=== PATIENT | male | born 1955 | race Caucasian/White ===

== ENCOUNTER 2016-11-25 15:44 | Inpatient (IN) | payer OTHER ==
[~2016-11-25] VITALS: Ht 170.2 cm; Wt 92.5 kg
[2016-11-25] VITALS (7 sets, daily range): BP systolic 138–184; BP diastolic 66–90; PULSE 68–78; RESP 16–19; TEMP 97.8–98.2; O2SAT 97–99
[~2016-11-25 15:44] MED LIST: ASCOPOW5 PO; BUSP10TA PO; FURO40TA PO; GABA100C4 PO; LANTUS2P SQ; NOVOLOGMXP SQ; SPIR100T PO; TAMS0.4C4 PO; VITAMIN B PO; ZOFR4TAB3 SL; [UNRECOGNIZED DRUG - CODE] PO
[2016-11-25] MEDS ORDERED: SODIUM CHLORIDE 0.9% FLUSH 10 ML FLUSH IV FLUSH PRN (17:30)
--- NOTE | 2016-11-25 17:37 | PD ---
HPI Chief Complaint: Psychiatric Symptoms Time Seen by Provider: 17:28 Travel History International Travel<30 days: No Contact w/Intl Traveler<30days: No Traveled to known affect area: No History of Present Illness HPI 61-year-old male presents to the emergency department sent by the [place] for evaluation of worsening abdominal pain. Patient was seen here last night for an "not feeling well, nausea". Patient states that he went to the [place] today and drained 2 L of fluid off of his abdomen while there. He states that they referred him to the emergency department for culture of the peritoneal fluid. He denies any fevers or chills. No chest pain or shortness of breath. He states that he is having worsening pain over the right upper quadrant where his catheter is. On exam, the patient is erythema to the abdomen. He states he cannot see it and did not know it was there. Patient reports history of anemia , denies any sources of bleeding at this time. Patient's history of liver cirrhosis due to alcoholism. He states he has not held any alcohol since March 20. Patient had paracentesis catheter placed at [facility]. PFS Past Medical History Anemia: Yes Anxiety: No Depression: Yes Cancer: No Cardiovascular Problems: Yes Cirrhosis: Yes Cerebrovascular Accident: No Diabetes: Yes Diminished Hearing: No Endocrine: Yes Gastrointestinal Disorders: Yes (GI BLEED) GERD: Yes Genitourinary: No Hepatitis: Yes (HEP C ) Hypertension: Yes Immune Disorder: No Musculoskeletal: No Neurologic: No Psychiatric: Yes Reproductive: No Respiratory: No Pancreatitis: Yes Thyroid Disease: No ?: Not Past Surgical History Abdominal Surgery: Yes (cholecystectomy) Cardiac Surgery: No Cholecystectomy: Yes (2004) Ear Surgery: No Endocrine Surgery: No Eye Surgery: No Genitourinary Surgery: No Gynecologic Surgery: No Oral Surgery: No Pacemaker: No Thoracic Surgery: No Other Surgery: Yes (BANDING FOR GI BLEED IN JAN 2013, BANDING IN FEB 2013, BANDING IN MAY 2012,) Social History Alcohol Use: Yes (03/20/16 LAST DRINK) Tobacco Use: No Substance Use: No Allergies-Medications (Allergen,Severity, Reaction): Coded Allergies: *MDRO Multi-Drug Resistant Organism (Verified Adverse Reaction, Unknown, ) MRSA PCR screen POSITIVE - 12/23/15 Reported Meds & Prescriptions Reported Meds & Active Scripts Active Reported Vitamin B-1 (Thiamine HCl) 100 Mg Tab 100 Mg PO DAILY Propranolol (Propranolol HCl) 20 Mg Tab 20 Mg PO DAILY Lactulose Liq (Lactulose) 10 Gm/15 Ml Soln 30 Ml PO BID PRN Pantoprazole (Pantoprazole Sodium) 40 Mg Tab 40 Mg PO DAILY Ferrous Gluconate 325 Mg Tab 324 Mg PO DAILY Escitalopram (Escitalopram Oxalate) 20 Mg Tab 20 Mg PO DAILY D3 (Cholecalciferol) 1,000 Unit Tab PO DAILY Doxepin (Doxepin HCl) 50 Mg Cap 50 Mg PO HS Lantus Inj (Insulin Glargine) 100 Unit/Ml Inj 40 Unit SQ HS Novolog Mix 70-30 Inj (Insulin Aspart Prota 70%/Aspart 30%) 1,000 Unit/10 Ml Vial 30 Unit SQ BID Ascorbic Acid (Ascorbic Acid (Bulk)) 1 Pow Pow 500 Mg PO DAILY Gabapentin 100 Mg Cap 300 Mg PO TID Furosemide 40 Mg Tab 40 Mg PO DAILY Tamsulosin (Tamsulosin HCl) 0.4 Mg Cap 0.4 Mg PO DAILY Buspirone (Buspirone HCl) 10 Mg Tab 10 Mg PO BID Spironolactone 100 Mg Tab 100 Mg PO BID Review of Systems Except as stated in HPI: all other systems reviewed are Neg Physical Exam Narrative GENERAL: Well-nourished, well-developed male patient, afebrile. SKIN: Focused skin assessment warm/dry. Patient has mild erythema to the right/ lower abdomen. He has more significant erythema around the catheter site. HEAD: Normocephalic. Atraumatic. EYES: No scleral icterus. No injection or drainage. NECK: Supple, trachea midline. No JVD or lymphadenopathy. CARDIOVASCULAR: Regular rate and rhythm without murmurs, gallops, or rubs. RESPIRATORY: Breath sounds equal bilaterally. No accessory muscle use. GASTROINTESTINAL: Abdomen distended, diffuse tenderness to palpation. MUSCULOSKELETAL: No cyanosis, or edema. BACK: Nontender without obvious deformity. No CVA tenderness. Data Data Last Documented VS Vital Signs Date Time Temp Pulse Resp B/P Pulse Ox O2 Delivery O2 Flow Rate FiO2 11/25/16 19:23 75 16 149/72 99 Room Air 11/25/16 17:15 97.8 Orders Complete Blood Count With Diff (11/25/16 17:22) Comprehensive Metabolic Panel (11/25/16 17:22) Lipase (11/25/16 17:22) Prothrombin Time / Inr (Pt) (11/25/16 17:22) Act Partial Throm Time (Ptt) (11/25/16 17:22) Urinalysis - C+S If Indicated (11/25/16 17:22) Iv Access Insert/Monitor (11/25/16 17:22) Ecg Monitoring (11/25/16 17:22) Oximetry (11/25/16 17:22) Sodium Chloride 0.9% Flush (Ns Flush) (11/25/16 17:30) Electrocardiogram (11/25/16 17:22) Peritoneal Cell Count + Diff (11/25/16 17:37) Total Protein Peritoneal Fluid (11/25/16 17:37) Albumin, Peritoneal Fluid (11/25/16 17:37) Glucose, Peritoneal Fluid (11/25/16 17:37) Ldh, Peritoneal Fluid (11/25/16 17:37) Amylase, Peritoneal Fluid (11/25/16 17:37) Fluid Culture And Gram Stain (11/25/16 17:37) Ldh Serum (11/25/16 17:37) Ceftriaxone Inj (Rocephin Inj) (11/25/16 18:15) Morphine Inj (Morphine Inj) (11/25/16 19:30) Labs Laboratory Tests Test 11/25/16 11/25/16 11/25/16 11/25/16 12:35 15:50 17:35 17:50 White Blood Count 3.3 TH/MM3 Red Blood Count 2.82 MIL/MM3 Hemoglobin 7.9 GM/DL Hematocrit 23.8 % Mean Corpuscular Volume 84.7 FL Mean Corpuscular Hemoglobin 28.1 PG Mean Corpuscular Hemoglobin 33.1 % Concent Red Cell Distribution Width 19.4 % Platelet Count 68 TH/MM3 Mean Platelet Volume 7.5 FL Neutrophils (%) (Auto) 62.6 % Lymphocytes (%) (Auto) 17.3 % Monocytes (%) (Auto) 15.3 % Eosinophils (%) (Auto) 4.0 % Basophils (%) (Auto) 0.8 % Neutrophils # (Auto) 2.1 TH/MM3 Lymphocytes # (Auto) 0.6 TH/MM3 Monocytes # (Auto) 0.5 TH/MM3 Eosinophils # (Auto) 0.1 TH/MM3 Basophils # (Auto) 0.0 TH/MM3 CBC Comment AUTO DIFF Differential Comment AUTO DIFF CONFIRMED Platelet Estimate LOW Platelet Morphology Comment NORMAL Peritoneal Fluid WBC 77 /MM3 Peritoneal Fluid RBC 990 /MM3 Peritoneal Fluid Neutrophils 3 % Peritoneal Fluid Lymphocytes 36 % Peritoneal Fluid Monocytes 9 % Peritoneal Fluid Mesothelial 7 % Cells Peritoneal Fluid Histiocytes 45 % Peritoneal Fluid Total Protein 0.9 GM/DL Peritoneal Fluid Albumin 0.3 G/DL Peritoneal Fluid LDH 61 U/L Peritoneal Fluid Glucose 246 MG/DL Prothrombin Time 15.0 SEC Prothromb Time International 1.3 RATIO Ratio Activated Partial 31.7 SEC Thromboplast Time Sodium Level 135 MEQ/L Potassium Level 4.2 MEQ/L Chloride Level 103 MEQ/L Carbon Dioxide Level 28.3 MEQ/L Anion Gap 4 MEQ/L Blood Urea Nitrogen 19 MG/DL Creatinine 0.85 MG/DL Estimat Glomerular Filtration 92 ML/MIN Rate Random Glucose 199 MG/DL Calcium Level 7.5 MG/DL Total Bilirubin 1.3 MG/DL Aspartate Amino Transf 144 U/L (AST/SGOT) Alanine Aminotransferase 75 U/L (ALT/SGPT) Alkaline Phosphatase 98 U/L Total Protein 6.0 GM/DL Albumin 2.3 GM/DL Lipase 122 U/L Test 11/25/16 18:00 Urine Color YELLOW Urine Turbidity CLEAR Urine pH 5.5 Urine Specific Paul 1.026 Urine Protein NEG mg/dL Urine Glucose (UA) 70 mg/dL Urine Ketones NEG mg/dL Urine Occult Blood NEG Urine Nitrite NEG Urine Bilirubin NEG Urine Urobilinogen 2.0 MG/DL Urine Leukocyte Esterase NEG Urine RBC 1 /hpf Urine WBC 1 /hpf Urine Squamous Epithelial <1 /hpf Cells Urine Hyaline Casts 2 /lpf Microscopic Urinalysis Comment CULT NOT INDICATED MDM Medical Decision Making Medical Screen Exam Complete: Yes Emergency Medical Condition: Yes Medical Record Reviewed: Yes Differential Diagnosis Bacterial peritonitis versus cirrhosis vs. ascites Narrative Course 61-year-old male presents to the emergency department sent by the [place] for peritoneal culture. Exam is concerning for possible bacterial peritonitis. CBC , CMP, lipase, PTT, PTT/INR, UA, peritoneal fluid examination and culture. During triage, apparently the patient also wanted to be seen for suicidal ideation according to the triage note. However, the patient denies this to me. He reports history of suicide attempts and ideation. However, he denies any thoughts of hurting himself or anybody else at this time. CBC shows leukopenia 3.3, hemoglobin 7.9, hematocrit 23.8. CMP shows glucose 199, bilirubin 1.3, AST 144. Lipase is 122. PT is 15.0, INR 1.3, PTT 31.7. UA is negative for infection. Peritoneal fluid shows to be BC 77, RBC 990. Patient is started on Rocephin [address] Horne accepted admission. Diagnosis Primary Impression: Bacterial peritonitis Additional Impressions: Cirrhosis of liver Qualified Code: K70.31 - Alcoholic cirrhosis of liver with ascites Ascites Qualified Code: K70.31 - Ascites due to alcoholic cirrhosis Anemia Qualified Code: D64.9 - Anemia, unspecified type Admitting Information Admitting Physician Requests: Admit Suellen Witt Nov 25, 2016 17:37
[2016-11-25] MEDS ORDERED: LACT10SO PO (17:47)
[2016-11-25] MEDS ORDERED: PANT40TA3 PO (17:47)
[2016-11-25] MEDS ORDERED: VITA100T54 PO (17:47)
[2016-11-25] MEDS ORDERED: ESCI20TA PO (17:47)
[2016-11-25] MEDS ORDERED: LACT10SO5 (17:47)
[2016-11-25] MEDS ORDERED: FERR325T72 PO (17:47)
[2016-11-25] MEDS ORDERED: D31000TA PO (17:47)
[2016-11-25] MEDS ORDERED: DOXE50CA3 PO (17:47)
[2016-11-25] MEDS ORDERED: PROP20TA3 PO (17:47)
--- NOTE | 2016-11-25 18:14 | PD ---
Data Data Last Documented VS Vital Signs Date Time Temp Pulse Resp B/P Pulse Ox O2 Delivery O2 Flow Rate FiO2 11/25/16 18:00 17 97 Room Air 11/25/16 17:15 86 11/25/16:15 97.8 146/67 Orders Complete Blood Count With Diff (11/25/16:22) Comprehensive Metabolic Panel (11/25/16:22) Lipase (11/25/16:22) Prothrombin Time / Inr (Pt) (11/25/16:) Act Partial Throm Time (Ptt) (11/25/16:22) Urinalysis - C+S If Indicated (11/25/16:22) Iv Access Insert/Monitor (11/25/16:22) Ecg Monitoring (11/25/16:) Oximetry (11/25/16:22) Sodium Chloride 0.9% Flush (Ns Flush) (11/25/16 17:30) Electrocardiogram (11/25/16:22) Peritoneal Cell Count + Diff (11/25/16 17:37) Total Protein Peritoneal Fluid (11/25/16 17:37) Albumin, Peritoneal Fluid (11/25/16 17:37) Glucose, Peritoneal Fluid (11/25/16 17:37) Ldh, Peritoneal Fluid (11/25/16 17:37) Amylase, Peritoneal Fluid (11/25/16 17:37) Fluid Culture And Gram Stain (11/25/16 17:37) Ldh Serum (11/25/16 17:37) Ceftriaxone Inj (Rocephin Inj) (11/25/16 18:15) MDM Supervised Visit with CORTES: Yes Narrative Course The history, exam, and medical decision-making in the associated mid-level provider note were completed with my assistance. I reviewed and agree with the findings presented. I attest that I had a [id number] encounter with the patient on the same day, and personally performed and documented my assessment and findings in the medical record. *My assessment and Findings: 61-year-old man with liver disease cirrhosis and recurrent ascites treated with a paracentesis catheter placed and likely known, PA. Here with not feeling well belly pain. He was seen here and had labs yesterday with essentially unremarkable as [facility] that he had labs done on his peritoneal fluid. He drains 2 L every 3 days. He doesn't some erythema on his belly. Some diffuse abdominal tenderness. There is some erythema around the catheter site as well. We are able to prep the catheter and drain fluid off. This will be sent to the lab for analysis. We'll place on antibiotics. We'll have IR evaluate the site, will likely need to be replaced. Kwadwo Amezquita MD Nov 25, 2016 18:14
[2016-11-25] MEDS ORDERED: cefTRIAXone INJ 2,000 MG in SODIUM CHLORIDE 0.9% INJ 100 ML IV ONE (18:15)
[2016-11-25 18:22] LABS: AUTOMATED NEUTROPHIL # 2.1 TH/MM3 (1.8-7.7); BASOPHIL % 0.8 % (0.0-2.0); EOSINOPHIL # 0.1 TH/MM3 (0-0.4); HEMATOCRIT 23.8 % (39.0-51.0); LYMPH % 17.3 % (9.0-44.0); LYMPHOCYTE # 0.6 TH/MM3 (1.0-4.8); MEAN CELL VOLUME 84.7 FL (80.0-100.0); MEAN CORPUSCULAR HEMOGLOBIN 28.1 PG (27.0-34.0); MEAN CORPUSCULAR HGB CONC 33.1 % (32.0-36.0); MONO % 15.3 % (0.0-8.0); NEUT % 62.6 % (16.0-70.0); PLATELET COUNT 68 TH/MM3 (150-450); RED BLOOD COUNT 2.82 MIL/MM3 (4.50-5.90); RED CELL DISTRIBUTION WIDTH 19.4 % (11.6-17.2); WHITE BLOOD COUNT 3.3 TH/MM3 (4.0-11.0)
[2016-11-25 18:24] LABS: BLOOD, URINE NEG (NEG); COMMENT (UR) CULT NOT INDICATED; CULTURE IF INDICATED CULT NOT INDICATED; GLUCOSE,URINE 70 mg/dL (NEG); HYALINE CAST, URINE 2 /lpf (RARE); KETONE, URINE NEG (NEG); NITRITE,URINE NEG (NEG); PH, URINE 5.5 (5.0-8.5); SQUAMOUS EPITHELIAL CELL URINE <1 /hpf (0-5); URINE COLOR YELLOW (YELLW/STRAW)
[2016-11-25 18:27] LABS: HEMO FLAGS AUTO DIFF
[2016-11-25 18:38] LABS: ANION GAP 4 MEQ/L (5-15); AST (GOT) 144 U/L (15-37); BICARBONATE 28.3 MEQ/L (21.0-32.0); BLOOD UREA NITROGEN 19 MG/DL (7-18); CHLORIDE 103 MEQ/L (98-107); GLOMERULAR FILTRATION RATE 92 ML/MIN (>89); POTASSIUM 4.2 MEQ/L (3.5-5.1); SODIUM (NA) 135 MEQ/L (136-145)
[2016-11-25 18:41] LABS: ALKALINE PHOSPHATASE 98 U/L (45-117); ALT (GPT) 75 U/L (12-78); TOTAL BILIRUBIN ADULT 1.3 MG/DL (0.2-1.0)
[2016-11-25 18:41] LABS: APTT (PATIENT) 31.7 SEC (24.3-30.1); INTERNATIONAL NORMALIZED RATIO 1.3 RATIO
[2016-11-25 19:06] LABS: PLATELET ESTIMATE SMEAR LOW (NORMAL); PLATELET MORPHOLOGY NORMAL (NORMAL); SCAN/DIFF AUTO DIFF CONFIRMED
[2016-11-25 19:16] LABS: PERITONEAL HISTIOCYTES 45 %; PERITONEAL LYMPHS 36 %; PERITONEAL MESOTHELIAL 7 %; PERITONEAL MONOS 9 %; PERITONEAL POLYS(SEGS) 3 %; PERITONEAL WBC 77 /MM3 (0-10)
[2016-11-25] MEDS ORDERED: MORPHINE SULFATE 4 MG/ML INJ IV PUSH ONE (19:30)
[2016-11-25] MEDS ORDERED: NALOXONE HCL 0.4 MG/ML AMP IV PRN (20:30)
[2016-11-25] MEDS: SODIUM CHLORIDE 0.9% FLUSH 10 ML FLUSH IV FLUSH SCH (21:01)
[2016-11-25] MEDS: LEVOFLOXACIN 750 MG PREMIX INJ 150 ML IV SCH (21:01)
[2016-11-25 23:25] LABS: LDH SERUM 314 U/L (87-241)
[2016-11-26] VITALS (9 sets, daily range): BP systolic 107–165; BP diastolic 64–73; PULSE 54–82; RESP 16–19; TEMP 97.6–98; O2SAT 95–98
[2016-11-26] MEDS ORDERED: MORPHINE SULFATE 4 MG/ML INJ IV PUSH ONE (01:00)
--- NOTE | 2016-11-26 03:25 | HHI.HP ---
HPI Service [facility] Phys[facility] Admission Diagnosis possible bacterial peritonitis Diagnoses: Chief Complaint: pain, redness and drainage around peritoneal drain site Travel History International Travel<30 Days: No Contact w/Intl Traveler <30 Da: No Traveled to Known Affected Are: No History of Present Illness Written by LIVIER Recinos acting as scribe for [Ozzie] on 11/26/16 at 03: 11. 61 y/o male with a history of cirrhosis, Hep C, DM, HTN and anemia was [facility] for evaluation of peritoneal fluid. Patient has a peritoneal catheter in place and he states it has been red with purulent drainage around the site, with associated nausea. He also complains of pain around the site, worse with movement and improves with medication. He denies any vomiting, chest pain, fever or chills. He does get sob when the fluid accumulates, but he is not currently sob. Review of Systems Except as stated in HPI: all other systems reviewed are Neg Past Family Social History Past Medical History Cirrhosis Hep C DM HTN Anemia Esophageal varices Past Surgical History Cholecystectomy 2005 Esophageal banding Reported Medications Reported Meds & Active Scripts Active Reported Vitamin B-1 (Thiamine HCl) 100 Mg Tab 100 Mg PO DAILY Propranolol (Propranolol HCl) 20 Mg Tab 20 Mg PO DAILY Lactulose Liq (Lactulose) 10 Gm/15 Ml Soln 30 Ml PO BID PRN Pantoprazole (Pantoprazole Sodium) 40 Mg Tab 40 Mg PO DAILY Ferrous Gluconate 325 Mg Tab 324 Mg PO DAILY Escitalopram (Escitalopram Oxalate) 20 Mg Tab 20 Mg PO DAILY D3 (Cholecalciferol) 1,000 Unit Tab PO DAILY Doxepin (Doxepin HCl) 50 Mg Cap 50 Mg PO HS Lantus Inj (Insulin Glargine) 100 Unit/Ml Inj 40 Unit SQ HS Novolog Mix 70-30 Inj (Insulin Aspart Prota 70%/Aspart 30%) 1,000 Unit/10 Ml Vial 30 Unit SQ BID Ascorbic Acid (Ascorbic Acid (Bulk)) 1 Pow Pow 500 Mg PO DAILY Gabapentin 100 Mg Cap 300 Mg PO TID Furosemide 40 Mg Tab 40 Mg PO DAILY Tamsulosin (Tamsulosin HCl) 0.4 Mg Cap 0.4 Mg PO DAILY Buspirone (Buspirone HCl) 10 Mg Tab 10 Mg PO BID Spironolactone 100 Mg Tab 100 Mg PO BID Allergies: Coded Allergies: *MDRO Multi-Drug Resistant Organism (Verified Adverse Reaction, Unknown, ) MRSA PCR screen POSITIVE - 12/23/15 Active Ordered Medications Current Medications Medications (Trade) Dose Ordered Sig/Fortino Route Start Time Stop Time Status Last Admin (NS Flush) 2 ml UNSCH PRN IV FLUSH 11/25/16 20:30 (NS Flush) 2 ml BID IV FLUSH 11/25/16 21:00 11/25/16 21:01 Naloxone HCl 0.4 mg 0.4 mg UNSCH PRN IV 11/25/16 20:30 (Levaquin 750 Mg Premix Inj) 150 ml @ 100 mls/hr Q24H IV 11/25/16 21:00 11/25/16 21:01 Family History Mom: Depression Brother: Cancer Social History Tobacco use: Denies Alcohol use: Quit 03/2016, prior was a heavy drinker Patient is currently homeless Physical Exam Vital Signs Vital Signs Date Time Temp Pulse Resp B/P Pulse Ox O2 Delivery O2 Flow Rate FiO2 11/26/16 00:59 98.0 68 18 165/70 98 11/25/16 21:40 98.2 78 18 184/80 97 11/25/16 21:15 75 16 138/90 93 11/25/16 19:23 75 16 149/72 99 Room Air 11/25/16 18:00 17 97 Room Air 11/25/16 17:15 86 16 11/25/16 17:15 97.8 78 17 146/67 97 Room Air 11/25/16 15:58 98.0 68 19 138/66 97 Room Air Physical Exam GENERAL: This is a well-nourished, well-developed patient, in no apparent distress. SKIN: No rashes, ecchymoses or lesions. Cool and dry. HEAD: Atraumatic. Normocephalic EYES: Pupils equal round and reactive. Extraocular motions intact. ENT: Nose without bleeding, purulent drainage or septal hematoma. NECK: Trachea midline. No JVD or lymphadenopathy. Supple, nontender, no meningeal signs. CARDIOVASCULAR: Regular rate and rhythm without murmurs, gallops, or rubs. RESPIRATORY: Clear to auscultation. Breath sounds equal bilaterally. No wheezes , rales, or rhonchi. GASTROINTESTINAL: Abdomen soft, tender and distended. No hepato-splenomegaly, or palpable masses. No guarding. Right peritoneal drain in place with purulent drainage around site. MUSCULOSKELETAL: Extremities without clubbing, cyanosis, or edema. No joint tenderness, effusion, or edema noted. No calf tenderness. NEUROLOGICAL: Awake and alert. Motor and sensory grossly within normal limits. Normal speech. Laboratory Laboratory Tests Test 11/25/16 11/25/16 11/25/16 11/25/16 12:35 15:50 17:35 17:50 White Blood Count 3.3 Red Blood Count 2.82 Hemoglobin 7.9 Hematocrit 23.8 Mean Corpuscular Volume 84.7 Mean Corpuscular Hemoglobin 28.1 Mean Corpuscular Hemoglobin 33.1 Concent Red Cell Distribution Width 19.4 Platelet Count 68 Mean Platelet Volume 7.5 Neutrophils (%) (Auto) 62.6 Lymphocytes (%) (Auto) 17.3 Monocytes (%) (Auto) 15.3 Eosinophils (%) (Auto) 4.0 Basophils (%) (Auto) 0.8 Neutrophils # (Auto) 2.1 Lymphocytes # (Auto) 0.6 Monocytes # (Auto) 0.5 Eosinophils # (Auto) 0.1 Basophils # (Auto) 0.0 CBC Comment AUTO DIFF Differential Comment AUTO DIFF CONFIRMED Platelet Estimate LOW Platelet Morphology Comment NORMAL Peritoneal Fluid WBC 77 Peritoneal Fluid RBC 990 Peritoneal Fluid Neutrophils 3 Peritoneal Fluid Lymphocytes 36 Peritoneal Fluid Monocytes 9 Peritoneal Fluid Mesothelial 7 Cells Peritoneal Fluid Histiocytes 45 Peritoneal Fluid Total Protein 0.9 Peritoneal Fluid Albumin 0.3 Peritoneal Fluid LDH 61 Peritoneal Fluid Glucose 246 Prothrombin Time 15.0 Prothromb Time International 1.3 Ratio Activated Partial 31.7 Thromboplast Time Sodium Level 135 Potassium Level 4.2 Chloride Level 103 Carbon Dioxide Level 28.3 Anion Gap 4 Blood Urea Nitrogen 19 Creatinine 0.85 Estimat Glomerular Filtration 92 Rate Random Glucose 199 Calcium Level 7.5 Total Bilirubin 1.3 Aspartate Amino Transf 144 (AST/SGOT) Alanine Aminotransferase 75 (ALT/SGPT) Alkaline Phosphatase 98 Lactate Dehydrogenase 314 Total Protein 6.0 Albumin 2.3 Lipase 122 Test 11/25/16 18:00 Urine Color YELLOW Urine Turbidity CLEAR Urine pH 5.5 Urine Specific Warren 1.026 Urine Protein NEG Urine Glucose (UA) 70 Urine Ketones NEG Urine Occult Blood NEG Urine Nitrite NEG Urine Bilirubin NEG Urine Urobilinogen 2.0 Urine Leukocyte Esterase NEG Urine RBC 1 Urine WBC 1 Urine Squamous Epithelial <1 Cells Urine Hyaline Casts 2 Microscopic Urinalysis Comment CULT NOT INDICATED Date/Time Procedure Status Source Growth 11/25/16 15:50 Gram Stain Received Fluid Peritoneal Fluid Pending 11/25/16 15:50 Body Fluid Culture Received Fluid Peritoneal Fluid Pending Result Diagram: 11/25/16 1235 11/25/16 1750 Assessment and Plan Problem List: (1) Bacterial peritonitis ICD Code: K65.9 Status: Acute (2) DM (diabetes mellitus) ICD Code: E11.9 Status: Chronic (3) HTN (hypertension) ICD Code: I10 Status: Chronic Assessment and Plan 61 y/o male with a history of cirrhosis, Hep C, DM, HTN and anemia [facility]. Patient has a peritoneal catheter in place and he states it has been red with purulent drainage around the site, with associated nausea. Bacterial peritonitis, patient with peritoneal catheter in place, peritoneal wbc 77 -Consult IR for replacement of catheter -Antibiotics: Levaquin IV -Pain management with IV morphine Anemia, chronic, hgb 7.9 -Cont home ferrous sulfate -Trend CBC, will transfuse if hgb drops below 7 DM, chronic -Accu checks -Will restart home insulin post IR procedure HTN, chronic - Resume home medications propranolol DVT prophylaxis: SCDs This note was transcribed by anne [Edith Stallings]. I, Dr. Yajaira Horne personally performed the history, physical exam, and medical decision making; and confirmed the accuracy of the information in the transcribed note. Authenticated by Dr. Yajaira Horne on 11/26/16 at 03:11. Discussed Condition With Patient and RN Physician Certification 2 Midnight Certification Type: Admission for Inpatient Services Order for Inpatient Services The services are ordered in accordance with Medicare regulations or non- Medicare payer requirements, as applicable. In the case of services not specified as inpatient-only, they are appropriately provided as inpatient services in accordance with the 2-midnight benchmark. Estimated LOS (days): 2 days is the estimated time the patient will need to remain in the hospital, assuming treatment plan goals are met and no additional complications. Post-Hospital Plan: Home Edith Stallings Nov 26, 2016 03:25 Yajaira Horne MD Nov 26, 2016 07:28
[2016-11-26] MEDS ORDERED: LACTULOSE SYRUP 20 GM/30 ML CUP PO PRN (04:30)
[2016-11-26 08:10] LABS: AUTOMATED NEUTROPHIL # 2.3 TH/MM3 (1.8-7.7); BASOPHIL % 0.7 % (0.0-2.0); EOSINOPHIL # 0.2 TH/MM3 (0-0.4); EOSINOPHIL % 5.1 % (0.0-4.0); HEMATOCRIT 24.7 % (39.0-51.0); LYMPH % 16.5 % (9.0-44.0); LYMPHOCYTE # 0.6 TH/MM3 (1.0-4.8); MEAN CORPUSCULAR HEMOGLOBIN 27.5 PG (27.0-34.0); MEAN CORPUSCULAR HGB CONC 32.7 % (32.0-36.0); NEUT % 66.7 % (16.0-70.0); PLATELET COUNT 65 TH/MM3 (150-450); RED BLOOD COUNT 2.94 MIL/MM3 (4.50-5.90); RED CELL DISTRIBUTION WIDTH 19.7 % (11.6-17.2); WHITE BLOOD COUNT 3.5 TH/MM3 (4.0-11.0)
[2016-11-26 08:19] LABS: HEMO FLAGS AUTO DIFF
[2016-11-26 08:21] LABS: BICARBONATE 25.8 MEQ/L (21.0-32.0); POTASSIUM 3.6 MEQ/L (3.5-5.1)
[2016-11-26] MEDS: busPIRone HCL 10 MG TAB PO SCH ×2 (09:06→21:35)
[2016-11-26] MEDS: PANTOPRAZOLE SOD 40 MG DELAYED RELEASE TAB PO SCH (09:06)
[2016-11-26] MEDS: ESCITALOPRAM OXALATE 20 MG TAB PO SCH (09:06)
[2016-11-26] MEDS: FERROUS SULFATE 325 MG (65 MG ELEMENTAL IRON) TAB PO SCH (09:07)
[2016-11-26] MEDS: ASCORBIC ACID 500 MG TAB PO SCH (09:07)
[2016-11-26] MEDS: SODIUM CHLORIDE 0.9% FLUSH 10 ML FLUSH IV FLUSH SCH ×2 (09:07→21:36)
[2016-11-26] MEDS: THIAMINE HCL 100 MG TAB PO SCH (09:07)
[2016-11-26] MEDS: TAMSULOSIN HCL 0.4 MG CAP PO SCH (09:07)
[2016-11-26] MEDS: SPIRONOLACTONE 100 MG TAB PO SCH ×2 (09:08→21:35)
[2016-11-26] MEDS: GABAPENTIN 100 MG CAP PO SCH ×3 (09:08→16:41)
[2016-11-26] MEDS: MORPHINE SULFATE 4 MG/ML INJ IV PUSH PRN ×3 (09:15→21:54)
[2016-11-26 09:18] LABS: OVALOCYTES 1+ (NORMAL); PLATELET ESTIMATE SMEAR LOW (NORMAL); PLATELET MORPHOLOGY NORMAL (NORMAL)
[2016-11-26 09:19] LABS: SCAN/DIFF AUTO DIFF CONFIRMED
--- NOTE | 2016-11-26 10:19 | HHI.PR ---
Subjective Remarks Follow up peritoneal catheter infection. Patient reporting pain in abdomen around the catheter site. Denies chest pain, dyspnea, nausea, vomiting. Objective Vitals Vital Signs Date Time Temp Pulse Resp B/P Pulse Ox O2 Delivery O2 Flow Rate FiO2 11/26/16 06:58 67 11/26/16 06:56 71 11/26/16 04:04 71 11/26/16 00:59 98.0 68 18 165/70 98 11/26/16 00:46 68 11/25/16 21:45 71 11/25/16 21:40 98.2 78 18 184/80 97 11/25/16 21:15 75 16 138/90 93 11/25/16 19:23 75 16 149/72 99 Room Air 11/25/16 18:00 17 97 Room Air 11/25/16 17:15 86 16 11/25/16 17:15 97.8 78 17 146/67 97 Room Air 11/25/16 15:58 98.0 68 19 138/66 97 Room Air Result Diagram: 11/26/16 0728 11/26/16727 Objective Remarks General: No acute distress. Heart: Regular rate and rhythm. No murmur. Lungs: Clear to auscultation bilaterally. No wheezes, rales, or rhonchi. Breathing is nonlabored. Abdomen: Soft, distended. Tenderness and erythema around catheter. There is also some pustular drainage around the catheter site. No tenderness over the rest of the abdomen. Extremities: 1+ bilateral lower extremity edema. Psych: Alert and oriented. Procedures None Urinary Catheter: No Vascular Central Line Catheter: No A/P Problem List: (1) DM (diabetes mellitus) ICD Code: E11.9 Status: Chronic (2) HTN (hypertension) ICD Code: I10 Status: Chronic (3) Anemia ICD Code: D64.9 Status: Chronic (4) Ascites ICD Code: R18.8 Status: Chronic (5) Cirrhosis of liver ICD Code: K74.60 Status: Chronic Assessment and Plan 1. Cellulitis at peritoneal catheter site: Continue IV antibiotics. Discussed with interventional radiology. They plan to remove the catheter today and give the patient a catheter holiday for a few days before replacing it. Gastroenterology consulted. 2. Cirrhosis of the liver with chronic ascites: Patient has indwelling peritoneal catheter for drainage of ascites. Consult GI. 3. Chronic anemia: Likely secondary to chronic disease. Continue iron sulfate. Transfuse if necessary. 4. Diabetes mellitus: Monitor Accu-Cheks and cover with sliding scale insulin. Basal insulin on hold as patient is nothing by mouth. 5. Hypertension: Continue propranolol. 6. DVT prophylaxis: SCDs. Problem Qualifiers (1) Anemia: Qualified Code: D64.9 - Anemia, unspecified type (2) Ascites: Qualified Code: K70.31 - Ascites due to alcoholic cirrhosis (3) Cirrhosis of liver: Qualified Code: K70.31 - Alcoholic cirrhosis of liver with ascites Alan Bains MD Nov 26, 2016 10:19
--- NOTE | 2016-11-26 11:45 | PD.CONS ---
HPI History of Present Illness This is a 61 year old male patient with a known hx of liver cirrhosis, esophageal varices, ascites, hepatitis C, GAVE, and GI bleeding. He was sent from the [place] for evaluation of redness and purulent drainage around a peritoneal drain and increased nausea. He was admitted for bacterial peritonitis and anemia. Peritoneal fluid from his peritoneal catheter was sent to lab and his cultures are pending. He was started on Levaquin and IR has been consulted for infection at the peritoneal drain site. He reports that he has recurrent ascites. Initially, he could go several months without needing a repeat paracentesis, but he reports that over the past month, he has been requiring more frequent paracentesis, usually about every 4-5 days. He is on Spironolactone 100mg po BID and Lasix 40mg po daily. He had a peritoneal drain placed 13 days ago. Since he has had the drain placed, he will open and drain the fluid about every 3 days. He came to the ER on Thursday afternoon complaining of abdominal pain. He reports that he was given a shot for nausea and sent on his way. He then followed up at the [place] yesterday and he complained of the pain and they sent him to the ER via ambulance for further evaluation. This is an intermittent RUQ pain without radiation that is sharp and related to movement. He did have some nausea on Thursday morning, but not since then. He denies any vomiting, fever, chills, melena, or hematochezia. The patient reports he was diagnosed with cirrhosis and hepatitis C about 7 years ago. He was told that his cirrhosis was related to ETOH abuse. He had a EGD (06/29/13)-- ---> GAVE's disease, esophageal varices- grade 2, no stigmata of bleeding. It was recommended that he have a repeat EGD in 3-4 months for further treatment of GAVE's disease and possible esophageal banding. He reports that he has not had a repeat EGD since that time. He has not had treatment for his hepatitis C. He has not had alcohol since 03/20/16. He was told that he would need to be with no ETOH x 1 year and to lose weight before they would consider him for HCV treatment. He was seen by IR and his catheter was removed earlier today by IR. There is an open area from the site and this is draining a moderate to large amount of ascitic fluid. (Angle Zee) PFSH Past Medical History Cirrhosis Hepatitis C Alcohol abuse Diabetes Hypertension Seizures disorder GAVE Esophageal Varices GI bleeding Recurrent ascites Past Surgical History EGD with banding, APC Cholecystectomy (2004) Hx of what sounds like a bile leak after cholecystectomy requiring an ERCP with stent placement and subsequent removal Colonoscopy in 2008 in [place], noted hemorrhoids per the pt (Angle Zee) Coded Allergies: *MDRO Multi-Drug Resistant Organism (Verified Adverse Reaction, Unknown, ) MRSA PCR screen POSITIVE - 12/23/15 Medications Allergies Coded Allergies Type Severity Reaction Last Updated Verified *MDRO Multi-Drug Resistant Organism Adverse Reaction Unknown 11/25/16 Yes Active Scripts Medications Dose Route/Sig Days Date Category Vitamin B-1 (Thiamine HCl) 100 Mg Tab 100 Mg PO DAILY 11/25/16 Reported Propranolol (Propranolol HCl) 20 Mg Tab 20 Mg PO DAILY 11/25/16 Reported Lactulose Liq (Lactulose) 10 Gm/15 Ml Soln 30 Ml PO BID PRN 11/25/16 Reported Pantoprazole (Pantoprazole Sodium) 40 Mg Tab 40 Mg PO DAILY 11/25/16 Reported Ferrous Gluconate 325 Mg Tab 324 Mg PO DAILY 11/25/16 Reported Escitalopram (Escitalopram Oxalate) 20 Mg Tab 20 Mg PO DAILY 11/25/16 Reported D3 (Cholecalciferol) 1,000 Unit Tab PO DAILY 11/25/16 Reported Doxepin (Doxepin HCl) 50 Mg Cap 50 Mg PO HS 11/25/16 Reported Lantus Inj (Insulin Glargine) 100 Unit/Ml Inj 40 Unit SQ HS 11/24/16 Reported Novolog Mix 70-30 Inj (Insulin Aspart Prota 70%/Aspart 30%) 1,000 Unit/10 Ml Vial 30 Unit SQ BID 11/24/16 Reported Ascorbic Acid (Ascorbic Acid (Bulk)) 1 Pow Pow 500 Mg PO DAILY 11/24/16 Reported Gabapentin 100 Mg Cap 300 Mg PO TID 11/24/16 Reported Furosemide 40 Mg Tab 40 Mg PO DAILY 11/24/16 Reported Tamsulosin (Tamsulosin HCl) 0.4 Mg Cap 0.4 Mg PO DAILY 11/24/16 Reported Buspirone (Buspirone HCl) 10 Mg Tab 10 Mg PO BID 8/14/17 Reported Spironolactone 100 Mg Tab 100 Mg PO BID 11/24/16 Reported Family History Mom: Depression Brother: Cancer Social History Tobacco use: Denies Alcohol use: Quit drinking March of 2016. (Angle Zee) Review of Systems Constitutional: COMPLAINS OF: Weight loss (planned), DENIES: Fatigue, Fever, Chills Respiratory: DENIES: Cough Cardiovascular: DENIES: Chest pain Gastrointestinal: COMPLAINS OF: Abdominal pain, Nausea, Swelling of Abdomen, DENIES: Black stools, Bloody stools, Constipation, Diarrhea, Vomiting, Heartburn , Hematemesis Genitourinary: DENIES: Urinary frequency (strong smelling urine) Musculoskeletal: DENIES: Back pain Hematologic/lymphatic: DENIES: Bruising Neurologic: DENIES: Headache Psychiatric: DENIES: Confusion (Angle Zee) GI Exam Vitals I&O Vital Signs Date Time Temp Pulse Resp B/P Pulse Ox O2 Delivery O2 Flow Rate FiO2 11/26/16 10:31 97.9 82 19 142/65 96 11/26/16 06:58 67 11/26/16 06:56 71 11/26/16 04:04 71 11/26/16 00:59 98.0 68 18 165/70 98 11/26/16 00:46 68 11/25/16 21:45 71 11/25/16 21:40 98.2 78 18 184/80 97 11/25/16 21:15 75 16 138/90 93 11/25/16 19:23 75 16 149/72 99 Room Air 11/25/16 18:00 17 97 Room Air 11/25/16 17:15 86 16 11/25/16 17:15 97.8 78 17 146/67 97 Room Air 11/25/16 15:58 98.0 68 19 138/66 97 Room Air I/O 11/25/16 11/25/16 11/25/16 11/26/16 11/26/16 11/26/16 06:59 14:59 22:59 06:59 14:59 22:59 Output Total 425 ml Balance -425 ml Output Urine Total 425 ml Laboratory Test 11/25/16 11/25/16 11/25/16 11/25/16 12:35 15:50 17:35 17:50 White Blood Count 3.3 TH/MM3 Red Blood Count 2.82 MIL/MM3 Hemoglobin 7.9 GM/DL Hematocrit 23.8 % Mean Corpuscular Volume 84.7 FL Mean Corpuscular Hemoglobin 28.1 PG Mean Corpuscular Hemoglobin 33.1 % Concent Red Cell Distribution Width 19.4 % Platelet Count 68 TH/MM3 Mean Platelet Volume 7.5 FL Neutrophils (%) (Auto) 62.6 % Lymphocytes (%) (Auto) 17.3 % Monocytes (%) (Auto) 15.3 % Eosinophils (%) (Auto) 4.0 % Basophils (%) (Auto) 0.8 % Neutrophils # (Auto) 2.1 TH/MM3 Lymphocytes # (Auto) 0.6 TH/MM3 Monocytes # (Auto) 0.5 TH/MM3 Eosinophils # (Auto) 0.1 TH/MM3 Basophils # (Auto) 0.0 TH/MM3 CBC Comment AUTO DIFF Differential Comment AUTO DIFF CONFIRMED Platelet Estimate LOW Platelet Morphology Comment NORMAL Peritoneal Fluid WBC 77 /MM3 Peritoneal Fluid RBC 990 /MM3 Peritoneal Fluid Neutrophils 3 % Peritoneal Fluid Lymphocytes 36 % Peritoneal Fluid Monocytes 9 % Peritoneal Fluid Mesothelial 7 % Cells Peritoneal Fluid Histiocytes 45 % Peritoneal Fluid Total Protein 0.9 GM/DL Peritoneal Fluid Albumin 0.3 G/DL Peritoneal Fluid LDH 61 U/L Peritoneal Fluid Glucose 246 MG/DL Prothrombin Time 15.0 SEC Prothromb Time International 1.3 RATIO Ratio Activated Partial 31.7 SEC Thromboplast Time Sodium Level 135 MEQ/L Potassium Level 4.2 MEQ/L Chloride Level 103 MEQ/L Carbon Dioxide Level 28.3 MEQ/L Anion Gap 4 MEQ/L Blood Urea Nitrogen 19 MG/DL Creatinine 0.85 MG/DL Estimat Glomerular Filtration 92 ML/MIN Rate Random Glucose 199 MG/DL Calcium Level 7.5 MG/DL Total Bilirubin 1.3 MG/DL Aspartate Amino Transf 144 U/L (AST/SGOT) Alanine Aminotransferase 75 U/L (ALT/SGPT) Alkaline Phosphatase 98 U/L Lactate Dehydrogenase 314 U/L Total Protein 6.0 GM/DL Albumin 2.3 GM/DL Lipase 122 U/L Test 11/25/16 11/26/16 18:00 07:28 Urine Color YELLOW Urine Turbidity CLEAR Urine pH 5.5 Urine Specific [place] 1.026 Urine Protein NEG mg/dL Urine Glucose (UA) 70 mg/dL Urine Ketones NEG mg/dL Urine Occult Blood NEG Urine Nitrite NEG Urine Bilirubin NEG Urine Urobilinogen 2.0 MG/DL Urine Leukocyte Esterase NEG Urine RBC 1 /hpf Urine WBC 1 /hpf Urine Squamous Epithelial <1 /hpf Cells Urine Hyaline Casts 2 /lpf Microscopic Urinalysis Comment CULT NOT INDICATED White Blood Count 3.5 TH/MM3 Red Blood Count 2.94 MIL/MM3 Hemoglobin 8.1 GM/DL Hematocrit 24.7 % Mean Corpuscular Volume 84.0 FL Mean Corpuscular Hemoglobin 27.5 PG Mean Corpuscular Hemoglobin 32.7 % Concent Red Cell Distribution Width 19.7 % Platelet Count 65 TH/MM3 Mean Platelet Volume 7.6 FL Neutrophils (%) (Auto) 66.7 % Lymphocytes (%) (Auto) 16.5 % Monocytes (%) (Auto) 11.0 % Eosinophils (%) (Auto) 5.1 % Basophils (%) (Auto) 0.7 % Neutrophils # (Auto) 2.3 TH/MM3 Lymphocytes # (Auto) 0.6 TH/MM3 Monocytes # (Auto) 0.4 TH/MM3 Eosinophils # (Auto) 0.2 TH/MM3 Basophils # (Auto) 0.0 TH/MM3 CBC Comment AUTO DIFF Differential Comment AUTO DIFF CONFIRMED Platelet Estimate LOW Platelet Morphology Comment NORMAL Ovalocytes 1+ Sodium Level 133 MEQ/L Potassium Level 3.6 MEQ/L Chloride Level 102 MEQ/L Carbon Dioxide Level 25.8 MEQ/L Anion Gap 5 MEQ/L Blood Urea Nitrogen 14 MG/DL Creatinine 0.69 MG/DL Estimat Glomerular Filtration 117 ML/MIN Rate Random Glucose 132 MG/DL Calcium Level 7.5 MG/DL Date/Time Procedure Status Source Growth 11/25/16 15:50 Gram Stain - Final Resulted Fluid Peritoneal Fluid 11/25/16 15:50 Body Fluid Culture Resulted Fluid Peritoneal Fluid Pending Physical Examination HEENT: Normocephalic; atraumatic; no jaundice. CHEST: CTA CARDIAC: RRR ABDOMEN: Soft, distended ascites,RUQ tenderness; no hepatosplenomegaly; bowel sounds are present in all four quadrants. Old drain site left abdomen draining mod-large amount of ascitic fluid EXTREMITIES: Mild ble edema. SKIN: Normal; no rash; no jaundice. CHASSIS ENGINEER: No focal deficits; alert and oriented times three. (Angle Zee) Assessment and Plan Plan ASSESSMENT: - Recurrent ascites. Pt has been on Spironolactone 100mg po BID and Lasix 40mg po daily at home. He reports that he has had worsening ascites over the past month, requiring frequent paracentesis every 4-5 days. He had a peritoneal drain placed 13 days ago and states that he has been draining his ascitic fluid every 3 days. There was some concern for infection and he was evaluated by IR and this was removed earlier today---> infection of peritoneal drainage catheter. 1.3L of clear, straw-colored ascites removed before drain was removed. Tip of drain sent for culture. He is draining a moderate to large amount from the old site. There is slight redness at the site itself, no edema. He denies fevers/chills. WBC unremarkable. He is hoping to have a new tube placed once this heals. Cx pending. Levaquin. - RUQ pain. Sharp intermittent pain RUQ without radiation, seems to be related to movement more than food. - Anemia. Denies any obvious blood loss. HH 8.1/24.7. Has a hx of GAVE, Varices, GIB. Last EGD (06/29/13)-----> GAVE's disease, esophageal varices- grade 2, no stigmata of bleeding. It was recommended that he have a repeat EGD in 3-4 months for further treatment of GAVE's disease and possible esophageal banding. He reports that he has not had a repeat EGD since that time. - Liver cirrhosis secondary to HCV and ETOH. Last ETOH was 03/20/16. T. Bili 1.3 , AST 144, ALT 75, Alk Phosph 98. - Hepatic encephalopathy. Lactulose. He is oriented. - GAVE's disease. Last EGD as above. PPI - HCV, Tx naive. [facility] x 1 year. Last drank 03/20/16. - DM, HTN, per attending. PLAN: - Plan for egd with possible APC/Band ligation in am - Obtain consents - NPO after MN - Heart healthy low sodium diet until MN - Await cultures - Cont. Abx - Cont. Lasix, Spironolactone - Cont. Lactulose - Cont. Propranolol - Add PPI - Monitor labs - Transfuse as necessary - Supportive care - Further recommendations to follow based on results of above - Pt seen and examined by Dr. Fortune and myself and this note is written on his behalf (Angle Zee) Physician Comments Patient seen and examined Agree with above Continue with current supportive care Monitor labs Add Lasix 40 mg daily and a strict low-salt diet Recommend EGD in a.m. Doubt the need for another drain catheter for the peritoneal fluid (Demarco Fortune MD) Angle Zee Nov 26, 2016 11:45 Demarco Fortune MD Nov 26, 2016 17:50
--- NOTE | 2016-11-26 12:30 | PD.RAD ---
Post Procedure Progress Note Pre Procedure Diagnosis: (1) Encounter for drainage of infection Post Procedure Diagnosis: (1) Encounter for drainage of infection Procedure Date: Nov 26, 2016 Supervising Radiologist: Joselito Cantu JR Proceduralist/Assist: Blanca Webster, RT(R)(CV), Bala Baez, RT(R) Anesthesia: Local Plan of Activity Patient to Unit: Nursing Unit Patient Condition: Good Additional Comments: Infection of peritoneal drainage catheter. 1.3L of clear, straw-colored ascites removed before drain was removed. Tip of drain sent for culture. See PACS Report for procedural detail/treatment Jr. Pepe,Joselito Jones MD Nov 26, 2016 12:30
[2016-11-26] MEDS: PROPRANOLOL HCL 20 MG TAB PO SCH (13:05)
--- NOTE | 2016-11-26 14:20 | RADRPT ---
EXAM DATE/TIME: 11/26/2016 00:00 [facility] COMPARISON: No previous studies available for comparison. INDICATIONS : Patient with ascities .Pluerix cath infected. Need to remove cath. Paracentesis prior to catheter re moval. MEDICAL HISTORY : 1. Cirrhosis 2. Hep C 3. DM 4. HTN 5. Anemia 6. Esophageal varices SURGICAL HISTORY : 1. Cholecystectomy 2. Esophageal banding 3. Pluerix cath ENCOUNTER: Initial ACUITY: 1 year PAIN SCORE: 2/10 LOCATION: abd at cath site. DEVICE(S): 1.) plureix cath FLUID: Total volume [id number] cc of clear, yellow fluid was removed. PROCEDURE : 1. paracentesis through an existing catheter The risks, benefits and alternatives to the procedure were explained and verbal and written consent w as obtained. The site was prepped in sterile fashion. Full sterile technique was used, including ca p, mask, sterile gloves and gown and a large sterile sheet. Hand hygiene and 2% chlorhexidine prep w as utilized per protocol for cutaneous antisepsis with appropriate dry time for site. The catheter is not a style catheter we stock. We have no adapter that will fit this type of catheter. The catheter was ligated and 11 [place] dilator positioned within the catheter lumen. [facility]. CONCLUSION: Paracentesis through the existing peritoneal drain. 2 L removed without residual fluid. Joselito Cantu Jr., MD on November 26, 2016 at 14:16 Board Certified Radiologist. This report was verified electronically.
[2016-11-26] MEDS ORDERED: PANTOPRAZOLE SODIUM 40 MG VIAL IV PUSH SCH (14:30)
[2016-11-26] MEDS: DOXEPIN HCL 50 MG CAP PO SCH (21:35)
[2016-11-26] MEDS: LEVOFLOXACIN 750 MG PREMIX INJ 150 ML IV SCH (21:36)
[2016-11-27 03:33] VITALS: BP 98/68; PULSE 68; RESP 19; TEMP 96; O2SAT 98
[2016-11-27] MEDS ORDERED: LACTATED RINGER'S 1000 ML IV PRN (05:30)
[2016-11-27] MEDS ORDERED: POVIDONE IODINE 5% (ANTISEPSIS KIT) 4 APPLICATIONS EACH NARE PRN (05:30)
[2016-11-27] MEDS ORDERED: CHLORHEXIDINE GLUCONATE 2 % 1 PACK (2 CLOTHS) TOPICAL PRN (05:30)
[2016-11-27] MEDS ORDERED: SODIUM CHLORID 0.9% 500 ML IV PRN (05:30)
[2016-11-27] MEDS ORDERED: INSULIN HUMAN REGULAR 1,000 UNITS/10 ML VIAL SQ PRN (05:30)
[2016-11-27 06:32] LABS: AUTOMATED NEUTROPHIL # 1.7 TH/MM3 (1.8-7.7); BASOPHIL % 0.8 % (0.0-2.0); EOSINOPHIL # 0.2 TH/MM3 (0-0.4); EOSINOPHIL % 7.6 % (0.0-4.0); HEMATOCRIT 25.6 % (39.0-51.0); LYMPH % 16.8 % (9.0-44.0); LYMPHOCYTE # 0.5 TH/MM3 (1.0-4.8); MEAN CELL VOLUME 85.1 FL (80.0-100.0); MEAN CORPUSCULAR HEMOGLOBIN 27.6 PG (27.0-34.0); MEAN CORPUSCULAR HGB CONC 32.5 % (32.0-36.0); MONO % 12.7 % (0.0-8.0); NEUT % 62.1 % (16.0-70.0); PLATELET COUNT 63 TH/MM3 (150-450); RED BLOOD COUNT 3.01 MIL/MM3 (4.50-5.90); RED CELL DISTRIBUTION WIDTH 18.9 % (11.6-17.2); WHITE BLOOD COUNT 2.8 TH/MM3 (4.0-11.0)
[2016-11-27 06:33] LABS: INTERNATIONAL NORMALIZED RATIO 1.4 RATIO; PROTHROMBIN TIME - PATIENT 15.5 SEC (9.8-11.6)
[2016-11-27 06:38] LABS: HEMO FLAGS AUTO DIFF
[2016-11-27 06:56] LABS: BICARBONATE 25.1 MEQ/L (21.0-32.0); POTASSIUM 3.8 MEQ/L (3.5-5.1); TOTAL BILIRUBIN ADULT 1.3 MG/DL (0.2-1.0)
[2016-11-27 07:46] LABS: PLATELET ESTIMATE SMEAR LOW (NORMAL); PLATELET MORPHOLOGY NORMAL (NORMAL); ROULEAUX PRESENT (NORMAL); SCAN/DIFF AUTO DIFF CONFIRMED
[2016-11-27 08:00] VITALS: BP 111/64; PULSE 62; PULSE 88; RESP 17; TEMP 95.8; O2SAT 94
[2016-11-27] MEDS: busPIRone HCL 10 MG TAB PO SCH ×2 (08:02→20:53)
[2016-11-27] MEDS: ESCITALOPRAM OXALATE 20 MG TAB PO SCH ×2 (08:02→13:48)
[2016-11-27] MEDS: PANTOPRAZOLE SOD 40 MG DELAYED RELEASE TAB PO SCH ×2 (08:02→13:49)
[2016-11-27] MEDS: TAMSULOSIN HCL 0.4 MG CAP PO SCH ×2 (08:02→13:48)
[2016-11-27] MEDS: GABAPENTIN 100 MG CAP PO SCH ×3 (08:02→18:09)
[2016-11-27] MEDS: MORPHINE SULFATE 4 MG/ML INJ IV PUSH PRN ×4 (08:02→22:15)
[2016-11-27] MEDS: THIAMINE HCL 100 MG TAB PO SCH ×2 (08:02→13:48)
[2016-11-27] MEDS: ASCORBIC ACID 500 MG TAB PO SCH ×2 (08:02→13:48)
[2016-11-27] MEDS: SODIUM CHLORIDE 0.9% FLUSH 10 ML FLUSH IV FLUSH SCH ×2 (08:03→20:53)
[2016-11-27] MEDS: FERROUS SULFATE 325 MG (65 MG ELEMENTAL IRON) TAB PO SCH ×2 (08:03→13:49)
[2016-11-27] MEDS: SPIRONOLACTONE 100 MG TAB PO SCH ×2 (09:00→21:19)
[2016-11-27] MEDS: PROPRANOLOL HCL 20 MG TAB PO SCH ×2 (09:00→13:49)
[2016-11-27] MEDS ORDERED: PNEUMOCOCCAL POLYVALENT INJ 25 MCG/0.5 ML SYR IM ONE (10:00)
[2016-11-27] MEDS ORDERED: PROPOFOL 200 MG/20 ML AMP IV PUSH ONE (12:27)
--- NOTE | 2016-11-27 12:38 | PD.PROCEDR ---
GI Procedure REFERRING PHYSICIAN Yifan PROCEDURE PERFORMED EGD with cautery INDICATION FOR PROCEDURE Cirrhosis, anemia, history of gave PROCEDURE: The procedure, risks and benefits were discussed with Mr. Allison and informed consent was obtained. Anesthesia sedated him with Diprivan. He was placed in the left lateral decubitus position. EGD: The Pentax videoscope was introduced through the oropharynx and advanced to the second portion of the duodenum under direct visualization. Retroflexion was performed in the stomach. FINDINGS: The esophagus there was one column of grade 2 esophageal varices but no stigmata The stomach there was diffuse mild portal hypertensive gastropathy with antral gave this was cauterized using the ball-tip there were no gastric varices The duodenum this was normal ESTIMATED BLOOD LOSS: None SPECIMENS REMOVED: None COMPLICATIONS: None IMPRESSION: Esophageal varices no stigmata Mild portal gastropathy Antral gave PLAN: Supportive care Large volume paracentesis as the patient continues to leak from his paracentesis site from yesterday EGD in 3 months Monitor labs Demarco Fortune MD Nov 27, 2016 12:38
[2016-11-27] MEDS: FUROSEMIDE 40 MG TAB PO SCH (13:48)
--- NOTE | 2016-11-27 14:10 | RADRPT ---
EXAM DATE/TIME: 11/26/2016 12:09 [facility] COMPARISON: No previous studies available for comparison. INDICATIONS : Patient with PluerX cath that is infected. MEDICAL HISTORY : 1.Hep C 2. liver cirrhosis 3. DM 4. HTN 5. Anemia 6. Esophageal varices 7. GI bleed SURGICAL HISTORY : 1. Cholecystectomy 2. esophageal banding 3. Pluerix cath ENCOUNTER: Initial ACUITY: > 1 year PAIN SCORE: 3/10 LOCATION: abdomen cath site PROCEDURE : 1. tunneled peritoneal catheter removal The risks, benefits and alternatives to the procedure were explained and verbal and written consent w as obtained. The site was prepped in sterile fashion. Full sterile technique was used, including ca p, mask, sterile gloves and gown and a large sterile sheet. Hand hygiene and 2% chlorhexidine and/or betadine/alcohol prep was utilized per protocol for cutaneous antisepsis. The skin and subcutaneous tissues were infiltrated with local anesthetic solution. <There is erythema and purulent drainage involving the dermatotomy for the peritoneal catheter. Blunt dissection was utilized to free the catheter from the surrounding soft tissues. Gentle retraction re moved the catheter in its entirety. The tip was sent for culture.>> CONCLUSION: 1. Tunneled peritoneal drain removal as detailed above. The tip was sent for culture. Joselito Cantu Jr., MD on November 27, 2016 at 14:05 Board Certified Radiologist. This report was verified electronically.
[2016-11-27] MEDS ORDERED: ALBUMIN HUMAN 25% 25 GM/100 ML BAGP IV ONE (16:00)
--- NOTE | 2016-11-27 16:47 | HHI.PR ---
Subjective Remarks Follow-up abdominal catheter infection. Patient continues to have drainage from the catheter site. He is having some abdominal discomfort, a little better than yesterday. Had EGD today with cauterization. Objective Vitals Vital Signs Date Time Temp Pulse Resp B/P Pulse Ox O2 Delivery O2 Flow Rate FiO2 11/27/16 12:35 97.0 60 20 114/65 99 11/27/16 08:00 88 11/27/16 08:00 95.8 62 17 111/64 94 11/27/16 03:33 96.0 68 19 98/68 98 11/26/16 22:04 97.8 58 18 107/64 97 11/26/16 21:59 16 11/26/16 17:37 97.7 54 16 127/72 96 I/O 11/26/16 11/26/16 11/26/16 11/27/16 11/27/16 11/27/16 07:00 15:00 23:00 07:00 15:00 23:00 Intake Total 0 ml 0 ml Output Total 550 ml 400 ml 400 ml Balance -550 ml -400 ml -400 ml Intake Oral 0 ml 0 ml Output Urine Total 550 ml 400 ml 400 ml # Voids 1 # Bowel Movements 0 0 Result Diagram: 11/27/16 0533 11/27/16 0533 Imaging Last Impressions Tunnelled Catheter Removal 11/26/16 1209 Signed Impressions: Service Date/Time: Saturday, November 26, 2016 12:09 - CONCLUSION: 1. Tunneled peritoneal drain removal as detailed above. The tip was sent for culture. Joselito Cantu Jr., MD Paracentesis 11/26/16 0000 Signed Impressions: Service Date/Time: Saturday, November 26, 2016 00:00 - CONCLUSION: Paracentesis through the existing peritoneal drain. 2 L removed without residual fluid. Joselito Cantu Jr., MD Objective Remarks General: No acute distress. Heart: Regular rate and rhythm. No murmur. Lungs: Clear to auscultation bilaterally. No wheezes, rales, or rhonchi. Breathing is nonlabored. Abdomen: Soft, distended. Site of previous catheter continues to have serous drainage. Extremities: 1+ bilateral lower extremity edema. Psych: Alert and oriented. Procedures None Urinary Catheter: No Vascular Central Line Catheter: No A/P Problem List: (1) DM (diabetes mellitus) ICD Code: E11.9 Status: Chronic (2) HTN (hypertension) ICD Code: I10 Status: Chronic (3) Anemia ICD Code: D64.9 Status: Chronic (4) Ascites ICD Code: R18.8 Status: Chronic (5) Cirrhosis of liver ICD Code: K74.60 Status: Chronic Assessment and Plan 1. Cellulitis at peritoneal catheter site: Continue IV antibiotics. Catheter removed. Site continues to drain. Appreciate GI recommendations. Culture growing group D enterococcus. Sensitivities pending. Consult infectious disease. 2. Cirrhosis of the liver with chronic ascites: Patient has indwelling peritoneal catheter for drainage of ascites. Consult GI. 3. Chronic anemia: Likely secondary to chronic disease. Continue iron sulfate. Transfuse if necessary. 4. Diabetes mellitus: Monitor Accu-Cheks and cover with sliding scale insulin. 5. Hypertension: Continue propranolol. 6. DVT prophylaxis: SCDs. Problem Qualifiers (1) Anemia: Qualified Code: D64.9 - Anemia, unspecified type (2) Ascites: Qualified Code: K70.31 - Ascites due to alcoholic cirrhosis (3) Cirrhosis of liver: Qualified Code: K70.31 - Alcoholic cirrhosis of liver with ascites Alan Bains MD Nov 27, 2016 16:47
[2016-11-27 20:00] VITALS: BP 123/61; PULSE 66; RESP 20; TEMP 96.7; O2SAT 95
[2016-11-27 20:45] VITALS: PULSE 61
[2016-11-27] MEDS: LEVOFLOXACIN 750 MG PREMIX INJ 150 ML IV SCH (20:53)
[2016-11-27] MEDS: DOXEPIN HCL 50 MG CAP PO SCH (21:19)
[2016-11-28] VITALS (7 sets, daily range): BP systolic 91–120; BP diastolic 55–64; PULSE 64–74; RESP 12–20; TEMP 96.5–98.2; O2SAT 95–97
[2016-11-28] MEDS: MORPHINE SULFATE 4 MG/ML INJ IV PUSH PRN ×6 (02:24→20:36)
[2016-11-28 07:28] LABS: BICARBONATE 25.7 MEQ/L (21.0-32.0); CALCIUM-PROTEIN CORRECTED 8.1 MG/DL (8.5-10.1); MAGNESIUM 1.6 MG/DL (1.5-2.5); POTASSIUM 4.2 MEQ/L (3.5-5.1); TOTAL BILIRUBIN ADULT 0.9 MG/DL (0.2-1.0)
[2016-11-28 07:30] LABS: AUTOMATED NEUTROPHIL # 1.9 TH/MM3 (1.8-7.7); EOSINOPHIL # 0.2 TH/MM3 (0-0.4); EOSINOPHIL % 5.1 % (0.0-4.0); HEMATOCRIT 23.4 % (39.0-51.0); HEMO FLAGS AUTO DIFF; LYMPH % 14.8 % (9.0-44.0); LYMPHOCYTE # 0.4 TH/MM3 (1.0-4.8); MEAN CELL VOLUME 83.7 FL (80.0-100.0); MEAN CORPUSCULAR HEMOGLOBIN 27.5 PG (27.0-34.0); MEAN CORPUSCULAR HGB CONC 32.9 % (32.0-36.0); NEUT % 64.1 % (16.0-70.0); PLATELET COUNT 60 TH/MM3 (150-450); RED CELL DISTRIBUTION WIDTH 19.1 % (11.6-17.2)
--- NOTE | 2016-11-28 08:25 | RADRPT ---
EXAM DATE/TIME: 11/27/2016 13:17 [facility] COMPARISON: US GUIDED ABD PARACENTESIS, March 12, 2012, 11:52. INDICATIONS : Ascites. MEDICAL HISTORY : Pancreatitis. Hepatitis C. Cirrhosis. Head trauma. HTN. Scrotal hernia. GERD. Diabetes. Anemia. PTSD. Anxiety. Substance use. Cdiff. MRSA. SURGICAL HISTORY : Cholecystectomy Blood transfusions. ENCOUNTER: Initial ACUITY: 1 day PAIN SCORE: 7/10 LOCATION: Right lower quadrant FLUID: Total volume of 2,200 cc of clear, yellow fluid was removed. Fluid was discarded. Paracentesis was therapeutic only. Post procedure scanning reveals no hematoma or other complication. TECHNIQUE: 1. Ultrasound guidance for abdominal paracentesis. 2. Paracentesis. The risks, benefits, and alternatives to ultrasound guided paracentesis were explained to the patient in detail including the risk of bleeding and infection. Written and verbal informed consent was obt ained. With the patient on the ultrasound table, ultrasound imaging was used to select the most appropriate approach for paracentesis. Overlying skin was prepped and draped in the usual sterile fashion and wi th a local anesthetic, a dermatotomy was made with an 11 blade scalpel. A 6 [place] [id number] ca theter was introduced into the peritoneal cavity and fluid was collected. The patient tolerated the procedure well and left the ultrasound suite in stable condition. CONCLUSION: Uncomplicated ultrasound guided paracentesis. Brandon Perez MD on November 28, 2016 at 8:23 Board Certified Radiologist. This report was verified electronically.
[2016-11-28] MEDS: SODIUM CHLORIDE 0.9% FLUSH 10 ML FLUSH IV FLUSH SCH ×2 (08:58→20:24)
[2016-11-28] MEDS: TAMSULOSIN HCL 0.4 MG CAP PO SCH (08:59)
[2016-11-28] MEDS: SPIRONOLACTONE 100 MG TAB PO SCH ×2 (08:59→20:23)
[2016-11-28] MEDS: GABAPENTIN 100 MG CAP PO SCH ×3 (08:59→17:36)
[2016-11-28] MEDS: FUROSEMIDE 40 MG TAB PO SCH (09:00)
[2016-11-28] MEDS: busPIRone HCL 10 MG TAB PO SCH ×2 (09:00→20:23)
[2016-11-28] MEDS: ESCITALOPRAM OXALATE 20 MG TAB PO SCH (09:00)
[2016-11-28] MEDS: PANTOPRAZOLE SOD 40 MG DELAYED RELEASE TAB PO SCH (09:00)
[2016-11-28] MEDS: ASCORBIC ACID 500 MG TAB PO SCH (09:00)
[2016-11-28] MEDS: PROPRANOLOL HCL 20 MG TAB PO SCH (09:00)
[2016-11-28] MEDS: THIAMINE HCL 100 MG TAB PO SCH (09:00)
[2016-11-28] MEDS: FERROUS SULFATE 325 MG (65 MG ELEMENTAL IRON) TAB PO SCH (09:01)
[2016-11-28 09:18] LABS: SCAN/DIFF AUTO DIFF CONFIRMED
--- NOTE | 2016-11-28 10:45 | HHI.GIFU ---
Subjective Remarks Resting in bed. No n/v. No active bleeding. Continues to have small amount of drainage from old drain site to collection bag- improved after yesterday's paracentesis. (Angle Zee) Objective Vitals I&O Vital Signs Date Time Temp Pulse Resp B/P Pulse Ox O2 Delivery O2 Flow Rate FiO2 11/28/16 08:00 96.5 70 16 91/55 96 11/28/16 04:00 97.2 74 20 120/62 96 11/28/16 00:00 96.7 68 20 105/55 95 11/27/16 22:22 21 11/27/16 20:45 61 11/27/16 20:00 96.7 66 20 123/61 95 11/27/16 12:35 97.0 60 20 114/65 99 I/O 11/27/16 11/27/16 11/27/16 11/28/16 11/28/16 11/28/16 07:00 15:00 23:00 07:00 15:00 23:00 Intake Total 0 ml 0 ml 290 ml 120 ml Output Total 400 ml 400 ml 10 ml 540 ml Balance -400 ml -400 ml 280 ml -420 ml Intake Oral 0 ml 0 ml 240 ml 120 ml IV Total 50 ml Output Urine Total 400 ml 400 ml 500 ml Drainage Total 10 ml 40 ml # Voids 1 # Bowel Movements 0 0 0 0 Laboratory Laboratory Tests Test 11/28/16 06:08 White Blood Count 3.0 Red Blood Count 2.80 Hemoglobin 7.7 Hematocrit 23.4 Mean Corpuscular Volume 83.7 Mean Corpuscular Hemoglobin 27.5 Mean Corpuscular Hemoglobin 32.9 Concent Red Cell Distribution Width 19.1 Platelet Count 60 Mean Platelet Volume 8.5 Neutrophils (%) (Auto) 64.1 Lymphocytes (%) (Auto) 14.8 Monocytes (%) (Auto) 15.0 Eosinophils (%) (Auto) 5.1 Basophils (%) (Auto) 1.0 Neutrophils # (Auto) 1.9 Lymphocytes # (Auto) 0.4 Monocytes # (Auto) 0.4 Eosinophils # (Auto) 0.2 Basophils # (Auto) 0.0 CBC Comment AUTO DIFF Differential Comment AUTO DIFF CONFIRMED Sodium Level 129 Potassium Level 4.2 Chloride Level 98 Carbon Dioxide Level 25.7 Anion Gap 5 Blood Urea Nitrogen 17 Creatinine 0.82 Estimat Glomerular Filtration 96 Rate Random Glucose 187 Calcium Level 7.0 Protein Corrected Calcium 8.1 Magnesium Level 1.6 Total Bilirubin 0.9 Aspartate Amino Transf 208 (AST/SGOT) Alanine Aminotransferase 86 (ALT/SGPT) Alkaline Phosphatase 86 Total Protein 5.0 Albumin 1.9 Date/Time Procedure Status Source Growth 11/26/16 11:40 Wound Culture - Preliminary Resulted Catheter Tip Other NO GROWTH IN 24 HOURS. 11/25/16 15:50 Gram Stain - Final Resulted Fluid Peritoneal Fluid 11/25/16 15:50 Body Fluid Culture - Preliminary Resulted Group D Enterococcus Imaging Last Impressions Cyst Biopsy Asp-Paracentesis US 11/27/16 0000 Signed Impressions: Service Date/Time: November 13:17 - CONCLUSION: Uncomplicated ultrasound guided paracentesis. Brandon Perez MD Tunnelled Catheter Removal 11/26/16 1209 Signed Impressions: Service Date/Time: Saturday, November 26, 2016 12:09 - CONCLUSION: 1. Tunneled peritoneal drain removal as detailed above. The tip was sent for culture. Joselito Cantu Jr., MD Paracentesis 11/26/16 0000 Signed Impressions: Service Date/Time: Saturday, November 26, 2016 00:00 - CONCLUSION: Paracentesis through the existing peritoneal drain. 2 L removed without residual fluid. Joselito Cantu Jr., MD Physical Exam HEENT: Normocephalic; atraumatic; no jaundice. CHEST: CTA CARDIAC: RRR ABDOMEN: Soft, distended with ascites, nontender; hepatosplenomegaly; bowel sounds are present in all four quadrants. Collection bag to right with small amount of ascitic fluidf. EXTREMITIES: No clubbing, cyanosis, or edema. SKIN: Normal; no rash; no jaundice. METHODS TIME ANALYST: No focal deficits; alert and oriented times three. (Angle Zee [facility]) Assessment and Plan Plan ASSESSMENT: - Recurrent ascites. Pt has been on Spironolactone 100mg po BID and Lasix 40mg po daily at home. He reports that he has had worsening ascites over the past month, requiring frequent paracentesis every 4-5 days. He had a peritoneal drain placed 13 days ago and states that he has been draining his ascitic fluid every 3 days. There was some concern for infection and he was evaluated by IR and this was removed earlier today---> infection of peritoneal drainage catheter. 1.3L of clear, straw-colored ascites removed before drain was removed. Tip of drain sent for culture. He is draining a moderate to large amount from the old site. There is slight redness at the site itself, no edema. He denies fevers/chills. WBC unremarkable. He is hoping to have a new tube placed once this heals. Cx Group D Enterococcus. Catheter tip with no growth in 24 hours. He was having a large amount of ascitic fluid drainage from old insertion site and therefore went for repeat US guided paracentesis (11/27/16)--> 2,200cc removed. Levaquin. Lasix. Spironolactone. - RUQ pain. Sharp intermittent pain RUQ without radiation, seems to be related to movement more than food. IMPROVED. - Anemia. S/P EGD with cautery (11/27/16)-----> Esophageal varices no stigmata, Mild portal gastropathy, Antral gave. Denies any obvious blood loss. HH 7.7/ 23.4. - Liver cirrhosis secondary to HCV and ETOH. Last ETOH was 03/20/16. T. Bili 0.9 , AST 208, ALT 86, Alk Phosph 86. - Hepatic encephalopathy. Lactulose. He is oriented. - GAVE's disease. Last EGD as above. PPI - HCV, Tx naive. [facility] 1 year. Last drank 03/20/16. - DM, HTN, per attending. PLAN: - Heart healthy low sodium diet - Await final culture from catheter tip - Cont. Abx - Cont. Lasix, Spironolactone - Cont. Lactulose - Cont. Propranolol - Add PPI - Monitor labs - Transfuse as necessary - Supportive care - Further recommendations to follow based on results of above - Pt seen and examined by Dr. Fortune and myself and this note is written on his behalf (Angle Zee) Physician Comments Patient seen and examined agree with above Continue with current supportive care Monitor labs Continue with antibiotics Not much to add from a GI perspective with patient's renal function stable on current doses of diuretics and negative fluid balance I doubt that he will need any catheters to drain the ascites but only time will tell Once patient is done with his antibiotics or may be taken be switched to oral he may be discharged from a GI standpoint [facility] We will sign off (Demarco Fortune MD) Angle Zee Nov 28, 2016 10:45 Demarco Fortune MD Nov 28, 2016 22:29
--- NOTE | 2016-11-28 14:21 | HHI.PR ---
Subjective Remarks Follow-up abdominal catheter infection. Patient states that his pain is getting better, but still has pain at the site of the catheter. There is still redness surrounding the wound. Still with some drainage as well. Denies chest pain, dyspnea, nausea, vomiting. Objective Vitals Vital Signs Date Time Temp Pulse Resp B/P Pulse Ox O2 Delivery O2 Flow Rate FiO2 11/28/16 12:00 98.2 64 12 113/60 95 11/28/16 11:36 97 11/28/16 08:00 96.5 70 16 91/55 96 11/28/16 04:00 97.2 74 20 120/62 96 11/28/16 00:00 96.7 68 20 105/55 95 11/27/16 22:22 21 11/27/16 20:45 61 11/27/16 20:00 96.7 66 20 123/61 95 I/O 11/27/16 11/27/16 11/27/16 11/28/16 11/28/16 11/28/16 06:59 14:59 22:59 06:59 14:59 22:59 Intake Total 0 ml 0 ml 290 ml 120 ml Output Total 400 ml 400 ml 10 ml 540 ml 340 ml Balance -400 ml -400 ml 280 ml -420 ml -340 ml Intake Oral 0 ml 0 ml 240 ml 120 ml IV Total 50 ml Output Urine Total 400 ml 400 ml 500 ml 300 ml Drainage Total 10 ml 40 ml 40 ml # Voids 1 # Bowel Movements 0 0 0 0 Result Diagram: 11/28/16 0608 11/28/16 0608 Imaging Last Impressions Cyst Biopsy Asp-Paracentesis US 11/27/16 0000 Signed Impressions: Service Date/Time: November 13:17 - CONCLUSION: Uncomplicated ultrasound guided paracentesis. Brandon Perez MD Tunnelled Catheter Removal 11/26/16 1209 Signed Impressions: Service Date/Time: Saturday, November 26, 2016 12:09 - CONCLUSION: 1. Tunneled peritoneal drain removal as detailed above. The tip was sent for culture. Joselito Cantu Jr., MD Paracentesis 11/26/16 0000 Signed Impressions: Service Date/Time: Saturday, November 26, 2016 00:00 - CONCLUSION: Paracentesis through the existing peritoneal drain. 2 L removed without residual fluid. Joselito Cantu Jr., MD Objective Remarks General: No acute distress. Heart: Regular rate and rhythm. No murmur. Lungs: Clear to auscultation bilaterally. No wheezes, rales, or rhonchi. Breathing is nonlabored. Abdomen: Soft, distended. Site of previous catheter continues to have serous drainage. Extremities: 1+ bilateral lower extremity edema. Psych: Alert and oriented. Procedures 11/26/16 peritoneal drainage catheter removed, drainage of 1.3 L ascitic fluid prior to removal Urinary Catheter: No Vascular Central Line Catheter: No A/P Problem List: (1) DM (diabetes mellitus) ICD Code: E11.9 Status: Chronic (2) HTN (hypertension) ICD Code: I10 Status: Chronic (3) Anemia ICD Code: D64.9 Status: Chronic (4) Ascites ICD Code: R18.8 Status: Chronic (5) Cirrhosis of liver ICD Code: K74.60 Status: Chronic Assessment and Plan 1. Cellulitis at peritoneal catheter site: Continue IV antibiotics. Catheter removed. Site continues to drain. Appreciate GI recommendations. Culture growing group D enterococcus. Stop Levaquin, start vancomycin. Infectious disease consult is pending. 2. Cirrhosis of the liver with chronic ascites: Patient has indwelling peritoneal catheter for drainage of ascites. Consult GI. 3. Chronic anemia: Likely secondary to chronic disease. Continue iron sulfate. Hemoglobin trending down. Recheck H&H this afternoon. Transfuse if necessary. 4. Diabetes mellitus: Monitor Accu-Cheks and cover with sliding scale insulin. 5. Hypertension: Continue propranolol. 6. DVT prophylaxis: SCDs. Discharge Planning When cleared by GI, infectious disease. Patient may need new catheter placed prior to discharge. Problem Qualifiers (1) Anemia: Qualified Code: D64.9 - Anemia, unspecified type (2) Ascites: Qualified Code: K70.31 - Ascites due to alcoholic cirrhosis (3) Cirrhosis of liver: Qualified Code: K70.31 - Alcoholic cirrhosis of liver with ascites Alan Bains MD Nov 28, 2016 14:21
[2016-11-28] MEDS ORDERED: Vancomycin Consult Pharmacy 1 EA OTHER SCH (14:30)
--- NOTE | 2016-11-28 15:24 | PD.ID.CON ---
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 fecalis panS Review of Systems Except as stated in HPI: all other systems reviewed are Neg Past Family Social History Allergies: Coded Allergies: *MDRO Multi-Drug Resistant Organism (Verified Adverse Reaction, Unknown, ) MRSA PCR screen POSITIVE - 12/23/15 Past Medical History Cirrhosis Hep C DM HTN Anemia Esophageal varices Past Surgical History Cholecystectomy 2005 Esophageal banding Active Ordered Medications Medications where reviewed in EMR Antibiotics Include: levaquie - stopped vanco Family History reviewed non contriobutory Social History life tiome non smoker No ETOHmsince mar 2016 No Illicit Drugs. Physical Exam Vital Signs Vital Signs Date Time Temp Pulse Resp B/P Pulse Ox O2 Delivery O2 Flow Rate FiO2 11/28/16 12:00 98.2 64 12 113/60 95 11/28/16 11:36 97 11/28/16 08:00 96.5 70 16 91/55 96 11/28/16 04:00 97.2 74 20 120/62 96 11/28/16 00:00 96.7 68 20 105/55 95 11/27/16 22:22 21 11/27/16 20:45 61 11/27/16 20:00 96.7 66 20 123/61 95 Physical Exam CONSTITUTIONAL/GENERAL: This is an adequately nourished patient, in no apparent distress. TUBES/LINES/DRAINS: SKIN: No jaundice, rashes, or lesions. Skin temperature appropriate. Not diaphoretic. HEAD: Atraumatic. Normocephalic. EYES: Pupils equal and round and reactive. Extraocular motions intact. No scleral icterus. No injection or drainage. Fundi not examined. ENT: Hearing grossly normal. Nose without bleeding or purulent drainage. Throat without visible erythema, exudates, masses, or lesions. NECK: Trachea midline. Supple, nontender. CARDIOVASCULAR: Regular rate and rhythm without murmurs, gallops, or rubs. No JVD. Peripheral pulses symmetric. RESPIRATORY/CHEST: Symmetric, unlabored respirations. Clear to auscultation. Breath sounds equal bilaterally. No wheezes, rales, or rhonchi. GASTROINTESTINAL: Abdomen tight , quite tender RUQ/ RLQ, markedly distended. No hepato-splenomegaly, or palpable masses. No guarding. Bowel sounds present. A tiny pucnture wound in RLQ draning small amount of clear serous fluid GENITOURINARY: Without palpable bladder distension. Lee catheter in place. MUSCULOSKELETAL: Extremities without clubbing, cyanosis, + trace edema. No joint tenderness or effusion noted. No calf tenderness. No mottling or clubbing. LYMPHATICS: No palpable cervical or supraclavicular adenopathy. NEUROLOGICAL: Awake and alert. Motor and sensory grossly within normal limits. Follows commands. Clear speech. Moves all extremities. PSYCHIATRIC: No obvious anxiety/depression. no apparent hallucinations or other psychotic thought process. Laboratory Laboratory Tests Test 11/28/16 06:08 White Blood Count 3.0 Red Blood Count 2.80 Hemoglobin 7.7 Hematocrit 23.4 Mean Corpuscular Volume 83.7 Mean Corpuscular Hemoglobin 27.5 Mean Corpuscular Hemoglobin 32.9 Concent Red Cell Distribution Width 19.1 Platelet Count 60 Mean Platelet Volume 8.5 Neutrophils (%) (Auto) 64.1 Lymphocytes (%) (Auto) 14.8 Monocytes (%) (Auto) 15.0 Eosinophils (%) (Auto) 5.1 Basophils (%) (Auto) 1.0 Neutrophils # (Auto) 1.9 Lymphocytes # (Auto) 0.4 Monocytes # (Auto) 0.4 Eosinophils # (Auto) 0.2 Basophils # (Auto) 0.0 CBC Comment AUTO DIFF Differential Comment AUTO DIFF CONFIRMED Sodium Level 129 Potassium Level 4.2 Chloride Level 98 Carbon Dioxide Level 25.7 Anion Gap 5 Blood Urea Nitrogen 17 Creatinine 0.82 Estimat Glomerular Filtration 96 Rate Random Glucose 187 Calcium Level 7.0 Protein Corrected Calcium 8.1 Magnesium Level 1.6 Total Bilirubin 0.9 Aspartate Amino Transf 208 (AST/SGOT) Alanine Aminotransferase 86 (ALT/SGPT) Alkaline Phosphatase 86 Total Protein 5.0 Albumin 1.9 Date/Time Procedure Status Source Growth 11/26/16 11:40 Wound Culture - Final Complete Catheter Tip Other 11/25/16 15:50 Gram Stain - Final Complete Fluid Peritoneal Fluid 11/25/16 15:50 Body Fluid Culture - Final Complete Enterococcus Faecalis Result Diagram: 11/28/16 0608 11/28/16 0608 Imaging Last Impressions Cyst Biopsy Asp-Paracentesis US 11/27/16 0000 Signed Impressions: Service Date/Time: November 13:17 - CONCLUSION: Uncomplicated ultrasound guided paracentesis. Brandon Perez MD Tunnelled Catheter Removal 11/26/16 1209 Signed Impressions: Service Date/Time: Saturday, November 26, 2016 12:09 - CONCLUSION: 1. Tunneled peritoneal drain removal as detailed above. The tip was sent for culture. Joselito Cantu Jr., MD Paracentesis 11/26/16 0000 Signed Impressions: Service Date/Time: Saturday, November 26, 2016 00:00 - CONCLUSION: Paracentesis through the existing peritoneal drain. 2 L removed without residual fluid. Joselito Cantu Jr., MD Assessment and Plan Assessment and Plan ESLD Ascited SBP (spontaneous bacterial peritonint0 - 2/2 Enterococcus Former ETOH abuse HCV dc vancomycin start Unasyn anticipate d/c on po abx (augmentin ) to complet 14 days fu clinically Sobia Smith MD Nov 28, 2016 15:24
[2016-11-28] MEDS ORDERED: VANCOMYCIN INJ 1,250 MG in SODIUM CHLOR 0.9% 250 ML INJ 250 ML IV SCH (17:00)
[2016-11-28] MEDS: AMPICILLIN-SULBACTAM INJ 3 GM in SODIUM CHLORIDE 0.9% INJ 100 ML IV SCH (18:40)
[2016-11-28] MEDS: DOXEPIN HCL 50 MG CAP PO SCH (20:23)
[2016-11-28 20:41] LABS: HEMATOCRIT 24.6 % (39.0-51.0)
[2016-11-29] VITALS (9 sets, daily range): BP systolic 94–127; BP diastolic 50–73; PULSE 60–69; RESP 14–20; TEMP 97–97.9; O2SAT 94–99
[2016-11-29] MEDS: MORPHINE SULFATE 4 MG/ML INJ IV PUSH PRN ×7 (00:14→23:53)
[2016-11-29] MEDS: AMPICILLIN-SULBACTAM INJ 3 GM in SODIUM CHLORIDE 0.9% INJ 100 ML IV SCH ×5 (00:14→23:53)
[2016-11-29 07:45] LABS: INTERNATIONAL NORMALIZED RATIO 1.4 RATIO; PROTHROMBIN TIME - PATIENT 15.2 SEC (9.8-11.6)
[2016-11-29 07:47] LABS: AUTOMATED NEUTROPHIL # 2.3 TH/MM3 (1.8-7.7); BASOPHIL % 0.8 % (0.0-2.0); EOSINOPHIL # 0.2 TH/MM3 (0-0.4); EOSINOPHIL % 4.6 % (0.0-4.0); HEMATOCRIT 25.5 % (39.0-51.0); LYMPH % 17.4 % (9.0-44.0); LYMPHOCYTE # 0.7 TH/MM3 (1.0-4.8); MEAN CELL VOLUME 85.1 FL (80.0-100.0); MEAN CORPUSCULAR HEMOGLOBIN 27.6 PG (27.0-34.0); MEAN CORPUSCULAR HGB CONC 32.5 % (32.0-36.0); MONO % 15.7 % (0.0-8.0); NEUT % 61.5 % (16.0-70.0); PLATELET COUNT 74 TH/MM3 (150-450); RED CELL DISTRIBUTION WIDTH 19.2 % (11.6-17.2); WHITE BLOOD COUNT 3.8 TH/MM3 (4.0-11.0)
[2016-11-29 07:49] LABS: HEMO FLAGS AUTO DIFF
[2016-11-29 08:05] LABS: BICARBONATE 23.3 MEQ/L (21.0-32.0); CALCIUM-PROTEIN CORRECTED 8.1 MG/DL (8.5-10.1); MAGNESIUM 1.6 MG/DL (1.5-2.5); POTASSIUM 4.3 MEQ/L (3.5-5.1); TOTAL BILIRUBIN ADULT 0.9 MG/DL (0.2-1.0)
[2016-11-29 08:30] LABS: OVALOCYTES 1+ (NORMAL); PLATELET ESTIMATE SMEAR LOW (NORMAL); PLATELET MORPHOLOGY NORMAL (NORMAL); SCAN/DIFF AUTO DIFF CONFIRMED
[2016-11-29] MEDS: busPIRone HCL 10 MG TAB PO SCH ×2 (09:00→20:10)
[2016-11-29] MEDS: ASCORBIC ACID 500 MG TAB PO SCH (09:56)
[2016-11-29] MEDS: TAMSULOSIN HCL 0.4 MG CAP PO SCH (09:56)
[2016-11-29] MEDS: PANTOPRAZOLE SOD 40 MG DELAYED RELEASE TAB PO SCH (09:56)
[2016-11-29] MEDS: ESCITALOPRAM OXALATE 20 MG TAB PO SCH (09:56)
[2016-11-29] MEDS: SODIUM CHLORIDE 0.9% FLUSH 10 ML FLUSH IV FLUSH SCH ×2 (09:57→20:10)
[2016-11-29] MEDS: PROPRANOLOL HCL 20 MG TAB PO SCH (09:57)
[2016-11-29] MEDS: FUROSEMIDE 40 MG TAB PO SCH (09:57)
[2016-11-29] MEDS: GABAPENTIN 100 MG CAP PO SCH ×3 (09:57→18:22)
[2016-11-29] MEDS: SPIRONOLACTONE 100 MG TAB PO SCH ×2 (09:57→20:09)
[2016-11-29] MEDS: THIAMINE HCL 100 MG TAB PO SCH (09:57)
[2016-11-29] MEDS: FERROUS SULFATE 325 MG (65 MG ELEMENTAL IRON) TAB PO SCH (09:57)
--- NOTE | 2016-11-29 10:58 | HHI.PR ---
Subjective Remarks No acute events overnight. Afebrile, vital signs stable. Patient expresses concern that he [facility] not [facility] on a when necessary basis if new catheter is not placed. He has no other complaints at this time. Denies fever/chills. Denies chest pain/shortness of breath. Objective Vitals Vital Signs Date Time Temp Pulse Resp B/P Pulse Ox O2 Delivery O2 Flow Rate FiO2 11/29/16 10:00 18 11/29/16 08:00 97.3 66 16 127/73 98 11/29/16 04:35 97.0 65 20 115/58 96 11/29/16 01:11 60 11/29/16 00:00 97.2 67 19 117/66 94 11/28/16 20:00 96.8 70 19 120/64 97 11/28/16 16:00 97.1 64 18 115/60 95 11/28/16 12:00 98.2 64 12 113/60 95 11/28/16 11:36 97 I/O 11/28/16 11/28/16 11/28/16 11/29/16 11/29/16 11/29/16 07:00 15:00 23:00 07:00 15:00 23:00 Intake Total 120 ml 800 ml 460 ml 680 ml Output Total 540 ml 740 ml 40 ml 600 ml Balance -420 ml 60 ml 420 ml 80 ml Intake Oral 120 ml 800 ml 360 ml 480 ml IV Total 100 ml 200 ml Output Urine Total 500 ml 700 ml 600 ml Drainage Total 40 ml 40 ml 40 ml # Voids 1 # Bowel Movements 0 0 1 1 Result Diagram: 11/29/16 0700 11/29/16 0700 Objective Remarks General: No acute distress. Heart: Regular rate and rhythm. No murmur. Lungs: Clear to auscultation bilaterally. No wheezes, rales, or rhonchi. Breathing is nonlabored. Abdomen: Soft, distended. Site of previous catheter continues to have very small amount of serous drainage. No notable surrounding erythema. Extremities: 1+ bilateral lower extremity edema. Psych: Alert and oriented. Procedures 11/26/16 peritoneal drainage catheter removed, drainage of 1.3 L ascitic fluid prior to removal A/P Problem List: (1) DM (diabetes mellitus) ICD Code: E11.9 Status: Chronic (2) HTN (hypertension) ICD Code: I10 Status: Chronic (3) Anemia ICD Code: D64.9 Status: Chronic (4) Ascites ICD Code: R18.8 Status: Chronic (5) Cirrhosis of liver ICD Code: K74.60 Status: Chronic Assessment and Plan 1. Cellulitis at peritoneal catheter site: Continue IV antibiotics per infectious disease. Catheter removed, per GI recommendations patient may not need new catheter placed prior to discharge. Culture growing group D enterococcus. 2. 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 Plan as above. 3. Chronic anemia: Likely secondary to chronic disease. Continue iron sulfate. Hemoglobin stable at this time. Continue to follow. Transfuse when necessary. 4. Diabetes mellitus: Monitor Accu-Cheks and cover with sliding scale insulin. 5. Hypertension: Continue propranolol. 6. DVT prophylaxis: SCDs. Discharge Planning Pending clearance by infectious disease. Per gastroenterology, patient will likely not need new catheter placed prior to discharge. Case management consulted to assist with setting the patient up for outpatient follow-up at the [facility] as he does not currently have housing or transportation. Problem Qualifiers (1) Anemia: Qualified Code: D64.9 - Anemia, unspecified type (2) Ascites: Qualified Code: K70.31 - Ascites due to alcoholic cirrhosis (3) Cirrhosis of liver: Qualified Code: K70.31 - Alcoholic cirrhosis of liver with ascites Heena Valente MD R3 Nov 29, 2016 10:58
[2016-11-29] MEDS: DOXEPIN HCL 50 MG CAP PO SCH (20:10)
[2016-11-29] MEDS: RESP: ALBUTEROL 2.5 MG/IPRATROPIUM 0.5 MG NEB (SCH) NEB (21:28)
[2016-11-29] MEDS: SODIUM CHLORIDE 0.9% FLUSH 10 ML FLUSH IV FLUSH PRN (23:53)
[2016-11-30] VITALS (9 sets, daily range): BP systolic 107–158; BP diastolic 60–73; PULSE 60–70; RESP 16–21; TEMP 95.6–97.3; O2SAT 96–99
[2016-11-30] MEDS: AMPICILLIN-SULBACTAM INJ 3 GM in SODIUM CHLORIDE 0.9% INJ 100 ML IV SCH ×4 (04:10→23:23)
[2016-11-30] MEDS: MORPHINE SULFATE 4 MG/ML INJ IV PUSH PRN ×3 (04:11→12:10)
[2016-11-30] MEDS: SODIUM CHLORIDE 0.9% FLUSH 10 ML FLUSH IV FLUSH PRN (04:12)
[2016-11-30 04:24] LABS: AUTOMATED NEUTROPHIL # 2.6 TH/MM3 (1.8-7.7); BASOPHIL % 0.5 % (0.0-2.0); EOSINOPHIL # 0.2 TH/MM3 (0-0.4); EOSINOPHIL % 4.6 % (0.0-4.0); HEMATOCRIT 23.7 % (39.0-51.0); LYMPH % 14.8 % (9.0-44.0); LYMPHOCYTE # 0.6 TH/MM3 (1.0-4.8); MEAN CELL VOLUME 84.3 FL (80.0-100.0); MEAN CORPUSCULAR HEMOGLOBIN 27.9 PG (27.0-34.0); MEAN CORPUSCULAR HGB CONC 33.1 % (32.0-36.0); MONO % 16.5 % (0.0-8.0); NEUT % 63.6 % (16.0-70.0); PLATELET COUNT 59 TH/MM3 (150-450); RED BLOOD COUNT 2.81 MIL/MM3 (4.50-5.90); RED CELL DISTRIBUTION WIDTH 18.8 % (11.6-17.2)
[2016-11-30 04:39] LABS: HEMO FLAGS DIFF FINAL
[2016-11-30] MEDS ORDERED: PHARMACY ORDERED LAB ONE (04:45)
[2016-11-30 05:00] LABS: BICARBONATE 22.6 MEQ/L (21.0-32.0); POTASSIUM 4.4 MEQ/L (3.5-5.1)
[2016-11-30 05:22] LABS: CALCIUM-PROTEIN CORRECTED 8.1 MG/DL (8.5-10.1)
[2016-11-30] MEDS: THIAMINE HCL 100 MG TAB PO SCH (08:30)
[2016-11-30] MEDS: SPIRONOLACTONE 100 MG TAB PO SCH ×2 (08:30→21:50)
[2016-11-30] MEDS: PROPRANOLOL HCL 20 MG TAB PO SCH (08:30)
[2016-11-30] MEDS: FUROSEMIDE 40 MG TAB PO SCH (08:30)
[2016-11-30] MEDS: ESCITALOPRAM OXALATE 20 MG TAB PO SCH (08:30)
[2016-11-30] MEDS: FERROUS SULFATE 325 MG (65 MG ELEMENTAL IRON) TAB PO SCH (08:30)
[2016-11-30] MEDS: TAMSULOSIN HCL 0.4 MG CAP PO SCH (08:30)
[2016-11-30] MEDS: SODIUM CHLORIDE 0.9% FLUSH 10 ML FLUSH IV FLUSH SCH ×2 (08:30→21:00)
[2016-11-30] MEDS: PANTOPRAZOLE SOD 40 MG DELAYED RELEASE TAB PO SCH (08:30)
[2016-11-30] MEDS: busPIRone HCL 10 MG TAB PO SCH ×2 (08:30→21:50)
[2016-11-30] MEDS: ASCORBIC ACID 500 MG TAB PO SCH (08:30)
[2016-11-30] MEDS: GABAPENTIN 100 MG CAP PO SCH ×3 (08:30→17:49)
[2016-11-30] MEDS: RESP: ALBUTEROL 2.5 MG/IPRATROPIUM 0.5 MG NEB (SCH) NEB ×4 (08:50→21:20)
--- NOTE | 2016-11-30 13:49 | HHI.PR ---
Subjective Remarks No acute events overnight. Afebrile, vital signs stable. Patient complains of nonproductive cough that started yesterday. Denies wheezing or shortness of breath. Patient is concerned about the possibility of being discharged without a peritoneal drainage catheter as he is concerned that he will have fluid buildup with no way to drain it. He has no other complaints at this time. Objective Vitals Vital Signs Date Time Temp Pulse Resp B/P (MAP) Pulse Ox O2 Delivery O2 Flow Rate FiO2 11/30/16 04:00 96.9 66 20 116/70 (85) 96 11/30/16 00:00 97.3 68 20 112/63 (79) 98 11/29/16 21:33 98 11/29/16 20:05 69 11/29/16 20:00 97.5 68 20 108/63 (78) 99 11/29/16 16:24 18 11/29/16 16:00 97.9 66 20 94/50 (65) 99 I/O 11/29/16 11/29/16 11/29/16 11/30/16 11/30/16 11/30/16 07:00 15:00 23:00 07:00 15:00 23:00 Intake Total 680 ml 1200 ml 1080 ml 680 ml Output Total 600 ml 1025 ml 850 ml 750 ml Balance 80 ml 175 ml 230 ml -70 ml Intake Oral 480 ml 1200 ml 1080 ml 480 ml IV Total 200 ml 200 ml Output Urine Total 600 ml 1025 ml 850 ml 750 ml Drainage Total 0 ml 0 ml # Voids 1 # Bowel Movements 1 0 1 Result Diagram: 11/30/16 0350 11/30/16 0350 Objective Remarks General: No acute distress. Heart: Regular rate and rhythm. No murmur. Lungs: Clear to auscultation bilaterally. No wheezes, rales, or rhonchi. Breathing is nonlabored. Abdomen: Soft, distended. Site of previous catheter continues to have very small amount of serous drainage. No notable surrounding erythema. Extremities: 1+ bilateral lower extremity edema. Psych: Alert and oriented. Procedures 11/26/16 peritoneal drainage catheter removed, drainage of 1.3 L ascitic fluid prior to removal A/P Problem List: (1) DM (diabetes mellitus) ICD Code: E11.9 - Type 2 diabetes mellitus without complications Status: Chronic (2) HTN (hypertension) ICD Code: I10 - Essential (primary) hypertension Status: Chronic (3) Anemia ICD Code: D64.9 - Anemia, unspecified Status: Chronic (4) Ascites ICD Code: R18.8 - Other ascites Status: Chronic (5) Cirrhosis of liver ICD Code: K74.60 - Unspecified cirrhosis of liver Status: Chronic Assessment and Plan 1. Cellulitis at peritoneal catheter site: Continue IV antibiotics per infectious disease. Catheter removed, per GI recommendations patient may not need new catheter placed prior to discharge. Culture growing group D enterococcus. 2. 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 Plan as above. 3. Chronic anemia: Likely secondary to chronic disease. Continue iron sulfate. Hemoglobin stable at this time. Continue to follow. Transfuse when necessary. 4. Diabetes mellitus: Monitor Accu-Cheks and cover with sliding scale insulin. 5. Hypertension: Continue propranolol. 6. DVT prophylaxis: SCDs. Discharge Planning Pending clearance by infectious disease. Per gastroenterology, patient will likely not need new catheter placed prior to discharge. Case management consulted to assist with setting the patient up for outpatient follow-up at the [facility] as he does not currently have housing or transportation. Problem Qualifiers (1) Anemia: (2) Ascites: (3) Cirrhosis of liver: Heena Valente MD R3 Nov 30, 2016 13:49
[2016-11-30] MEDS: oxyCODONE/ACETAMINOPHEN 5 MG/325 MG TAB PO PRN ×3 (15:32→23:23)
[2016-11-30] MEDS: DOXEPIN HCL 50 MG CAP PO SCH (21:50)
[2016-12-01] VITALS (7 sets, daily range): BP systolic 111–122; BP diastolic 59–80; PULSE 59–68; RESP 14–18; TEMP 95.9–97.3; O2SAT 96–99
[2016-12-01] MEDS: oxyCODONE/ACETAMINOPHEN 5 MG/325 MG TAB PO PRN ×5 (04:18→21:50)
[2016-12-01] MEDS: AMPICILLIN-SULBACTAM INJ 3 GM in SODIUM CHLORIDE 0.9% INJ 100 ML IV SCH ×4 (05:33→23:53)
[2016-12-01 08:15] LABS: AUTOMATED NEUTROPHIL # 2.2 TH/MM3 (1.8-7.7); BASOPHIL % 0.7 % (0.0-2.0); EOSINOPHIL # 0.2 TH/MM3 (0-0.4); EOSINOPHIL % 6.1 % (0.0-4.0); HEMATOCRIT 23.5 % (39.0-51.0); LYMPH % 16.9 % (9.0-44.0); LYMPHOCYTE # 0.6 TH/MM3 (1.0-4.8); MEAN CELL VOLUME 82.8 FL (80.0-100.0); MEAN CORPUSCULAR HEMOGLOBIN 27.7 PG (27.0-34.0); MEAN CORPUSCULAR HGB CONC 33.5 % (32.0-36.0); MONO % 14.3 % (0.0-8.0); PLATELET COUNT 53 TH/MM3 (150-450); RED BLOOD COUNT 2.84 MIL/MM3 (4.50-5.90); RED CELL DISTRIBUTION WIDTH 19.5 % (11.6-17.2); WHITE BLOOD COUNT 3.6 TH/MM3 (4.0-11.0)
[2016-12-01] MEDS: SPIRONOLACTONE 100 MG TAB PO SCH ×2 (08:27→21:49)
[2016-12-01] MEDS: PANTOPRAZOLE SOD 40 MG DELAYED RELEASE TAB PO SCH (08:27)
[2016-12-01] MEDS: FERROUS SULFATE 325 MG (65 MG ELEMENTAL IRON) TAB PO SCH (08:27)
[2016-12-01] MEDS: ASCORBIC ACID 500 MG TAB PO SCH (08:27)
[2016-12-01] MEDS: TAMSULOSIN HCL 0.4 MG CAP PO SCH (08:27)
[2016-12-01] MEDS: THIAMINE HCL 100 MG TAB PO SCH (08:27)
[2016-12-01] MEDS: ESCITALOPRAM OXALATE 20 MG TAB PO SCH (08:27)
[2016-12-01] MEDS: busPIRone HCL 10 MG TAB PO SCH ×2 (08:27→21:50)
[2016-12-01] MEDS: PROPRANOLOL HCL 20 MG TAB PO SCH (08:28)
[2016-12-01] MEDS: FUROSEMIDE 40 MG TAB PO SCH (08:28)
[2016-12-01] MEDS: GABAPENTIN 100 MG CAP PO SCH ×3 (08:28→17:15)
[2016-12-01] MEDS: SODIUM CHLORIDE 0.9% FLUSH 10 ML FLUSH IV FLUSH SCH ×2 (08:32→21:00)
[2016-12-01 08:40] LABS: BICARBONATE 24.4 MEQ/L (21.0-32.0); POTASSIUM 4.4 MEQ/L (3.5-5.1)
[2016-12-01 08:43] LABS: HEMO FLAGS AUTO DIFF
[2016-12-01 08:59] LABS: CALCIUM-PROTEIN CORRECTED 7.8 MG/DL (8.5-10.1)
[2016-12-01] MEDS: RESP: ALBUTEROL 2.5 MG/IPRATROPIUM 0.5 MG NEB (SCH) NEB ×4 (09:06→20:00)
[2016-12-01 09:30] LABS: OVALOCYTES 1+ (NORMAL)
[2016-12-01 09:31] LABS: PLATELET ESTIMATE SMEAR LOW (NORMAL); PLATELET MORPHOLOGY NORMAL (NORMAL); SCAN/DIFF AUTO DIFF CONFIRMED
--- NOTE | 2016-12-01 11:47 | HHI.PR ---
Subjective Remarks feels abdominal fullness and distention + flatus mild nausea, no vomiting Objective Vitals Vital Signs Date Time Temp Pulse Resp B/P (MAP) Pulse Ox O2 Delivery O2 Flow Rate FiO2 12/01/16 09:07 98 12/01/16 08:00 97.3 59 18 122/68 (86) 96 12/01/16 04:00 95.9 68 18 119/74 (89) 97 12/01/16 00:00 96.5 59 18 119/80 (93) 99 11/30/16 21:22 99 11/30/16 20:00 96.3 62 18 131/60 (83) 98 11/30/16 16:00 95.6 66 18 158/73 (101) 98 11/30/16 12:00 96.9 70 21 121/62 (81) 96 I/O 11/30/16 11/30/16 11/30/16 12/01/16 12/01/16 12/01/16 07:00 15:00 23:00 07:00 15:00 23:00 Intake Total 680 ml 100 ml 2020 ml 520 ml Output Total 750 ml 300 ml 1500 ml 125 ml Balance -70 ml -200 ml 520 ml 395 ml Intake Oral 480 ml 1920 ml 320 ml IV Total 200 ml 100 ml 100 ml 200 ml Output Urine Total 750 ml 300 ml 1500 ml 125 ml Drainage Total 0 ml Bladder Scan Volume Amount 140 ml # Voids 1 1 # Bowel Movements 1 2 0 Result Diagram: 12/01/16 0735 12/01/16 0735 Imaging Last Impressions Cyst Biopsy Asp-Paracentesis US 11/27/16 0000 Signed Impressions: Service Date/Time: November 13:17 - CONCLUSION: Uncomplicated ultrasound guided paracentesis. Brandon Perez MD Tunnelled Catheter Removal 11/26/16 1209 Signed Impressions: Service Date/Time: Saturday, November 26, 2016 12:09 - CONCLUSION: 1. Tunneled peritoneal drain removal as detailed above. The tip was sent for culture. Joselito Cantu Jr., MD Paracentesis 11/26/16 0000 Signed Impressions: Service Date/Time: Saturday, November 26, 2016 00:00 - CONCLUSION: Paracentesis through the existing peritoneal drain. 2 L removed without residual fluid. Joselito Cantu Jr., MD Objective Remarks awake and alert no encephalopathy mild ictersia decrease breath sounds, no rales regular rhythm abdomen- distended, firm, superficial wounds.abdomen, mild erythema mild penile edema + edema Procedures 11/26/16 peritoneal drainage catheter removed, drainage of 1.3 L ascitic fluid prior to removal A/P Problem List: (1) DM (diabetes mellitus) ICD Code: E11.9 - Type 2 diabetes mellitus without complications Status: Chronic (2) HTN (hypertension) ICD Code: I10 - Essential (primary) hypertension Status: Chronic (3) Anemia ICD Code: D64.9 - Anemia, unspecified Status: Chronic (4) Ascites ICD Code: R18.8 - Other ascites Status: Chronic (5) Cirrhosis of liver ICD Code: K74.60 - Unspecified cirrhosis of liver Status: Chronic Assessment and Plan 61 years old male 1. Cellulitis at peritoneal catheter site: Continue IV antibiotics per infectious disease. Catheter removed, per GI recommendations patient may not need new catheter placed prior to discharge. Culture growing group D enterococcus. 2. 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 Plan as above. Recurrent ascites- abdomen-distended and firm again IR consult for paracentesis continue on diuretics will d/w GI- regarding indwelling catheter- per pt he had one before. not a good candidate- homeless 3. Chronic anemia: Likely secondary to chronic disease. Continue iron sulfate. Hemoglobin stable at this time. Continue to follow. Transfuse when necessary. 4. Diabetes mellitus: Monitor Accu-Cheks and cover with sliding scale insulin. 5. Hypertension: Continue propranolol. 6. DVT prophylaxis: SCDs. Discharge Planning Pending clearance by infectious disease. Per gastroenterology, patient will likely not need new catheter placed prior to discharge. Case management consulted to assist with setting the patient up for outpatient follow-up at the [facility] as he does not currently have housing or transportation. Problem Qualifiers Problem Qualifiers (1) Anemia: (2) Ascites: (3) Cirrhosis of liver: Bravo Flores MD Dec 01, 2016 11:46
[2016-12-01] MEDS: ONDANSETRON HCL 4 MG/2 ML VIAL IV PUSH PRN ×2 (13:01→23:53)
--- NOTE | 2016-12-01 16:01 | RADRPT ---
EXAM DATE/TIME: 12/01/2016 14:35 [facility] COMPARISON: US ABDOMEN - LOWER LIMITED, March 11, 2012, 21:30. INDICATIONS : Ascites. MEDICAL HISTORY : Hypertension. Pancreatitis. Gastroesophageal reflux disease. Seizures. Hepatitis C. Cirrhosis. Anemia . C-diff. MRSA. SURGICAL HISTORY : Cholecystectomy. ENCOUNTER: Subsequent ACUITY: 3 days PAIN SCORE: 4/10 LOCATION: Abdomen. AREA EVALUATED: Abdomen. FINDINGS: Limited sonographic images of the abdomen in 4 quadrants reveal a moderate amount of ascites predomin antly on the right side. Cirrhotic liver is seen. Visceral evaluation was not performed at this time. CONCLUSION: Moderate amount of ascites. Cirrhotic liver. Joselito Cantu Jr., MD on December 01, 2016 at 15:58 Board Certified Radiologist. This report was verified electronically.
--- NOTE | 2016-12-01 19:16 | HHI.PR ---
Addendum to Inpatient Note Additional Information Pt seen around 1800 today Full note to follow Sobia Smith MD Dec 01, 2016 19:16
[2016-12-01] MEDS: DOXEPIN HCL 50 MG CAP PO SCH (21:49)
--- NOTE | 2016-12-01 22:24 | HHI.IDPN ---
Subjective Subjective Remarks Delayed entry Pt seen around 1800 today co R side abd pain no fever Antibiotics Unasyn Allergies: Coded Allergies: *MDRO Multi-Drug Resistant Organism (Verified Adverse Reaction, Unknown, ) MRSA PCR screen POSITIVE - 12/23/15 Objective . Vital Signs Date Time Temp Pulse Resp B/P (MAP) Pulse Ox O2 Delivery O2 Flow Rate FiO2 12/01/16 16:00 96.0 64 14 117/59 (78) 97 12/01/16 12:00 97.1 63 16 116/63 (80) 96 12/01/16 09:07 98 12/01/16 08:00 97.3 59 18 122/68 (86) 96 12/01/16 04:00 95.9 68 18 119/74 (89) 97 12/01/16 00:00 96.5 59 18 119/80 (93) 99 12/01/16 12/01/16 12/02/16 15:00 23:00 07:00 Intake Total 1200 ml Output Total 1450 ml Balance -250 ml Intake Oral 1200 ml Output Urine Total 1450 ml # Bowel Movements 1 . Laboratory Tests Test 11/30/16 03:50 12/01/16 07:35 White Blood Count 4.0 TH/MM3 3.6 TH/MM3 Red Blood Count 2.81 MIL/MM3 2.84 MIL/MM3 Hemoglobin 7.8 GM/DL 7.9 GM/DL Hematocrit 23.7 % 23.5 % Mean Corpuscular Volume 84.3 FL 82.8 FL Mean Corpuscular Hemoglobin 27.9 PG 27.7 PG Mean Corpuscular Hemoglobin Concent 33.1 % 33.5 % Red Cell Distribution Width 18.8 % 19.5 % Platelet Count 59 TH/MM3 53 TH/MM3 Mean Platelet Volume 7.7 FL 7.9 FL Neutrophils (%) (Auto) 63.6 % 62.0 % Lymphocytes (%) (Auto) 14.8 % 16.9 % Monocytes (%) (Auto) 16.5 % 14.3 % Eosinophils (%) (Auto) 4.6 % 6.1 % Basophils (%) (Auto) 0.5 % 0.7 % Neutrophils # (Auto) 2.6 TH/MM3 2.2 TH/MM3 Lymphocytes # (Auto) 0.6 TH/MM3 0.6 TH/MM3 Monocytes # (Auto) 0.7 TH/MM3 0.5 TH/MM3 Eosinophils # (Auto) 0.2 TH/MM3 0.2 TH/MM3 Basophils # (Auto) 0.0 TH/MM3 0.0 TH/MM3 CBC Comment DIFF FINAL AUTO DIFF Differential Comment AUTO DIFF CONFIRMED Platelet Estimate LOW Platelet Morphology Comment NORMAL Ovalocytes 1+ Laboratory Tests Test 11/30/16 03:50 12/01/16 07:35 Blood Urea Nitrogen 20 MG/DL 20 MG/DL Creatinine 0.77 MG/DL 0.72 MG/DL Random Glucose 209 MG/DL 178 MG/DL Total Protein 5.2 GM/DL 5.2 GM/DL Calcium Level 7.1 MG/DL 6.8 MG/DL Sodium Level 128 MEQ/L 125 MEQ/L Potassium Level 4.4 MEQ/L 4.4 MEQ/L Chloride Level 98 MEQ/L 95 MEQ/L Carbon Dioxide Level 22.6 MEQ/L 24.4 MEQ/L Anion Gap 7 MEQ/L 6 MEQ/L Estimat Glomerular Filtration Rate 103 ML/MIN 111 ML/MIN Protein Corrected Calcium 8.1 MG/DL 7.8 MG/DL Imaging Last Impressions Cyst Biopsy Asp-Paracentesis US 11/27/16 0000 Signed Impressions: Service Date/Time: November 13:17 - CONCLUSION: Uncomplicated ultrasound guided paracentesis. Brandon Perez MD Tunnelled Catheter Removal 11/26/16 1209 Signed Impressions: Service Date/Time: Saturday, November 26, 2016 12:09 - CONCLUSION: 1. Tunneled peritoneal drain removal as detailed above. The tip was sent for culture. Joselito Cantu Jr., MD Paracentesis 11/26/16 0000 Signed Impressions: Service Date/Time: Saturday, November 26, 2016 00:00 - CONCLUSION: Paracentesis through the existing peritoneal drain. 2 L removed without residual fluid. Joselito Cantu Jr., MD Physical Exam CONSTITUTIONAL/GENERAL: This is an adequately nourished patient, in no apparent distress. TUBES/LINES/DRAINS: SKIN: No jaundice, rashes, or lesions. Skin temperature appropriate. Not diaphoretic. CARDIOVASCULAR: Regular rate and rhythm without murmurs, gallops, or rubs. No JVD. Peripheral pulses symmetric. RESPIRATORY/CHEST: Symmetric, unlabored respirations. Clear to auscultation. Breath sounds equal bilaterally. No wheezes, rales, or rhonchi. GASTROINTESTINAL: Abdomen tight , quite tender RUQ/ RLQ, markedly distended. MUSCULOSKELETAL: Extremities without clubbing, cyanosis, + 2+ pitting edema. No joint tenderness or effusion noted. No calf tenderness. No mottling or clubbing. NEUROLOGICAL: Awake and alert. Motor and sensory grossly within normal limits. Follows commands. Clear speech. Moves all extremities. PSYCHIATRIC: calma nd cooperative Assessment & Plan Remarks ESLD Ascites SBP (spontaneous bacterial peritonint0 - 2/2 Enterococcus Former ETOH abuse HCV change Unasyn to po augmentin to complete 14 days fu clinically Ok to dc home from [place] Sobia Moreno MD Dec 01, 2016 22:24
[2016-12-02] VITALS (8 sets, daily range): BP systolic 111–133; BP diastolic 69–72; PULSE 57–71; RESP 17–20; TEMP 96.2–97.9; O2SAT 93–98
[2016-12-02] MEDS: AMPICILLIN-SULBACTAM INJ 3 GM in SODIUM CHLORIDE 0.9% INJ 100 ML IV SCH (05:22)
[2016-12-02] MEDS: AMOXICILLIN/CLAVULANATE K 500 MG TAB PO SCH ×3 (05:22→21:18)
[2016-12-02] MEDS: RESP: ALBUTEROL 2.5 MG/IPRATROPIUM 0.5 MG NEB (SCH) NEB ×4 (08:23→20:06)
[2016-12-02] MEDS: SPIRONOLACTONE 100 MG TAB PO SCH ×2 (08:55→21:18)
[2016-12-02] MEDS: busPIRone HCL 10 MG TAB PO SCH ×2 (08:56→21:18)
[2016-12-02] MEDS: TAMSULOSIN HCL 0.4 MG CAP PO SCH (08:56)
[2016-12-02] MEDS: THIAMINE HCL 100 MG TAB PO SCH (08:56)
[2016-12-02] MEDS: FERROUS SULFATE 325 MG (65 MG ELEMENTAL IRON) TAB PO SCH (08:56)
[2016-12-02] MEDS: ESCITALOPRAM OXALATE 20 MG TAB PO SCH (08:56)
[2016-12-02] MEDS: PROPRANOLOL HCL 20 MG TAB PO SCH (08:56)
[2016-12-02] MEDS: FUROSEMIDE 40 MG TAB PO SCH (08:56)
[2016-12-02] MEDS: GABAPENTIN 100 MG CAP PO SCH ×3 (08:56→18:06)
[2016-12-02] MEDS: ASCORBIC ACID 500 MG TAB PO SCH (08:57)
[2016-12-02] MEDS: PANTOPRAZOLE SOD 40 MG DELAYED RELEASE TAB PO SCH (08:57)
[2016-12-02] MEDS: oxyCODONE/ACETAMINOPHEN 5 MG/325 MG TAB PO PRN ×3 (09:03→18:10)
[2016-12-02] MEDS: SODIUM CHLORIDE 0.9% FLUSH 10 ML FLUSH IV FLUSH SCH ×2 (09:04→21:18)
--- NOTE | 2016-12-02 14:26 | HHI.PR ---
Subjective Remarks feels distended and bloated no nausea or vomiting Objective Vitals Vital Signs Date Time Temp Pulse Resp B/P (MAP) Pulse Ox O2 Delivery O2 Flow Rate FiO2 12/02/16 12:00 96.8 68 17 123/70 (87) 97 12/02/16 08:23 95 21 12/02/16 08:00 97.7 66 18 119/71 (87) 95 12/02/16 04:00 97.7 64 18 124/69 (87) 93 12/02/16 00:00 97.7 71 18 126/72 (90) 96 12/01/16 20:10 21 12/01/16 20:00 96.7 66 18 111/75 (87) 97 12/01/16 20:00 62 12/01/16 16:00 96.0 64 14 117/59 (78) 97 I/O 12/01/16 12/01/16 12/01/16 12/02/16 12/02/16 12/02/16 06:59 14:59 22:59 06:59 14:59 22:59 Intake Total 520 ml 1200 ml 200 ml Output Total 125 ml 1450 ml 1350 ml Balance 395 ml -250 ml -1150 ml Intake Oral 320 ml 1200 ml IV Total 200 ml 200 ml Output Urine Total 125 ml 1450 ml 1350 ml Bladder Scan Volume Amount 140 ml # Voids 1 # Bowel Movements 0 1 Result Diagram: 12/01/16 0735 12/01/16 0735 Imaging Last Impressions Cyst Biopsy Asp-Paracentesis US 11/27/16 0000 Signed Impressions: Service Date/Time: November 13:17 - CONCLUSION: Uncomplicated ultrasound guided paracentesis. Brandon Perez MD Tunnelled Catheter Removal 11/26/16 1209 Signed Impressions: Service Date/Time: Saturday, November 26, 2016 12:09 - CONCLUSION: 1. Tunneled peritoneal drain removal as detailed above. The tip was sent for culture. Joselito Cantu Jr., MD Paracentesis 11/26/16 0000 Signed Impressions: Service Date/Time: Saturday, November 26, 2016 00:00 - CONCLUSION: Paracentesis through the existing peritoneal drain. 2 L removed without residual fluid. Joselito Cantu Jr., MD Objective Remarks awake and alert no encephalopathy mild ictersia decrease breath sounds, no rales regular rhythm abdomen- distended,, superficial wounds.abdomen mild penile edema + edema Procedures 11/26/16 peritoneal drainage catheter removed, drainage of 1.3 L ascitic fluid prior to removal A/P Problem List: (1) DM (diabetes mellitus) ICD Code: E11.9 - Type 2 diabetes mellitus without complications Status: Chronic (2) HTN (hypertension) ICD Code: I10 - Essential (primary) hypertension Status: Chronic (3) Anemia ICD Code: D64.9 - Anemia, unspecified Status: Chronic (4) Ascites ICD Code: R18.8 - Other ascites Status: Chronic (5) Cirrhosis of liver ICD Code: K74.60 - Unspecified cirrhosis of liver Status: Chronic Assessment and Plan 61 years old male 1. Cellulitis at peritoneal catheter site: Continue IV antibiotics per infectious disease. Catheter removed, per GI recommendations patient may not need new catheter placed prior to discharge. Culture growing group D enterococcus. 2. 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 Plan as above. Recurrent ascites- abdomen-distended and firm again recheck US for any increase accumulation of ascites continue on diuretics will d/w GI- regarding indwelling catheter- per pt he had one before. not a good candidate- homeless 3. Chronic anemia: Likely secondary to chronic disease. Continue iron sulfate. Hemoglobin stable at this time. Continue to follow. Transfuse when necessary. 4. Diabetes mellitus: Monitor Accu-Cheks and cover with sliding scale insulin. 5. Hypertension: Continue propranolol. 6. DVT prophylaxis: SCDs. 7. Hyponatremia- Na trending down with diuretics. fluid restriction. dilutional component with ascites Discharge Planning Pending clearance by infectious disease. Per gastroenterology, patient will likely not need new catheter placed prior to discharge. Case management consulted to assist with setting the patient up for outpatient follow-up at the [facility] as he does not currently have housing or transportation. Problem Qualifiers Problem Qualifiers (1) Anemia: (2) Ascites: (3) Cirrhosis of liver: Bravo Flores MD Dec 02, 2016 14:25
--- NOTE | 2016-12-02 16:11 | RADRPT ---
EXAM DATE/TIME: 11/30/2016 10:08 [facility] COMPARISON: CHEST SINGLE AP, November 24, 2016, 22:40. INDICATIONS : Shortness of breath and cough. MEDICAL HISTORY : Pancreatitis. Hepatitis C. Cirrhosis. Head trauma. HTN. Scrotal hernia. GERD.Diabetes. Anemia. PTSD. Anxiety. Substance use. Cdiff. MRSA. SURGICAL HISTORY : Cholecystectomy Blood transfusions. ENCOUNTER: Initial ACUITY: 2 days PAIN SCORE: 0/10 LOCATION: Bilateral chest FINDINGS: A single view of the chest demonstrates the lungs to be symmetrically aerated without evidence of mas s, infiltrate or effusion. The cardiomediastinal contours are unremarkable. Osseous structures are intact. CONCLUSION: No acute disease. Jovany Hoff MD on November 30, 2016 at 10:34 Board Certified Radiologist. This report was verified electronically.
--- NOTE | 2016-12-02 17:12 | RADRPT ---
EXAM DATE/TIME: 12/02/2016 14:41 [facility] COMPARISON: US ABDOMEN - LOWER LIMITED, December 01, 2016, 14:35. INDICATIONS : Ascites. MEDICAL HISTORY : Gastroesophageal reflux disease. Seizures. Hypertension. Hernia, scrotal. Pancreatitis. Diabe almas. Hepatitis C. Cirrhosis. Anxiety. Depression. Violent behavior. SURGICAL HISTORY : Cholecystectomy. ENCOUNTER: Subsequent ACUITY: 1 day PAIN SCORE: 0/10 LOCATION: Abdomen. AREA EVALUATED: Abdomen. FINDINGS: Imaging of the abdomen and pelvis was performed to evaluate for ascites for possible paracentesis. T here is a small amount of ascites. This is likely insufficient volume for therapeutic paracentesis. CONCLUSION: 1. Small amount of ascites with insufficient volume for therapeutic paracentesis. Brooks Bobby MD on December 02, 2016 at 17:10 Board Certified Radiologist. This report was verified electronically.
[2016-12-02] MEDS: DOXEPIN HCL 50 MG CAP PO SCH (21:18)
[2016-12-03] VITALS: BP 119/74; PULSE 65; RESP 20; TEMP 96.7; O2SAT 97
[2016-12-03 04:00] VITALS: BP 125/72; PULSE 68; RESP 20; TEMP 96.2; O2SAT 94
[2016-12-03 05:47] LABS: INTERNATIONAL NORMALIZED RATIO 1.4 RATIO; PROTHROMBIN TIME - PATIENT 15.2 SEC (9.8-11.6)
[2016-12-03] MEDS: AMOXICILLIN/CLAVULANATE K 500 MG TAB PO SCH ×3 (05:52→20:27)
[2016-12-03] MEDS: oxyCODONE/ACETAMINOPHEN 5 MG/325 MG TAB PO PRN ×5 (05:52→22:14)
[2016-12-03 06:00] LABS: BICARBONATE 26.1 MEQ/L (21.0-32.0); POTASSIUM 4.4 MEQ/L (3.5-5.1)
[2016-12-03 06:12] LABS: CALCIUM-PROTEIN CORRECTED 8.4 MG/DL (8.5-10.1)
[2016-12-03 08:00] VITALS: BP 109/73; PULSE 61; RESP 18; TEMP 97.2; O2SAT 96
[2016-12-03] MEDS: FUROSEMIDE 40 MG TAB PO SCH (08:34)
[2016-12-03] MEDS: PROPRANOLOL HCL 20 MG TAB PO SCH (08:34)
[2016-12-03] MEDS: FERROUS SULFATE 325 MG (65 MG ELEMENTAL IRON) TAB PO SCH (08:34)
[2016-12-03] MEDS: PANTOPRAZOLE SOD 40 MG DELAYED RELEASE TAB PO SCH (08:34)
[2016-12-03] MEDS: ASCORBIC ACID 500 MG TAB PO SCH (08:34)
[2016-12-03] MEDS: GABAPENTIN 100 MG CAP PO SCH ×3 (08:34→17:45)
[2016-12-03] MEDS: TAMSULOSIN HCL 0.4 MG CAP PO SCH (08:34)
[2016-12-03] MEDS: busPIRone HCL 10 MG TAB PO SCH ×2 (08:35→20:27)
[2016-12-03] MEDS: ESCITALOPRAM OXALATE 20 MG TAB PO SCH (08:35)
[2016-12-03] MEDS: THIAMINE HCL 100 MG TAB PO SCH (08:35)
[2016-12-03] MEDS: SODIUM CHLORIDE 0.9% FLUSH 10 ML FLUSH IV FLUSH SCH ×2 (08:36→20:31)
[2016-12-03] MEDS: SPIRONOLACTONE 100 MG TAB PO SCH ×2 (08:39→20:28)
[2016-12-03] MEDS: RESP: ALBUTEROL 2.5 MG/IPRATROPIUM 0.5 MG NEB (SCH) NEB ×2 (08:42→11:10)
[2016-12-03 12:00] VITALS: BP 142/74; PULSE 61; RESP 16; TEMP 97; O2SAT 98
--- NOTE | 2016-12-03 13:53 | HHI.PR ---
Subjective Remarks patient doing great, up and ambulating denies any nausea or vomiting or abdominal pail.fullness good BM voiding well Objective Vitals Vital Signs Date Time Temp Pulse Resp B/P (MAP) Pulse Ox O2 Delivery O2 Flow Rate FiO2 12/03/16 12:00 97.0 61 16 142/74 (96) 98 12/03/16 08:00 97.2 61 18 109/73 (85) 96 12/03/16 04:00 96.2 68 20 125/72 (89) 94 12/03/16 00:00 96.7 65 20 119/74 (89) 97 12/02/16 20:07 98 21 12/02/16 20:00 97.9 60 20 133/70 (91) 97 12/02/16 20:00 57 12/02/16 16:00 96.2 63 17 111/71 (84) 95 I/O 12/02/16 12/02/16 12/02/16 12/03/16 12/03/16 12/03/16 07:00 15:00 23:00 07:00 15:00 23:00 Intake Total 200 ml 500 ml 600 ml Output Total 1350 ml 1400 ml 900 ml Balance -1150 ml -900 ml -300 ml Intake Oral 500 ml 600 ml IV Total 200 ml Output Urine Total 1350 ml 1400 ml 900 ml # Bowel Movements 0 Result Diagram: 12/01/16 0735 12/03/16 0449 Imaging Last Impressions Abdomen Ultrasound 12/02/16 0000 Signed Impressions: Service Date/Time: Friday, December 02, 2016 14:41 - CONCLUSION: 1. Small amount of ascites with insufficient volume for therapeutic paracentesis. Brooks Bobby MD Chest X-Ray 11/30/16 0920 Signed Impressions: Service Date/Time: Wednesday, November 30, 2016 10:08 - CONCLUSION: No acute disease. Jovany Hoff MD Cyst Biopsy Asp-Paracentesis US 11/27/16 0000 Signed Impressions: Service Date/Time: November 13:17 - CONCLUSION: Uncomplicated ultrasound guided paracentesis. Brandon Perez MD Tunnelled Catheter Removal 11/26/16 1209 Signed Impressions: Service Date/Time: Saturday, November 26, 2016 12:09 - CONCLUSION: 1. Tunneled peritoneal drain removal as detailed above. The tip was sent for culture. Joselito Cantu Jr., MD Paracentesis 11/26/16 0000 Signed Impressions: Service Date/Time: Saturday, November 26, 2016 00:00 - CONCLUSION: Paracentesis through the existing peritoneal drain. 2 L removed without residual fluid. Joselito Cantu Jr., MD Objective Remarks awake and alert, oriented x 3 mild ictersia decrease breath sounds, no rales, no wheezes regular rhythm abdomen- soft, + bowel sounds, no erythema, superficial wounds- dry trace pretibial edema. mild penile swelling Procedures 11/26/16 peritoneal drainage catheter removed, drainage of 1.3 L ascitic fluid prior to removal A/P Problem List: (1) DM (diabetes mellitus) ICD Code: E11.9 - Type 2 diabetes mellitus without complications Status: Chronic (2) HTN (hypertension) ICD Code: I10 - Essential (primary) hypertension Status: Chronic (3) Anemia ICD Code: D64.9 - Anemia, unspecified Status: Chronic (4) Ascites ICD Code: R18.8 - Other ascites Status: Chronic (5) Cirrhosis of liver ICD Code: K74.60 - Unspecified cirrhosis of liver Status: Chronic Assessment and Plan 61 years old male 1. Cellulitis at peritoneal catheter site: Augmentin x 13 days more 2. 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 Plan as above. Recurrent ascites- abdomen-distended and firm again continue diuretics. may need periodic paracentesis- can be done as OP last US 12/02- very minimal fluid continue on diuretics will d/w GI- regarding indwelling catheter- per pt he had one before. not a good candidate- homeless 3. Chronic anemia: Likely secondary to chronic disease. Continue iron sulfate. Hemoglobin stable at this time. Continue to follow. Transfuse when necessary. 4. Diabetes mellitus: check FS bid- Start on 70/30 back at 5 unis sq bid 5. Hypertension: Continue propranolol. 6. DVT prophylaxis: SCDs. 7. Hyponatremia- stable fluid restriction. dilutional component with ascites Discharge Planning Pending clearance by infectious disease. Per gastroenterology, patient will likely not need new catheter placed prior to discharge. Case management consulted to assist with setting the patient up for outpatient follow-up at the [facility] as he does not currently have housing or transportation. DC to an [facility] if arranged Problem Qualifiers (1) Anemia: (2) Ascites: (3) Cirrhosis of liver: Bravo Flores MD Dec 03, 2016 13:53
[2016-12-03] MEDS ORDERED: AUGM500T7 PO (14:09)
[2016-12-03] MEDS ORDERED: NOVO7030P2 SQ (14:11)
--- NOTE | 2016-12-03 14:20 | HHI.DS ---
Discharge Summary Admission Date Nov 25, 2016 at 19:29 Discharge Date: Dec 03, 2016 Admitting Diagnosis possible bacterial peritonitis (1) Bacterial peritonitis ICD Code: K65.9 - Peritonitis, unspecified Diagnosis: Principal Status: Acute (2) Ascites ICD Code: R18.8 - Other ascites Diagnosis: Principal Status: Chronic (3) DM (diabetes mellitus) ICD Code: E11.9 - Type 2 diabetes mellitus without complications Diagnosis: Secondary Status: Chronic (4) HTN (hypertension) ICD Code: I10 - Essential (primary) hypertension Diagnosis: Secondary Status: Chronic (5) Anemia ICD Code: D64.9 - Anemia, unspecified Diagnosis: Secondary Status: Chronic (6) Cirrhosis of liver ICD Code: K74.60 - Unspecified cirrhosis of liver Diagnosis: Secondary Status: Chronic Procedures 11/26/16 peritoneal drainage catheter removed, drainage of 1.3 L ascitic fluid prior to removal Brief History - From Admission Written by LIVIER Recinos acting as scribe for [Ozzie] on 11/26/16 at 03: 11. 61 y/o male with a history of cirrhosis, Hep C, DM, HTN and anemia [facility]. Patient has a peritoneal catheter in place and he states it has been red with purulent drainage around the site, with associated nausea. He also complains of pain around the site, worse with movement and improves with medication. He denies any vomiting, chest pain, fever or chills. He does get sob when the fluid accumulates, but he is not currently sob. CBC/BMP: 12/01/16 0735 12/03/16 0449 Significant Findings Laboratory Tests Test 12/01/16 07:35 12/03/16 04:49 White Blood Count 3.6 TH/MM3 (4.0-11.0) Red Blood Count 2.84 MIL/MM3 (4.50-5.90) Hemoglobin 7.9 GM/DL (13.0-17.0) Hematocrit 23.5 % (39.0-51.0) Red Cell Distribution Width 19.5 % (11.6-17.2) Platelet Count 53 TH/MM3 (150-450) Monocytes (%) (Auto) 14.3 % (0.0-8.0) Eosinophils (%) (Auto) 6.1 % (0.0-4.0) Lymphocytes # (Auto) 0.6 TH/MM3 (1.0-4.8) Platelet Estimate LOW (NORMAL) Ovalocytes 1+ (NORMAL) Blood Urea Nitrogen 20 MG/DL (7-18) Random Glucose 178 MG/DL (74-106) 226 MG/DL (74-106) Total Protein 5.2 GM/DL (6.4-8.2) 5.3 GM/DL (6.4-8.2) Calcium Level 6.8 MG/DL (8.5-10.1) 7.4 MG/DL (8.5-10.1) Sodium Level 125 MEQ/L (136-145) 129 MEQ/L (136-145) Chloride Level 95 MEQ/L (98-107) 96 MEQ/L (98-107) Protein Corrected Calcium 7.8 MG/DL (8.5-10.1) 8.4 MG/DL (8.5-10.1) Prothrombin Time 15.2 SEC (9.8-11.6) Imaging Last Impressions Abdomen Ultrasound 12/02/16 0000 Signed Impressions: Service Date/Time: Friday, December 02, 2016 14:41 - CONCLUSION: 1. Small amount of ascites with insufficient volume for therapeutic paracentesis. Brokos Bobby MD Chest X-Ray 11/30/16 0920 Signed Impressions: Service Date/Time: Wednesday, November 30, 2016 10:08 - CONCLUSION: No acute disease. Jovany Hoff MD Cyst Biopsy Asp-Paracentesis US 11/27/16 0000 Signed Impressions: Service Date/Time: November 13:17 - CONCLUSION: Uncomplicated ultrasound guided paracentesis. Brandon Perez MD Tunnelled Catheter Removal 11/26/16 1209 Signed Impressions: Service Date/Time: Saturday, November 26, 2016 12:09 - CONCLUSION: 1. Tunneled peritoneal drain removal as detailed above. The tip was sent for culture. Joselito Cantu Jr., MD Paracentesis 11/26/16 0000 Signed Impressions: Service Date/Time: Saturday, November 26, 2016 00:00 - CONCLUSION: Paracentesis through the existing peritoneal drain. 2 L removed without residual fluid. Joselito Cantu Jr., MD PE at Discharge awake and alert, oriented x 3 mild ictersia decrease breath sounds, no rales, no wheezes regular rhythm abdomen- distended but soft, + bowel sounds, no erythema, trace pretibial edema. mild penile swelling Pt update on day of discharge awake and alert, no acute distress no abdominal pain Hospital Course 61 years old male 1. Cellulitis at peritoneal catheter site: Augmentin x 13 days more 2. 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 Plan as above. Recurrent ascites- abdomen-distended and firm again continue diuretics. may need periodic paracentesis- can be done as OP last US 12/02- very minimal fluid continue on diuretics will d/w GI- regarding indwelling catheter- per pt he had one before. not a good candidate- homeless 3. Chronic anemia: Likely secondary to chronic disease. Continue iron sulfate. Hemoglobin stable at this time. Continue to follow. Transfuse when necessary. 4. Diabetes mellitus: check FS bid- Start on 70/30 back at 5 unis sq bid 5. Hypertension: Continue propranolol. 6. DVT prophylaxis: SCDs. 7. Hyponatremia- stable fluid restriction. dilutional component with ascites DC today - Pt Condition on Discharge: Stable Discharge Disposition: ACLF/ANA Discharge Time: <= 30 minutes Discharge Instructions DIET: Follow Instructions for: Heart Healthy Diet, Diabetic Diet Speech Therapy-Diet Recommends: Regular Additional Diet Instructions: fluid restriction 1 L/day heart healthy ADA diet Activities you can perform: Weight Bearing as [place] Follow up Referrals: Gastroenterology - 2 Weeks with Demarco Fortune MD PCP [facility] New Orders: COMP MET PROF (CMP) - 1 Week New Medications: Insulin Human Isophane-Regular 70-30 Inj (Novolin 70-30 Inj) 1,000 Unit/10 Ml Vial 5 UNITS SQ BID for Blood Sugar Management for 30 Days, ML 0 Refills Amoxicillin-Clavulanate (Augmentin) 500-125 mg Tab 500 MG PO Q8HR for cellul for 12 Days, #42 TAB 0 Refills NS Continued Medications: Ascorbic Acid (Bulk) (Ascorbic Acid) 1 Pow Pow 500 MG PO DAILY Buspirone (Buspirone) 10 Mg Tab 10 MG PO BID for Anxiety, TAB 0 Refills Cholecalciferol (D3) 1,000 Unit Tab PO DAILY Doxepin (Doxepin) 50 Mg Cap 50 MG PO HS, #30 CAP 0 Refills Escitalopram (Escitalopram) 20 Mg Tab 20 MG PO DAILY, #30 TAB 0 Refills Ferrous Gluconate (Ferrous Gluconate) 325 Mg Tab 324 MG PO DAILY for Nutritional Supplement, #30 TAB 0 Refills Furosemide (Furosemide) 40 Mg Tab 40 MG PO DAILY, #30 TAB 0 Refills Gabapentin (Gabapentin) 100 Mg Cap 300 MG PO TID, #60 CAP 0 Refills Lactulose Liq (Lactulose Liq) 10 Gm/15 Ml Soln 30 ML PO BID PRN for CONSTIPATION, #90 ML 0 Refills Pantoprazole (Pantoprazole) 40 Mg Tab 40 MG PO DAILY for Reflux, #30 TAB 0 Refills Propranolol (Propranolol) 20 Mg Tab 20 MG PO DAILY, #60 TAB 0 Refills Spironolactone (Spironolactone) 100 Mg Tab 100 MG PO BID, #60 TAB 0 Refills Tamsulosin (Tamsulosin) 0.4 Mg Cap 0.4 MG PO DAILY for Manage Prostate Problems, #30 CAP 0 Refills Thiamine (Vitamin B-1) 100 Mg Tab 100 MG PO DAILY for Nutritional Supplement, TAB 0 Refills Discontinued Medications: Insulin Aspart Protam-Asp 70-30 Inj (Novolog Mix 70-30 Inj) 1,000 Unit/10 Ml Vial 30 UNIT SQ BID for Blood Sugar Management, #10 ML 0 Refills Insulin Glargine Inj (Lantus Inj) 100 Unit/Ml Inj 40 UNIT SQ HS Bravo Flores MD Dec 03, 2016 14:20
[2016-12-03 15:48] VITALS: BP 116/68; PULSE 60; RESP 18; TEMP 97.3; O2SAT 98
[2016-12-03] MEDS: INSULIN HUMAN NPH/R 70/30 1,000 UNITS/10 ML VIAL SQ SCH (17:56)
[2016-12-03 20:00] VITALS: BP 126/71; PULSE 64; RESP 20; TEMP 96.8; O2SAT 97
[2016-12-03] MEDS: DOXEPIN HCL 50 MG CAP PO SCH (20:28)
[2016-12-04] VITALS: BP 105/54; PULSE 63; RESP 20; TEMP 97.1; O2SAT 96
[2016-12-04] MEDS: oxyCODONE/ACETAMINOPHEN 5 MG/325 MG TAB PO PRN ×3 (02:25→11:04)
[2016-12-04 04:00] VITALS: BP 116/70; PULSE 63; RESP 20; TEMP 97.3; O2SAT 95
[2016-12-04] MEDS: AMOXICILLIN/CLAVULANATE K 500 MG TAB PO SCH (06:27)
[2016-12-04 08:00] VITALS: BP 123/72; PULSE 60; RESP 10; TEMP 96.6; O2SAT 96
[2016-12-04] MEDS: ASCORBIC ACID 500 MG TAB PO SCH (11:02)
[2016-12-04] MEDS: TAMSULOSIN HCL 0.4 MG CAP PO SCH (11:02)
[2016-12-04] MEDS: PROPRANOLOL HCL 20 MG TAB PO SCH (11:03)
[2016-12-04] MEDS: ESCITALOPRAM OXALATE 20 MG TAB PO SCH (11:03)
[2016-12-04] MEDS: PANTOPRAZOLE SOD 40 MG DELAYED RELEASE TAB PO SCH (11:03)
[2016-12-04] MEDS: busPIRone HCL 10 MG TAB PO SCH (11:03)
[2016-12-04] MEDS: GABAPENTIN 100 MG CAP PO SCH (11:04)
[2016-12-04] MEDS: SPIRONOLACTONE 100 MG TAB PO SCH (11:04)
[2016-12-04] MEDS: FERROUS SULFATE 325 MG (65 MG ELEMENTAL IRON) TAB PO SCH (11:04)
[2016-12-04] MEDS: THIAMINE HCL 100 MG TAB PO SCH (11:05)
[2016-12-04] MEDS: FUROSEMIDE 40 MG TAB PO SCH (11:05)
[2016-12-04] MEDS: INSULIN HUMAN NPH/R 70/30 1,000 UNITS/10 ML VIAL SQ SCH (11:07)
--- NOTE | 2016-12-04 11:07 | HHI.PR ---
Subjective Remarks no complains ready to go d/w CM- arrange for ride Objective Vitals Vital Signs Date Time Temp Pulse Resp B/P (MAP) Pulse Ox O2 Delivery O2 Flow Rate FiO2 12/04/16 08:00 96.6 60 10 123/72 (89) 96 12/04/16 04:00 97.3 63 20 116/70 (85) 95 12/04/16 00:00 97.1 63 20 105/54 (71) 96 12/03/16 20:00 96.8 64 20 126/71 (89) 97 12/03/16 15:48 97.3 60 18 116/68 (84) 98 12/03/16 12:00 97.0 61 16 142/74 (96) 98 I/O 12/03/16 12/03/16 12/03/16 12/04/16 12/04/16 12/04/16 06:59 14:59 22:59 06:59 14:59 22:59 Intake Total 600 ml 236 ml 240 ml Output Total 900 ml 450 ml Balance -300 ml 236 ml -210 ml Intake Oral 600 ml 236 ml 240 ml Output Urine Total 900 ml 450 ml # Bowel Movements 0 Result Diagram: 12/01/16 0735 12/03/16 0449 Imaging Last Impressions Abdomen Ultrasound 12/02/16 0000 Signed Impressions: Service Date/Time: Friday, December 02, 2016 14:41 - CONCLUSION: 1. Small amount of ascites with insufficient volume for therapeutic paracentesis. Brooks Bobby MD Chest X-Ray 11/30/16 0920 Signed Impressions: Service Date/Time: Wednesday, November 30, 2016 10:08 - CONCLUSION: No acute disease. Jovany Hoff MD Cyst Biopsy Asp-Paracentesis US 11/27/16 0000 Signed Impressions: Service Date/Time: November 13:17 - CONCLUSION: Uncomplicated ultrasound guided paracentesis. Brandon Perez MD Tunnelled Catheter Removal 11/26/16 1209 Signed Impressions: Service Date/Time: Saturday, November 26, 2016 12:09 - CONCLUSION: 1. Tunneled peritoneal drain removal as detailed above. The tip was sent for culture. Joselito Cantu Jr., MD Paracentesis 11/26/16 0000 Signed Impressions: Service Date/Time: Saturday, November 26, 2016 00:00 - CONCLUSION: Paracentesis through the existing peritoneal drain. 2 L removed without residual fluid. Joselito Cantu Jr., MD Objective Remarks awake and alert, oriented x 3 mild ictersia decrease breath sounds, no rales, no wheezes regular rhythm abdomen- distended but soft, + bowel sounds, no erythema, no edema, mild penile edema- improved Procedures 11/26/16 peritoneal drainage catheter removed, drainage of 1.3 L ascitic fluid prior to removal A/P Problem List: (1) Bacterial peritonitis ICD Code: K65.9 - Peritonitis, unspecified Status: Acute (2) Ascites ICD Code: R18.8 - Other ascites Status: Chronic (3) DM (diabetes mellitus) ICD Code: E11.9 - Type 2 diabetes mellitus without complications Status: Chronic (4) HTN (hypertension) ICD Code: I10 - Essential (primary) hypertension Status: Chronic (5) Anemia ICD Code: D64.9 - Anemia, unspecified Status: Chronic (6) Cirrhosis of liver ICD Code: K74.60 - Unspecified cirrhosis of liver Status: Chronic Assessment and Plan 61 years old male 1. Cellulitis at peritoneal catheter site: Augmentin x 13 days more 2. 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 Plan as above. Recurrent ascites- abdomen-distended and firm again continue diuretics. may need periodic paracentesis- can be done as OP last US 12/02- very minimal fluid continue on diuretics will d/w GI- regarding indwelling catheter- per pt he had one before. not a good candidate- homeless 3. Chronic anemia: Likely secondary to chronic disease. Continue iron sulfate. Hemoglobin stable at this time. Continue to follow. Transfuse when necessary. 4. Diabetes mellitus: check FS bid- Start on 70/30 back at 5 unis sq bid 5. Hypertension: Continue propranolol. 6. DVT prophylaxis: SCDs. 7. Hyponatremia- stable fluid restriction. dilutional component with ascites Discharge Planning DC today- CM assisting Problem Qualifiers (1) Ascites: (2) Anemia: (3) Cirrhosis of liver: Bravo Flores MD Dec 04, 2016 11:07
[2016-12-04] MEDS: SODIUM CHLORIDE 0.9% FLUSH 10 ML FLUSH IV FLUSH SCH (11:08)
== END 2016-12-04 11:34 | DRG 372 ==
LOC: NEPC 15:44 → NEDA 19:29 → NEPFCDU 21:24 → N07B 11-27 02:20
PROVIDERS: ADMIT Internal Medicine; ATTEND Internal Medicine
PROC: 0W9G3ZZ Drainage of Peritoneal Cavity, Percutaneous Approach (ICD-10-PCS; 2016-11-26)
PROC: 0WPGX0Z Removal of Drainage Device from Peritoneal Cavity, External Approach (ICD-10-PCS; 2016-11-26)
PROC: 0W3P8ZZ Control Bleeding in Gastrointestinal Tract, Via Natural or Artificial Opening Endoscopic (ICD-10-PCS; 2016-11-27)
PROC: 0W9G3ZZ Drainage of Peritoneal Cavity, Percutaneous Approach (ICD-10-PCS; principal; 2016-11-28)
DX: K65.2 Spontaneous bacterial peritonitis (principal); K76.6 Portal hypertension; I85.10 Secondary esophageal varices without bleeding; E87.1 Hypo-osmolality and hyponatremia; R45.851 Suicidal ideations; L03.311 Cellulitis of abdominal wall; K31.819 Angiodysplasia of stomach and duodenum without bleeding; T81.4XXA Infection following a procedure, initial encounter; K70.31 Alcoholic cirrhosis of liver with ascites; I10 Essential (primary) hypertension; E11.9 Type 2 diabetes mellitus without complications; B95.2 Enterococcus as the cause of diseases classified elsewhere; F10.21 Alcohol dependence, in remission; K74.69 Other cirrhosis of liver; B18.2 Chronic viral hepatitis C; K31.89 Other diseases of stomach and duodenum; D63.8 Anemia in other chronic diseases classified elsewhere; Z79.4 Long term (current) use of insulin; Z59.0 Homelessness
CPT/HCPCS: 49082; 49083; 49422; 71010; 76705; 80048; 80053; 81001; 82042; 82150; 82945; 82948; 83615; 83690; 83735; 84155; 84157; 85014; 85018; 85025; 85610; 85730; 87070; 87071; 87077; 87186; 87205; 89051; 94640; 96365; C1729; J0295; J0696; J1815; J1956; J2270; J2405

== ENCOUNTER 2016-12-30 16:11 | Inpatient (IN) | payer MEDICARE, OTHER ==
[~2016-12-30] VITALS: Ht 165.1 cm; Wt 85.3 kg
[~2016-12-30 16:11] MED LIST changes: +AUGM500T7 PO; +D31000TA PO; +DOXE50CA3 PO; +ESCI20TA PO; +FERR325T72 PO; +LACT10SO PO; -LANTUS2P SQ; +NOVO7030P2 SQ; -NOVOLOGMXP SQ; +PANT40TA3 PO; +PROP20TA3 PO; +VITA100T54 PO; -VITAMIN B PO; -ZOFR4TAB3 SL; -[UNRECOGNIZED DRUG - CODE] PO
--- NOTE | 2016-12-30 16:24 | PD ---
HPI Chief Complaint: GI Complaint Time Seen by Provider: 16:23 Travel History International Travel<30 days: No Contact w/Intl Traveler<30days: No Traveled to known affect area: No History of Present Illness HPI 61 YO M with PMH of DM, HTN, cirrhosis with implanted Pleurx catheters, right inguinal hernia presents to the ED for evaluation of 2 day history of abdominal pain radiating to the right groin. He endorses accompanying palpitations and shortness of breath. He denies cough. Patient denies fever, chills, nausea, vomiting. He endorses decreased appetite. Last bowel movement this morning, states it was very pale. Patient states that he is currently homeless, was able to drain 2 L from his Pleurx catheter overnight. [facility] GI Dr[facility] Fortune. [facility] Past Medical History Anemia: Yes Anxiety: Yes Depression: Yes Cancer: No Cardiovascular Problems: Yes Cirrhosis: Yes Cerebrovascular Accident: No Diabetes: Yes Diminished Hearing: No Endocrine: Yes Gastrointestinal Disorders: Yes (Hepatitis C) GERD: Yes Genitourinary: No Hepatitis: Yes (HEP C ) Hypertension: Yes Immune Disorder: No Musculoskeletal: No Neurologic: No Psychiatric: Yes Reproductive: No Respiratory: No Pancreatitis: Yes Thyroid Disease: No Past Surgical History Abdominal Surgery: Yes (cholecystectomy) Cardiac Surgery: No Cholecystectomy: Yes (2004) Ear Surgery: No Endocrine Surgery: No Eye Surgery: No Genitourinary Surgery: No Gynecologic Surgery: No Oral Surgery: No Pacemaker: No Thoracic Surgery: No Other Surgery: Yes (BANDING FOR GI BLEED IN JAN 2013, BANDING IN FEB 2013, BANDING IN MAY 2012,) Social History Alcohol Use: Yes (03/20/16 LAST DRINK) Tobacco Use: No Allergies-Medications (Allergen,Severity, Reaction): Coded Allergies: *MDRO Multi-Drug Resistant Organism (Verified Adverse Reaction, Unknown, ) MRSA PCR screen POSITIVE - 12/23/15 Reported Meds & Prescriptions Reported Meds & Active Scripts Active Novolin 70-30 Inj (Insulin Human Isoph/Insulin Regular) 1,000 Unit/10 Ml Vial 5 Units SQ BID 30 Days Reported C 500 (Ascorbic Acid) 500 Mg Tab 500 Mg PO DAILY Gabapentin 300 Mg Cap 300 Mg PO TID Vitamin B-1 (Thiamine HCl) 100 Mg Tab 100 Mg PO DAILY Propranolol (Propranolol HCl) 20 Mg Tab 20 Mg PO DAILY Lactulose Liq (Lactulose) 10 Gm/15 Ml Soln 30 Ml PO BID PRN Pantoprazole (Pantoprazole Sodium) 40 Mg Tab 40 Mg PO DAILY Ferrous Gluconate 325 Mg Tab 325 Mg PO DAILY Escitalopram (Escitalopram Oxalate) 20 Mg Tab 20 Mg PO DAILY D3 (Cholecalciferol) 1,000 Unit Tab 1,000 Units PO DAILY Doxepin (Doxepin HCl) 50 Mg Cap 50 Mg PO HS Furosemide 40 Mg Tab 40 Mg PO DAILY Tamsulosin (Tamsulosin HCl) 0.4 Mg Cap 0.4 Mg PO DAILY Buspirone (Buspirone HCl) 10 Mg Tab 10 Mg PO BID Spironolactone 100 Mg Tab 100 Mg PO BID Review of Systems Except as stated in HPI: all other systems reviewed are Neg Physical Exam Narrative GENERAL: Well-nourished, well-developed white male in no acute distress.. SKIN: Focused skin assessment warm/dry. HEAD: Normocephalic. EYES: No scleral icterus. No injection or drainage. NECK: Supple, trachea midline. No JVD or lymphadenopathy. CARDIOVASCULAR: Regular rate and rhythm without murmurs, gallops, or rubs. RESPIRATORY: Breath sounds equal bilaterally. No accessory muscle use. GASTROINTESTINAL: Abdomen distended, firm, diffusely tender. Positive fluid wave. Pleurx catheter in the right lower quadrant. Large right inguinal hernia easily reducible. GENITOURINARY: Circumcised. Testes descended bilaterally without evidence of rotation. No lesions or erythema. No urethral discharge. MUSCULOSKELETAL: No cyanosis, or edema. BACK: Nontender without obvious deformity. No CVA tenderness. Data Data Last Documented VS Vital Signs Date Time Temp Pulse Resp B/P (MAP) Pulse Ox O2 Delivery O2 Flow Rate FiO2 12/30/16 17:00 97 Room Air 12/30/16 17:00 12/30/16 16:28 82 16 Orders Orders Electrocardiogram (12/30/16 16:40) Complete Blood Count With Diff (12/30/16 16:40) Comprehensive Metabolic Panel (12/30/16 16:40) Prothrombin Time / Inr (Pt) (12/30/16 16:40) Act Partial Throm Time (Ptt) (12/30/16 16:40) Lactic Acid Sepsis Protocol (12/30/16 16:40) Magnesium (Mg) (12/30/16 16:40) Ckmb (Isoenzyme) Profile (12/30/16 16:40) Troponin I (12/30/16 16:40) Urinalysis - C+S If Indicated (12/30/16 16:40) Blood Culture (12/30/16 16:40) Chest, Single Ap (12/30/16 16:40) Ecg Monitoring (12/30/16 16:40) Iv Access Insert/Monitor (12/30/16 16:40) Oximetry (12/30/16 16:40) Oxygen Administration (12/30/16 16:40) Hydromorphone Pf Inj (Dilaudid Pf Inj) (12/30/16 16:45) Ed Poc Ultrasound (12/30/16 16:40) Glucose, Peritoneal Fluid (12/30/16 16:47) Peritoneal Cell Count + Diff (12/30/16 16:47) Fluid Culture And Gram Stain (12/30/16 16:47) Piperacil-Tazo 4.5 Gm Premix (Zosyn 4.5 (12/30/16 17:00) Ice/Cold Pack (12/30/16 16:50) Vascular Access Team Consult/P PRN (12/30/16 17:17) Vascular Poc Ultrasound (12/30/16 ) CKMB (12/30/16 17:50) CKMB% (12/30/16 17:50) Admit Order (Ed Use Only) (12/30/16 19:38) Labs Laboratory Tests Test 12/30/16 17:50 White Blood Count 7.6 TH/MM3 Red Blood Count 3.50 MIL/MM3 Hemoglobin 9.9 GM/DL Hematocrit 30.1 % Mean Corpuscular Volume 86.1 FL Mean Corpuscular Hemoglobin 28.2 PG Mean Corpuscular Hemoglobin Concent 32.8 % Red Cell Distribution Width 18.7 % Platelet Count 97 TH/MM3 Mean Platelet Volume 7.5 FL Neutrophils (%) (Auto) 76.3 % Lymphocytes (%) (Auto) 8.4 % Monocytes (%) (Auto) 12.8 % Eosinophils (%) (Auto) 2.2 % Basophils (%) (Auto) 0.3 % Neutrophils # (Auto) 5.8 TH/MM3 Lymphocytes # (Auto) 0.6 TH/MM3 Monocytes # (Auto) 1.0 TH/MM3 Eosinophils # (Auto) 0.2 TH/MM3 Basophils # (Auto) 0.0 TH/MM3 CBC Comment AUTO DIFF Prothrombin Time 15.3 SEC Prothromb Time International Ratio 1.4 RATIO Activated Partial Thromboplast Time 29.4 SEC Blood Urea Nitrogen 18 MG/DL Creatinine 0.89 MG/DL Random Glucose 180 MG/DL Total Protein 7.0 GM/DL Albumin 2.4 GM/DL Calcium Level 7.6 MG/DL Magnesium Level 1.8 MG/DL Alkaline Phosphatase 79 U/L Aspartate Amino Transf (AST/SGOT) 143 U/L Alanine Aminotransferase (ALT/SGPT) 77 U/L Total Bilirubin 3.1 MG/DL Sodium Level 129 MEQ/L Potassium Level 4.0 MEQ/L Chloride Level 96 MEQ/L Carbon Dioxide Level 26.2 MEQ/L Anion Gap 7 MEQ/L Estimat Glomerular Filtration Rate 87 ML/MIN Lactic Acid Level 2.4 mmol/L Total Creatine Kinase 201 U/L Creatine Kinase MB 5.7 NG/ML Troponin I LESS THAN 0.02 NG/ML MDM Medical Decision Making Medical Screen Exam Complete: Yes Emergency Medical Condition: Yes Differential Diagnosis Incarcerated hernia versus spontaneous bacterial peritonitis versus liver failure versus metabolic derangement versus other Narrative Course 61 YO M with PMH of DM, HTN, cirrhosis with implanted Pleurx catheter, right inguinal hernia presents to the ED for evaluation of 2 day history of abdominal pain radiating to the right groin. He endorses accompanying palpitations and shortness of breath. He denies cough, fever, chills, nausea, vomiting. Patient states that he is currently homeless, was able to drain 2 L from his Pleurx catheter overnight. Patient is afebrile on presentation. He has a large , distended, diffusely tender belly with positive fluid wave. There is a Pleurx catheter in the right lower quadrant. He has a large right inguinal hernia, easily reducible. Patient was a difficult IV access and the vas access team was consulted. CBC: WBC 7.6, neutrophil predominant. Hemoglobin 9.9. Platelets 97. Coags: INR 1.4. CMP: Sodium 129, chloride 96, calcium 7.6, bilirubin 3.1. Lactic acid 2.4. Pleural fluid studies are pending at this time. Patient has multiple metabolic derangements and we'll admit to the medicine service. The patient is agreeable to this plan. I spoke with , resident, who agrees to accept the patient under Dr. West. Please see medicine notes for disposition. Veronica Selby Dec 30, 2016 16:24
[2016-12-30 16:28] VITALS: BP 145/76; PULSE 82; RESP 16; O2SAT 98
[2016-12-30] MEDS ORDERED: HYDROmorphone HCL PF 1 MG/ML VIAL IV ONE (16:45)
[2016-12-30 17:00] VITALS: O2SAT 97
[2016-12-30] MEDS ORDERED: PIPERACIL-TAZO 4.5 GM PREMIX 100 ML IV ONE (17:00)
--- NOTE | 2016-12-30 17:17 | RADRPT ---
EXAM DATE/TIME: 12/30/2016 16:55 [facility] COMPARISON: No previous studies available for comparison. INDICATIONS : Weakness. MEDICAL HISTORY : Gastroesophageal reflux disease. Seizures. Hypertension. Hernia, scrotal. Pancreatitis. Diabetes. Hep atitis C. Cirrhosis. SURGICAL HISTORY : Cholecystectomy. ENCOUNTER: Subsequent ACUITY: 1 day PAIN SCORE: 0/10 LOCATION: Bilateral chest FINDINGS: A single view of the chest demonstrates minimal basilar atelectasis. No dense consolidation or effusi on. No pneumothorax. Heart size within normal limits. Tortuous aorta. CONCLUSION: 1. Minimal basilar atelectasis. No effusion. No pneumothorax. Féilx Vail MD on December 30, 2016 at 17:14 Board Certified Radiologist. This report was verified electronically.
[2016-12-30] MEDS ORDERED: GABA300C5 PO (17:51)
[2016-12-30] MEDS ORDERED: C 50TAB PO (17:51)
[2016-12-30 18:35] LABS: AUTOMATED NEUTROPHIL # 5.8 TH/MM3 (1.8-7.7); BASOPHIL % 0.3 % (0.0-2.0); EOSINOPHIL # 0.2 TH/MM3 (0-0.4); EOSINOPHIL % 2.2 % (0.0-4.0); HEMATOCRIT 30.1 % (39.0-51.0); LYMPH % 8.4 % (9.0-44.0); LYMPHOCYTE # 0.6 TH/MM3 (1.0-4.8); MEAN CELL VOLUME 86.1 FL (80.0-100.0); MEAN CORPUSCULAR HEMOGLOBIN 28.2 PG (27.0-34.0); MEAN CORPUSCULAR HGB CONC 32.8 % (32.0-36.0); MONO % 12.8 % (0.0-8.0); NEUT % 76.3 % (16.0-70.0); PLATELET COUNT 97 TH/MM3 (150-450); RED CELL DISTRIBUTION WIDTH 18.7 % (11.6-17.2); WHITE BLOOD COUNT 7.6 TH/MM3 (4.0-11.0)
[2016-12-30 18:43] LABS: HEMO FLAGS AUTO DIFF
[2016-12-30 18:49] LABS: APTT (PATIENT) 29.4 SEC (24.3-30.1); INTERNATIONAL NORMALIZED RATIO 1.4 RATIO; PROTHROMBIN TIME - PATIENT 15.3 SEC (9.8-11.6)
[2016-12-30 18:55] LABS: ALT (GPT) 77 U/L (12-78); ANION GAP 7 MEQ/L (5-15); AST (GOT) 143 U/L (15-37); BICARBONATE 26.2 MEQ/L (21.0-32.0); BLOOD UREA NITROGEN 18 MG/DL (7-18); CHLORIDE 96 MEQ/L (98-107); GLOMERULAR FILTRATION RATE 87 ML/MIN (>89); MAGNESIUM 1.8 MG/DL (1.5-2.5); SODIUM (NA) 129 MEQ/L (136-145)
[2016-12-30 19:00] LABS: ALKALINE PHOSPHATASE 79 U/L (45-117); CREATINE KINASE 201 U/L (39-308); TOTAL BILIRUBIN ADULT 3.1 MG/DL (0.2-1.0)
[2016-12-30 19:12] LABS: CKMB 5.7 NG/ML (0.5-3.6)
[2016-12-30 19:30] VITALS: BP 140/72; PULSE 80; RESP 18; TEMP 98.5; O2SAT 98
[2016-12-30 19:51] LABS: PLATELET ESTIMATE SMEAR LOW (NORMAL); SCAN/DIFF AUTO DIFF CONFIRMED
--- NOTE | 2016-12-30 20:09 | HHI.HP ---
[facility] Service Family Medicine Primary Care Physician [facility] Admission Diagnosis lactic acidosis, hypocalcemia, hyperbilirubinemia,r/o SBP Diagnoses: International Travel<30 Days: No Contact w/Intl Traveler<30days: No Known Affected Area: No History of Present Illness Mr. Allison is a 61 yo M with PMH of cirrhosis, alcoholism, substance abuse, Hep C , T2DM, HTN who presents to [place] ED with symptoms of weakness, lightheadedness, confusion, pain associated with R inguinal hernia, and pain associated with his peritoneal catheter. Patient elaborated on the respective onsets of multiple complaints: Patient reports that his abdominal pain associated with his hernia has been painful for the past year, but has been hurting more recently. Patient states that he has had generalized abdominal pain for the past couple months. Patient reports increased pain around his peritoneal catheter site for the past couple days. Patient states that although his pain has contributed to his current condition, he predominately sought admission for weakness. Patient reportedly has been tired for days; he attributes this to exertion and not eating. Patient last saw [facility] ER physician last with reported similar symptoms of generally not "feeling well". Patient had abdominal US performed and had therapeutic paracentesis in which a couple liters were drained causing some symptom improvement. Over the weekend, patient began to feel exhausted while trying to take care of his granddaughter and grandson. Patient sought evaluation /therapeutic paracentesis at [facility] yesterday but did not receive this. When not receiving paracenteses at the [facility], patient given instructions to perform paracenteses at home; patient was most recently given instructions to tap 1 liter of peritoneal fluid daily. Patient last had paracentesis Thursday in which 2 units were drained. Patient states that symptoms improved somewhat but that this did not improve symptoms completely. Patient also reports constant dry mouth and dry eyes. Patient states that he has history of DM; patient states that he has in general not been taking medications as prescribed. Patient also states he has not been taking his home Spironolactone. Patient reports increased anxiety recently and that he smoked crack last . Patient does not report chest pain or SOB. Patient reports having a BM this morning which was small, solid, and aiken in color. Patient reports strong smelling urine; no dysuria. Patient states he has been taking Augmentin for a cut in his mouth. Review of Systems Constitutional: DENIES: Fever, Chills Eyes: DENIES: Eye pain, Vision loss Ears, nose, mouth, throat: COMPLAINS OF: Oral lesions, DENIES: Hearing loss Respiratory: DENIES: Cough, Shortness of breath Cardiovascular: DENIES: Chest pain, Syncope Gastrointestinal: COMPLAINS OF: Abdominal pain, DENIES: Diarrhea Genitourinary: DENIES: Urinary frequency, Urgency Musculoskeletal: DENIES: Joint pain, Muscle aches Integumentary: DENIES: Pruritus, Rash Neurologic: DENIES: Abnormal gait, Headache Psychiatric: COMPLAINS OF: Anxiety, Depression Past Family Social History Past Medical History Per patient/EMR depression/anxiety, on Escitalopram mouth lesion, on Augmentin Cirrhosis Alcoholism -History of withdrawal Substance abuse HTN T2DM -Patient reports associated retinopathy and neuropathy Upper GI bleed -pt reports ulcer -Varices? Past Surgical History cholecystectomy- 2004 pleural catheter placement recently Per EMR Banding for GI bleed in 2012 Reported Medications Reported Meds & Active Scripts Active Novolin 70-30 Inj (Insulin Human Isoph/Insulin Regular) 1,000 Unit/10 Ml Vial 5 Units SQ BID 30 Days Reported C 500 (Ascorbic Acid) 500 Mg Tab 500 Mg PO DAILY Gabapentin 300 Mg Cap 300 Mg PO TID Vitamin B-1 (Thiamine HCl) 100 Mg Tab 100 Mg PO DAILY Propranolol (Propranolol HCl) 20 Mg Tab 20 Mg PO DAILY Lactulose Liq (Lactulose) 10 Gm/15 Ml Soln 30 Ml PO BID PRN Pantoprazole (Pantoprazole Sodium) 40 Mg Tab 40 Mg PO DAILY Ferrous Gluconate 325 Mg Tab 325 Mg PO DAILY Escitalopram (Escitalopram Oxalate) 20 Mg Tab 20 Mg PO DAILY D3 (Cholecalciferol) 1,000 Unit Tab 1,000 Units PO DAILY Doxepin (Doxepin HCl) 50 Mg Cap 50 Mg PO HS Furosemide 40 Mg Tab 40 Mg PO DAILY Tamsulosin (Tamsulosin HCl) 0.4 Mg Cap 0.4 Mg PO DAILY Buspirone (Buspirone HCl) 10 Mg Tab 10 Mg PO BID Spironolactone 100 Mg Tab 100 Mg PO BID Allergies: Coded Allergies: *MDRO Multi-Drug Resistant Organism (Verified Adverse Reaction, Unknown, ) MRSA PCR screen POSITIVE - 12/23/15 Family History Not elaborated upon Social History Patient reports prior alcoholism with w/drawal; no recent intake Recent crack cocaine last week Homeless; currently living with friend ; waiting for [facility] housing, sees [facility] physician Physical Exam Vital Signs Vital Signs Date Time Temp Pulse Resp B/P (MAP) Pulse Ox O2 Delivery O2 Flow Rate FiO2 12/30/16 17:00 97 Room Air 12/30/16 17:00 97 12/30/16 16:28 82 16 145/76 (99) 98 Room Air Physical Exam GENERAL: This is a well-nourished, well-developed patient, in no apparent distress. SKIN: No rashes, ecchymoses or lesions. Cool and dry. HEAD: Atraumatic. Normocephalic. No temporal or scalp tenderness. EYES: Pupils equal round and reactive. Extraocular motions intact. No scleral icterus. No injection or drainage. ENT: Nose without bleeding, purulent drainage or septal hematoma. Throat without erythema, tonsillar hypertrophy or exudate. Uvula midline. Airway patent. NECK: Trachea midline. No JVD or lymphadenopathy. Supple, nontender, no meningeal signs. CARDIOVASCULAR: Regular rate and rhythm without murmurs, gallops, or rubs. RESPIRATORY: Clear to auscultation. Breath sounds equal bilaterally. No wheezes , rales, or rhonchi. GASTROINTESTINAL: Abdomen soft, non-tender, nondistended. No hepato-splenomegaly , or palpable masses. No guarding. MUSCULOSKELETAL: Extremities without clubbing, cyanosis, or edema. No joint tenderness, effusion, or edema noted. No calf tenderness. Negative Homans sign bilaterally. NEUROLOGICAL: Awake and alert. Cranial nerves II through XII intact. Motor and sensory grossly within normal limits. Five out of 5 muscle strength in all muscle groups. Normal speech. Laboratory Laboratory Tests Test 12/30/16 17:50 White Blood Count 7.6 Red Blood Count 3.50 Hemoglobin 9.9 Hematocrit 30.1 Mean Corpuscular Volume 86.1 Mean Corpuscular Hemoglobin 28.2 Mean Corpuscular Hemoglobin Concent 32.8 Red Cell Distribution Width 18.7 Platelet Count 97 Mean Platelet Volume 7.5 Neutrophils (%) (Auto) 76.3 Lymphocytes (%) (Auto) 8.4 Monocytes (%) (Auto) 12.8 Eosinophils (%) (Auto) 2.2 Basophils (%) (Auto) 0.3 Neutrophils # (Auto) 5.8 Lymphocytes # (Auto) 0.6 Monocytes # (Auto) 1.0 Eosinophils # (Auto) 0.2 Basophils # (Auto) 0.0 CBC Comment AUTO DIFF Prothrombin Time 15.3 Prothromb Time International Ratio 1.4 Activated Partial Thromboplast Time 29.4 Blood Urea Nitrogen 18 Creatinine 0.89 Random Glucose 180 Total Protein 7.0 Albumin 2.4 Calcium Level 7.6 Magnesium Level 1.8 Alkaline Phosphatase 79 Aspartate Amino Transf (AST/SGOT) 143 Alanine Aminotransferase (ALT/SGPT) 77 Total Bilirubin 3.1 Sodium Level 129 Potassium Level 4.0 Chloride Level 96 Carbon Dioxide Level 26.2 Anion Gap 7 Estimat Glomerular Filtration Rate 87 Lactic Acid Level 2.4 Total Creatine Kinase 201 Creatine Kinase MB 5.7 Troponin I LESS THAN 0.02 Date/Time Source Procedure Growth Status 12/30/16 17:50 Blood Peripheral Aerobic Blood Culture Pending Received 12/30/16 17:50 Blood Peripheral Anaerobic Blood Culture Pending Received Result Diagram: 12/30/16 1750 12/30/16 1750 Imaging Last Impressions Chest X-Ray 12/30/16 1640 Signed Impressions: Service Date/Time: Friday, December 30, 2016 16:55 - CONCLUSION: 1. Minimal basilar atelectasis. No effusion. No pneumothorax. Félix Vail MD Abdomen/Pelvis CT 12/30/16 0000 Signed Impressions: Service Date/Time: Friday, December 30, 2016 22:56 - CONCLUSION: 1. Circumferential wall thickening involving the cecum with mild inflammatory change suggesting acute colitis. Fall studies to document complete resolution are suggested to exclude a mass. 2. Cirrhosis with splenomegaly and moderate volume ascites. 3. Right inguinal hernia containing ascitic fluid. 4. Large calcified atherosclerotic plaque involving the abdominal aorta at the origin of the celiac. I suspect there is stenosis of the celiac origin. CTA would be needed to further evaluate this. The SILVANA and SMA are patent and therefore the presumed celiac stenosis is likely clinically insignificant. 5. Cardiomegaly. Joselito Cantu Jr., MD Caprini VTE Risk Assessment Caprini VTE Risk Assessment: Mod/High Risk (score >= 2) VTE Pharm Contraindication: Coagulopathy,INR elevated Caprini Risk Assessment Model Point Value = 1 Point Value = 2 Point Value = 3 Point Value = 5 Age 41-60 Minor surgery BMI > 25 kg/m2 Swollen legs Varicose veins or History of unexplained or recurrent spontaneous Oral contraceptives or hormone replacement Sepsis (< 1 month) Serious lung disease, including pneumonia (< 1 month) Abnormal pulmonary function Acute myocardial infarction Congestive heart failure (< 1 month) History of inflammatory bowel disease Medical patient at bed rest Age 61-74 Arthroscopic surgery Major open surgery (> 45 min) Laparoscopic surgery (> 45 min) Malignancy Confined to bed (> 72 hours) Immobilizing plaster cast Central venous access Age >= 75 History of VTE Family history of VTE Factor V Leiden Prothrombin [id number] Lupus anticoagulant Anticardiolipin antibodies Elevated serum homocysteine Heparin-induced thrombocytopenia Other congenital or acquired thrombophilia Stroke (< 1 month) Elective arthroplasty Hip, pelvis, or leg fracture Acute spinal cord injury (< 1 month) Prophylaxis Regimen Total Risk Factor Score Risk Level Prophylaxis Regimen 0-1 Low Early ambulation 2 Moderate Order ONE of the following: *Sequential Compression Device (SCD) *Heparin 5000 units SQ BID 3-4 Higher Order ONE of the following medications: *Heparin 5000 units SQ TID *Enoxaparin/Lovenox 40 mg SQ daily (WT < 150 kg, CrCl > 30 mL/min) *Enoxaparin/Lovenox 30 mg SQ daily (WT < 150 kg, CrCl > 10-29 mL/min) *Enoxaparin/Lovenox 30 mg SQ BID (WT < 150 kg, CrCl > 30 mL/min) AND/OR *Sequential Compression Device (SCD) 5 or more Highest Order ONE of the following medications: *Heparin 5000 units SQ TID (Preferred with Epidurals) *Enoxaparin/Lovenox 40 mg SQ daily (WT < 150 kg, CrCl > 30 mL/min) *Enoxaparin/Lovenox 30 mg SQ daily (WT < 150 kg, CrCl > 10-29 mL/min) *Enoxaparin/Lovenox 30 mg SQ BID (WT < 150 kg, CrCl > 30 mL/min) AND *Sequential Compression Device (SCD) Assessment and Plan Assessment and Plan Mr. Allison is a 61 yo M with: Code Status Full code Problem List: (1) Ascites ICD Codes: R18.8 - Other ascites Status: Chronic Plan: Impression: Chronic ascites secondary to cirrhosis. Reported recent pain at peritoneal catheter insertion site (placed 11/2016) and patient relief with drainage of ascites. Subsequent concern for peritoneal catheter infection at last admission; patient placed on Levaquin. Per GI documentation 11/2016- doubtful that patient will need catheters to drain ascites due to normal renal function -Will check peritoneal fluid for suggested signs of infection -Peritoneal culture, gram stain, albumin, protein, LDH -Will order therapeutic paracentesis -Will empirically treat with Zosyn started in ED (Cefotaxime unavailable) for possible SBP coverage -Will check CT Abdomen/Pelvis to further evaluate as in association with nonspecific pain (2) Cirrhosis ICD Codes: K74.60 - Unspecified cirrhosis of liver Status: Chronic Plan: Impression: Chronic cirrhosis reportedly secondary to alcoholism. Patient also with history of Hepatitis C Patient last seen by GI 11/2016; EGD with cautery performed->varices with no stigmata, mild portal gastropathy, antral gave. Patient treated with chronic Spironolactone, Lasix, Propranolol, Lactulose, PPI MELD of 21 on admission -Low sodium diet -Continue home Propranolol -Continue home Lasix -Continue home Spironolactone -Continue home Lactulose (3) Mood disorder ICD Codes: F39 - Unspecified mood [affective] disorder Status: Acute Plan: Impression: Patient reports history of anxiety, depression -Continue home escitalopram (4) DM (diabetes mellitus) ICD Codes: E11.9 - Type 2 diabetes mellitus without complications Status: Chronic Plan: Impression: Reportedly on home Novolin 7 U BID; patient suggests noncompliance. Reported retinopathy and neuropathy -Will check bedside glucose and place on low dose sliding scale (5) HTN (hypertension) ICD Codes: I10 - Essential (primary) hypertension Status: Chronic Plan: Impression: Patient reports history of hypertension; he has been normotensive during hospitalization -Continue to monitor BP -Continue diuresis (6) Cocaine abuse ICD Codes: F14.10 - Cocaine abuse, uncomplicated Status: Chronic Plan: Impression: Patient reports recently smoking crack cocaine last week -Will check UDS -Will monitor for potential complications (7) DVT PPX Plan: -Bilateral SCD's -Will defer anticoagulation at this time since mild thrombocytopenia and INR 1.4 ; patient capable of ambulation -Will promote walkign with PT consultation (8) Fluids, Electrolytes, and Nutrition Plan: Fluids: will withhold at this time Electrolytes: Monitor and replete as needed Nutrition: Diabetic diet; sodium restriction Physician Certification 2 Midnight Certification Type: Admission for Inpatient Services (3) Order for Inpatient Services The services are ordered in accordance with Medicare regulations or non- Medicare payer requirements, as applicable. In the case of services not specified as inpatient-only, they are appropriately provided as inpatient services in accordance with the 2-midnight benchmark. Estimated LOS (days): 3 days is the estimated time the patient will need to remain in the hospital, assuming treatment plan goals are met and no additional complications. Post-Hospital Plan: Home Maxwell Flynn MD, R3 Dec 30, 2016 20:09
[2016-12-30 20:18] LABS: LACTIC ACID GHOST NOT REPORTABLE
[2016-12-30 20:27] LABS: KETONE, URINE NEG (NEG); NITRITE,URINE NEG (NEG)
[2016-12-30] MEDS ORDERED: NALOXONE HCL 0.4 MG/ML AMP IV PUSH PRN (20:30)
[2016-12-30] MEDS ORDERED: BISACODYL 10 MG SUPP RECTAL PRN (20:30)
[2016-12-30] MEDS ORDERED: MAGNESIUM HYDROXIDE SUSP 30 ML CUP PO PRN (20:30)
[2016-12-30] MEDS ORDERED: SENNOSIDES 8.6 MG TAB PO PRN (20:30)
[2016-12-30] MEDS ORDERED: ACETAMINOPHEN 325 MG TAB PO PRN (20:30)
[2016-12-30] MEDS ORDERED: LACTULOSE SYRUP 20 GM/30 ML CUP PO PRN ×2 (20:30→21:00)
[2016-12-30] MEDS ORDERED: DIATRIZOATE MEGLUM/DIATRIZOATE SOD 9 ML CUP PO ONE (20:45)
[2016-12-30] MEDS: INSULIN ASPART SUPPLEMENTAL SCALE SQ SCH (21:00)
[2016-12-30] MEDS ORDERED: DEXTROSE 50% IN WATER 50 ML VIAL(D50) IV PUSH PRN (21:00)
[2016-12-30] MEDS ORDERED: GLUCAGON 1 MG/ML VIAL OTHER PRN (21:00)
[2016-12-30] MEDS ORDERED: DIATRIZOATE MEGLUM/DIATRIZOATE SOD 9 ML CUP ONE (21:17)
[2016-12-30] MEDS: SODIUM CHLORIDE 0.9% FLUSH 10 ML FLUSH IV FLUSH SCH (21:31)
[2016-12-30 21:39] LABS: HYALINE CAST, URINE 6 /lpf (RARE)
[2016-12-30 22:09] LABS: URINE COLOR DARK-YELLOW (YELLW/STRAW)
[2016-12-30 22:10] LABS: PH, URINE 5.5 (5.0-8.5)
[2016-12-30 22:11] LABS: GLUCOSE,URINE NEG (NEG)
[2016-12-30 22:12] LABS: BLOOD, URINE NEG (NEG)
[2016-12-30 22:16] LABS: COMMENT (UR) CATH-CULT NOT IND; CULTURE IF INDICATED CATH CULTURE NOT IND
[2016-12-30] MEDS: busPIRone HCL 10 MG TAB PO SCH (22:21)
[2016-12-30] MEDS: SPIRONOLACTONE 100 MG TAB PO SCH (22:21)
[2016-12-30] MEDS: DOXEPIN HCL 50 MG CAP PO SCH (22:22)
[2016-12-30] MEDS: DOCUSATE SODIUM 50 MG/SENNA 8.6 MG TAB PO SCH (22:22)
[2016-12-30 22:24] VITALS: BP 138/79; PULSE 78; RESP 16; O2SAT 98
[2016-12-30 22:39] LABS: PERITONEAL HISTIOCYTES 2 %; PERITONEAL LYMPHS 23 %; PERITONEAL MONOS 9 %; PERITONEAL POLYS(SEGS) 56 %; PERITONEAL WBC 3273 /MM3 (0-10)
[2016-12-30 22:40] LABS: PERITONEAL MESOTHELIAL 5 %
[2016-12-30] MEDS ORDERED: IOHEXOL 350 MG/ML 10 ML VIAL (for RAD DIAG) IVCONTRAST ONE (23:03)
--- NOTE | 2016-12-30 23:19 | RADRPT ---
EXAM DATE/TIME: 12/30/2016 22:56 [facility] COMPARISON: CT ABDOMEN & PELVIS W CONTRAST, December 25, 2015, 18:54. INDICATIONS : Abdominal pain and distention. IV CONTRAST: 96 cc Omnipaque 350 (iohexol) IV ORAL CONTRAST: No oral contrast ingested. RADIATION DOSE: 13.74 CTDIvol (mGy) MEDICAL HISTORY : Hypertension. Pancreatitis. Diabetes mellitus type 2.Cirrhosis, GERD, Hypertension SURGICAL HISTORY : Cholecystectomy. ENCOUNTER: Initial ACUITY: 1 day PAIN SCALE: 6/10 LOCATION: abdomen TECHNIQUE: Volumetric scanning of the abdomen and pelvis was performed. Using automated exposure control and ad justment of the mA and/or kV according to patient size, radiation dose was kept as low as reasonably achievable to obtain optimal diagnostic quality images. DICOM format image data is available electro nically for review and comparison. FINDINGS: LOWER LUNGS: Mild cardiomegaly. Lung bases are clear. LIVER: The liver is small and lobulated in contour. No discrete mass or ductal dilatation. Portal vein is pa tent. There is a recannulated periumbilical vein. Gallbladder is surgically absent. SPLEEN: Splenomegaly. Measures 15.7 cm. No lesion. Splenic vein is patent. PANCREAS: Within normal limits. KIDNEYS: Normal in size and shape. There is no mass, stone or hydronephrosis. ADRENAL GLANDS: Linear scarring is seen involving the retroperitoneum surrounding the left adrenal gland. This is a l sewetie-term stable. The adrenal glands are otherwise unremarkable. VASCULAR: Scattered calcified atherosclerotic plaque throughout the aorta and its major branches. There is a la rge calcified plaque at the origin of the celiac artery. No aneurysmal change. BOWEL/MESENTERY: There is circumferential wall thickening involving the cecum. Mild stranding in the adjacent fat. No dilated loops of bowel. A moderate amount of ascites. No free air. There is a peritoneal drain in leandro ce with the tip in the left lateral abdomen. ABDOMINAL WALL: Within normal limits. RETROPERITONEUM: There is no lymphadenopathy. BLADDER: No wall thickening or mass. REPRODUCTIVE: Within normal limits. INGUINAL: There is no lymphadenopathy. Ascitic fluid is seen tracking down the anal canal and into the right sc rotum. MUSCULOSKELETAL: Within normal limits for patient age. CONCLUSION: 1. Circumferential wall thickening involving the cecum with mild inflammatory change suggesting acute colitis. Fall studies to document complete resolution are suggested to exclude a mass. 2. Cirrhosis with splenomegaly and moderate volume ascites. 3. Right inguinal hernia containing ascitic fluid. 4. Large calcified atherosclerotic plaque involving the abdominal aorta at the origin of the celiac. I suspect there is stenosis of the celiac origin. CTA would be needed to further evaluate this. The I MA and SMA are patent and therefore the presumed celiac stenosis is likely clinically insignificant. 5. Cardiomegaly. Joselito Cantu Jr., MD on December 30, 2016 at 23:12 Board Certified Radiologist. This report was verified electronically.
[2016-12-30] MEDS: PIPERACIL-TAZO 3.375 GM PREMIX 50 ML IV SCH (23:46)
[2016-12-31] VITALS (8 sets, daily range): BP systolic 103–138; BP diastolic 59–87; PULSE 62–88; RESP 16–18; TEMP 96.2–98.3; O2SAT 93–98
[2016-12-31] MEDS ORDERED: HYPROMELLOSE 0.3 % OPTH GEL 10 GM (0.34 FL OZ) TUBE EACH EYE PRN (03:00)
[2016-12-31] MEDS ORDERED: HYDROmorphone HCL PF 1 MG/ML VIAL IV PUSH ONE (03:30)
[2016-12-31] MEDS: MORPHINE SULFATE 4 MG/ML INJ IV PUSH PRN ×4 (05:50→21:33)
[2016-12-31] MEDS: PIPERACIL-TAZO 3.375 GM PREMIX 50 ML IV SCH ×3 (05:50→17:33)
[2016-12-31 07:39] LABS: ALKALINE PHOSPHATASE 71 U/L (45-117); ALT (GPT) 62 U/L (12-78); ANION GAP 8 MEQ/L (5-15); AST (GOT) 109 U/L (15-37); BICARBONATE 23.3 MEQ/L (21.0-32.0); BLOOD UREA NITROGEN 20 MG/DL (7-18); CHLORIDE 95 MEQ/L (98-107); GLOMERULAR FILTRATION RATE 93 ML/MIN (>89); POTASSIUM 3.7 MEQ/L (3.5-5.1); SODIUM (NA) 126 MEQ/L (136-145); TOTAL BILIRUBIN ADULT 3.1 MG/DL (0.2-1.0)
[2016-12-31] MEDS: GABAPENTIN 300 MG CAP PO SCH ×3 (08:32→17:33)
[2016-12-31] MEDS: ESCITALOPRAM OXALATE 20 MG TAB PO SCH (08:32)
[2016-12-31] MEDS: INSULIN ASPART SUPPLEMENTAL SCALE SQ SCH ×4 (08:32→21:00)
[2016-12-31] MEDS: PANTOPRAZOLE SOD 40 MG DELAYED RELEASE TAB PO SCH (08:32)
[2016-12-31] MEDS: THIAMINE HCL 100 MG TAB PO SCH (08:33)
[2016-12-31] MEDS: PROPRANOLOL HCL 20 MG TAB PO SCH (08:33)
[2016-12-31] MEDS: DOCUSATE SODIUM 50 MG/SENNA 8.6 MG TAB PO SCH ×2 (08:33→21:00)
[2016-12-31] MEDS: ASCORBIC ACID 500 MG TAB PO SCH (08:33)
[2016-12-31] MEDS: CHOLECALCIFEROL (VIT D3) 1000 UNIT TAB PO SCH (08:33)
[2016-12-31] MEDS: FUROSEMIDE 40 MG TAB PO SCH (08:33)
[2016-12-31] MEDS: busPIRone HCL 10 MG TAB PO SCH ×2 (08:33→21:32)
[2016-12-31] MEDS: SODIUM CHLORIDE 0.9% FLUSH 10 ML FLUSH IV FLUSH SCH ×2 (08:40→21:00)
[2016-12-31] MEDS ORDERED: LORazepam 2 MG TAB PO PRN (09:15)
[2016-12-31] MEDS ORDERED: FLUMAZENIL 0.5 MG/5 ML VIAL IV PUSH PRN (09:15)
[2016-12-31] MEDS ORDERED: LORazepam 1 MG TAB PO PRN (09:15)
[2016-12-31] MEDS ORDERED: LORazepam 2 MG/ML VIAL IV PUSH PRN ×4 (09:15)
--- NOTE | 2016-12-31 09:25 | HHI.FPPN ---
Subjective Remarks Joselito Allison is a 61yo gentleman with h/o cirrhosis with recurrent ascites and indwelling peritoneal catheter, h/o peritonitis, hepatitis C, and substance abuse admitted for suspected recurrence of peritonitis with symptoms of weakness , lightheadedness, and abdominal pain. Abd pain is described as generalized and has been present for a couple of months and also present around peritoneal catheter site x few days. Of note, he had a peritoneal catheter removed 11/2016 for peritonitis but had another placed at [place] roughly 2 weeks ago due to transportation difficulty for regular paracenteses. For further details, please see resident H&P. This morning, he reports that he is willing to have peritoneal catheter removed only if he can have his regular paracentesis locally due to his transportation issues. He has some abdominal pain. No nausea. He has tolerated breakfast. ROS: + abd pain. No nausea, no vomiting. + generalized itching. No fevers, no chills. No SOB. All other systems reviewed are negative. PMH/PSxH/SocHx/FamHx: Cirrhosis, class C, complicated by esophageal varices, ascites, and hepatic encephalopathy. Hepatitis C, type 2 DM, HTN. Cholecystectomy, Pleural catheter placement. Prior alcohol abuse; last reported drink 03/2016. + substance abuse, with cocaine (UDS positive for amphetamines). Fam hx: Mother with depression Objective Vitals Vital Signs Date Time Temp Pulse Resp B/P (MAP) Pulse Ox O2 Delivery O2 Flow Rate FiO2 12/31/16 08:00 96.4 82 18 138/77 (97) 95 12/31/16 00:00 96.2 74 18 134/66 (88) 94 12/30/16 23:20 12/30/16 22:24 78 16 138/79 (98) 98 Room Air 12/30/16 19:30 98.5 80 18 140/72 (94) 98 Room Air 12/30/16 17:00 97 Room Air 12/30/16 17:00 97 12/30/16 16:28 82 16 145/76 (99) 98 Room Air I/O 12/30/16 12/30/16 12/30/16 12/31/16 12/31/16 12/31/16 07:00 15:00 23:00 07:00 15:00 23:00 Intake Total 100 ml 100 ml Balance 100 ml 100 ml Intake IV Total 100 ml 100 ml # Voids 2 Result Diagram: 12/30/16 1750 12/31/16 0513 Objective Remarks GENERAL: in NAD, no resp distress, nontoxic. Ambulating around room. HEENT: NCAT, EOMI, no scleral icterus, no conjunctival injection. MMM. Poor dentition. NECK: Supple, no meningeal signs. No JVD CV: RRR, S1 S2. CHEST/PULM: CTAB, no crackles, no wheezes ABD/GI: +BS, + marked ascites, with fluid wave and shifting dullness. There is a pleural catheter in place. + tender to palpation at epigastrium and around catheter site. EXT: trace pitting edema to knee. No calf tenderness. NEURO: Awake, alert. normal muscle tone. No asterixis. SKIN: No rashes. Some excoriations noted on lower extremities. PSYCH: Mood and affect are appropriate. Does not appear to respond to internal stimuli. : No CVAT A/P Assessment and Plan Mr. Allison is a 61 yo M admitted with peritonitis secondary to indwelling catheter Attending Attestation Patient seen, examined, and discussed with resident team. The patient has been seen and examined. The chart and all resident notes have been reviewed. I agree that inpatient care is appropriate and that a two midnight stay is expected for the reasons documented in the resident history and physical. I have discussed this with the resident and certify the resident s order for inpatient admission. Problem List: (1) Peritonitis ICD Codes: K65.9 - Peritonitis, unspecified Status: Acute Plan: Patient with chronic ascites from cirrhosis and has indwelling peritoneal catheter. He was admitted 11/2016 for peritonitis, and catheter was removed. Subsequently, he had one replaced in [place] due to transportation issues (inability to get to regular paracentesis appts). Unfortunately, his peritonitis has recurred. It has been discussed with patient that his indwelling catheter needs to be removed and is not a good idea to have replaced due to high risk of reinfection. He is willing to have this removed only if he is able to have local paracentesis (rather than drive weekly to [place]). Appreciate Case management in arranging this. Appreciate GI. Antibiotics have been initiated. Brandon 12/30/2016 --> Await peritoneal culture. Await blood culture. (2) Ascites ICD Codes: R18.8 - Other ascites Status: Chronic Plan: Expressed to patient that he should not have indwelling peritoneal catheter. Appreciate GI, who will help to adjust medications/diuretics to help control ascites. (3) Cirrhosis ICD Codes: K74.60 - Unspecified cirrhosis of liver Status: Chronic Plan: Likely secondary to alcohol abuse and Hepatitis C Patient last seen by GI 11/2016; EGD with cautery performed->varices with no stigmata, mild portal gastropathy, antral gave. Patient treated with chronic Spironolactone, Lasix, Propranolol, Lactulose, PPI MELD of 21 on admission -Low sodium diet -Continue home Propranolol -Continue home Lasix -Continue home Spironolactone -Continue home Lactulose (4) Mood disorder ICD Codes: F39 - Unspecified mood [affective] disorder Status: Chronic Plan: -Continue home escitalopram (5) Hyponatremia ICD Codes: E87.1 - Hypo-osmolality and hyponatremia Status: Chronic Plan: Acute on chronic. Patient with chronic hyponatremia secondary to liver disease Asymptomatic. Will fluid restrict and monitor Is/Os. Recheck BMP in AM. (6) Hepatic encephalopathy ICD Codes: K72.90 - Hepatic failure, unspecified without coma Status: Chronic Plan: Continue home lactulose. (7) DM (diabetes mellitus) ICD Codes: E11.9 - Type 2 diabetes mellitus without complications Status: Chronic Plan: Reportedly on home Novolin 7 U BID; patient suggests nonadherence. 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 -Will check bedside glucose and place on low dose sliding scale (8) HTN (hypertension) ICD Codes: I10 - Essential (primary) hypertension Status: Chronic Plan: Patient has been normotensive during hospitalization -Continue to monitor BP -Continue diuresis (9) Cocaine abuse ICD Codes: F14.10 - Cocaine abuse, uncomplicated Status: Chronic Plan: Impression: Patient reports recently smoking crack cocaine last week UDS positive for amphetamines Initiate CIWA protocol, although patient reports alcohol cessation since March 2016. Counselled to avoid illegal substances. (10) DVT PPX Status: Chronic Plan: -Bilateral SCD's -Will defer anticoagulation at this time since mild thrombocytopenia and INR 1.4 -Will promote walking with PT consultation Problem Qualifiers (1) Ascites: Qualified Codes: K70.31 - Alcoholic cirrhosis of liver with ascites (2) Cirrhosis: Qualified Codes: K70.31 - Alcoholic cirrhosis of liver with ascites (3) DM (diabetes mellitus): (4) HTN (hypertension): Qualified Codes: I10 - Essential (primary) hypertension Latricia West MD Dec 31, 2016 09:25
--- NOTE | 2016-12-31 09:50 | PD.CONS ---
HPI History of Present Illness This is a 61 year old male patient with liver cirrhosis, esophageal varices, recurrent ascites, hepatic encephalopathy, hepatitis C, GAVE, who presented to the emergency room for evaluation of weakness, lightheadedness, and right inguinal pain. He denies any nausea, vomiting, fever, chills, confusion, diarrhea, constipation, melena, or hematochezia. He has mild tenderness in RLQ where the peritoneal catheter is and a dull ache in his right inguinal area. There are no aggravating or alleviating factors. [facility] is followed [facility] and has been having an issue with recurrent ascites. We saw him back in November after he had a peritoneal drain placed by IR. Peritoneal fluid cultures at that time revealed enterococcus faecalis. He was evaluated by IR on 11/26/16 and they removed the tunneled peritoneal drain. The final culture from the peritoneal catheter tip was < 15 CFU gram positive cocci. During that hospitalization, he required repeat paracentesis (11/27/16)---> 2,200cc of clear yellow fluid. He was treated with Levaquin, Lasix, and spironolactone. He is followed by the [facility] as outpatient. He reports that he watches his salt intake and limits his fluid intake. He reports that he was recently seen at the [facility] in [place] and had a peritoneal drain placed about 14 days ago. He states that he was told to drain 1L per day. D/W patient concern for ongoing peritonitis related to the peritoneal catheter. Patient states that he just wants to treat the infection and leave the catheter in place, as he requires paracentesis on a weekly basis without it and has a hard time arranging transportation. During his last hospitalization he was evaluated with EGD (11/27/16)---> Esophageal varices no stigmata, Mild portal gastropathy, Antral gave. It was recommended that he have a repeat EGD in 3 months. He has not had treatment for his hepatitis C. He has not had alcohol since 03/20/16, however, he was positive for amphetamines during this hospitalizations and cocaine in December of 2015. He was told that he would need to be with no ETOH x 1 year and to lose weight before they would consider him for HCV treatment. He also reports that he was told that he would not be a candidate for liver transplant secondary to his history of depression and suicide attempts. (Angle Zee) PFSH Past Medical History Recurrent ascites SBP Liver Cirrhosis Hepatitis C, Tx naive Hx Alcohol abuse PSA Diabetes Hypertension Seizures disorder GAVE Esophageal Varices GI bleeding Hepatic encephalopathy Past Surgical History EGD with banding, APC Cholecystectomy (2004) Hx of what sounds like a bile leak after cholecystectomy requiring an ERCP with stent placement and subsequent removal Colonoscopy in 2008 in [place], noted hemorrhoids per the pt (Angle Zee) Coded Allergies: *MDRO Multi-Drug Resistant Organism (Verified Adverse Reaction, Unknown, ) MRSA PCR screen POSITIVE - 12/23/15 Medications Allergies Coded Allergies Type Severity Reaction Last Updated Verified *MDRO Multi-Drug Resistant Organism Adverse Reaction Unknown 11/25/16 Yes Active Scripts Medications Dose Route/Sig Max Daily Dose Days Date Category C 500 (Ascorbic Acid) 500 Mg Tab 500 Mg PO DAILY 12/30/16 Reported Gabapentin 300 Mg Cap 300 Mg PO TID 12/30/16 Reported Novolin 70-30 Inj (Insulin Human Isoph/Insulin Regular) 1,000 Unit/10 Ml Vial 5 Units SQ BID 30 12/03/16 Rx Vitamin B-1 (Thiamine HCl) 100 Mg Tab 100 Mg PO DAILY 11/25/16 Reported Propranolol (Propranolol HCl) 20 Mg Tab 20 Mg PO DAILY 11/25/16 Reported Lactulose Liq (Lactulose) 10 Gm/15 Ml Soln 30 Ml PO BID PRN 11/25/16 Reported Pantoprazole (Pantoprazole Sodium) 40 Mg Tab 40 Mg PO DAILY 11/25/16 Reported Ferrous Gluconate 325 Mg Tab 325 Mg PO DAILY 11/25/16 Reported Escitalopram (Escitalopram Oxalate) 20 Mg Tab 20 Mg PO DAILY 11/25/16 Reported D3 (Cholecalciferol) 1,000 Unit Tab 1,000 Units PO DAILY 11/25/16 Reported Doxepin (Doxepin HCl) 50 Mg Cap 50 Mg PO HS 11/25/16 Reported Furosemide 40 Mg Tab 40 Mg PO DAILY 11/24/16 Reported Tamsulosin (Tamsulosin HCl) 0.4 Mg Cap 0.4 Mg PO DAILY 11/24/16 Reported Buspirone (Buspirone HCl) 10 Mg Tab 10 Mg PO BID 11/24/16 Reported Spironolactone 100 Mg Tab 100 Mg PO BID 11/24/16 Reported Family History Mom: Depression Brother: Cancer Social History No tobacco use. Quit drinking ETOH in March of 2016. Positive for amphetamines (Angle Zee LIVIER) Review of Systems Constitutional: COMPLAINS OF: Fatigue, Dizziness, DENIES: Fever, Weight loss, Chills, Change in appetite Respiratory: DENIES: Cough Cardiovascular: DENIES: Chest pain Gastrointestinal: COMPLAINS OF: Abdominal pain, Swelling of Abdomen, DENIES: Black stools, Bloody stools, Constipation, Diarrhea, Nausea, Vomiting, Hematemesis Integumentary: DENIES: Abnormal pigmentation Hematologic/lymphatic: DENIES: Bruising Neurologic: DENIES: Headache Psychiatric: DENIES: Confusion (Angle Zeedina MAIER) GI Exam Vitals I&O Vital Signs Date Time Temp Pulse Resp B/P (MAP) Pulse Ox O2 Delivery O2 Flow Rate FiO2 12/31/16 08:00 96.4 82 18 138/77 (97) 95 12/31/16 00:00 96.2 74 18 134/66 (88) 94 12/30/16 23:20 12/30/16 22:24 78 16 138/79 (98) 98 Room Air 12/30/16 19:30 98.5 80 18 140/72 (94) 98 Room Air 12/30/16 17:00 97 Room Air 12/30/16 17:00 97 12/30/16 16:28 82 16 145/76 (99) 98 Room Air I/O 12/30/16 12/30/16 12/30/16 12/31/16 12/31/16 12/31/16 07:00 15:00 23:00 07:00 15:00 23:00 Intake Total 100 ml 100 ml Balance 100 ml 100 ml Intake IV Total 100 ml 100 ml # Voids 2 Imaging Last Impressions Chest X-Ray 12/30/16 1640 Signed Impressions: Service Date/Time: Friday, December 30, 2016 16:55 - CONCLUSION: 1. Minimal basilar atelectasis. No effusion. No pneumothorax. Félix Vail MD Abdomen/Pelvis CT 12/30/16 0000 Signed Impressions: Service Date/Time: Friday, December 30, 2016 22:56 - CONCLUSION: 1. Circumferential wall thickening involving the cecum with mild inflammatory change suggesting acute colitis. Fall studies to document complete resolution are suggested to exclude a mass. 2. Cirrhosis with splenomegaly and moderate volume ascites. 3. Right inguinal hernia containing ascitic fluid. 4. Large calcified atherosclerotic plaque involving the abdominal aorta at the origin of the celiac. I suspect there is stenosis of the celiac origin. CTA would be needed to further evaluate this. The SILVANA and SMA are patent and therefore the presumed celiac stenosis is likely clinically insignificant. 5. Cardiomegaly. Joselito Cantu Jr., MD Laboratory Test 12/30/16 17:50 12/30/16 19:50 12/30/16 21:30 12/31/16 05:13 White Blood Count 7.6 TH/MM3 Red Blood Count 3.50 MIL/MM3 Hemoglobin 9.9 GM/DL Hematocrit 30.1 % Mean Corpuscular Volume 86.1 FL Mean Corpuscular Hemoglobin 28.2 PG Mean Corpuscular Hemoglobin Concent 32.8 % Red Cell Distribution Width 18.7 % Platelet Count 97 TH/MM3 Mean Platelet Volume 7.5 FL Neutrophils (%) (Auto) 76.3 % Lymphocytes (%) (Auto) 8.4 % Monocytes (%) (Auto) 12.8 % Eosinophils (%) (Auto) 2.2 % Basophils (%) (Auto) 0.3 % Neutrophils # (Auto) 5.8 TH/MM3 Lymphocytes # (Auto) 0.6 TH/MM3 Monocytes # (Auto) 1.0 TH/MM3 Eosinophils # (Auto) 0.2 TH/MM3 Basophils # (Auto) 0.0 TH/MM3 CBC Comment AUTO DIFF Differential Comment AUTO DIFF CONFIRMED Platelet Estimate LOW Prothrombin Time 15.3 SEC Prothromb Time International Ratio 1.4 RATIO Activated Partial Thromboplast Time 29.4 SEC Blood Urea Nitrogen 18 MG/DL 20 MG/DL Creatinine 0.89 MG/DL 0.84 MG/DL Random Glucose 180 MG/DL 244 MG/DL Total Protein 7.0 GM/DL 5.6 GM/DL Albumin 2.4 GM/DL 1.9 GM/DL Calcium Level 7.6 MG/DL 7.5 MG/DL Magnesium Level 1.8 MG/DL Alkaline Phosphatase 79 U/L 71 U/L Aspartate Amino Transf (AST/SGOT) 143 U/L 109 U/L Alanine Aminotransferase (ALT/SGPT) 77 U/L 62 U/L Total Bilirubin 3.1 MG/DL 3.1 MG/DL Sodium Level 129 MEQ/L 126 MEQ/L Potassium Level 4.0 MEQ/L 3.7 MEQ/L Chloride Level 96 MEQ/L 95 MEQ/L Carbon Dioxide Level 26.2 MEQ/L 23.3 MEQ/L Anion Gap 7 MEQ/L 8 MEQ/L Estimat Glomerular Filtration Rate 87 ML/MIN 93 ML/MIN Lactic Acid Level 2.4 mmol/L 1.7 mmol/L Lactate Dehydrogenase 569 U/L Total Creatine Kinase 201 U/L Creatine Kinase MB 5.7 NG/ML Troponin I LESS THAN 0.02 NG/ML Urine Color DARK-YELLOW Urine Turbidity HAZY Urine pH 5.5 Urine Specific [place] 1.025 Urine Protein TRACE mg/dL Urine Glucose (UA) NEG mg/dL Urine Ketones NEG mg/dL Urine Occult Blood NEG Urine Nitrite NEG Urine Bilirubin NEG Urine Urobilinogen 2.0 MG/DL Urine Leukocyte Esterase NEGATIVE Urine RBC 1 /hpf Urine WBC 1 /hpf Urine Amorphous Sediment Urine Hyaline Casts 6 /lpf Microscopic Urinalysis Comment CATH-CULT NOT IND Peritoneal Fluid WBC 3273 /MM3 Peritoneal Fluid RBC 446 /MM3 Peritoneal Fluid Neutrophils 56 % Peritoneal Fluid Lymphocytes 23 % Peritoneal Fluid Monocytes 9 % Peritoneal Fluid Histiocytes 2 % Peritoneal Fluid Mesothelial Cells 5 % Peritoneal Fluid Other Cells 5 % Peritoneal Fluid Comment Peritoneal Fluid Total Protein 0.7 GM/DL Peritoneal Fluid Albumin 0.3 G/DL Peritoneal Fluid LDH 90 U/L Peritoneal Fluid Glucose 201 MG/DL Urine Opiates Screen NEG Urine Barbiturates Screen NEG Urine Amphetamines Screen POS Urine Benzodiazepines Screen NEG Urine Cocaine Screen NEG Urine Cannabinoids Screen NEG Date/Time Source Procedure Growth Status 12/30/16 17:50 Blood Peripheral Aerobic Blood Culture Pending Received 12/30/16 17:50 Blood Peripheral Anaerobic Blood Culture Pending Received 12/30/16 19:50 Fluid Peritoneal Fluid Gram Stain Pending Received 12/30/16 19:50 Fluid Peritoneal Fluid Body Fluid Culture Pending Received Physical Examination HEENT: Normocephalic; atraumatic; no jaundice CHEST: CTA CARDIAC: RRR ABDOMEN: Distended with large amount of ascites, mild tenderness, rlq peritoneal catheter capped; no hepatosplenomegaly; bowel sounds are present in all four quadrants. EXTREMITIES: Trace edema. SKIN: Normal; no rash; no jaundice. MAINTENANCE MECHANIC ELEVATORS: No focal deficits; alert and oriented times three. (Angle Zee) Assessment and Plan Plan ASSESSMENT: - Recurrent Ascites. Pt on Lasix, Spironolactone at home. States watching his Salt and fluid intake. We saw him in November when he was hospitalized about 2 weeks after a drain was placed for his ascites and he was found to have SBP. Peritoneal fluid cultures at that time revealed enterococcus faecalis. He was evaluated by IR on 11/26/16 and they removed the tunneled peritoneal drain. The final culture from the peritoneal catheter tip was < 15 CFU gram positive cocci. He reports that he had another peritoneal drain placed by the [facility] about 2 weeks ago. Peritoneal fluid WBC 3273, RBC 446, Neutrophils 56. Cx pending. Zosyn. - SBP. Zosyn until sensitivities back. - Abnormal imaging with circumferential wall thickening involving the cecum. CT Scan abdomen and pelvis (12/30/16)---> Circumferential wall thickening involving the cecum with mild inflammatory change suggesting acute colitis. FU studies to document complete resolution are suggested to exclude a mass. Cirrhosis with splenomegaly and moderate volume ascites, right inguinal hernia containing ascitic fluid, large calcified atherosclerotic plaque involving the abdominal aorta at the origin of the celiac. I suspect there is stenosis of the celiac origin. CTA would be needed to further evaluate this. The SILVANA and SMA are patent and therefore the presumed celiac stenosis is likely clinically insignificant. Cardiomegaly. Denies diarrhea. Today's CBC pending. Last colonoscopy was 2010 at the [facility]. Based on symptoms, unlikely colitis, but his last colonoscopy was 2010 and therefore we will schedule repeat to evaluate for any signs of colitis. - Liver cirrhosis with elevated LFTs. T. Bili 3.1, AST 109, ALT 62, Alk Phosph 71. CT as above. Quit drinking in March 2016. (+) Amphetamines on toxicology screen. MELD 13. - Esophageal varices. EGD (11/27/16)---> Esophageal varices no stigmata, Mild portal gastropathy, Antral gave. It was recommended that he have a repeat EGD in 3 months. No active bleeding. Inderal. - GAVE. Last EGD as above. Will schedule EGD at time of colonoscopy - Anemia. .1. - Coagulopathy/Thrombocytopenia. Plt 97,000. - Hepatic encephalopathy. Add Lactulose. - Hepatitis C, Tx naive. PLAN: - Plan for egd/colonoscopy - Obtain consents - Clear liquids - NPO after MN - Golytely prep - Cont. Lasix, Spironolactone - Cont. Zosyn for now - Add Protonix - Add Lactulose - Cont. Propranolol - Monitor labs - Await final c/s from peritoneal fluid - Recommend removal of peritoneal catheter without replacing, as this is likely the cause of his peritonitis. Will defer to attending - Further recommendations to follow based on results of above - Pt seen and examined by Dr. Fortnue and myself and this note is written on his behalf (Angle Zee) Physician Comments Patient seen and examined Agree with above Continue with current supportive care Monitor labs Continue antibiotics We will pursue an EGD and colonoscopy tomorrow (Demarco Fortune MD) Angle Zee Dec 31, 2016 09:50 Demarco Fortune MD Dec 31, 2016 20:23
[2016-12-31] MEDS: SODIUM CHLORIDE 0.9% FLUSH 10 ML FLUSH IV FLUSH PRN ×2 (10:21→16:34)
[2016-12-31] MEDS: SPIRONOLACTONE 100 MG TAB PO SCH ×2 (10:26→21:31)
[2016-12-31] MEDS: LACTULOSE SYRUP 20 GM/30 ML CUP PO SCH (10:26)
[2016-12-31 12:32] LABS: BASOPHIL % 0.4 % (0.0-2.0); EOSINOPHIL # 0.4 TH/MM3 (0-0.4); EOSINOPHIL % 6.2 % (0.0-4.0); HEMATOCRIT 24.8 % (39.0-51.0); LYMPH % 9.7 % (9.0-44.0); LYMPHOCYTE # 0.6 TH/MM3 (1.0-4.8); MEAN CELL VOLUME 85.7 FL (80.0-100.0); MEAN CORPUSCULAR HEMOGLOBIN 28.1 PG (27.0-34.0); MEAN CORPUSCULAR HGB CONC 32.8 % (32.0-36.0); NEUT % 69.7 % (16.0-70.0); PLATELET COUNT 76 TH/MM3 (150-450); RED BLOOD COUNT 2.89 MIL/MM3 (4.50-5.90); RED CELL DISTRIBUTION WIDTH 18.3 % (11.6-17.2); WHITE BLOOD COUNT 5.7 TH/MM3 (4.0-11.0)
[2016-12-31 12:35] LABS: HEMO FLAGS AUTO DIFF
[2016-12-31 13:38] LABS: SCAN/DIFF AUTO DIFF CONFIRMED
[2016-12-31] MEDS: AQUAPHOR OINT 50 APPLIC/50 GM TUBE TOPICAL SCH ×2 (13:45→21:00)
--- NOTE | 2016-12-31 13:46 | HHI.PR ---
Addendum to Inpatient Note Addendum Reason: Additional Documentation Additional Information S: Resident team paged for patient falling at 1300. Patient states he was standing bedside and suddenly felt his legs "become weak." As he started to fall he caught himself on the bedside sliding table with his hands and fell to his knees as the table rolled away from him. Denied head trauma, LOC, dizziness. States his R knee hurts a little but is not excruciating. O: Vitals: HR 69, RR 18, BP 115/59, O2 95% Gen: patient laying in bed with head of bed slightly elevated. In NAD Skin: Thorough skin exam does not show any new bruises, lesions. No bruising noted over R knee. Head: No lesions appreciated, scalp is not TTP Neuro: awake, alert, oriented. Moves extremities with no obvious defects. Not TTP over spine Ext: R knee is not swollen compared to L knee, no ecchymoses or bruising appreciated. Mildly TTP over medial aspect of proximal patella. AP: Patient had fall with no LOC or head trauma. Hit R knee on the floor but otherwise complains of no trauma. Neurologically intact. Orthostatic BP's ordered Activity OOB with assistance R knee XR ordered. Cesario Chawla MD R1 Dec 31, 2016 13:46
--- NOTE | 2016-12-31 14:49 | RADRPT ---
EXAM DATE/TIME: 12/31/2016 14:13 [facility] COMPARISON: No previous studies available for comparison. INDICATIONS : Fall this afternoon. MEDICAL HISTORY : Hypertension. Pancreatitis. Diabetes mellitus type 2.Cirrhosis, GERD, Hypertension SURGICAL HISTORY : Cholecystectomy. ENCOUNTER: Subsequent ACUITY: 1 day PAIN SCORE: 7/10 LOCATION: Right Knee FINDINGS: There is loss of articular cartilage in the medial compartment. Alignment is otherwise anatomic. Fr acture is not appreciated. Moderate vascular calcifications are noted. CONCLUSION: Degenerative changes, negative for fracture. German Worrell MD FACR on December 31, 2016 at 14:47 Board Certified Radiologist. This report was verified electronically.
[2016-12-31] MEDS ORDERED: PEG (High)/E-LYTE SOLN 4000 ML BTL PO ONE (16:00)
--- NOTE | 2016-12-31 20:55 | EKG ---
Date Performed: 12/30/2016 Time Performed: 18:08:39 PTAGE: 61 years EKG: Sinus rhythm WITH OCCASIONAL SUPRAVENTRICULAR PREMATURE COMPLEXES LOW QRS VOLTAGE IN PRECORDIAL LEADS BORDERLINE ECG PREVIOUS TRACING : 12/18/2015 08.06 Compared to prior tracing no significant change DOCTOR: Cipriano Woody Interpretating Date/Time 12/31/2016 20:48:53
[2016-12-31] MEDS: DOXEPIN HCL 50 MG CAP PO SCH (21:32)
[2017-01-01 00:42] VITALS: BP 139/65; PULSE 70; RESP 18; TEMP 96.1; O2SAT 97
[2017-01-01] MEDS: PIPERACIL-TAZO 3.375 GM PREMIX 50 ML IV SCH ×2 (01:13→06:28)
[2017-01-01 04:52] LABS: AUTOMATED NEUTROPHIL # 2.9 TH/MM3 (1.8-7.7); BASOPHIL % 0.9 % (0.0-2.0); EOSINOPHIL # 0.4 TH/MM3 (0-0.4); EOSINOPHIL % 7.3 % (0.0-4.0); HEMATOCRIT 23.2 % (39.0-51.0); LYMPH % 17.5 % (9.0-44.0); LYMPHOCYTE # 0.8 TH/MM3 (1.0-4.8); MEAN CORPUSCULAR HEMOGLOBIN 28.5 PG (27.0-34.0); MEAN CORPUSCULAR HGB CONC 33.5 % (32.0-36.0); MONO % 14.1 % (0.0-8.0); NEUT % 60.2 % (16.0-70.0); PLATELET COUNT 71 TH/MM3 (150-450); RED BLOOD COUNT 2.73 MIL/MM3 (4.50-5.90); RED CELL DISTRIBUTION WIDTH 18.6 % (11.6-17.2); WHITE BLOOD COUNT 4.9 TH/MM3 (4.0-11.0)
[2017-01-01 04:57] LABS: HEMO FLAGS AUTO DIFF; INTERNATIONAL NORMALIZED RATIO 1.4 RATIO; PROTHROMBIN TIME - PATIENT 16.1 SEC (9.8-11.6)
[2017-01-01 05:30] LABS: BICARBONATE 26.3 MEQ/L (21.0-32.0); CALCIUM-PROTEIN CORRECTED 8.2 MG/DL (8.5-10.1); POTASSIUM 3.6 MEQ/L (3.5-5.1); TOTAL BILIRUBIN ADULT 2.4 MG/DL (0.2-1.0)
[2017-01-01 05:56] LABS: OVALOCYTES 1+ (NORMAL); PLATELET ESTIMATE SMEAR LOW (NORMAL); PLATELET MORPHOLOGY NORMAL (NORMAL); SCAN/DIFF AUTO DIFF CONFIRMED
[2017-01-01] MEDS: INSULIN ASPART SUPPLEMENTAL SCALE SQ SCH ×4 (07:40→22:48)
[2017-01-01 08:00] VITALS: BP_SYST 118; BP_SYST 120; BP_DIAS 61; BP_DIAS 62; BP_DIAS 67; PULSE 68; RESP 17; TEMP 97.2; O2SAT 94
[2017-01-01] MEDS: MORPHINE SULFATE 4 MG/ML INJ IV PUSH PRN ×4 (08:31→22:21)
[2017-01-01] MEDS: DOCUSATE SODIUM 50 MG/SENNA 8.6 MG TAB PO SCH ×2 (08:32→22:22)
[2017-01-01] MEDS: busPIRone HCL 10 MG TAB PO SCH ×2 (08:32→22:21)
[2017-01-01] MEDS: SPIRONOLACTONE 100 MG TAB PO SCH ×2 (08:32→22:21)
[2017-01-01] MEDS: FUROSEMIDE 40 MG TAB PO SCH (08:32)
[2017-01-01] MEDS: ASCORBIC ACID 500 MG TAB PO SCH (08:32)
[2017-01-01] MEDS: PROPRANOLOL HCL 20 MG TAB PO SCH (08:32)
[2017-01-01] MEDS: CHOLECALCIFEROL (VIT D3) 1000 UNIT TAB PO SCH (08:32)
[2017-01-01] MEDS: ESCITALOPRAM OXALATE 20 MG TAB PO SCH (08:32)
[2017-01-01] MEDS: LACTULOSE SYRUP 20 GM/30 ML CUP PO SCH (08:32)
[2017-01-01] MEDS: PANTOPRAZOLE SOD 40 MG DELAYED RELEASE TAB PO SCH (08:33)
[2017-01-01] MEDS: GABAPENTIN 300 MG CAP PO SCH ×3 (08:33→17:07)
[2017-01-01] MEDS: SODIUM CHLORIDE 0.9% FLUSH 10 ML FLUSH IV FLUSH SCH ×2 (08:34→21:00)
[2017-01-01] MEDS: THIAMINE HCL 100 MG TAB PO SCH (08:51)
[2017-01-01] MEDS: AQUAPHOR OINT 50 APPLIC/50 GM TUBE TOPICAL SCH ×2 (08:51→21:00)
[2017-01-01 09:05] VITALS: O2SAT 94
[2017-01-01] MEDS ORDERED: Vancomycin Consult Pharmacy 1 EA OTHER SCH (11:15)
[2017-01-01] MEDS ORDERED: PROPOFOL 200 MG/20 ML AMP IV ONE (11:16)
--- NOTE | 2017-01-01 11:37 | PD.PROCEDR ---
GI Procedure REFERRING PHYSICIAN Dr. West PROCEDURE PERFORMED EGD with cautery followed by colonoscopy INDICATION FOR PROCEDURE Recurrent ascites, abnormal findings on CT suggestive of colitis, history of GAVE PROCEDURE: The procedure, risks and benefits were discussed with Mr. Allison and informed consent was obtained. Anesthesia sedated him with Diprivan. He was placed in the left lateral decubitus position. EGD: The Pentax videoscope was introduced through the oropharynx and advanced to the second portion of the duodenum under direct visualization. Retroflexion was performed in the stomach. FINDINGS: The esophagus there were grade 1 esophageal varices in the esophagus with no stigmata of recent bleed The stomach and U vascular ectasia was noted again in the antrum and to a smaller degree in the cardia this was cauterized, portal gastropathy mild to moderate, otherwise normal stomach The duodenum this was normal Colonoscopy: The Pentax videoscope was introduced through the rectum and advanced to cecum where the ileocecal valve and appendiceal orifice were identified. Retroflexion was performed in the rectum. Colonic prep was good FINDINGS: Colonic withdrawal time greater than 6 minutes as the scope was slowly withdrawn clonic mucosa was carefully inspected this was noted to be unremarkable and within normal limits all the way through was noted to have mild diverticulosis of the sigmoid region retroflexion in the rectum did reveal moderate size internal hemorrhoids rectal examination otherwise unremarkable ESTIMATED BLOOD LOSS: None SPECIMENS REMOVED: None COMPLICATIONS: None IMPRESSION: GAVE Esophageal varices Portal gastropathy Sigmoid diverticulosis Internal hemorrhoids Spontaneous bacterial peritonitis SBP PLAN: Advance diet Continue with current supportive care Continue with current antibiotics Await culture and sensitivity Most likely patient will need to be on a maintenance antibiotic treatment and possibly may have to have the peritoneal catheter removed due to the infection Demarco Fortune MD Jan 01, 2017 11:37
[2017-01-01] MEDS ORDERED: DO NOT ADM ANY ANTICOAGULANT DRUGS PRN (11:44)
[2017-01-01] MEDS ORDERED: LACTATED RINGER'S 1000 ML IV PRN (12:00)
[2017-01-01] MEDS ORDERED: SODIUM CHLORID 0.9% 500 ML IV PRN (12:00)
[2017-01-01] MEDS ORDERED: CHLORHEXIDINE GLUCONATE 2 % 1 PACK (2 CLOTHS) TOPICAL PRN (12:00)
[2017-01-01] MEDS ORDERED: POVIDONE IODINE 5% (ANTISEPSIS KIT) 4 APPLICATIONS EACH NARE PRN (12:00)
[2017-01-01] MEDS ORDERED: METOPROLOL TARTRATE 25 MG TAB PO PRN (12:00)
[2017-01-01] MEDS: VANCOMYCIN INJ 1,500 MG in SODIUM CHLORID 0.9% 500 ML INJ 500 ML IV SCH (13:00)
[2017-01-01] MEDS: cefTAZidime INJ 2,000 MG in SODIUM CHLORIDE 0.9% INJ 100 ML IV SCH ×3 (13:58→22:22)
--- NOTE | 2017-01-01 15:03 | HHI.FPPN ---
Subjective Remarks Mr. Allison seen this afternoon after his EGD, colonoscopy. Patient was sleepy but otherwise feeling well. He complains of pain around his peritoneal catheter. Patient is aware that catheter is likely source of his infection and is open to having it removed during his stay. Denies CP, [place] (Cesario Chawla MD R1) Objective Vitals Vital Signs Date Time Temp Pulse Resp B/P (MAP) Pulse Ox O2 Delivery O2 Flow Rate FiO2 01/01/17 12:13 70 18 108/63 (78) 96 Nasal Cannula 3 01/01/17 12:00 62 15 102/58 (73) 98 Nasal Cannula 3 01/01/17 11:45 97.8 82 13 115/57 (76) 100 Simple Mask 8 01/01/17 09:05 94 Nasal Cannula 21 01/01/17 08:00 97.2 68 17 118/62 (80) 94 120/61 (80) 120/67 (84) 01/01/17 00:42 96.1 70 18 139/65 (89) 97 12/31/16 20:50 98 12/31/16 20:43 97.0 69 18 132/76 (94) 97 12/31/16 16:00 98.3 62 16 103/63 (76) 95 12/31/16 16:00 65 108/60 (76) 95 126/60 (82) I/O 12/31/16 12/31/16 12/31/16 01/01/17 01/01/17 01/01/17 07:00 15:00 23:00 07:00 15:00 23:00 Intake Total 100 ml 240 ml 300 ml Output Total 700 ml Balance 100 ml 240 ml -700 ml 300 ml Intake Oral 240 ml IV Total 100 ml Other 300 ml Output Urine Total 700 ml # Voids 2 3 3 # Bowel Movements 0 4 (Cesario Chawla MD R1) Result Diagram: 01/01/1741901/01/17419 Objective Remarks GENERAL: in NAD, no resp distress, nontoxic. Laying in bed comfortably HEENT: NCAT, EOMI, no scleral icterus, no conjunctival injection. MMM. NECK: Supple, no meningeal signs. No JVD CV: RRR, S1 S2. CHEST/PULM: CTAB, no crackles, no wheezes ABD/GI: +BS, + marked ascites, with fluid wave and shifting dullness. There is a pleural catheter in place, erythema noted at catheter site, patient complains of pain with palpation near area. EXT: trace pitting edema to knee. No calf tenderness. NEURO: Awake, alert. normal muscle tone. No asterixis. SKIN: No rashes. Some excoriations noted on lower extremities. PSYCH: Mood and affect are appropriate. Does not appear to respond to internal stimuli. (Cesario Chawla MD R1) A/P Assessment and Plan Mr. Allison is a 61 yo M admitted with peritonitis secondary to indwelling catheter. Had EGD, Colonoscopy on 01/[address] on admission showed circumferential wall thickening and mild inflammatory changes - no acute findings. WBC's found on peritoneal fluid, cultures growing Klebsiella, MRSA. Started on Vanc, Ceftazidime on 01/01. U/S guided paracentesis, IR to remove catheter on 01/02. Discharge Planning Will need 4-7 days of IV antibiotics (starting 01/01). Will need social work assistance in arranging future therapeutic paracentesis in [facility]. CM on board (Cesario Chawla MD R1) Attending Attestation Patient seen, examined, and discussed with Dr. Chawla. I agree with assessment and management as documented and discussed with me. Pt seen in afternoon after panendoscopy. Discussed results of procedure with him. Anticipate removal of catheter tomorrow, along with US guided paracentesis. Vancomycin / Ceftazidime started today for MRSA and Klebsiella in peritoneal fluid culture (transitioned from Zosyn). (Latricia West MD) Problem List: (1) Peritonitis ICD Codes: K65.9 - Peritonitis, unspecified Status: Acute Plan: Patient with chronic ascites from cirrhosis and has indwelling peritoneal catheter. He was admitted 11/2016 for peritonitis, and catheter was removed. Subsequently, he had one replaced in [place] due to transportation issues (inability to get to regular paracentesis appts). Unfortunately, his peritonitis has recurred. It has been discussed with patient that his indwelling catheter needs to be removed and is not a good idea to have replaced due to high risk of reinfection. He is willing to have this removed only if he is able to have local paracentesis (rather than drive weekly to [place]). Appreciate Case management in arranging this. GI consulted Peritoneal fluid with WBC, cultures growing Klebsiella and MRSA Starting Ceftazidime, Vancomycin for 7 day course (started 01/01) Catheter very likely the source, patient counseled on this and understands. Willing to have removed during this hospitalization but still seeks arrangements described above IR to remove catheter tomorrow U/S guided therapeutic paracentesis ordered If we find a device to fit patient's device then we can do therapeutic paracentesis on floor. Appreciate nurse's assistance in locating this (2) Ascites ICD Codes: R18.8 - Other ascites Status: Chronic Plan: Expressed to patient that he should not have indwelling peritoneal catheter. Appreciate GI, who will help to adjust medications/diuretics to help control ascites. See plan above (3) Cirrhosis ICD Codes: K74.60 - Unspecified cirrhosis of liver Status: Chronic Plan: Likely secondary to alcohol abuse and Hepatitis C Patient last seen by GI 11/2016; EGD with cautery performed->varices with no stigmata, mild portal gastropathy, antral gave. Patient treated with chronic Spironolactone, Lasix, Propranolol, Lactulose, PPI MELD of 21 on admission -Low sodium diet -Continue home Propranolol -Continue home Lasix -Continue home Spironolactone -Continue home Lactulose (4) Mood disorder ICD Codes: F39 - Unspecified mood [affective] disorder Status: Chronic Plan: -Continue home escitalopram (5) Hyponatremia ICD Codes: E87.1 - Hypo-osmolality and hyponatremia Status: Chronic Plan: Acute on chronic. Patient with chronic hyponatremia secondary to liver disease Asymptomatic Will fluid restrict and monitor Is/Os. Improving today 130 Recheck BMP in AM. (6) Hepatic encephalopathy ICD Codes: K72.90 - Hepatic failure, unspecified without coma Status: Chronic Plan: Continue home lactulose. (7) DM (diabetes mellitus) ICD Codes: E11.9 - Type 2 diabetes mellitus without complications Status: Chronic Plan: Reportedly on home Novolin 7 U BID; patient suggests nonadherence. 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 -Will check bedside glucose and place on low dose sliding scale (8) HTN (hypertension) ICD Codes: I10 - Essential (primary) hypertension Status: Chronic Plan: Patient has been normotensive during hospitalization -Continue to monitor BP -Continue diuresis (9) Cocaine abuse ICD Codes: F14.10 - Cocaine abuse, uncomplicated Status: Chronic Plan: Impression: Patient reports recently smoking crack cocaine last week UDS positive for amphetamines Initiate CIWA protocol, although patient reports alcohol cessation since March 2016. Counselled to avoid illegal substances. (10) DVT PPX Status: Chronic Plan: -Bilateral SCD's -Will defer anticoagulation at this time since mild thrombocytopenia and INR 1.4 -Will promote walking with PT consultation (Cesario Chawla MD R1) Problem Qualifiers (1) Ascites: Qualified Codes: K70.31 - Alcoholic cirrhosis of liver with ascites (2) Cirrhosis: Qualified Codes: K70.31 - Alcoholic cirrhosis of liver with ascites (3) DM (diabetes mellitus): (4) HTN (hypertension): Qualified Codes: I10 - Essential (primary) hypertension Cesario Chawla MD R1 Jan 01, 2017 15:03 Latricia West MD Jan 01, 2017 20:49
[2017-01-01 20:00] VITALS: BP 120/66; PULSE 60; RESP 18; TEMP 96.5; O2SAT 93
[2017-01-01] MEDS: DOXEPIN HCL 50 MG CAP PO SCH (22:22)
[2017-01-02] VITALS: BP 117/77; PULSE 68; RESP 21; TEMP 98.6; O2SAT 95
[2017-01-02] MEDS: VANCOMYCIN INJ 1,500 MG in SODIUM CHLORID 0.9% 500 ML INJ 500 ML IV SCH ×2 (00:49→15:13)
[2017-01-02] MEDS: MORPHINE SULFATE 4 MG/ML INJ IV PUSH PRN ×4 (03:16→22:03)
[2017-01-02] MEDS: cefTAZidime INJ 2,000 MG in SODIUM CHLORIDE 0.9% INJ 100 ML IV SCH ×3 (04:56→21:57)
[2017-01-02 07:22] LABS: MEAN CELL VOLUME 84.6 FL (80.0-100.0); MEAN CORPUSCULAR HEMOGLOBIN 27.9 PG (27.0-34.0); PLATELET COUNT 78 TH/MM3 (150-450); RED BLOOD COUNT 2.72 MIL/MM3 (4.50-5.90); RED CELL DISTRIBUTION WIDTH 18.6 % (11.6-17.2)
[2017-01-02 07:24] LABS: REVIEW FLAG FINAL
[2017-01-02 07:50] LABS: BICARBONATE 24.7 MEQ/L (21.0-32.0); CALCIUM-PROTEIN CORRECTED 7.9 MG/DL (8.5-10.1); TOTAL BILIRUBIN ADULT 1.9 MG/DL (0.2-1.0)
[2017-01-02 08:00] VITALS: BP 101/59; PULSE 67; RESP 18; TEMP 97.9; O2SAT 93
[2017-01-02] MEDS: GABAPENTIN 300 MG CAP PO SCH ×3 (08:34→18:27)
[2017-01-02] MEDS: CHOLECALCIFEROL (VIT D3) 1000 UNIT TAB PO SCH (08:34)
[2017-01-02] MEDS: ESCITALOPRAM OXALATE 20 MG TAB PO SCH (08:34)
[2017-01-02] MEDS: DOCUSATE SODIUM 50 MG/SENNA 8.6 MG TAB PO SCH ×2 (08:34→21:56)
[2017-01-02] MEDS: FUROSEMIDE 40 MG TAB PO SCH (08:34)
[2017-01-02] MEDS: busPIRone HCL 10 MG TAB PO SCH ×2 (08:34→21:56)
[2017-01-02] MEDS: PANTOPRAZOLE SOD 40 MG DELAYED RELEASE TAB PO SCH (08:34)
[2017-01-02] MEDS: LACTULOSE SYRUP 20 GM/30 ML CUP PO SCH ×4 (08:37→22:03)
[2017-01-02] MEDS: SPIRONOLACTONE 100 MG TAB PO SCH ×2 (08:37→21:56)
[2017-01-02] MEDS: ASCORBIC ACID 500 MG TAB PO SCH (08:37)
[2017-01-02] MEDS: PROPRANOLOL HCL 20 MG TAB PO SCH (08:37)
[2017-01-02] MEDS: SODIUM CHLORIDE 0.9% FLUSH 10 ML FLUSH IV FLUSH SCH ×2 (08:38→21:56)
[2017-01-02] MEDS: INSULIN ASPART SUPPLEMENTAL SCALE SQ SCH ×4 (08:39→21:57)
[2017-01-02] MEDS: THIAMINE HCL 100 MG TAB PO SCH (08:42)
[2017-01-02] MEDS: AQUAPHOR OINT 50 APPLIC/50 GM TUBE TOPICAL SCH ×2 (09:00→21:00)
--- NOTE | 2017-01-02 09:36 | HHI.FPPN ---
Subjective Remarks Pt states that he feels weak in the legs most likely due to how he slept last night where he favored his right side. He would try to get up and walk with PT. He ate breakfast already and had no nausea and vomiting. However, he has to be NPO for 6 hours in order to have paracentesis performed today. His peritoneal catheter will also be removed today. [facility] today. (Sophie Lawrence MD R2) Objective Vitals Vital Signs Date Time Temp Pulse Resp B/P (MAP) Pulse Ox O2 Delivery O2 Flow Rate FiO2 01/02/17 08:00 97.9 67 18 101/59 (73) 93 01/02/17 00:00 98.6 68 21 117/77 (90) 95 01/01/17 20:00 96.5 60 18 120/66 (84) 93 01/01/17 12:13 70 18 108/63 (78) 96 Nasal Cannula 3 01/01/17 12:00 62 15 102/58 (73) 98 Nasal Cannula 3 01/01/17 11:45 97.8 82 13 115/57 (76) 100 Simple Mask 8 I/O 01/01/17 01/01/17 01/01/17 01/02/17 01/02/17 01/02/17 07:00 15:00 23:00 07:00 15:00 23:00 Intake Total 300 ml 963 ml 855 ml Output Total 700 ml 200 ml Balance -700 ml 300 ml 763 ml 855 ml Intake Oral 600 ml 240 ml IV Total 363 ml 615 ml Other 300 ml Output Urine Total 700 ml 200 ml # Voids 3 7 2 # Bowel Movements 4 0 (Sophie Lawrence MD R2) Result Diagram: 01/02/17 0650 01/02/17 0650 Imaging Last Impressions Knee X-Ray 12/31/16 0000 Signed Impressions: Service Date/Time: Saturday, December 31, 2016 14:13 - CONCLUSION: Degenerative changes, negative for fracture. German Worrell MD FACR Chest X-Ray 12/30/16 1640 Signed Impressions: Service Date/Time: Friday, December 30, 2016 16:55 - CONCLUSION: 1. Minimal basilar atelectasis. No effusion. No pneumothorax. Félix Vail MD Abdomen/Pelvis CT 12/30/16 0000 Signed Impressions: Service Date/Time: Friday, December 30, 2016 22:56 - CONCLUSION: 1. Circumferential wall thickening involving the cecum with mild inflammatory change suggesting acute colitis. Fall studies to document complete resolution are suggested to exclude a mass. 2. Cirrhosis with splenomegaly and moderate volume ascites. 3. Right inguinal hernia containing ascitic fluid. 4. Large calcified atherosclerotic plaque involving the abdominal aorta at the origin of the celiac. I suspect there is stenosis of the celiac origin. CTA would be needed to further evaluate this. The SILVANA and SMA are patent and therefore the presumed celiac stenosis is likely clinically insignificant. 5. Cardiomegaly. Joselito Cantu Jr., MD Objective Remarks GENERAL: in NAD, no resp distress, nontoxic. Laying in bed comfortably HEENT: NCAT, EOMI, no scleral icterus, no conjunctival injection. MMM. NECK: Supple, no meningeal signs. No JVD CV: RRR, S1 S2. CHEST/PULM: CTAB, no crackles, no wheezes ABD/GI: +BS, + marked ascites, with fluid wave and shifting dullness. There is a pleural catheter in place EXT: 1+ pitting edema to knee. No calf tenderness. NEURO: Awake, alert. normal muscle tone. No asterixis. SKIN: No rashes. Some excoriations noted on lower extremities. PSYCH: Mood and affect are appropriate. Does not appear to respond to internal stimuli. (Sophie Lawrence MD R2) A/P Assessment and Plan Mr. Allison is a 61 yo M admitted with peritonitis secondary to indwelling catheter. Had EGD, Colonoscopy on 01/[address] on admission showed circumferential wall thickening and mild inflammatory changes - no acute findings. WBC's found on peritoneal fluid, cultures growing Klebsiella, MRSA. Started on Vanc, Ceftazidime on 01/01. U/S guided paracentesis, IR to remove peritoneal catheter on 01/02. Seen and examined with Dr. Chawla. [facility]DW Dr. West Discharge Planning Will need 4-7 days of IV antibiotics (starting 01/01). Will need social work assistance in arranging future therapeutic paracentesis in [facility]. CM on board (Sophie Lawrence MD R2) Attending Attestation Patient seen and examined, discussed with resident team. I agree with assessment and management as documented and discussed with me. Pt seen after paracentesis in IR, where 6L fluid drawn. Peritoneal catheter was removed. Continue IV antibiotics. Appreciate GI. (Latricia West MD) Problem List: (1) Peritonitis ICD Codes: K65.9 - Peritonitis, unspecified Status: Acute Plan: Patient with chronic ascites from cirrhosis and has indwelling peritoneal catheter. He was admitted 11/2016 for peritonitis, and catheter was removed. Subsequently, he had one replaced in [place] due to transportation issues (inability to get to regular paracentesis appts). Unfortunately, his peritonitis recurred. It has been discussed with patient that his indwelling catheter needs to be removed and is not a good idea to have replaced due to high risk of reinfection. Initially, he was willing to have the catheter removed only if he is able to have local paracentesis (rather than drive weekly to [place]). However, he is now willing to have the cathether removed due to peritoneal fluid cultures being infected as below. The [place] hospice case manager assigned to him was able to contact the [place] hospice case manager who states that the pt will have to put in a request to have local paracentesis. Pt will call and speak with the [place] hospice case manager today to get the process started. GI on board Peritoneal fluid with WBC, cultures growing Klebsiella and MRSA IR to remove catheter today 01/02 Continue Ceftazidime, Vancomycin for 7 day course (started 01/01) (2) Ascites ICD Codes: R18.8 - Other ascites Status: Chronic Plan: Expressed to patient that he should not have indwelling peritoneal catheter. Appreciate GI, who will help to adjust medications/diuretics to help control ascites. See plan above (3) Cirrhosis ICD Codes: K74.60 - Unspecified cirrhosis of liver Status: Chronic Plan: Likely secondary to alcohol abuse and Hepatitis C Patient last seen by GI 11/2016; EGD with cautery performed->varices with no stigmata, mild portal gastropathy, antral gave. Patient treated with chronic Spironolactone, Lasix, Propranolol, Lactulose, PPI MELD of 21 on admission -Low sodium diet -Continue home Propranolol -Continue home Lasix -Continue home Spironolactone (4) Mood disorder ICD Codes: F39 - Unspecified mood [affective] disorder Status: Chronic Plan: -Continue home escitalopram (5) Hyponatremia ICD Codes: E87.1 - Hypo-osmolality and hyponatremia Status: Chronic Plan: Acute on chronic. Patient with chronic hyponatremia secondary to liver disease Asymptomatic Will fluid restrict and monitor Is/Os. Stable at 129 on 01/02 Recheck BMP in AM. (6) Hepatic encephalopathy ICD Codes: K72.90 - Hepatic failure, unspecified without coma Status: Chronic Plan: -Continue home Lactulose but increase dose to 30ml four times daily due to increased ammonia level from 44 on 01/01 to 68 on 01/02 (7) DM (diabetes mellitus) ICD Codes: E11.9 - Type 2 diabetes mellitus without complications Status: Chronic Plan: Reportedly on home Novolin 7 U BID; patient suggests nonadherence. 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 -Continue Accuchecks with low dose insulin sliding scale (8) HTN (hypertension) ICD Codes: I10 - Essential (primary) hypertension Status: Chronic Plan: Patient has been normotensive during hospitalization -Continue to monitor BP -Continue diuresis (9) DVT PPX Status: Chronic Plan: -Bilateral SCD's -Will defer anticoagulation at this time due to thrombocytopenia and INR 1.4 -Will promote walking with PT consultation (Sophie Lawrence MD R2) Problem Qualifiers (1) Ascites: Qualified Codes: K70.31 - Alcoholic cirrhosis of liver with ascites (2) Cirrhosis: Qualified Codes: K70.31 - Alcoholic cirrhosis of liver with ascites (3) DM (diabetes mellitus): (4) HTN (hypertension): Qualified Codes: I10 - Essential (primary) hypertension Sophie Lawrence MD R2 Jan 02, 2017 09:36 Latricia West MD Jan 02, 2017 20:03
[2017-01-02] MEDS ORDERED: LORazepam 2 MG/ML VIAL ONE (10:13)
--- NOTE | 2017-01-02 11:35 | PD.RAD ---
Post Procedure Progress Note Pre Procedure Diagnosis: (1) Encounter for drainage of infection (2) SBP (spontaneous bacterial peritonitis) Post Procedure Diagnosis: (1) SBP (spontaneous bacterial peritonitis) Procedure Date: Jan 02, 2017 Supervising Radiologist: Bakari Worrell Anesthesia: Local Plan of Activity Patient to Unit: Nursing Unit Patient Condition: Poor Additional Comments: Peritoneal drainage catheter removed without difficulty. full dictated report to follow. 6 liters of ascites removed See PACS Report for procedural detail/treatment Bakari Worrell MD Jan 02, 2017 11:35
--- NOTE | 2017-01-02 15:43 | RADRPT ---
EXAM DATE/TIME: 01/01/2017 00:00 [facility] COMPARISON: PERITONEAL CATH REMOVAL W/OUT, November 26, 2016, 12:09. INDICATIONS : Patient presents with infection in need of paracentesis and paratoneal catheter removal. MEDICAL HISTORY : Cirrhosis Substance Abuse HTN SURGICAL HISTORY : Cholecystectomy Pleural Catheter Placement ENCOUNTER: Initial ACUITY: 2 days PAIN SCORE: 9/10 LOCATION: Bilateral abdomen IMAGE SERIES: 0 PROCEDURE : 1. Peritoneal drainage catheter removal. 2. Conscious sedation with continuous EKG and Oximetry monitoring. 3. Abdominal paracentesis. The risks, benefits and alternatives to the procedure were explained and verbal and written consent w as obtained. The site was prepped in sterile fashion. Full sterile technique was used, including ca p, mask, sterile gloves and gown and a large sterile sheet. Hand hygiene and 2% chlorhexidine prep w as utilized per protocol for cutaneous antisepsis with appropriate dry time for site. The skin and s ubcutaneous tissues were infiltrated with local anesthetic solution. The abdominal drainage catheter was accessed using sterile technique. A proximally 6 L of fluid was r emoved. Immediately following removal of the fluid, the skin around the catheter insertion site was anestheti zed with 5 cc of 1% lidocaine. The catheter cuff was removed using blunt dissection techniques. The c atheter was removed without difficulty. The insertion site was closed with a single pursestring suture. Conscious sedation was performed with the prescribed dosages and duration as above in the presence of an independent trained radiology nurse to assist in the monitoring of the patient. EKG and oximetry remained stable throughout the procedure. CONCLUSION: 1. Uncomplicated paracentesis via the patient's abdominal drainage catheter. 2. Successful removal of the patient's ASPIRA abdominal ascites drain Bakari Worrell MD on January 02, 2017 at 15:39 Board Certified Radiologist. This report was verified electronically.
[2017-01-02 15:44] VITALS: BP 116/55; PULSE 65; RESP 18; TEMP 97.4; O2SAT 92
--- NOTE | 2017-01-02 15:44 | RADRPT ---
EXAM DATE/TIME: 01/02/2017 00:00 [facility] COMPARISON: PERITONEAL CATHETER REMOVAL, January 01, 2017, 0:00. INDICATIONS : Patient presents with infection in need of paracentesis and paratoneal catheter removal. MEDICAL HISTORY : Cirrhosis Substance Abuse HTN Upper GI Bleed SURGICAL HISTORY : Cholecystectomy Pleural Catheter Placement ENCOUNTER: Initial ACUITY: 2 days PAIN SCORE: 9/10 LOCATION: Bilateral lower quadrant IMAGE SERIES: 0 FLUID: Total volume of6,300 cc of cloudy, yellow fluid was removed. PROCEDURE : 1. abdominal paracentesis. 2. Conscious sedation with continuous EKG and Oximetry monitoring. The risks, benefits and alternatives to the procedure were explained and verbal and written consent w as obtained. The site was prepped in sterile fashion. Full sterile technique was used, including ca p, mask, sterile gloves and gown and a large sterile sheet. Hand hygiene and 2% chlorhexidine prep w as utilized per protocol for cutaneous antisepsis with appropriate dry time for site. The skin and s ubcutaneous tissues were infiltrated with local anesthetic solution. The existing ASPIRA drainage catheter was hooked to low intermittent suction. 6 L of yellow fluid was removed without difficulty. Conscious sedation was performed with the prescribed dosages and duration as above in the presence of an independent trained radiology nurse to assist in the monitoring of the patient. EKG and oximetry remained stable throughout the procedure. CONCLUSION: 1. Uncomplicated abdominal ascites drainage. Immediately following drainage of the ascites the cathet er was removed. Bakari Worrell MD on January 02, 2017 at 15:41 Board Certified Radiologist. This report was verified electronically.
--- NOTE | 2017-01-02 16:02 | HHI.GIFU ---
Subjective Remarks Sitting on side of bed eating lunch. Had his peritoneal drain removed by IR with paracentesis at that time. He feels "shade hanger." He has mild tenderness at the old drain site. No n/v. Tolerating diet. States weak on his feet. (Angle Zee) Objective Vitals I&O Vital Signs Date Time Temp Pulse Resp B/P (MAP) Pulse Ox O2 Delivery O2 Flow Rate FiO2 01/02/17 15:44 97.4 65 18 116/55 (75) 92 01/02/17 08:00 97.9 67 18 101/59 (73) 93 01/02/17 00:00 98.6 68 21 117/77 (90) 95 01/01/17 20:00 96.5 60 18 120/66 (84) 93 I/O 01/01/17 01/01/17 01/01/17 01/02/17 01/02/17 01/02/17 07:00 15:00 23:00 07:00 15:00 23:00 Intake Total 300 ml 963 ml 855 ml Output Total 700 ml 200 ml 6300 ml Balance -700 ml 300 ml 763 ml 855 ml -6300 ml Intake Oral 600 ml 240 ml IV Total 363 ml 615 ml Other 300 ml Output Urine Total 700 ml 200 ml Drainage Total 6300 ml # Voids 3 7 2 # Bowel Movements 4 0 Laboratory Laboratory Tests Test 01/01/17 16:15 01/02/17 06:50 Ammonia 44 68 White Blood Count 6.0 Red Blood Count 2.72 Hemoglobin 7.6 Hematocrit 23.0 Mean Corpuscular Volume 84.6 Mean Corpuscular Hemoglobin 27.9 Mean Corpuscular Hemoglobin Concent 33.0 Red Cell Distribution Width 18.6 Platelet Count 78 Mean Platelet Volume 7.4 Blood Urea Nitrogen 19 Creatinine 0.92 Random Glucose 205 Total Protein 5.5 Albumin 1.8 Calcium Level 7.1 Alkaline Phosphatase 77 Aspartate Amino Transf (AST/SGOT) 113 Alanine Aminotransferase (ALT/SGPT) 55 Total Bilirubin 1.9 Sodium Level 129 Potassium Level 4.0 Chloride Level 98 Carbon Dioxide Level 24.7 Anion Gap 6 Estimat Glomerular Filtration Rate 84 Protein Corrected Calcium 7.9 Date/Time Source Procedure Growth Status 12/30/16 17:50 Blood Peripheral Aerobic Blood Culture - Preliminary NO GROWTH IN 3 DAYS Resulted 12/30/16 17:50 Blood Peripheral Anaerobic Blood Culture - Preliminary NO GROWTH IN 3 DAYS Resulted 12/30/16 19:50 Fluid Peritoneal Fluid Gram Stain - Final Complete 12/30/16 19:50 Body Fluid Culture - Final Klebsiella Oxytoca S. Aureus Mrsa Complete Imaging Last Impressions Knee X-Ray 12/31/16 0000 Signed Impressions: Service Date/Time: Saturday, December 31, 2016 14:13 - CONCLUSION: Degenerative changes, negative for fracture. German Worrell MD FACR Chest X-Ray 12/30/16 1640 Signed Impressions: Service Date/Time: Friday, December 30, 2016 16:55 - CONCLUSION: 1. Minimal basilar atelectasis. No effusion. No pneumothorax. Félix Vail MD Abdomen/Pelvis CT 12/30/16 0000 Signed Impressions: Service Date/Time: Friday, December 30, 2016 22:56 - CONCLUSION: 1. Circumferential wall thickening involving the cecum with mild inflammatory change suggesting acute colitis. Fall studies to document complete resolution are suggested to exclude a mass. 2. Cirrhosis with splenomegaly and moderate volume ascites. 3. Right inguinal hernia containing ascitic fluid. 4. Large calcified atherosclerotic plaque involving the abdominal aorta at the origin of the celiac. I suspect there is stenosis of the celiac origin. CTA would be needed to further evaluate this. The SILVANA and SMA are patent and therefore the presumed celiac stenosis is likely clinically insignificant. 5. Cardiomegaly. Joselito Cantu Jr., MD Physical Exam HEENT: Normocephalic; atraumatic; no jaundice. CHEST: CTA CARDIAC: RRR ABDOMEN: Soft, distended with ascites, mild tenderness at site; hepatosplenomegaly; bowel sounds are present in all four quadrants. EXTREMITIES: BLE edema. SKIN: Normal; no rash; no jaundice. [employer] MANAGER: No focal deficits; alert and oriented times three. (Angle Zee [facility]) Assessment and Plan Plan ASSESSMENT: - Recurrent Ascites. Pt on Lasix, Spironolactone at home. States watching his Salt and fluid intake. We saw him in November when he was hospitalized about 2 weeks after a drain was placed for his ascites and he was found to have SBP. Peritoneal fluid cultures at that time revealed enterococcus faecalis. He was evaluated by IR on 11/26/16 and they removed the tunneled peritoneal drain. The final culture from the peritoneal catheter tip was < 15 CFU gram positive cocci. He reports that he had another peritoneal drain placed by the [place] about 2 weeks ago. Peritoneal fluid WBC 3273, RBC 446, Neutrophils 56. Cx with Klebsiella Oxytoca and MRSA. S/P removal of peritoneal drain and paracentesis with removal of 6L by IR (01/02). Ceftazidime, Vanco. - SBP. Cx with Klebsiella Oxytoca and MRSA. Ceftazidime, Vanco. - Abnormal imaging with circumferential wall thickening involving the cecum. CT Scan abdomen and pelvis (12/30/16)---> Circumferential wall thickening involving the cecum with mild inflammatory change suggesting acute colitis. FU studies to document complete resolution are suggested to exclude a mass. Cirrhosis with splenomegaly and moderate volume ascites, right inguinal hernia containing ascitic fluid, large calcified atherosclerotic plaque involving the abdominal aorta at the origin of the celiac. I suspect there is stenosis of the celiac origin. CTA would be needed to further evaluate this. The SILVANA and SMA are patent and therefore the presumed celiac stenosis is likely clinically insignificant. Cardiomegaly. Denies diarrhea. Last colonoscopy was 2010 at the [place]. S/P Colonoscopy ()---> Sigmoid diverticulosis internal hemorrhoids, no evidence of colitis. - Liver cirrhosis with elevated LFTs. CT as above. Quit drinking in March 2016. (+) Amphetamines on toxicology screen. MELD 13. - Esophageal varices. EGD (11/27/16)---> Esophageal varices no stigmata, Mild portal gastropathy, Antral gave. It was recommended that he have a repeat EGD in 3 months. No active bleeding. Inderal. - GAVE. S/P EGD (01/01/17)---> GAVE, Esophageal varices, Portal gastropathy - Anemia. 7.6/23.0. - Coagulopathy/Thrombocytopenia. Plt 78,000. - Hepatic encephalopathy. Lactulose. - Hepatitis C, Tx naive. PLAN: - 2 gram sodium diet - Cont. Abx - Cont. Lasix, Spironolactone - Cont. Protonix - Cont. Lactulose - Cont. Propranolol - Monitor labs - Supportive care - Recommend medical treatment for ascites with diuretics, salt restriction, paracentesis and against replacing peritoneal drain for his recurrent ascites. If this is replaced, we would recommend prophylactic antibiotics to try to prevent recurrent SBP. But again, we do not recommend a peritoneal drain. - Further recommendations to follow based on results of above - Pt seen and examined by Dr. Fortune and myself and this note is written on his behalf (Angle Zee) Physician Comments Patient seen and examined Agree with above Continue with current supportive care Monitor labs (Demarco Fortune MD) Angle Zee Jan 02, 2017 16:02 Demarco Fortune MD Jan 02, 2017 18:42
[2017-01-02 18:01] VITALS: O2SAT 92
[2017-01-02 20:00] VITALS: BP 116/67; PULSE 69; RESP 20; TEMP 96.8; O2SAT 96
[2017-01-02] MEDS: DOXEPIN HCL 50 MG CAP PO SCH (21:56)
[2017-01-03] VITALS: BP 108/55; PULSE 63; RESP 20; TEMP 97.3; O2SAT 95
[2017-01-03] MEDS: VANCOMYCIN INJ 1,500 MG in SODIUM CHLORID 0.9% 500 ML INJ 500 ML IV SCH (00:31)
[2017-01-03] MEDS ORDERED: PHARMACY ORDERED LAB ONE (00:45)
[2017-01-03 00:46] LABS: HEMATOCRIT 25.6 % (39.0-51.0); MEAN CELL VOLUME 84.9 FL (80.0-100.0); PLATELET COUNT 78 TH/MM3 (150-450); RED BLOOD COUNT 3.01 MIL/MM3 (4.50-5.90); RED CELL DISTRIBUTION WIDTH 18.4 % (11.6-17.2); WHITE BLOOD COUNT 5.2 TH/MM3 (4.0-11.0)
[2017-01-03 00:56] LABS: REVIEW FLAG FINAL
[2017-01-03 00:58] LABS: INTERNATIONAL NORMALIZED RATIO 1.4 RATIO; PROTHROMBIN TIME - PATIENT 15.6 SEC (9.8-11.6)
[2017-01-03 01:39] LABS: POTASSIUM 4.3 MEQ/L (3.5-5.1)
[2017-01-03 01:41] LABS: CALCIUM-PROTEIN CORRECTED 7.9 MG/DL (8.5-10.1); TOTAL BILIRUBIN ADULT 1.6 MG/DL (0.2-1.0); VANCOMYCIN TROUGH 20.7 MCG/ML (5.0-10.0)
[2017-01-03] MEDS: MORPHINE SULFATE 4 MG/ML INJ IV PUSH PRN ×2 (05:25→08:37)
[2017-01-03] MEDS: cefTAZidime INJ 2,000 MG in SODIUM CHLORIDE 0.9% INJ 100 ML IV SCH ×3 (05:25→20:51)
--- NOTE | 2017-01-03 08:01 | HHI.FPPN ---
Subjective Remarks Mr. Allison was seen on rounds this AM. No acute events overnight, vitals were stable. Patient states his abdomen feels better after the paracentesis yesterday. He does complain of a new productive cough. Denies CP, SOB, fever/ chills. He also states his legs still feel weak. Has not had a BM in 2 days. (Cesario Chawla MD R1) Objective Vitals Vital Signs Date Time Temp Pulse Resp B/P (MAP) Pulse Ox O2 Delivery O2 Flow Rate FiO2 01/03/17 00:00 97.3 63 20 108/55 (72) 95 01/02/17 20:00 96.8 69 20 116/67 (83) 96 01/02/17 18:01 92 21 01/02/17 15:44 97.4 65 18 116/55 (75) 92 I/O 01/02/17 01/02/17 01/02/17 01/03/17 01/03/17 01/03/17 07:00 15:00 23:00 07:00 15:00 23:00 Intake Total 855 ml 820 ml 510 ml Output Total 6300 ml Balance 855 ml -6300 ml 820 ml 510 ml Intake Oral 240 ml 320 ml 510 ml IV Total 615 ml 500 ml Drainage Total 6300 ml # Voids 2 0 4 # Bowel Movements 0 0 (Cesario Chawla MD R1) Result Diagram: 01/03/17 0013 01/03/17 0031 Objective Remarks GENERAL: in NAD, no resp distress, nontoxic. Laying in bed comfortably HEENT: NCAT, EOMI, no scleral icterus, no conjunctival injection. MMM. NECK: Supple, no meningeal signs. No JVD CV: RRR, S1 S2. CHEST/PULM: Course breath sounds appreciated in bilateral lung st[place]. No wheezes or crackles appreciated. Good air movement bilaterally ABD/GI: +BS, ascites noted but less pronounced than yesterday. Bandage over prior catheter site is clean and dry. EXT: 1+ pitting edema to knee. No calf tenderness. NEURO: Awake, alert. normal muscle tone. No asterixis. SKIN: No rashes. Some excoriations noted on lower extremities. PSYCH: Mood and affect are appropriate. Does not appear to respond to internal stimuli. (Cesario Chawla MD R1) A/P Assessment and Plan Mr. Allison is a 61 yo M admitted with peritonitis secondary to indwelling catheter. Had EGD, Colonoscopy on 01/[address] on admission showed circumferential wall thickening and mild inflammatory changes - no acute findings. WBC's found on peritoneal fluid, cultures growing Klebsiella, MRSA. Started on Vanc, Ceftazidime on 01/01. U/S guided paracentesis, peritoneal catheter removal on 01/02. Seen and examined with Dr. Lawrence, discussed with Dr. Loving Discharge Planning Will need 4-7 days of IV antibiotics (starting 01/01). Will need social work assistance in arranging future therapeutic paracentesis in [facility]. CM on board and patient has contact information for elementary school social worker at [place] (Cesario Chawla MD R1) Attending Attestation Patient seen and examined. Case reviewed and discussed Agree with plan of care as discussed with me and documented in the resident note. Spoke with nursing at the bedside. Pain controlled, patient requesting to transition from IV to PO pain medication. Add albumin. (Chari Loving MD) Problem List: (1) Peritonitis ICD Codes: K65.9 - Peritonitis, unspecified Status: Acute Plan: Patient with chronic ascites from cirrhosis and has indwelling peritoneal catheter. He was admitted 11/2016 for peritonitis, and catheter was removed. Subsequently, he had one replaced in [place] due to transportation issues (inability to get to regular paracentesis appts). Unfortunately, his peritonitis recurred. It has been discussed with patient that his indwelling catheter needs to be removed and is not a good idea to have replaced due to high risk of reinfection. Initially, he was willing to have the catheter removed only if he is able to have local paracentesis (rather than drive weekly to [place]). However, he agreed to have the catheter removed on . Therapeutic paracentesis was performed at that time as well. The [facility] telephonic nurse case manager assigned to him was able to contact the [place] telephonic nurse case manager who states that the pt will have to put in a request to have local paracentesis. Pt will call and speak with the [place] telephonic nurse case manager on Thursday to get the process started. GI on board Peritoneal fluid with WBC, cultures growing Klebsiella and MRSA IR to remove catheter 01/02 Continue Ceftazidime, Vancomycin for 5 day course (started 01/01) Starting Albumin 25mg IV BID with use of antibiotic in setting of SBP (01/03) PO [place] for pain (2) Ascites ICD Codes: R18.8 - Other ascites Status: Chronic Plan: Expressed to patient that he should not have indwelling peritoneal catheter as it will be a likely source of infection in the future Appreciate GI, who will help to adjust medications/diuretics to help control ascites. See plan above (3) Cirrhosis ICD Codes: K74.60 - Unspecified cirrhosis of liver Status: Chronic Plan: Likely secondary to alcohol abuse and Hepatitis C Patient last seen by GI 11/2016; EGD with cautery performed->varices with no stigmata, mild portal gastropathy, antral gave. Patient treated with chronic Spironolactone, Lasix, Propranolol, Lactulose, PPI MELD of 21 on admission -Low sodium diet -Continue home Propranolol -Continue home Lasix -Continue home Spironolactone (4) Hepatic encephalopathy ICD Codes: K72.90 - Hepatic failure, unspecified without coma Status: Chronic Plan: -Continue home Lactulose but increase dose to 30ml four times daily due to increased ammonia level -Ammonia 44 on 01/01, 68 on 01/02, 57 on 01/03 -Scheduling Layne Colace (5) Cough ICD Codes: R05 - Cough Status: Acute Plan: Patient complains of productive cough on 01/03 -Afebrile, vitals stable, no complaints of CP, SOB at this time -sputum gram stain/culture ordered -Mucinex, tessalon pearls ordered (6) Weakness of both legs ICD Codes: R29.898 - Other symptoms and signs involving the musculoskeletal system Status: Acute Plan: Suspected 2/2 to elevated Ammonia vs Staph myopathy -Treatment of elevated ammonia as above -Will continue to monitor (7) Hyponatremia ICD Codes: E87.1 - Hypo-osmolality and hyponatremia Status: Chronic Plan: Acute on chronic. Patient with chronic hyponatremia secondary to liver disease Asymptomatic Will fluid restrict and monitor Is/Os. Stable at 131 on 01/02 Recheck BMP in AM. (8) Mood disorder ICD Codes: F39 - Unspecified mood [affective] disorder Status: Chronic Plan: -Continue home escitalopram (9) DM (diabetes mellitus) ICD Codes: E11.9 - Type 2 diabetes mellitus without complications Status: Chronic Plan: Reportedly on home Novolin 7 U BID; patient suggests nonadherence. 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 -Continue Accuchecks with low dose insulin sliding scale (10) HTN (hypertension) ICD Codes: I10 - Essential (primary) hypertension Status: Chronic Plan: Patient has been normotensive during hospitalization -Continue to monitor BP -Continue diuresis (11) DVT PPX Status: Chronic Plan: -Bilateral SCD's -Anticoagulation contraindicated at this time due to thrombocytopenia and INR 1.4 -Will promote walking with PT consultation (Cesario Chawla MD R1) Problem Qualifiers (1) Ascites: Qualified Codes: K70.31 - Alcoholic cirrhosis of liver with ascites (2) Cirrhosis: Qualified Codes: K70.31 - Alcoholic cirrhosis of liver with ascites (3) DM (diabetes mellitus): (4) HTN (hypertension): Qualified Codes: I10 - Essential (primary) hypertension Cesario Chawla MD R1 Jan 03, 2017 08:01 Chari Loving MD Jan 03, 2017 20:06
[2017-01-03] MEDS: THIAMINE HCL 100 MG TAB PO SCH (08:33)
[2017-01-03] MEDS: guaiFENesin E.R. 600 MG TAB PO SCH ×2 (08:33→20:50)
[2017-01-03] MEDS: SPIRONOLACTONE 100 MG TAB PO SCH ×2 (08:33→20:50)
[2017-01-03] MEDS: AQUAPHOR OINT 50 APPLIC/50 GM TUBE TOPICAL SCH ×2 (08:33→20:51)
[2017-01-03] MEDS: ASCORBIC ACID 500 MG TAB PO SCH (08:33)
[2017-01-03] MEDS: PANTOPRAZOLE SOD 40 MG DELAYED RELEASE TAB PO SCH (08:33)
[2017-01-03] MEDS: INSULIN ASPART SUPPLEMENTAL SCALE SQ SCH ×4 (08:33→20:51)
[2017-01-03] MEDS: PROPRANOLOL HCL 20 MG TAB PO SCH (08:33)
[2017-01-03] MEDS: ESCITALOPRAM OXALATE 20 MG TAB PO SCH (08:33)
[2017-01-03] MEDS: LACTULOSE SYRUP 20 GM/30 ML CUP PO SCH ×4 (08:33→20:50)
[2017-01-03] MEDS: CHOLECALCIFEROL (VIT D3) 1000 UNIT TAB PO SCH (08:33)
[2017-01-03] MEDS: FUROSEMIDE 40 MG TAB PO SCH (08:33)
[2017-01-03] MEDS: GABAPENTIN 300 MG CAP PO SCH ×3 (08:33→17:24)
[2017-01-03] MEDS: busPIRone HCL 10 MG TAB PO SCH ×2 (08:33→20:50)
[2017-01-03] MEDS: DOCUSATE SODIUM 50 MG/SENNA 8.6 MG TAB PO SCH ×2 (08:33→20:50)
[2017-01-03] MEDS: SODIUM CHLORIDE 0.9% FLUSH 10 ML FLUSH IV FLUSH SCH ×2 (08:34→20:51)
[2017-01-03 08:40] VITALS: BP 142/80; PULSE 81; RESP 16; TEMP 98.1; O2SAT 98
[2017-01-03 08:50] VITALS: O2SAT 95
[2017-01-03] MEDS: ALBUMIN HUMAN 25% 25 GM/100 ML BAGP IV SCH ×2 (11:42→21:40)
[2017-01-03] MEDS: ACETAMINOPHEN/HYDROcodone 325 MG/5 MG TAB PO PRN ×3 (11:42→21:40)
[2017-01-03 11:58] VITALS: BP 139/82; PULSE 83; RESP 17; TEMP 98; O2SAT 97
[2017-01-03] MEDS: VANCOMYCIN INJ 1,250 MG in SODIUM CHLOR 0.9% 250 ML INJ 250 ML IV SCH (13:26)
[2017-01-03 15:43] VITALS: BP 100/62; PULSE 66; RESP 17; TEMP 98.2; O2SAT 98
--- NOTE | 2017-01-03 19:53 | HHI.GIFU ---
Subjective Remarks Laying in bed feeling tired denies any pain denies any bleeding Objective Vitals I&O Vital Signs Date Time Temp Pulse Resp B/P (MAP) Pulse Ox O2 Delivery O2 Flow Rate FiO2 01/03/17 15:43 98.2 66 17 100/62 (75) 98 01/03/17 11:58 98.0 83 17 139/82 (101) 97 01/03/17 08:50 95 21 01/03/17 08:40 98.1 81 16 142/80 (100) 98 01/03/17 00:00 97.3 63 20 108/55 (72) 95 01/02/17 20:00 96.8 69 20 116/67 (83) 96 I/O 01/02/17 01/02/17 01/02/17 01/03/17 01/03/17 01/03/17 07:00 15:00 23:00 07:00 15:00 23:00 Intake Total 855 ml 820 ml 610 ml 350 ml Output Total 6300 ml Balance 855 ml -6300 ml 820 ml 610 ml 350 ml Intake Oral 240 ml 320 ml 510 ml IV Total 615 ml 500 ml 100 ml 350 ml Drainage Total 6300 ml # Voids 2 0 4 # Bowel Movements 0 0 Laboratory Laboratory Tests Test 01/03/17 00:13 01/03/17 00:31 White Blood Count 5.2 Red Blood Count 3.01 Hemoglobin 8.4 Hematocrit 25.6 Mean Corpuscular Volume 84.9 Mean Corpuscular Hemoglobin 28.0 Mean Corpuscular Hemoglobin Concent 33.0 Red Cell Distribution Width 18.4 Platelet Count 78 Mean Platelet Volume 7.3 Prothrombin Time 15.6 Prothromb Time International Ratio 1.4 Blood Urea Nitrogen 16 Creatinine 0.91 Random Glucose 159 Total Protein 5.3 Albumin 1.6 Calcium Level 7.0 Alkaline Phosphatase 61 Aspartate Amino Transf (AST/SGOT) 110 Alanine Aminotransferase (ALT/SGPT) 54 Total Bilirubin 1.6 Sodium Level 131 Potassium Level 4.3 Chloride Level 100 Carbon Dioxide Level 25.0 Anion Gap 6 Estimat Glomerular Filtration Rate 85 Protein Corrected Calcium 7.9 Ammonia 57 Vancomycin Level Trough 20.7 Date/Time Source Procedure Growth Status 12/30/16 17:50 Blood Peripheral Aerobic Blood Culture - Preliminary NO GROWTH IN 4 DAYS Resulted 12/30/16 17:50 Blood Peripheral Anaerobic Blood Culture - Preliminary NO GROWTH IN 4 DAYS Resulted 12/30/16 19:50 Fluid Peritoneal Fluid Gram Stain - Final Complete 12/30/16 19:50 Body Fluid Culture - Final Klebsiella Oxytoca S. Aureus Mrsa Complete Imaging Last Impressions Paracentesis 01/02/17 0000 Signed Impressions: Service Date/Time: Monday, January 02, 2017 00:00 - CONCLUSION: 1. Uncomplicated abdominal ascites drainage. Immediately following drainage of the ascites the catheter was removed. Bakari Worrell MD Catheter Placement X-Ray 01/01/17 0000 Signed Impressions: Service Date/Time: December 00:00 - CONCLUSION: 1. Uncomplicated paracentesis via the patient's abdominal drainage catheter. 2. Successful removal of the patient's ASPIRA abdominal ascites drain Bakari Worrell MD Knee X-Ray 12/31/16 0000 Signed Impressions: Service Date/Time: Saturday, December 31, 2016 14:13 - CONCLUSION: Degenerative changes, negative for fracture. German Worrell MD FACR Chest X-Ray 12/30/16 1640 Signed Impressions: Service Date/Time: Friday, December 30, 2016 16:55 - CONCLUSION: 1. Minimal basilar atelectasis. No effusion. No pneumothorax. Félix Vail MD Abdomen/Pelvis CT 12/30/16 0000 Signed Impressions: Service Date/Time: Friday, December 30, 2016 22:56 - CONCLUSION: 1. Circumferential wall thickening involving the cecum with mild inflammatory change suggesting acute colitis. Fall studies to document complete resolution are suggested to exclude a mass. 2. Cirrhosis with splenomegaly and moderate volume ascites. 3. Right inguinal hernia containing ascitic fluid. 4. Large calcified atherosclerotic plaque involving the abdominal aorta at the origin of the celiac. I suspect there is stenosis of the celiac origin. CTA would be needed to further evaluate this. The SILVANA and SMA are patent and therefore the presumed celiac stenosis is likely clinically insignificant. 5. Cardiomegaly. Joselito Cantu Jr., MD Physical Exam HEENT: Normocephalic; atraumatic; no jaundice. CHEST: CTA CARDIAC: RRR ABDOMEN: Soft, distended with ascites, mild tenderness at site; hepatosplenomegaly; bowel sounds are present in all four quadrants. EXTREMITIES: BLE edema. SKIN: Normal; no rash; no jaundice. CHIEF WHARFINGER: No focal deficits; alert and oriented times three. Assessment and Plan Plan ASSESSMENT: - Recurrent Ascites. Pt on Lasix, Spironolactone at home. States watching his Salt and fluid intake. We saw him in November when he was hospitalized about 2 weeks after a drain was placed for his ascites and he was found to have SBP. Peritoneal fluid cultures at that time revealed enterococcus faecalis. He was evaluated by IR on 11/26/16 and they removed the tunneled peritoneal drain. The final culture from the peritoneal catheter tip was < 15 CFU gram positive cocci. He reports that he had another peritoneal drain placed by the [place] about 2 weeks ago. Peritoneal fluid WBC 3273, RBC 446, Neutrophils 56. Cx with Klebsiella Oxytoca and MRSA. S/P removal of peritoneal drain and paracentesis with removal of 6L by IR (01/02). Ceftazidime, Vanco. - SBP. Cx with Klebsiella Oxytoca and MRSA. Ceftazidime, Vanco. - Abnormal imaging with circumferential wall thickening involving the cecum. CT Scan abdomen and pelvis (12/30/16)---> Circumferential wall thickening involving the cecum with mild inflammatory change suggesting acute colitis. FU studies to document complete resolution are suggested to exclude a mass. Cirrhosis with splenomegaly and moderate volume ascites, right inguinal hernia containing ascitic fluid, large calcified atherosclerotic plaque involving the abdominal aorta at the origin of the celiac. I suspect there is stenosis of the celiac origin. CTA would be needed to further evaluate this. The SILVANA and SMA are patent and therefore the presumed celiac stenosis is likely clinically insignificant. Cardiomegaly. Denies diarrhea. Last colonoscopy was 2010 at the [place]. S/P Colonoscopy ()---> Sigmoid diverticulosis internal hemorrhoids, no evidence of colitis. - Liver cirrhosis with elevated LFTs. CT as above. Quit drinking in March 2016. (+) Amphetamines on toxicology screen. MELD 13. - Esophageal varices. EGD (11/27/16)---> Esophageal varices no stigmata, Mild portal gastropathy, Antral gave. It was recommended that he have a repeat EGD in 3 months. No active bleeding. Inderal. - GAVE. S/P EGD (01/01/17)---> GAVE, Esophageal varices, Portal gastropathy - Anemia. 7.6/23.0. - Coagulopathy/Thrombocytopenia. Plt 78,000. - Hepatic encephalopathy. Lactulose. - Hepatitis C, Tx naive. PLAN: - 2 gram sodium diet - Cont. Abx - Cont. Lasix 40 mg daily, Spironolactone 100 mg twice a day with this dosing regimen I see that his I's and O's are in the negative and his renal function appears to be stable - Cont. Protonix - Cont. Lactulose - Cont. Propranolol - Monitor labs - Supportive care - Recommend medical treatment for ascites with diuretics, salt restriction, paracentesis and against replacing peritoneal drain for his recurrent ascites. If this is replaced, we would recommend prophylactic antibiotics to try to prevent recurrent SBP. But again, we do not recommend a peritoneal drain. - Further recommendations to follow based on results of above Demarco Fortune MD Jan 03, 2017 19:53
[2017-01-03 20:00] VITALS: BP 105/59; PULSE 73; RESP 17; TEMP 97.5; O2SAT 96
[2017-01-03] MEDS: DOXEPIN HCL 50 MG CAP PO SCH (20:50)
[2017-01-04] VITALS: BP 100/60; PULSE 71; RESP 17; TEMP 97.2; O2SAT 96
[2017-01-04] MEDS: ACETAMINOPHEN/HYDROcodone 325 MG/5 MG TAB PO PRN ×5 (01:37→20:48)
[2017-01-04] MEDS: VANCOMYCIN INJ 1,250 MG in SODIUM CHLOR 0.9% 250 ML INJ 250 ML IV SCH ×2 (01:37→14:38)
[2017-01-04] MEDS: cefTAZidime INJ 2,000 MG in SODIUM CHLORIDE 0.9% INJ 100 ML IV SCH ×3 (04:33→20:42)
[2017-01-04 06:59] LABS: HEMATOCRIT 26.6 % (39.0-51.0); MEAN CELL VOLUME 85.5 FL (80.0-100.0); MEAN CORPUSCULAR HEMOGLOBIN 28.4 PG (27.0-34.0); MEAN CORPUSCULAR HGB CONC 33.2 % (32.0-36.0); PLATELET COUNT 97 TH/MM3 (150-450); RED BLOOD COUNT 3.12 MIL/MM3 (4.50-5.90); RED CELL DISTRIBUTION WIDTH 18.2 % (11.6-17.2); WHITE BLOOD COUNT 5.9 TH/MM3 (4.0-11.0)
[2017-01-04 07:09] LABS: ANION GAP 7 MEQ/L (5-15); AST (GOT) 110 U/L (15-37); BICARBONATE 23.1 MEQ/L (21.0-32.0); BLOOD UREA NITROGEN 17 MG/DL (7-18); CHLORIDE 99 MEQ/L (98-107); GLOMERULAR FILTRATION RATE 75 ML/MIN (>89); POTASSIUM 4.5 MEQ/L (3.5-5.1); SODIUM (NA) 129 MEQ/L (136-145)
[2017-01-04 07:10] LABS: ALT (GPT) 54 U/L (12-78)
[2017-01-04 07:12] LABS: ALKALINE PHOSPHATASE 70 U/L (45-117); TOTAL BILIRUBIN ADULT 1.6 MG/DL (0.2-1.0)
[2017-01-04 07:14] LABS: REVIEW FLAG FINAL
[2017-01-04] MEDS: AQUAPHOR OINT 50 APPLIC/50 GM TUBE TOPICAL SCH ×2 (07:59→20:42)
[2017-01-04] MEDS: CHOLECALCIFEROL (VIT D3) 1000 UNIT TAB PO SCH (08:00)
[2017-01-04] MEDS: THIAMINE HCL 100 MG TAB PO SCH (08:00)
[2017-01-04] MEDS: GABAPENTIN 300 MG CAP PO SCH ×3 (08:00→17:42)
[2017-01-04] MEDS: SPIRONOLACTONE 100 MG TAB PO SCH ×2 (08:00→20:47)
[2017-01-04] MEDS: DOCUSATE SODIUM 50 MG/SENNA 8.6 MG TAB PO SCH ×2 (08:00→20:40)
[2017-01-04] MEDS: busPIRone HCL 10 MG TAB PO SCH ×2 (08:00→20:41)
[2017-01-04] MEDS: PANTOPRAZOLE SOD 40 MG DELAYED RELEASE TAB PO SCH (08:00)
[2017-01-04] MEDS: INSULIN ASPART SUPPLEMENTAL SCALE SQ SCH ×4 (08:00→20:41)
[2017-01-04] MEDS: LACTULOSE SYRUP 20 GM/30 ML CUP PO SCH ×4 (08:00→20:41)
[2017-01-04] MEDS: ESCITALOPRAM OXALATE 20 MG TAB PO SCH (08:00)
[2017-01-04] MEDS: guaiFENesin E.R. 600 MG TAB PO SCH ×2 (08:00→20:40)
[2017-01-04] MEDS: SODIUM CHLORIDE 0.9% FLUSH 10 ML FLUSH IV FLUSH SCH ×2 (08:00→20:40)
[2017-01-04] MEDS: ASCORBIC ACID 500 MG TAB PO SCH (08:00)
[2017-01-04] MEDS: PROPRANOLOL HCL 20 MG TAB PO SCH (08:00)
[2017-01-04] MEDS: FUROSEMIDE 40 MG TAB PO SCH (08:00)
[2017-01-04] MEDS: ONDANSETRON HCL 4 MG/2 ML VIAL IVP PRN (08:19)
[2017-01-04 08:40] VITALS: BP 146/79; PULSE 75; RESP 19; TEMP 97.6
[2017-01-04] MEDS: ALBUMIN HUMAN 25% 25 GM/100 ML BAGP IV SCH ×2 (11:45→22:10)
[2017-01-04 12:43] VITALS: BP 120/61; PULSE 59; RESP 19; TEMP 95.9
[2017-01-04] MEDS ORDERED: POLYETHYLENE GLYCOL 17 GM PKG PO ONE (13:45)
--- NOTE | 2017-01-04 15:00 | HHI.GIFU ---
Subjective Remarks Lying in bed. Reports fatigue. Denies abdominal pain. No active bleeding. (Carmel Mckeon) Objective Vitals I&O Vital Signs Date Time Temp Pulse Resp B/P (MAP) Pulse Ox O2 Delivery O2 Flow Rate FiO2 01/04/17 12:43 95.9 59 19 120/61 (80) 01/04/17 08:40 97.6 75 19 146/79 (101) 01/04/17 00:00 97.2 71 17 100/60 (73) 96 01/03/17 20:00 97.5 73 17 105/59 (74) 96 01/03/17 15:43 98.2 66 17 100/62 (75) 98 I/O 01/03/17 01/03/17 01/03/17 01/04/17 01/04/17 01/04/17 07:00 15:00 23:00 07:00 15:00 23:00 Intake Total 610 ml 350 ml 240 ml Output Total 300 ml Balance 610 ml 350 ml -60 ml Intake Oral 510 ml 240 ml IV Total 100 ml 350 ml Output Urine Total 300 ml # Voids 4 2 # Bowel Movements 0 1 Laboratory Laboratory Tests Test 01/04/17 06:25 White Blood Count 5.9 Red Blood Count 3.12 Hemoglobin 8.8 Hematocrit 26.6 Mean Corpuscular Volume 85.5 Mean Corpuscular Hemoglobin 28.4 Mean Corpuscular Hemoglobin Concent 33.2 Red Cell Distribution Width 18.2 Platelet Count 97 Mean Platelet Volume 7.3 Blood Urea Nitrogen 17 Creatinine 1.01 Random Glucose 161 Total Protein 6.0 Albumin 2.4 Calcium Level 7.8 Alkaline Phosphatase 70 Aspartate Amino Transf (AST/SGOT) 110 Alanine Aminotransferase (ALT/SGPT) 54 Total Bilirubin 1.6 Sodium Level 129 Potassium Level 4.5 Chloride Level 99 Carbon Dioxide Level 23.1 Anion Gap 7 Estimat Glomerular Filtration Rate 75 Ammonia 50 Date/Time Source Procedure Growth Status 12/30/16 17:50 Blood Peripheral Aerobic Blood Culture - Final NO GROWTH IN 5 DAYS Complete 12/30/16 17:50 Blood Peripheral Anaerobic Blood Culture - Final NO GROWTH IN 5 DAYS Complete 12/30/16 19:50 Fluid Peritoneal Fluid Gram Stain - Final Complete 12/30/16 19:50 Body Fluid Culture - Final Klebsiella Oxytoca S. Aureus Mrsa Complete Imaging Last Impressions Paracentesis 01/02/17 0000 Signed Impressions: Service Date/Time: Monday, January 02, 2017 00:00 - CONCLUSION: 1. Uncomplicated abdominal ascites drainage. Immediately following drainage of the ascites the catheter was removed. Bakari Worrell MD Catheter Placement X-Ray 01/01/17 0000 Signed Impressions: Service Date/Time: December 00:00 - CONCLUSION: 1. Uncomplicated paracentesis via the patient's abdominal drainage catheter. 2. Successful removal of the patient's ASPIRA abdominal ascites drain Bakari Worrell MD Knee X-Ray 12/31/16 0000 Signed Impressions: Service Date/Time: Saturday, December 31, 2016 14:13 - CONCLUSION: Degenerative changes, negative for fracture. German Worrell MD FACR Chest X-Ray 12/30/16 1640 Signed Impressions: Service Date/Time: Friday, December 30, 2016 16:55 - CONCLUSION: 1. Minimal basilar atelectasis. No effusion. No pneumothorax. Félix Vail MD Abdomen/Pelvis CT 12/30/16 0000 Signed Impressions: Service Date/Time: Friday, December 30, 2016 22:56 - CONCLUSION: 1. Circumferential wall thickening involving the cecum with mild inflammatory change suggesting acute colitis. Fall studies to document complete resolution are suggested to exclude a mass. 2. Cirrhosis with splenomegaly and moderate volume ascites. 3. Right inguinal hernia containing ascitic fluid. 4. Large calcified atherosclerotic plaque involving the abdominal aorta at the origin of the celiac. I suspect there is stenosis of the celiac origin. CTA would be needed to further evaluate this. The SILVANA and SMA are patent and therefore the presumed celiac stenosis is likely clinically insignificant. 5. Cardiomegaly. Joselito Cantu Jr., MD Physical Exam HEENT: Normocephalic; atraumatic; no jaundice. CHEST: CTA CARDIAC: RRR ABDOMEN: Soft, distended with ascites, mild TTP; hepatosplenomegaly; bowel sounds are present EXTREMITIES: 1 + pitting edema BLE SKIN: Normal; no rash; no jaundice. LEAD RIDER: No focal deficits; alert and oriented x 3 (Carmel Mckeon) Assessment and Plan Plan ASSESSMENT: - Recurrent Ascites. On Lasix, Spironolactone at home. States watching his Salt and fluid intake. We saw him in November when he was hospitalized about 2 weeks after a drain was placed for his ascites and he was found to have SBP. Peritoneal fluid cultures at that time revealed enterococcus faecalis. He was evaluated by IR on 11/26/16 and they removed the tunneled peritoneal drain. The final culture from the peritoneal catheter tip was < 15 CFU gram positive cocci. He reports that he had another peritoneal drain placed by the [facility] about 2 weeks ago. Peritoneal fluid WBC 3273, RBC 446, Neutrophils 56. Cx with Klebsiella Oxytoca and MRSA. S/P removal of peritoneal drain and paracentesis with removal of 6L by IR (01/02). Ceftazidime, Vanco. - SBP. Cx with Klebsiella Oxytoca and MRSA. Ceftazidime, Vanco. - Abnormal imaging with circumferential wall thickening involving the cecum. CT Scan abdomen and pelvis (12/30/16)---> Circumferential wall thickening involving the cecum with mild inflammatory change suggesting acute colitis. FU studies to document complete resolution are suggested to exclude a mass. Cirrhosis with splenomegaly and moderate volume ascites, right inguinal hernia containing ascitic fluid, large calcified atherosclerotic plaque involving the abdominal aorta at the origin of the celiac. I suspect there is stenosis of the celiac origin. CTA would be needed to further evaluate this. The SILVANA and SMA are patent and therefore the presumed celiac stenosis is likely clinically insignificant. Cardiomegaly. Denies diarrhea. Last colonoscopy was 2010 at the [facility]. S/P Colonoscopy ()---> Sigmoid diverticulosis internal hemorrhoids, no evidence of colitis. - Liver cirrhosis with elevated LFTs. CT as above. Quit drinking in March 2016. (+) Amphetamines on toxicology screen. MELD 13. - Esophageal varices. EGD (11/27/16)---> Esophageal varices no stigmata, Mild portal gastropathy, Antral gave. It was recommended that he have a repeat EGD in 3 months. No active bleeding. Inderal. - GAVE. S/P EGD (01/01/17)---> GAVE, Esophageal varices, Portal gastropathy - Anemia. 8.8/.6 (01/04) - Coagulopathy/Thrombocytopenia. Plt 78 (01/03), 97 (01/04) - Hepatic encephalopathy. Lactulose. Ammonia 50 (01/04) - Hepatitis C, Tx naive. PLAN: - 2 gram sodium diet - Cont. Abx - Cont. Lasix 40 mg daily, Spironolactone 100 mg BID - Cont. Protonix - Cont. Lactulose - Cont. Propranolol - Monitor labs - Supportive care - Recommend medical treatment for ascites with diuretics, salt restriction, paracentesis and against replacing peritoneal drain for his recurrent ascites. If this is replaced, we would recommend prophylactic antibiotics to try to prevent recurrent SBP. But again, we do not recommend a peritoneal drain. - Further recommendations to follow based on results of above Patient seen and examined by Dr. Fortune and myself and this note is written on his behalf. (Carmel Mckeon) Physician Comments Patient seen and examined Agree with above Continue with current supportive care And monitor labs (Demarco Fortune MD) Carmel Mckeon Jan 04, 2017 15:00 Demarco Fortune MD Jan 04, 2017 22:27
--- NOTE | 2017-01-04 15:19 | HHI.FPPN ---
Subjective Remarks Mr. Allison was afebrile with stable vital signs overnight (SBP ~105-146). Patient reports that he is doing well overall at this time. Patient states that he had a small, loose BM this morning. Patient denies drainage from prior peritoneal indwelling catheter site after removal. Patient does not report change in cough or shortness of breath. Patient reports some tremoring of extremities this morning. Nursing staff also present at interview; reports less firmness of abdomen. (Maxwell Flynn MD, R3) Objective Vitals Vital Signs Date Time Temp Pulse Resp B/P (MAP) Pulse Ox O2 Delivery O2 Flow Rate FiO2 01/04/17 12:43 95.9 59 19 120/61 (80) 01/04/17 08:40 97.6 75 19 146/79 (101) 01/04/17 00:00 97.2 71 17 100/60 (73) 96 01/03/17 20:00 97.5 73 17 105/59 (74) 96 01/03/17 15:43 98.2 66 17 100/62 (75) 98 I/O 01/03/17 01/03/17 01/03/17 01/04/17 01/04/17 01/04/17 07:00 15:00 23:00 07:00 15:00 23:00 Intake Total 610 ml 350 ml 240 ml Output Total 300 ml Balance 610 ml 350 ml -60 ml Intake Oral 510 ml 240 ml IV Total 100 ml 350 ml Output Urine Total 300 ml # Voids 4 2 # Bowel Movements 0 1 (Maxwell Flynn MD, R3) Result Diagram: 01/04/17 0625 01/04/17 0625 Imaging Last Impressions Paracentesis 01/02/17 0000 Signed Impressions: Service Date/Time: Monday, January 02, 2017 00:00 - CONCLUSION: 1. Uncomplicated abdominal ascites drainage. Immediately following drainage of the ascites the catheter was removed. Bakari Worrell MD Catheter Placement X-Ray 01/01/17 0000 Signed Impressions: Service Date/Time: December 00:00 - CONCLUSION: 1. Uncomplicated paracentesis via the patient's abdominal drainage catheter. 2. Successful removal of the patient's ASPIRA abdominal ascites drain Bakari Worrell MD Knee X-Ray 12/31/16 0000 Signed Impressions: Service Date/Time: Saturday, December 31, 2016 14:13 - CONCLUSION: Degenerative changes, negative for fracture. German Worrell MD FACR Chest X-Ray 12/30/16 1640 Signed Impressions: Service Date/Time: Friday, December 30, 2016 16:55 - CONCLUSION: 1. Minimal basilar atelectasis. No effusion. No pneumothorax. Félix Vail MD Abdomen/Pelvis CT 12/30/16 0000 Signed Impressions: Service Date/Time: Friday, December 30, 2016 22:56 - CONCLUSION: 1. Circumferential wall thickening involving the cecum with mild inflammatory change suggesting acute colitis. Fall studies to document complete resolution are suggested to exclude a mass. 2. Cirrhosis with splenomegaly and moderate volume ascites. 3. Right inguinal hernia containing ascitic fluid. 4. Large calcified atherosclerotic plaque involving the abdominal aorta at the origin of the celiac. I suspect there is stenosis of the celiac origin. CTA would be needed to further evaluate this. The SILVANA and SMA are patent and therefore the presumed celiac stenosis is likely clinically insignificant. 5. Cardiomegaly. Joselito Cantu Jr., MD Objective Remarks GENERAL: in NAD, no resp distress, nontoxic. Laying in bed comfortably HEENT: NCAT, EOMI, no scleral icterus, no conjunctival injection. MMM. CV: Regular rate and rhythm; normal perfusion. CHEST/PULM: Course breath sounds appreciated in bilateral lung st[place]. No wheezes or crackles appreciated. Good air movement bilaterally ABD/GI: +BS, ascites noted but less pronounced than yesterday. Bandage over prior catheter site is clean and dry. EXT: 1+ pitting edema to knee. No calf tenderness. NEURO: Awake, alert. normal muscle tone. No asterixis. SKIN: No rashes. Some excoriations noted on lower extremities. PSYCH: Mood and affect are appropriate. Does not appear to respond to internal stimuli. (Maxwell Flynn MD, R3) A/P Assessment and Plan Mr. Allison is a 61 yo M admitted with peritonitis secondary to indwelling catheter. Had EGD, Colonoscopy on 01/[address] on admission showed circumferential wall thickening and mild inflammatory changes - no acute findings. WBC's found on peritoneal fluid, cultures growing Klebsiella, MRSA. Started on Vanc, Ceftazidime on 01/01. U/S guided paracentesis, peritoneal catheter removal on 01/02. Seen and examined with Dr. Lawrence, discussed with Dr. Loving Discharge Planning Will need 4-7 days of IV antibiotics (starting 01/01). Will need social work assistance in arranging future therapeutic paracentesis in [facility]. CM on board and patient has contact information for social media content specialist at [place] (Maxwell Flynn MD, R3) Attending Attestation Patient seen and examined. Case reviewed and discussed Agree with plan of care as discussed with me and documented in the resident note. (Chari Loving MD) Problem List: (1) Peritonitis ICD Codes: K65.9 - Peritonitis, unspecified Status: Acute Plan: Patient with chronic ascites from cirrhosis and has indwelling peritoneal catheter. He was admitted 11/2016 for peritonitis, and catheter was removed. Subsequently, he had one replaced in [place] due to transportation issues (inability to get to regular paracentesis appts). Unfortunately, his peritonitis recurred. It has been discussed with patient that his indwelling catheter needs to be removed and is not a good idea to have replaced due to high risk of reinfection. Initially, he was willing to have the catheter removed only if he is able to have local paracentesis (rather than drive weekly to [place]). However, he agreed to have the catheter removed on . Therapeutic paracentesis was performed at that time as well. The [place] major case detective assigned to him was able to contact the [place] major case detective who states that the pt will have to put in a request to have local paracentesis. Pt will call and speak with the [place] major case detective on Thursday to get the process started. Peritoneal fluid with WBC, cultures growing Klebsiella and MRSA -GI consulted -2gm sodium diet -Continue SBP treatment -Continue ascites management/diuresis -Lasix 40mg daily -Spironolactone 100mg BID -Continue protonix -Continue Propanolol -01/02 s/p Paracentesis/peritoneal catheter removal -6300ml cloudy, yellow fluid removed -SBP treatment -Vancomycin (01/01- ) -Ceftazidime (01/01-) -Albumin 25mg IV BID with use of antibiotic in setting of SBP (01/03) -PO [place] for pain (2) Ascites ICD Codes: R18.8 - Other ascites Status: Chronic Plan: s/p peritoneal catheter removal 01/02 Continue management per GI -Spironolactone 100mg BID -Lasix 40mg daily -Paracentesis at [place] as needed -Case management arranging follow-up See plan above (3) Cirrhosis ICD Codes: K74.60 - Unspecified cirrhosis of liver Status: Chronic Plan: Impression: Likely secondary to alcohol abuse and Hepatitis C. Patient last seen by GI 11/2016; EGD with cautery performed->varices with no stigmata, mild portal gastropathy, antral gave. Patient treated with chronic Spironolactone, Lasix, Propranolol, Lactulose, PPI. MELD of 21 on admission -Low sodium diet -Continue home Propranolol -Continue home Lasix -Continue home Spironolactone -F/U with gastroenterology at [place] -Reported possible plans for follow-up and discussion regarding possible liver transplant and/or Hep C treatment per patient (4) Hepatic encephalopathy ICD Codes: K72.90 - Hepatic failure, unspecified without coma Status: Chronic Plan: Impression: Patient with current normal mental status 01/04. Ammonia 44 on 01/01, 68 on 01/02, 57 on 01/03 -Continue hyperammonemia treatment -Continue home Lactulose but increase dose to 30ml four times daily due to increased ammonia level (5) Cough ICD Codes: R05 - Cough Status: Acute Plan: Patient complains of productive cough on 01/03 -Afebrile, vitals stable, no complaints of CP, SOB at this time -sputum gram stain/culture ordered -Mucinex, Tessalon pearls ordered -Will add scheduled Duonebs while awake (6) Weakness of both legs ICD Codes: R29.898 - Other symptoms and signs involving the musculoskeletal system Status: Acute Plan: Suspected 2/2 to elevated Ammonia vs Staph myopathy -Treatment of elevated ammonia as above -Will continue to monitor (7) Hyponatremia ICD Codes: E87.1 - Hypo-osmolality and hyponatremia Status: Chronic Plan: Impression: Patient with chronic hyponatremia secondary to liver disease. Stable in high 120's-low 130's -Will fluid restrict and monitor I/Os. (8) Mood disorder ICD Codes: F39 - Unspecified mood [affective] disorder Status: Chronic Plan: -Continue home escitalopram (9) DM (diabetes mellitus) ICD Codes: E11.9 - Type 2 diabetes mellitus without complications Status: Chronic Plan: Impression: Reportedly on home Novolin 7 U BID; patient suggests nonadherence. 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 -Continue Accuchecks with low dose insulin sliding scale (10) HTN (hypertension) ICD Codes: I10 - Essential (primary) hypertension Status: Chronic Plan: Patient has been normotensive during hospitalization -Continue to monitor BP -Continue diuresis (11) Anemia ICD Codes: D64.9 - Anemia, unspecified Status: Chronic Plan: Impression: Hgb stable from ~7.6-8.4 during hospitalization; MCV ~85. PLT ~70-90k. Suspect secondary to chronic liver disease -Will monitor CBC periodically (12) Constipation ICD Codes: K59.00 - Constipation, unspecified Plan: Impression: Patient with BM q~2-3 days despite Lactulose treatment; unclear etiology -Will increase Layne-Colace to 2 tab BID -Will add Miralax (13) DVT PPX Status: Chronic Plan: -Bilateral SCD's -Will withhold anticoagulation due to thrombocytopenia and INR 1.4 -Will promote walking with PT consultation (Maxwell Flynn MD, R3) Problem Qualifiers (1) Ascites: Qualified Codes: K70.31 - Alcoholic cirrhosis of liver with ascites (2) Cirrhosis: Qualified Codes: K70.31 - Alcoholic cirrhosis of liver with ascites (3) DM (diabetes mellitus): (4) HTN (hypertension): Qualified Codes: I10 - Essential (primary) hypertension (5) Constipation: Qualified Codes: K59.00 - Constipation, unspecified Maxwell Flynn MD, R3 Jan 04, 2017 15:19 Chari Loving MD Jan 04, 2017 20:54
[2017-01-04] MEDS: RESP: ALBUTEROL 2.5 MG/IPRATROPIUM 0.5 MG NEB (SCH) NEB ×2 (16:19→19:27)
--- NOTE | 2017-01-04 17:41 | HHI.FPPN ---
Addendum to progress note ADDENDUM Reason for addendum: Additonal documentation Additional information Mr. Allison is a 61 yo M with PMH of cirrhosis (w/ recurrent ascites and s/p prior peritoneal catheter placement), alcoholism, Hep C, T2DM, IVDU who presented to [facility] ED 12/31 with abdominal pain, weakness, and lightheadedness. Patient's abdominal pain was present for several months; patient has had increase in pain around peritoneal catheter site (was placed several weeks prior at [place] due to patient's difficulty traveling to [place]) recently. On admission, CT of abdomen /pelvis demonstrated wall thickening of colon suggestive of colitis, cirrhosis w / splenomegaly and ascites, atherosclerosis involving aorta and mesenteric vessels. UDS + for amphetamines. Peritoneal fluid studies/cultures obtained and patient started on Zosyn for SBP/colitis empiric treatment. Gastroenterology was consulted. Patient was started on Albumin 25gm BID; patient's peritoneal cultures grew Klebsiella and MRSA and his antibiotics were changed to Ceftazidime and Vancomycin. Patient's peritoneal catheter was removed to avoid recurrent infection. Currently, arrangements are being made between and [place] regarding weekly paracenteses at [facility] to avoid recurrent symptoms and necessity of [facility]. Maxwell Flynn MD, R3 Jan 04, 2017 17:41
[2017-01-04 19:28] VITALS: O2SAT 93
[2017-01-04 20:00] VITALS: BP 118/75; PULSE 61; RESP 17; TEMP 95.9; O2SAT 99
[2017-01-04] MEDS: DOXEPIN HCL 50 MG CAP PO SCH (20:40)
[2017-01-04] MEDS: BENZONATATE 100 MG CAP PO PRN (20:47)
[2017-01-05] VITALS (7 sets, daily range): BP systolic 108–140; BP diastolic 57–77; PULSE 56–71; RESP 16–20; TEMP 96.9–97.8; O2SAT 94–100
[2017-01-05] MEDS: VANCOMYCIN INJ 1,250 MG in SODIUM CHLOR 0.9% 250 ML INJ 250 ML IV SCH ×2 (01:55→14:01)
[2017-01-05] MEDS: ACETAMINOPHEN/HYDROcodone 325 MG/5 MG TAB PO PRN ×5 (02:39→21:48)
[2017-01-05] MEDS: cefTAZidime INJ 2,000 MG in SODIUM CHLORIDE 0.9% INJ 100 ML IV SCH ×3 (04:52→21:48)
[2017-01-05 05:01] LABS: AUTOMATED NEUTROPHIL # 2.6 TH/MM3 (1.8-7.7); BASOPHIL % 0.8 % (0.0-2.0); EOSINOPHIL # 0.2 TH/MM3 (0-0.4); EOSINOPHIL % 5.4 % (0.0-4.0); HEMATOCRIT 22.3 % (39.0-51.0); LYMPH % 16.6 % (9.0-44.0); LYMPHOCYTE # 0.7 TH/MM3 (1.0-4.8); MEAN CELL VOLUME 84.7 FL (80.0-100.0); MEAN CORPUSCULAR HEMOGLOBIN 28.1 PG (27.0-34.0); MEAN CORPUSCULAR HGB CONC 33.1 % (32.0-36.0); MONO % 13.7 % (0.0-8.0); NEUT % 63.5 % (16.0-70.0); PLATELET COUNT 66 TH/MM3 (150-450); RED BLOOD COUNT 2.63 MIL/MM3 (4.50-5.90); RED CELL DISTRIBUTION WIDTH 18.1 % (11.6-17.2); WHITE BLOOD COUNT 4.1 TH/MM3 (4.0-11.0)
[2017-01-05 05:11] LABS: HEMO FLAGS AUTO DIFF
[2017-01-05 05:29] LABS: ANION GAP 6 MEQ/L (5-15); AST (GOT) 89 U/L (15-37); BICARBONATE 24.4 MEQ/L (21.0-32.0); BLOOD UREA NITROGEN 18 MG/DL (7-18); CHLORIDE 100 MEQ/L (98-107); GLOMERULAR FILTRATION RATE 63 ML/MIN (>89); POTASSIUM 4.5 MEQ/L (3.5-5.1); SODIUM (NA) 130 MEQ/L (136-145)
[2017-01-05 05:30] LABS: ALT (GPT) 45 U/L (12-78)
[2017-01-05 05:32] LABS: ALKALINE PHOSPHATASE 59 U/L (45-117); TOTAL BILIRUBIN ADULT 1.2 MG/DL (0.2-1.0)
[2017-01-05 06:56] LABS: OVALOCYTES 1+ (NORMAL); PLATELET ESTIMATE SMEAR LOW (NORMAL); PLATELET MORPHOLOGY NORMAL (NORMAL); SCAN/DIFF AUTO DIFF CONFIRMED
[2017-01-05] MEDS: guaiFENesin E.R. 600 MG TAB PO SCH ×2 (08:25→21:45)
[2017-01-05] MEDS: GABAPENTIN 300 MG CAP PO SCH ×3 (08:25→17:22)
[2017-01-05] MEDS: ASCORBIC ACID 500 MG TAB PO SCH (08:25)
[2017-01-05] MEDS: SPIRONOLACTONE 100 MG TAB PO SCH ×2 (08:25→21:45)
[2017-01-05] MEDS: LACTULOSE SYRUP 20 GM/30 ML CUP PO SCH ×4 (08:25→21:48)
[2017-01-05] MEDS: CHOLECALCIFEROL (VIT D3) 1000 UNIT TAB PO SCH (08:26)
[2017-01-05] MEDS: busPIRone HCL 10 MG TAB PO SCH ×2 (08:26→21:45)
[2017-01-05] MEDS: THIAMINE HCL 100 MG TAB PO SCH (08:26)
[2017-01-05] MEDS: FUROSEMIDE 40 MG TAB PO SCH ×2 (08:26→17:22)
[2017-01-05] MEDS: PROPRANOLOL HCL 20 MG TAB PO SCH (08:26)
[2017-01-05] MEDS: ESCITALOPRAM OXALATE 20 MG TAB PO SCH (08:26)
[2017-01-05] MEDS: DOCUSATE SODIUM 50 MG/SENNA 8.6 MG TAB PO SCH ×2 (08:26→21:00)
[2017-01-05] MEDS: SODIUM CHLORIDE 0.9% FLUSH 10 ML FLUSH IV FLUSH SCH ×2 (08:27→21:50)
[2017-01-05] MEDS: PANTOPRAZOLE SOD 40 MG DELAYED RELEASE TAB PO SCH (08:27)
[2017-01-05] MEDS: INSULIN ASPART SUPPLEMENTAL SCALE SQ SCH ×4 (08:28→21:50)
[2017-01-05] MEDS: AQUAPHOR OINT 50 APPLIC/50 GM TUBE TOPICAL SCH ×2 (09:00→21:00)
--- NOTE | 2017-01-05 09:15 | HHI.FPPN ---
Subjective Remarks Patient seen and examined this morning. No acute events over night. Notes no pain, burning, itching around peritoneal catheter removal site. Doing well at this time. [facility] Denies nausea, vomiting, fever, chills, shortness of breath, chest pain. (Sudhir Slater MD R1) Objective Vitals Vital Signs Date Time Temp Pulse Resp B/P (MAP) Pulse Ox O2 Delivery O2 Flow Rate FiO2 01/05/17 07:52 97 21 01/05/17 00:00 97.8 69 17 134/76 (95) 97 01/04/17 20:00 95.9 61 17 118/75 (89) 99 01/04/17 19:28 93 21 01/04/17 12:43 95.9 59 19 120/61 (80) I/O 01/04/17 01/04/17 01/04/17 01/05/17 01/05/17 01/05/17 07:00 15:00 23:00 07:00 15:00 23:00 Intake Total 240 ml 350 ml 240 ml Output Total 300 ml Balance -60 ml 350 ml 240 ml Intake Oral 240 ml 240 ml IV Total 350 ml Output Urine Total 300 ml # Voids 2 2 # Bowel Movements 1 (Sudhir Slater MD R1) Result Diagram: 01/05/1744101/05/17 0442 Objective Remarks GENERAL: in NAD, no respiratory distress, nontoxic. seated in bed comfortably HEENT: NCAT, EOMI, no scleral icterus, no conjunctival injection. CV: Regular rate and rhythm; normal perfusion. CHEST/PULM: Course breath sounds appreciated in bilateral lung [place]. No wheezes or crackles appreciated. Good air movement bilaterally ABD/GI: +BS, ascites noted, positive fluid wave. Bandage over prior catheter site is clean and dry. Abdomen distended, nontender, positive bowel sounds. EXT: 1+ pitting edema to knee. No calf tenderness. NEURO: Awake, alert. normal muscle tone. SKIN: No rashes. Some excoriations noted on lower extremities. PSYCH: Mood and affect are appropriate. Does not appear to respond to internal stimuli. (Sudhir Slater MD R1) A/P Assessment and Plan Mr. Allison is a 61 yo M admitted with peritonitis secondary to indwelling catheter. Had EGD, Colonoscopy on 01/[address] on admission showed circumferential wall thickening and mild inflammatory changes - no acute findings. WBC's found on peritoneal fluid, cultures growing Klebsiella, MRSA. Started on Vanc, Ceftazidime on 01/01. U/S guided paracentesis, peritoneal catheter removal on 01/02. Discharge Planning Will need 5-10 days of IV antibiotics (starting 01/01). Is currently attempting to arrange future therapeutic paracentesis in [facility]. CM on board and patient has contact information for rn social work at [place] (Sudhir Slater MD R1) Attending Attestation Patient seen and examined. Case reviewed and discussed Agree with plan of care as discussed with me and documented in the resident note. (Chari Loving MD) Problem List: (1) Peritonitis ICD Codes: K65.9 - Peritonitis, unspecified Status: Acute Plan: Patient with chronic ascites from cirrhosis and has indwelling peritoneal catheter. He was admitted 11/2016 for peritonitis, and catheter was removed. Subsequently, he had one replaced in [place] due to transportation issues (inability to get to regular paracentesis appts). Unfortunately, his peritonitis recurred. It has been discussed with patient that his indwelling catheter needs to be removed and is not a good idea to have replaced due to high risk of reinfection. Initially, he was willing to have the catheter removed only if he is able to have local paracentesis (rather than drive weekly to [place]). However, he agreed to have the catheter removed on . Therapeutic paracentesis was performed at that time as well. The [place] pillowcase turner assigned to him was able to contact the [place] pillowcase turner who states that the pt will have to put in a request to have local paracentesis. Pt will call and speak with the [place] pillowcase turner today to get the process started. Peritoneal fluid with WBC, cultures growing Klebsiella and MRSA -GI consulted -2gm sodium diet -Continue SBP treatment -Continue ascites management/diuresis -Lasix increased to 40 mg BID -Spironolactone 100mg BID -Continue protonix -Continue Propanolol -01/02 s/p Paracentesis/peritoneal catheter removal -6300ml cloudy, yellow fluid removed -SBP treatment -Vancomycin (01/01- ) -Ceftazidime (01/01-) -Albumin 25mg IV BID with use of antibiotic in setting of SBP (01/03) -PO [place] for pain (2) Ascites ICD Codes: R18.8 - Other ascites Status: Chronic Plan: s/p peritoneal catheter removal 01/02 Continue management per GI -Spironolactone 100mg BID -Lasix 40mg BID -Paracentesis at [place] as needed -Currently arranging closer location See plan above (3) Cirrhosis ICD Codes: K74.60 - Unspecified cirrhosis of liver Status: Chronic Plan: Impression: Likely secondary to alcohol abuse and Hepatitis C. Patient last seen by GI 11/2016; EGD with cautery performed->varices with no stigmata, mild portal gastropathy, antral gave. Patient treated with chronic Spironolactone, Lasix, Propranolol, Lactulose, PPI. MELD of 21 on admission -Low sodium diet -Continue home Propranolol -Continue home Lasix -Continue home Spironolactone -F/U with gastroenterology at [place] -Reported possible plans for follow-up and discussion regarding possible liver transplant and/or Hep C treatment per patient (4) Hepatic encephalopathy ICD Codes: K72.90 - Hepatic failure, unspecified without coma Status: Chronic Plan: Impression: Patient with current normal mental status 01/04. Ammonia 44 on 01/01, 68 on 01/02, 57 on 01/03 -Continue hyperammonemia treatment -Continue home Lactulose 30ml four times daily due to increased ammonia level (5) Cough ICD Codes: R05 - Cough Status: Acute Plan: Patient complains of productive cough on 01/03 -Afebrile, vitals stable, no complaints of CP, SOB at this time -sputum culture shows light growth of normal respiratory shanon -Mucinex, Tessalon pearls ordered -scheduled Duonebs while awake (6) Weakness of both legs ICD Codes: R29.898 - Other symptoms and signs involving the musculoskeletal system Status: Acute Plan: Suspected 2/2 to elevated Ammonia vs Staph myopathy -Treatment of elevated ammonia as above -Will continue to monitor (7) Hyponatremia ICD Codes: E87.1 - Hypo-osmolality and hyponatremia Status: Chronic Plan: Impression: Patient with chronic hyponatremia secondary to liver disease. Stable in high 120's-low 130's -Will fluid restrict and monitor I/Os. (8) Mood disorder ICD Codes: F39 - Unspecified mood [affective] disorder Status: Chronic Plan: -Continue home escitalopram (9) DM (diabetes mellitus) ICD Codes: E11.9 - Type 2 diabetes mellitus without complications Status: Chronic Plan: Impression: Reportedly on home Novolin 7 U BID; patient suggests nonadherence. 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 -Continue Accuchecks with low dose insulin sliding scale (10) HTN (hypertension) ICD Codes: I10 - Essential (primary) hypertension Status: Chronic Plan: Patient has been normotensive during hospitalization -Continue to monitor BP -Continue diuresis (11) Anemia ICD Codes: D64.9 - Anemia, unspecified Status: Chronic Plan: Impression: Hgb stable from ~7.6-8.4 during hospitalization; MCV ~85. PLT ~70-90k. Suspect secondary to chronic liver disease -Will monitor CBC periodically -Hemoglobin 7.4 this morning, down from 8.8 yesterday -F/U CBC in PM -F/U Hemoccult (12) Constipation ICD Codes: K59.00 - Constipation, unspecified Plan: Impression: Patient with BM q~2-3 days despite Lactulose treatment; unclear etiology -Layne-Colace to 2 tab BID -Miralax (13) DVT PPX Status: Chronic Plan: -Bilateral SCD's -Will withhold anticoagulation due to thrombocytopenia and INR 1.4 -Will promote walking with PT consultation (Sudhir Slater MD R1) Problem Qualifiers (1) Ascites: Qualified Codes: K70.31 - Alcoholic cirrhosis of liver with ascites (2) Cirrhosis: Qualified Codes: K70.31 - Alcoholic cirrhosis of liver with ascites (3) DM (diabetes mellitus): (4) HTN (hypertension): Qualified Codes: I10 - Essential (primary) hypertension (5) Constipation: Qualified Codes: K59.00 - Constipation, unspecified Sudhir Slater MD R1 Jan 05, 2017 09:15 Chari Loving MD Jan 07, 2017 08:41
--- NOTE | 2017-01-05 09:43 | HHI.GIFU ---
Subjective Remarks Sitting on side of bed. Vascular access team in to get IV. No n/v. C/O worsening distention. Afebrile. Mild discomfort in abdomen- pressure from ascites. (Angle Zee) Objective Vitals I&O Vital Signs Date Time Temp Pulse Resp B/P (MAP) Pulse Ox O2 Delivery O2 Flow Rate FiO2 01/05/17 08:00 96.9 61 17 140/71 (94) 96 01/05/17 07:52 97 21 01/05/17 00:00 97.8 69 17 134/76 (95) 97 01/04/17 20:00 95.9 61 17 118/75 (89) 99 01/04/17 19:28 93 21 01/04/17 12:43 95.9 59 19 120/61 (80) I/O 01/04/17 01/04/17 01/04/17 01/05/17 01/05/17 01/05/17 07:00 15:00 23:00 07:00 15:00 23:00 Intake Total 240 ml 350 ml 240 ml 120 ml Output Total 300 ml Balance -60 ml 350 ml 240 ml 120 ml Intake Oral 240 ml 240 ml 120 ml IV Total 350 ml Output Urine Total 300 ml # Voids 2 2 # Bowel Movements 1 Laboratory Laboratory Tests Test 01/05/17 04:42 White Blood Count 4.1 Red Blood Count 2.63 Hemoglobin 7.4 Hematocrit 22.3 Mean Corpuscular Volume 84.7 Mean Corpuscular Hemoglobin 28.1 Mean Corpuscular Hemoglobin Concent 33.1 Red Cell Distribution Width 18.1 Platelet Count 66 Mean Platelet Volume 7.6 Neutrophils (%) (Auto) 63.5 Lymphocytes (%) (Auto) 16.6 Monocytes (%) (Auto) 13.7 Eosinophils (%) (Auto) 5.4 Basophils (%) (Auto) 0.8 Neutrophils # (Auto) 2.6 Lymphocytes # (Auto) 0.7 Monocytes # (Auto) 0.6 Eosinophils # (Auto) 0.2 Basophils # (Auto) 0.0 CBC Comment AUTO DIFF Differential Comment AUTO DIFF CONFIRMED Platelet Estimate LOW Platelet Morphology Comment NORMAL Ovalocytes 1+ Blood Urea Nitrogen 18 Creatinine 1.18 Random Glucose 165 Total Protein 5.4 Albumin 2.5 Calcium Level 8.0 Alkaline Phosphatase 59 Aspartate Amino Transf (AST/SGOT) 89 Alanine Aminotransferase (ALT/SGPT) 45 Total Bilirubin 1.2 Sodium Level 130 Potassium Level 4.5 Chloride Level 100 Carbon Dioxide Level 24.4 Anion Gap 6 Estimat Glomerular Filtration Rate 63 Date/Time Source Procedure Growth Status 12/30/16 17:50 Blood Peripheral Aerobic Blood Culture - Final NO GROWTH IN 5 DAYS Complete 12/30/16 17:50 Blood Peripheral Anaerobic Blood Culture - Final NO GROWTH IN 5 DAYS Complete 12/30/16 19:50 Fluid Peritoneal Fluid Gram Stain - Final Complete 12/30/16 19:50 Body Fluid Culture - Final Klebsiella Oxytoca S. Aureus Mrsa Complete 01/04/17 15:28 Sputum Expectorated Sputum Gram Stain Pending Received 01/04/17 15:28 Sputum Expectorated Sputum Sputum Culture Pending Received Imaging Last Impressions Paracentesis 01/02/17 0000 Signed Impressions: Service Date/Time: Monday, January 02, 2017 00:00 - CONCLUSION: 1. Uncomplicated abdominal ascites drainage. Immediately following drainage of the ascites the catheter was removed. Bakari Worrell MD Catheter Placement X-Ray 01/01/17 0000 Signed Impressions: Service Date/Time: December 00:00 - CONCLUSION: 1. Uncomplicated paracentesis via the patient's abdominal drainage catheter. 2. Successful removal of the patient's ASPIRA abdominal ascites drain Bakari Worrell MD Knee X-Ray 12/31/16 0000 Signed Impressions: Service Date/Time: Saturday, December 31, 2016 14:13 - CONCLUSION: Degenerative changes, negative for fracture. German Worrell MD FACR Chest X-Ray 12/30/16 1640 Signed Impressions: Service Date/Time: Friday, December 30, 2016 16:55 - CONCLUSION: 1. Minimal basilar atelectasis. No effusion. No pneumothorax. Félix Vail MD Abdomen/Pelvis CT 12/30/16 0000 Signed Impressions: Service Date/Time: Friday, December 30, 2016 22:56 - CONCLUSION: 1. Circumferential wall thickening involving the cecum with mild inflammatory change suggesting acute colitis. Fall studies to document complete resolution are suggested to exclude a mass. 2. Cirrhosis with splenomegaly and moderate volume ascites. 3. Right inguinal hernia containing ascitic fluid. 4. Large calcified atherosclerotic plaque involving the abdominal aorta at the origin of the celiac. I suspect there is stenosis of the celiac origin. CTA would be needed to further evaluate this. The SILVANA and SMA are patent and therefore the presumed celiac stenosis is likely clinically insignificant. 5. Cardiomegaly. Joselito Cantu Jr., MD Physical Exam HEENT: Normocephalic; atraumatic; no jaundice. CHEST: CTA CARDIAC: RRR ABDOMEN: Semifirm, distended with ascites, mild TTP; hepatosplenomegaly; bowel sounds are present EXTREMITIES: BLE edema SKIN: Normal; no rash; no jaundice. LEADED GLASS INSTALLER: No focal deficits; alert and oriented x 3 (Angle Zee TRANSFER STATION OPERATOR) Assessment and Plan Plan ASSESSMENT: - Recurrent Ascites. On Lasix, Spironolactone at home. States watching his Salt and fluid intake. We saw him in November when he was hospitalized about 2 weeks after a drain was placed for his ascites and he was found to have SBP. Peritoneal fluid cultures at that time revealed enterococcus faecalis. He was evaluated by IR on 11/26/16 and they removed the tunneled peritoneal drain. The final culture from the peritoneal catheter tip was < 15 CFU gram positive cocci. He reports that [facility]. Peritoneal fluid WBC 3273, RBC 446, Neutrophils 56. Cx with Klebsiella Oxytoca and MRSA. S/P removal of peritoneal drain and paracentesis with removal of 6L by IR (01/02). Pt has recurrent ascites. He is watching his fluid/salt intake. He is on albumin, lasix 40mg po daily, spironolactone 100mg po BID. Kidney function okay, will increase lasix to bid dosing. Ceftazidime, Vanco. - SBP. Cx with Klebsiella Oxytoca and MRSA. Ceftazidime, Vanco. - Abnormal imaging with circumferential wall thickening involving the cecum. CT Scan abdomen and pelvis (12/30/16)---> Circumferential wall thickening involving the cecum with mild inflammatory change suggesting acute colitis. FU studies to document complete resolution are suggested to exclude a mass. Cirrhosis with splenomegaly and moderate volume ascites, right inguinal hernia containing ascitic fluid, large calcified atherosclerotic plaque involving the abdominal aorta at the origin of the celiac. I suspect there is stenosis of the celiac origin. CTA would be needed to further evaluate this. The SILVANA and SMA are patent and therefore the presumed celiac stenosis is likely clinically insignificant. Cardiomegaly. Denies diarrhea. Last colonoscopy was 2010 at the [facility]. S/P Colonoscopy ()---> Sigmoid diverticulosis internal hemorrhoids, no evidence of colitis. - Liver cirrhosis with elevated LFTs. CT as above. Quit drinking in March 2016. (+) Amphetamines on toxicology screen. MELD 13. - Esophageal varices, GAVE. S/P EGD (01/01/17)---> GAVE, Esophageal varices, Portal gastropathy - Anemia. 7.4/22.3. - Coagulopathy/Thrombocytopenia. Plt 66,000 - Hepatic encephalopathy. Lactulose. Ammonia 50 (01/04) - Hepatitis C, Tx naive. PLAN: - 2 gram sodium diet - Cont. Abx- Vanco, Ceftazidime - Increase Lasix 40 mg to bid dosing - Cont. Spironolactone 100 mg BID - Cont. Albumin - Cont. Protonix - Cont. Lactulose - Cont. Propranolol - Monitor labs - Supportive care - Recommend medical treatment for ascites with diuretics, salt restriction, paracentesis and against replacing peritoneal drain for his recurrent ascites. If this is replaced, we would recommend prophylactic antibiotics to try to prevent recurrent SBP. But again, we do not recommend a peritoneal drain. - Further recommendations to follow based on results of above - Patient seen and examined by Dr. Maldonado and myself and this note is written on his behalf. (Angle Zee) Plan Patient was seen and examined with above Notes, continue antibiotics for SBP, diuretics for ascites overall guarded prognosis agree with the above plan (Alvarado Maldonado MD) Angle Zee Jan 05, 2017 09:43 Alvarado Maldonado MD Jan 05, 2017 16:27
[2017-01-05] MEDS: ALBUMIN HUMAN 25% 25 GM/100 ML BAGP IV SCH ×2 (12:23→21:49)
[2017-01-05] MEDS ORDERED: PHARMACY ORDERED LAB ONE (12:45)
[2017-01-05] MEDS: RESP: ALBUTEROL 2.5 MG/IPRATROPIUM 0.5 MG NEB (SCH) NEB ×2 (13:08→19:49)
[2017-01-05 13:42] LABS: AUTOMATED NEUTROPHIL # 3.5 TH/MM3 (1.8-7.7); BASOPHIL % 0.8 % (0.0-2.0); EOSINOPHIL # 0.2 TH/MM3 (0-0.4); EOSINOPHIL % 4.2 % (0.0-4.0); HEMATOCRIT 25.2 % (39.0-51.0); LYMPHOCYTE # 0.7 TH/MM3 (1.0-4.8); MEAN CELL VOLUME 85.1 FL (80.0-100.0); MEAN CORPUSCULAR HEMOGLOBIN 27.9 PG (27.0-34.0); MEAN CORPUSCULAR HGB CONC 32.7 % (32.0-36.0); MONO % 12.4 % (0.0-8.0); NEUT % 69.6 % (16.0-70.0); PLATELET COUNT 88 TH/MM3 (150-450); RED BLOOD COUNT 2.96 MIL/MM3 (4.50-5.90); WHITE BLOOD COUNT 5.1 TH/MM3 (4.0-11.0)
[2017-01-05 13:43] LABS: HEMO FLAGS AUTO DIFF
[2017-01-05 14:32] LABS: ACANTHOCYTES OCC (NORMAL); OVALOCYTES 1+ (NORMAL); PLATELET ESTIMATE SMEAR LOW (NORMAL); PLATELET MORPHOLOGY NORMAL (NORMAL); SCAN/DIFF AUTO DIFF CONFIRMED
[2017-01-05] MEDS: DOXEPIN HCL 50 MG CAP PO SCH (21:45)
[2017-01-06] VITALS (10 sets, daily range): BP systolic 111–167; BP diastolic 58–83; PULSE 62–70; RESP 18–20; TEMP 96.2–99.8; O2SAT 95–99
[2017-01-06] MEDS: ACETAMINOPHEN/HYDROcodone 325 MG/5 MG TAB PO PRN ×2 (03:04→09:24)
[2017-01-06] MEDS: cefTAZidime INJ 2,000 MG in SODIUM CHLORIDE 0.9% INJ 100 ML IV SCH ×3 (05:46→21:32)
[2017-01-06 06:46] LABS: EOSINOPHIL # 0.2 TH/MM3 (0-0.4); EOSINOPHIL % 4.8 % (0.0-4.0); LYMPH % 15.4 % (9.0-44.0); LYMPHOCYTE # 0.5 TH/MM3 (1.0-4.8); MEAN CELL VOLUME 83.9 FL (80.0-100.0); MEAN CORPUSCULAR HEMOGLOBIN 28.1 PG (27.0-34.0); MEAN CORPUSCULAR HGB CONC 33.5 % (32.0-36.0); MONO % 15.9 % (0.0-8.0); NEUT % 62.9 % (16.0-70.0); PLATELET COUNT 61 TH/MM3 (150-450); RED BLOOD COUNT 2.42 MIL/MM3 (4.50-5.90); RED CELL DISTRIBUTION WIDTH 18.1 % (11.6-17.2); WHITE BLOOD COUNT 3.3 TH/MM3 (4.0-11.0)
[2017-01-06 06:48] LABS: HEMO FLAGS AUTO DIFF
[2017-01-06 06:50] LABS: HEMATOCRIT 20.3 % (39.0-51.0)
[2017-01-06 07:21] LABS: BICARBONATE 23.8 MEQ/L (21.0-32.0); POTASSIUM 4.7 MEQ/L (3.5-5.1)
[2017-01-06] MEDS ORDERED: Vancomycin Consult Pharmacy 1 EA OTHER SCH (07:30)
[2017-01-06] MEDS ORDERED: FUROSEMIDE 20 MG/2 ML VIAL IV ONE (07:30)
[2017-01-06] MEDS ORDERED: VANCOMYCIN INJ 1,250 MG in SODIUM CHLOR 0.9% 250 ML INJ 250 ML IV SCH (07:30)
[2017-01-06] MEDS ORDERED: SODIUM CHLOR 0.9% 250 ML INJ 250 ML IV ONE (07:30)
[2017-01-06] MEDS ORDERED: diphenhydrAMINE HCL 25 MG CAP PO PRN (07:30)
[2017-01-06] MEDS: RESP: ALBUTEROL 2.5 MG/IPRATROPIUM 0.5 MG NEB (SCH) NEB ×3 (08:34→20:02)
[2017-01-06] MEDS: AQUAPHOR OINT 50 APPLIC/50 GM TUBE TOPICAL SCH ×2 (09:00→21:00)
[2017-01-06] MEDS: PROPRANOLOL HCL 20 MG TAB PO SCH (09:07)
[2017-01-06] MEDS: GABAPENTIN 300 MG CAP PO SCH ×3 (09:07→16:20)
[2017-01-06] MEDS: LACTULOSE SYRUP 20 GM/30 ML CUP PO SCH ×4 (09:07→21:30)
[2017-01-06] MEDS: guaiFENesin E.R. 600 MG TAB PO SCH ×2 (09:07→21:29)
[2017-01-06] MEDS: THIAMINE HCL 100 MG TAB PO SCH (09:07)
[2017-01-06] MEDS: busPIRone HCL 10 MG TAB PO SCH ×2 (09:08→21:29)
[2017-01-06] MEDS: CHOLECALCIFEROL (VIT D3) 1000 UNIT TAB PO SCH (09:08)
[2017-01-06] MEDS: ASCORBIC ACID 500 MG TAB PO SCH (09:08)
[2017-01-06] MEDS: SPIRONOLACTONE 100 MG TAB PO SCH ×2 (09:08→21:29)
[2017-01-06] MEDS: DOCUSATE SODIUM 50 MG/SENNA 8.6 MG TAB PO SCH ×2 (09:08→21:00)
[2017-01-06] MEDS: PANTOPRAZOLE SOD 40 MG DELAYED RELEASE TAB PO SCH (09:08)
[2017-01-06] MEDS: ESCITALOPRAM OXALATE 20 MG TAB PO SCH (09:08)
[2017-01-06] MEDS: FUROSEMIDE 40 MG TAB PO SCH ×2 (09:18→17:43)
[2017-01-06] MEDS: SODIUM CHLORIDE 0.9% FLUSH 10 ML FLUSH IV FLUSH SCH ×2 (09:18→21:38)
[2017-01-06] MEDS: INSULIN ASPART SUPPLEMENTAL SCALE SQ SCH ×4 (09:18→21:40)
[2017-01-06] MEDS: ALBUMIN HUMAN 25% 25 GM/100 ML BAGP IV SCH ×2 (09:24→21:32)
[2017-01-06 09:33] LABS: OVALOCYTES 1+ (NORMAL); PLATELET ESTIMATE SMEAR LOW (NORMAL); PLATELET MORPHOLOGY NORMAL (NORMAL); SCAN/DIFF AUTO DIFF CONFIRMED
--- NOTE | 2017-01-06 11:25 | HHI.FPPN ---
Subjective Remarks Patient seen and examined this morning. No acute events over night. Endorses an episode of diarrhea, loose, watery, noted possible some red in it. Currently states he is tired. No light headedness, dizziness. No abdominal pain. Ambulating well with walker. [facility] Stated they never called him back yesterday but is following it up today. Denies nausea, vomiting, fever, chills, shortness of breath, chest pain. (Sudhir Slater MD R1) Objective Vitals Vital Signs Date Time Temp Pulse Resp B/P (MAP) Pulse Ox O2 Delivery O2 Flow Rate FiO2 01/06/17 08:34 96 21 01/06/17 08:00 97.9 70 20 118/63 (81) 95 01/06/17 00:00 97.2 69 20 125/73 (90) 96 01/05/17 20:00 97.0 61 20 112/57 (75) 98 01/05/17 19:49 97 01/05/17 16:00 97.1 71 18 135/77 (96) 94 01/05/17 12:00 96.9 56 16 108/65 (79) 100 I/O 01/05/17 01/05/17 01/05/17 01/06/17 01/06/17 01/06/17 07:00 15:00 23:00 07:00 15:00 23:00 Intake Total 240 ml 120 ml 200 ml 360 ml 120 ml Output Total 200 ml 250 ml Balance 240 ml 120 ml 0 ml 110 ml 120 ml Intake Oral 240 ml 120 ml 360 ml 120 ml IV Total 200 ml Output Urine Total 200 ml 250 ml # Voids 2 2 # Bowel Movements 0 0 (Sudhir Slater MD R1) Result Diagram: 01/06/1762101/06/17621 Objective Remarks GENERAL: in NAD, no respiratory distress, seated in bed comfortably HEENT: NCAT, EOMI, no scleral icterus, no conjunctival injection. CV: Regular rate and rhythm; normal perfusion. Holosystolic murmur. CHEST/PULM: Course breath sounds appreciated in bilateral lung [place]. No wheezes or crackles appreciated. Good air movement bilaterally ABD/GI: +BS, ascites noted, positive fluid wave. Bandage over prior catheter site removed, healing wound noted with minimal erythema surrounding it, nonteder , no discharge. Abdomen distended, nontender, positive bowel sounds. EXT: 1+ pitting edema to knee. No calf tenderness. NEURO: Awake, alert. normal muscle tone. SKIN: No rashes. Some excoriations noted on lower extremities. PSYCH: Mood and affect are appropriate. Does not appear to respond to internal stimuli. (Sudhir Slater MD R1) A/P Assessment and Plan Mr. Allison is a 61 yo M admitted with peritonitis secondary to indwelling catheter. Had EGD, Colonoscopy on 01/[address] on admission showed circumferential wall thickening and mild inflammatory changes - no acute findings. WBC's found on peritoneal fluid, cultures growing Klebsiella, MRSA. Started on Vanc, Ceftazidime on 01/01. U/S guided paracentesis, peritoneal catheter removal on 01/02. Discharge Planning Will need 5-10 days of IV antibiotics (starting 01/01). Is currently attempting to arrange future therapeutic paracentesis in [facility]. CM on board and patient has contact information for social worker aide at [place] (Sudhir Slater MD R1) Attending Attestation Patient seen and examined. Case reviewed and discussed Agree with plan of care as discussed with me and documented in the resident note. CT Abd/Pelvis to r/o acute blood loss given worsening abdominal pain. Hemoccult pending. Patient reporting fatigue. Transfuse one unit. (Chari Loving MD) Problem List: (1) Peritonitis ICD Codes: K65.9 - Peritonitis, unspecified Status: Acute Plan: Patient with chronic ascites from cirrhosis and has indwelling peritoneal catheter. He was admitted 11/2016 for peritonitis, and catheter was removed. Subsequently, he had one replaced in [place] due to transportation issues (inability to get to regular paracentesis appts). Unfortunately, his peritonitis recurred. It has been discussed with patient that his indwelling catheter needs to be removed and is not a good idea to have replaced due to high risk of reinfection. Initially, he was willing to have the catheter removed only if he is able to have local paracentesis (rather than drive weekly to [place]). However, he agreed to have the catheter removed on . Therapeutic paracentesis was performed at that time as well. The [facility] therapeutic case manager assigned to him was able to contact the [place] therapeutic case manager who states that the pt will have to put in a request to have local paracentesis. Pt will call and speak with [facility] today to get the process started. Peritoneal fluid with WBC, cultures growing Klebsiella and MRSA -GI consulted -2gm sodium diet -Continue SBP treatment -Continue ascites management/diuresis -Lasix 40 mg BID -Spironolactone 100mg BID -Continue protonix -Continue Propanolol -01/02 s/p Paracentesis/peritoneal catheter removal -6300ml cloudy, yellow fluid removed -SBP treatment -Vancomycin (01/01-01/06 ) -Ceftazidime (01/01-01/06) -Albumin 25mg IV BID with use of antibiotic in setting of SBP (01/03) -PO [place] for pain (2) Ascites ICD Codes: R18.8 - Other ascites Status: Chronic Plan: s/p peritoneal catheter removal 01/02 Continue management per GI -Spironolactone 100mg BID -Lasix 40mg BID -Paracentesis at [place] as needed -Currently arranging closer location See plan above (3) Cirrhosis ICD Codes: K74.60 - Unspecified cirrhosis of liver Status: Chronic Plan: Impression: Likely secondary to alcohol abuse and Hepatitis C. Patient last seen by GI 11/2016; EGD with cautery performed->varices with no stigmata, mild portal gastropathy, antral gave. Patient treated with chronic Spironolactone, Lasix, Propranolol, Lactulose, PPI. MELD of 21 on admission -Low sodium diet -Continue home Propranolol -Continue home Lasix -Continue home Spironolactone -F/U with gastroenterology at [place] -Reported possible plans for follow-up and discussion regarding possible liver transplant and/or Hep C treatment per patient (4) Hepatic encephalopathy ICD Codes: K72.90 - Hepatic failure, unspecified without coma Status: Chronic Plan: Impression: Patient with current normal mental status 01/04. Ammonia 44 on 01/01, 68 on 01/02, 57 on 01/03 -Continue hyperammonemia treatment -Continue home Lactulose 30ml four times daily due to increased ammonia level (5) Cough ICD Codes: R05 - Cough Status: Acute Plan: Patient complains of productive cough on 01/03, no cough at this time -Afebrile, vitals stable, no complaints of CP, SOB at this time -sputum culture shows light growth of normal respiratory shanon -Mucinex, Tessalon pearls ordered -scheduled Duonebs while awake (6) Weakness of both legs ICD Codes: R29.898 - Other symptoms and signs involving the musculoskeletal system Status: Acute Plan: Suspected 2/2 to elevated Ammonia vs Staph myopathy -Treatment of elevated ammonia as above -Will continue to monitor (7) Hyponatremia ICD Codes: E87.1 - Hypo-osmolality and hyponatremia Status: Chronic Plan: Impression: Patient with chronic hyponatremia secondary to liver disease. Stable in high 120's-low 130's -Will fluid restrict and monitor I/Os. (8) Mood disorder ICD Codes: F39 - Unspecified mood [affective] disorder Status: Chronic Plan: -Continue home escitalopram (9) DM (diabetes mellitus) ICD Codes: E11.9 - Type 2 diabetes mellitus without complications Status: Chronic Plan: Impression: Reportedly on home Novolin 7 U BID; patient suggests nonadherence. 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 -Continue Accuchecks with low dose insulin sliding scale (10) HTN (hypertension) ICD Codes: I10 - Essential (primary) hypertension Status: Chronic Plan: Patient has been normotensive during hospitalization -Continue to monitor BP -Continue diuresis (11) Anemia ICD Codes: D64.9 - Anemia, unspecified Status: Chronic Plan: Impression: Hgb decreased over past 2 days, low on admission at 9.9 -Will monitor CBC periodically -Hemoglobin 6.9 this morning - Will administer 1 unit RBC at this time, second on hold -F/U H/H in PM -F/U Hemoccult (12) Constipation ICD Codes: K59.00 - Constipation, unspecified Plan: Impression: Currently has diarrhea. Stool softeners as needed. (13) DVT PPX Status: Chronic Plan: -Bilateral SCD's -Will withhold anticoagulation due to thrombocytopenia and INR 1.4 -Will promote walking with PT consultation (Sudhir Slater MD R1) Problem Qualifiers (1) Ascites: Qualified Codes: K70.31 - Alcoholic cirrhosis of liver with ascites (2) Cirrhosis: Qualified Codes: K70.31 - Alcoholic cirrhosis of liver with ascites (3) DM (diabetes mellitus): (4) HTN (hypertension): Qualified Codes: I10 - Essential (primary) hypertension (5) Constipation: Qualified Codes: K59.00 - Constipation, unspecified Sudhir Slater MD R1 Jan 06, 2017 11:25 Chari Loving MD Jan 07, 2017 09:18
[2017-01-06] MEDS ORDERED: NALOXONE HCL 0.4 MG/ML AMP IV PUSH PRN (14:45)
[2017-01-06] MEDS ORDERED: ACETAMINOPHEN/HYDROcodone 325 MG/5 MG TAB PO PRN (14:45)
--- NOTE | 2017-01-06 15:44 | HHI.GIFU ---
Subjective Remarks Pt in bed in no distress asking for ice cream. Abd distention unchanged from yesterday. Has had loose nonbloody stool for 3 days. Receiving blood. Says he was lightheaded today for his walk. (Lashanda Almaguer) Objective Vitals I&O Vital Signs Date Time Temp Pulse Resp B/P (MAP) Pulse Ox O2 Delivery O2 Flow Rate FiO2 01/06/17 13:49 96.2 63 20 111/58 98 01/06/17 13:33 96.9 62 18 133/60 97 01/06/17 13:22 96.9 62 19 133/60 (84) 97 01/06/17 12:00 96.9 68 19 134/63 (86) 96 01/06/17 08:34 96 21 01/06/17 08:00 97.9 70 20 118/63 (81) 95 01/06/17 00:00 97.2 69 20 125/73 (90) 96 01/05/17 20:00 97.0 61 20 112/57 (75) 98 01/05/17 19:49 97 01/05/17 16:00 97.1 71 18 135/77 (96) 94 I/O 01/05/17 01/05/17 01/05/17 01/06/17 01/06/17 01/06/17 07:00 15:00 23:00 07:00 15:00 23:00 Intake Total 240 ml 120 ml 200 ml 360 ml 123 ml Output Total 200 ml 250 ml Balance 240 ml 120 ml 0 ml 110 ml 123 ml Intake Oral 240 ml 120 ml 360 ml 120 ml IV Total 200 ml Blood Product IV Normal Saline Flush 3 ml Output Urine Total 200 ml 250 ml # Voids 2 2 # Bowel Movements 0 0 Laboratory Laboratory Tests Test 01/06/17 06:22 White Blood Count 3.3 Red Blood Count 2.42 Hemoglobin 6.8 Hematocrit 20.3 Mean Corpuscular Volume 83.9 Mean Corpuscular Hemoglobin 28.1 Mean Corpuscular Hemoglobin Concent 33.5 Red Cell Distribution Width 18.1 Platelet Count 61 Mean Platelet Volume 7.4 Neutrophils (%) (Auto) 62.9 Lymphocytes (%) (Auto) 15.4 Monocytes (%) (Auto) 15.9 Eosinophils (%) (Auto) 4.8 Basophils (%) (Auto) 1.0 Neutrophils # (Auto) 2.0 Lymphocytes # (Auto) 0.5 Monocytes # (Auto) 0.5 Eosinophils # (Auto) 0.2 Basophils # (Auto) 0.0 CBC Comment AUTO DIFF Differential Comment AUTO DIFF CONFIRMED Platelet Estimate LOW Platelet Morphology Comment NORMAL Ovalocytes 1+ Blood Urea Nitrogen 19 Creatinine 1.15 Random Glucose 138 Calcium Level 7.8 Sodium Level 130 Potassium Level 4.7 Chloride Level 100 Carbon Dioxide Level 23.8 Anion Gap 6 Estimat Glomerular Filtration Rate 65 Random Vancomycin Level 28.3 Date/Time Source Procedure Growth Status 12/30/16 17:50 Blood Peripheral Aerobic Blood Culture - Final NO GROWTH IN 5 DAYS Complete 12/30/16 17:50 Blood Peripheral Anaerobic Blood Culture - Final NO GROWTH IN 5 DAYS Complete 12/30/16 19:50 Fluid Peritoneal Fluid Gram Stain - Final Complete 12/30/16 19:50 Body Fluid Culture - Final Klebsiella Oxytoca S. Aureus Mrsa Complete 01/04/17 15:28 Sputum Expectorated Sputum Gram Stain - Final Complete 01/04/17 15:28 Sputum Expectorated Sputum Sputum Culture - Final MODERATE GROWTH NORMAL RESPIRATORY LIAT Complete Imaging Last Impressions Paracentesis 01/02/17 0000 Signed Impressions: Service Date/Time: Monday, January 02, 2017 00:00 - CONCLUSION: 1. Uncomplicated abdominal ascites drainage. Immediately following drainage of the ascites the catheter was removed. Bakari Worrell MD Catheter Placement X-Ray 01/01/17 0000 Signed Impressions: Service Date/Time: December 00:00 - CONCLUSION: 1. Uncomplicated paracentesis via the patient's abdominal drainage catheter. 2. Successful removal of the patient's ASPIRA abdominal ascites drain Bakari Worrell MD Knee X-Ray 12/31/16 0000 Signed Impressions: Service Date/Time: Saturday, December 31, 2016 14:13 - CONCLUSION: Degenerative changes, negative for fracture. German Worrell MD FACR Chest X-Ray 12/30/16 1640 Signed Impressions: Service Date/Time: Friday, December 30, 2016 16:55 - CONCLUSION: 1. Minimal basilar atelectasis. No effusion. No pneumothorax. Félix Vail MD Abdomen/Pelvis CT 12/30/16 0000 Signed Impressions: Service Date/Time: Friday, December 30, 2016 22:56 - CONCLUSION: 1. Circumferential wall thickening involving the cecum with mild inflammatory change suggesting acute colitis. Fall studies to document complete resolution are suggested to exclude a mass. 2. Cirrhosis with splenomegaly and moderate volume ascites. 3. Right inguinal hernia containing ascitic fluid. 4. Large calcified atherosclerotic plaque involving the abdominal aorta at the origin of the celiac. I suspect there is stenosis of the celiac origin. CTA would be needed to further evaluate this. The SILVANA and SMA are patent and therefore the presumed celiac stenosis is likely clinically insignificant. 5. Cardiomegaly. Joselito Cantu Jr., MD Physical Exam HEENT: Normocephalic; atraumatic; no jaundice. CHEST: CTA CARDIAC: RRR ABDOMEN: Semifirm, distended with ascites, mild TTP; hepatosplenomegaly; bowel sounds are present EXTREMITIES: BLE edema SKIN: Normal; no rash; no jaundice. SOFTWARE CONFIGURATION ANALYST: No focal deficits; alert and oriented x 3 (Lashanda Almaguer NECK SKEWER) Assessment and Plan Plan ASSESSMENT: - Recurrent Ascites. On Lasix, Spironolactone at home. States watching his Salt and fluid intake. We saw him in November when he was hospitalized about 2 weeks after a drain was placed for his ascites and he was found to have SBP. Peritoneal fluid cultures at that time revealed enterococcus faecalis. He was evaluated by IR on 11/26/16 and they removed the tunneled peritoneal drain. The final culture from the peritoneal catheter tip was < 15 CFU gram positive cocci. He reports that he [facility]. Peritoneal fluid WBC 3273, RBC 446, Neutrophils 56. Cx with Klebsiella Oxytoca and MRSA. S/P removal of peritoneal drain and paracentesis with removal of 6L by IR (01/02). Pt has recurrent ascites. He is watching his fluid/salt intake. He is on albumin, lasix 40mg po BID, spironolactone 100mg po BID. Ceftazidime, Vanco. - SBP. Cx with Klebsiella Oxytoca and MRSA. Ceftazidime, Vanco. - Abnormal imaging with circumferential wall thickening involving the cecum. CT Scan abdomen and pelvis (12/30/16)---> Circumferential wall thickening involving the cecum with mild inflammatory change suggesting acute colitis. FU studies to document complete resolution are suggested to exclude a mass. Cirrhosis with splenomegaly and moderate volume ascites, right inguinal hernia containing ascitic fluid, large calcified atherosclerotic plaque involving the abdominal aorta at the origin of the celiac. I suspect there is stenosis of the celiac origin. CTA would be needed to further evaluate this. The SILVANA and SMA are patent and therefore the presumed celiac stenosis is likely clinically insignificant. Cardiomegaly. Denies diarrhea. Last colonoscopy was 2010 at the [place]. S/P Colonoscopy ()---> Sigmoid diverticulosis internal hemorrhoids, no evidence of colitis. - Liver cirrhosis with elevated LFTs. CT as above. Quit drinking in March 2016. (+) Amphetamines on toxicology screen. MELD 13. - Esophageal varices, GAVE. S/P EGD (01/01/17)---> GAVE, Esophageal varices, Portal gastropathy - Anemia. 7.4.3. - Coagulopathy/Thrombocytopenia. Plt 61,000 - Hepatic encephalopathy. Lactulose. Ammonia 50 (01/04) - Hepatitis C, Tx naive. PLAN: - monitor HH - notify GI of active bleeding - await CT - await paracentesis - 2 gram sodium diet - Cont. Abx- Vanco, Ceftazidime - Cont. Lasix 40 mg to bid dosing - Cont. Spironolactone 100 mg BID - Cont. Albumin - Cont. Protonix - Cont. Lactulose - Cont. Propranolol - Monitor labs - Supportive care - Recommend medical treatment for ascites with diuretics, salt restriction, paracentesis and against replacing peritoneal drain for his recurrent ascites. If this is replaced, we would recommend prophylactic antibiotics to try to prevent recurrent SBP. But again, we do not recommend a peritoneal drain. - Further recommendations to follow based on results of above - Patient seen and examined by Dr. Maldonado and myself and this note is written on his behalf. (Lashanda Almaguer) Plan Patient was seen and examined, agree with above Notes, continue antibiotics (Alvarado Maldonado MD) Lashanda Almaguer Jan 06, 2017 15:44 Alvarado Maldonado MD Jan 07, 2017 13:22
[2017-01-06] MEDS ORDERED: DIATRIZOATE MEGLUM/DIATRIZOATE SOD 9 ML CUP PO ONE (15:45)
[2017-01-06] MEDS: ACETAMINOPHEN/HYDROcodone 325 MG/10 MG TAB PO PRN ×2 (16:20→21:30)
[2017-01-06] MEDS ORDERED: FUROSEMIDE 20 MG/2 ML VIAL IV SCH (17:15)
[2017-01-06] MEDS: BENZONATATE 100 MG CAP PO PRN ×2 (17:51→21:41)
[2017-01-06 18:00] LABS: HEMATOCRIT 24.2 % (39.0-51.0)
[2017-01-06 18:09] LABS: INTERNATIONAL NORMALIZED RATIO 1.4 RATIO; PROTHROMBIN TIME - PATIENT 15.9 SEC (9.8-11.6)
[2017-01-06 18:17] LABS: REVIEW FLAG FINAL
--- NOTE | 2017-01-06 18:51 | RADRPT ---
EXAM DATE/TIME: 01/06/2017 18:10 [facility] COMPARISON: CT ABDOMEN & PELVIS W CONTRAST, December 30, 2016, 22:56. INDICATIONS : Abdominal pain, evaluate for acute abdominal bleed. IV CONTRAST: 94 cc Omnipaque 350 (iohexol) IV ORAL CONTRAST: Prescribed oral contrast ingested. RADIATION DOSE: 13.09 CTDIvol (mGy) MEDICAL HISTORY : Cirrhosis. Hypertension. Pancreatitis.diabetic, Hep C SURGICAL HISTORY : Cholecystectomy. ENCOUNTER: Subsequent ACUITY: 1 week PAIN SCALE: 7/10 LOCATION: Right Abdomen TECHNIQUE: Volumetric scanning of the abdomen and pelvis was performed. Using automated exposure control and ad justment of the mA and/or kV according to patient size, radiation dose was kept as low as reasonably achievable to obtain optimal diagnostic quality images. DICOM format image data is available electro nically for review and comparison. FINDINGS: Sclerotic changes are again seen of the liver with moderate ascites. No focal hepatic lesion demonstr ated. Portal vein appears patent. Spleen measures 17.5 cm craniocaudal. There are portosystemic colla terals again noted. No evidence of hemorrhage. There is a right inguinal hernia with a 7.3 by at least 7 cm collection of ascites in the right side of the scrotum. Persistent wall thickening of the cecum, today seen on series 2 image 68. Atherosclerosis again seen of the abdominal aorta. No aneurysm. CONCLUSION: 1. No intra-abdominal hemorrhage. 2. Cirrhosis with moderate volume ascites and splenomegaly again noted. 3. Ascitic fluid collected in a right inguinal hernia again noted. 4. Atherosclerosis again seen of the abdominal aorta. Harpreet Farris MD on January 06, 2017 at 18:45 Board Certified Radiologist. This report was verified electronically.
[2017-01-06] MEDS ORDERED: IOHEXOL 350 MG/ML 10 ML VIAL (for RAD DIAG) IVCONTRAST ONE (19:08)
[2017-01-06] MEDS: DOXEPIN HCL 50 MG CAP PO SCH (21:29)
[2017-01-07] VITALS (7 sets, daily range): BP systolic 111–141; BP diastolic 58–75; PULSE 57–70; RESP 16–19; TEMP 96.6–97.9; O2SAT 93–100
[2017-01-07] MEDS: ACETAMINOPHEN/HYDROcodone 325 MG/10 MG TAB PO PRN ×6 (01:25→21:44)
[2017-01-07] MEDS: cefTAZidime INJ 2,000 MG in SODIUM CHLORIDE 0.9% INJ 100 ML IV SCH ×3 (05:33→21:43)
[2017-01-07 06:57] LABS: APTT (PATIENT) 42.9 SEC (24.3-30.1); INTERNATIONAL NORMALIZED RATIO 1.5 RATIO; PROTHROMBIN TIME - PATIENT 16.4 SEC (9.8-11.6)
[2017-01-07 07:04] LABS: AUTOMATED NEUTROPHIL # 2.7 TH/MM3 (1.8-7.7); BASOPHIL % 0.9 % (0.0-2.0); EOSINOPHIL # 0.1 TH/MM3 (0-0.4); EOSINOPHIL % 3.7 % (0.0-4.0); HEMATOCRIT 24.9 % (39.0-51.0); LYMPH % 14.3 % (9.0-44.0); LYMPHOCYTE # 0.6 TH/MM3 (1.0-4.8); MEAN CELL VOLUME 84.7 FL (80.0-100.0); MEAN CORPUSCULAR HEMOGLOBIN 28.3 PG (27.0-34.0); MEAN CORPUSCULAR HGB CONC 33.4 % (32.0-36.0); MONO % 13.9 % (0.0-8.0); NEUT % 67.2 % (16.0-70.0); PLATELET COUNT 80 TH/MM3 (150-450); RED BLOOD COUNT 2.94 MIL/MM3 (4.50-5.90); RED CELL DISTRIBUTION WIDTH 17.6 % (11.6-17.2); WHITE BLOOD COUNT 4.1 TH/MM3 (4.0-11.0)
[2017-01-07 07:11] LABS: HEMO FLAGS AUTO DIFF
[2017-01-07 07:15] LABS: BICARBONATE 26.3 MEQ/L (21.0-32.0); POTASSIUM 4.8 MEQ/L (3.5-5.1)
[2017-01-07] MEDS: INSULIN ASPART SUPPLEMENTAL SCALE SQ SCH ×4 (08:00→21:43)
[2017-01-07 08:29] LABS: OVALOCYTES 1+ (NORMAL); PLATELET ESTIMATE SMEAR LOW (NORMAL); PLATELET MORPHOLOGY NORMAL (NORMAL); SCAN/DIFF AUTO DIFF CONFIRMED
[2017-01-07] MEDS: AQUAPHOR OINT 50 APPLIC/50 GM TUBE TOPICAL SCH ×2 (09:00→21:00)
[2017-01-07] MEDS: guaiFENesin E.R. 600 MG TAB PO SCH ×2 (09:25→21:26)
[2017-01-07] MEDS: ESCITALOPRAM OXALATE 20 MG TAB PO SCH (09:25)
[2017-01-07] MEDS: SPIRONOLACTONE 100 MG TAB PO SCH ×2 (09:25→21:26)
[2017-01-07] MEDS: CHOLECALCIFEROL (VIT D3) 1000 UNIT TAB PO SCH (09:25)
[2017-01-07] MEDS: THIAMINE HCL 100 MG TAB PO SCH (09:25)
[2017-01-07] MEDS: PROPRANOLOL HCL 20 MG TAB PO SCH (09:25)
[2017-01-07] MEDS: LACTULOSE SYRUP 20 GM/30 ML CUP PO SCH ×4 (09:25→21:26)
[2017-01-07] MEDS: GABAPENTIN 300 MG CAP PO SCH (09:26)
[2017-01-07] MEDS: DOCUSATE SODIUM 50 MG/SENNA 8.6 MG TAB PO SCH ×2 (09:26→21:26)
[2017-01-07] MEDS: PANTOPRAZOLE SOD 40 MG DELAYED RELEASE TAB PO SCH (09:26)
[2017-01-07] MEDS: busPIRone HCL 10 MG TAB PO SCH ×2 (09:26→21:26)
[2017-01-07] MEDS: ASCORBIC ACID 500 MG TAB PO SCH (09:26)
[2017-01-07] MEDS: ALBUMIN HUMAN 25% 25 GM/100 ML BAGP IV SCH ×2 (09:32→21:43)
[2017-01-07] MEDS: FUROSEMIDE 40 MG TAB PO SCH ×2 (09:35→16:56)
[2017-01-07] MEDS: SODIUM CHLORIDE 0.9% FLUSH 10 ML FLUSH IV FLUSH SCH ×2 (09:36→21:43)
--- NOTE | 2017-01-07 10:32 | HHI.FPPN ---
Subjective Remarks Patient seen and examined this morning. No acute events over night. Reports better formed stool, brown. Currently states he is tired, did not sleep well last night. No light headedness, dizziness. No abdominal pain. Ambulating well with walker. Still working on speaking with the [place] changing his paracentesis center. Stated he still needs to get in contact with the [place] [facility], and has left messages but they have not gotten back. Will attempt to speak with a [facility] disability case manager if possible. Denies nausea, vomiting, fever, chills, shortness of breath, chest pain. (Sudhir Slater MD R1) Objective Vitals Vital Signs Date Time Temp Pulse Resp B/P (MAP) Pulse Ox O2 Delivery O2 Flow Rate FiO2 01/07/17 08:00 96.9 61 17 141/71 (94) 98 01/07/17 00:00 96.6 70 18 124/60 (81) 96 01/06/17 20:05 99 01/06/17 20:00 96.2 64 18 167/83 (111) 98 01/06/17 17:25 18 01/06/17 16:00 99.8 67 20 155/71 (99) 98 01/06/17 13:49 96.2 63 20 111/58 98 01/06/17 13:33 96.9 62 18 133/60 97 01/06/17 13:22 96.9 62 19 133/60 (84) 97 01/06/17 12:00 96.9 68 19 134/63 (86) 96 I/O 01/06/17 01/06/17 01/06/17 01/07/17 01/07/17 01/07/17 07:00 15:00 23:00 07:00 15:00 23:00 Intake Total 460 ml 223 ml 1570 ml 340 ml 120 ml Output Total 250 ml 1000 ml 750 ml Balance 210 ml 223 ml 570 ml -410 ml 120 ml Intake Oral 360 ml 120 ml 960 ml 240 ml 120 ml IV Total 100 ml 100 ml 210 ml 100 ml Packed Cells 400 ml Blood Product IV Normal Saline Flush 3 ml Output Urine Total 250 ml 1000 ml 750 ml # Voids 2 1 # Bowel Movements 0 1 0 (Sudhir Slater MD R1) Result Diagram: 01/07/17 0556 01/07/17 0556 Imaging Last 48 hours Impressions Abdomen/Pelvis CT 01/06/17 0000 Signed Impressions: Service Date/Time: Friday, January 06, 2017 18:10 - CONCLUSION: 1. No intra-abdominal hemorrhage. 2. Cirrhosis with moderate volume ascites and splenomegaly again noted. 3. Ascitic fluid collected in a right inguinal hernia again noted. 4. Atherosclerosis again seen of the abdominal aorta. Harpreet Farris MD Objective Remarks GENERAL: in NAD, no respiratory distress, seated in bed comfortably HEENT: NCAT, EOMI, no scleral icterus, no conjunctival injection. CV: Regular rate and rhythm; normal perfusion. Holosystolic murmur. CHEST/PULM: Course breath sounds appreciated in bilateral lung st[place]. No wheezes or crackles appreciated. Good air movement bilaterally ABD/GI: +BS, ascites noted, positive fluid wave. Bandage over prior catheter site removed, healing wound noted with minimal erythema surrounding it, nonteder , no discharge. Single suture in place. Abdomen distended, nontender, positive bowel sounds. EXT: 2+ pitting edema to knee. No calf tenderness. NEURO: Awake, alert. normal muscle tone. SKIN: No rashes. Some excoriations noted on lower extremities. PSYCH: Mood and affect are appropriate. Does not appear to respond to internal stimuli. Medications and IVs Current Medications Medications (Trade) Dose Ordered Sig/Fortino Route Start Time Stop Time Status Last Admin (NS Flush) 2 ml UNSCH PRN IV FLUSH 12/30/16 20:30 12/31/16 16:34 (NS Flush) 2 ml BID IV FLUSH 12/30/16 21:00 01/07/17 09:36 (Tylenol) 650 mg Q4H PRN PO 12/30/16 20:30 12/30/16 22:22 (Zofran Inj) 4 mg Q6H PRN IVP 12/30/16 20:30 01/04/17 08:19 (Milk Of Magnesia Liq) 30 ml Q12H PRN PO 12/30/16 20:30 (Senokot) 17.2 mg Q12H PRN PO 12/30/16 20:30 (Dulcolax Supp) 10 mg DAILY PRN RECTAL 12/30/16 20:30 (D50w (Vial) Inj) 50 ml UNSCH PRN IV PUSH 12/30/16 21:00 (Glucagon Inj) 1 mg UNSCH PRN OTHER 12/30/16 21:00 (NovoLOG SUPPLEMENTAL SCALE) 1 ACHS SLIDING SCALE SQ 12/30/16 21:00 01/06/17 21:40 (Vitamin C) 500 mg DAILY PO 12/31/16 09:00 01/07/17 09:26 (Buspar) 10 mg BID PO 12/30/16 21:00 01/07/17 09:26 (Vitamin D3) 1,000 units DAILY PO 12/31/16 09:00 01/07/17 09:25 (SINEquan) 50 mg HS PO 12/30/16 21:00 01/06/17 21:29 (Lexapro) 20 mg DAILY PO 12/31/16 09:00 01/07/17 09:25 (Neurontin) 300 mg TID PO 12/31/16 09:00 01/07/17 09:26 (Protonix) 40 mg DAILY PO 12/31/16 09:00 01/07/17 09:26 (Inderal) 20 mg DAILY PO 12/31/16 09:00 01/07/17 09:25 (Aldactone) 100 mg BID PO 12/30/16 21:00 01/07/17 09:25 (Vitamin B1) 100 mg DAILY PO 12/31/16 09:00 01/07/17 09:25 (Genteal Severe Dry Eye Relief 0.3% Opth Gel) 2 drop Q6H PRN EACH EYE 12/31/16 03:00 (Aquaphor Oint) 1 applic Q12HR TOPICAL 12/31/16 13:45 Pharmacy Profile Note 0 ml @ 0 mls/hr UNSCH OTHER 01/01/17 11:15 Ceftazidime 2000 mg/Sodium Chloride 100 ml @ 200 mls/hr Q8H IV 01/01/17 14:00 01/07/17 05:33 (Lactulose Liq) 30 ml QID PO 01/02/17 13:00 01/07/17 09:25 (Mucinex Er) 600 mg BID PO 01/03/17 09:00 01/07/17 09:25 (Tessalon) 100 mg TID PRN PO 01/03/17 07:45 01/06/17 21:41 (Albumin 25% Inj) 25 gm Q12H IV 01/03/17 11:00 01/06/17 21:32 (Layne-Colace) 2 tab BID PO 01/04/17 21:00 01/07/17 09:26 (Duoneb Neb) 1 ampule Q6HR WHILE AWAKE NEB NEB 01/04/17 14:00 01/06/17 20:02 (Lasix) 40 mg BID@0900,1800 PO 01/05/17 18:00 01/07/17 09:35 (Benadryl) 25 mg Q4H PRN PO 01/06/17 07:30 01/06/17 12:18 ([place] 5-325 Mg) 1 tab Q4H PRN PO 01/06/17 14:45 ([place] 10-325 Mg) 1 tab Q4H PRN PO 01/06/17 14:45 01/07/17 09:25 (Narcan Inj) 0.4 mg UNSCH PRN IV PUSH 01/06/17 14:45 (Sudhir Slater MD R1) A/P Assessment and Plan Mr. Allison is a 61 yo M admitted with peritonitis secondary to indwelling catheter. Had EGD, Colonoscopy on 01/[address] on admission showed circumferential wall thickening and mild inflammatory changes - no acute findings. WBC's found on peritoneal fluid, cultures growing Klebsiella, MRSA. Started on Vanc, Ceftazidime on 01/01. U/S guided paracentesis, peritoneal catheter removal on 01/02. Discharge Planning Will need 5-10 days of IV antibiotics (starting 01/01). Is currently attempting to arrange future therapeutic paracentesis in [facility]. CM on board and patient has contact information for social security specialist at [place] (Sudhir Slater MD R1) Attending Attestation Patient seen and examined. Case reviewed and discussed Agree with plan of care as discussed with me and documented in the resident note. (Chari Loving MD) Problem List: (1) Peritonitis ICD Codes: K65.9 - Peritonitis, unspecified Status: Acute Plan: Patient with chronic ascites from cirrhosis and has indwelling peritoneal catheter. He was admitted 11/2016 for peritonitis, and catheter was removed. Subsequently, he had one replaced in [place] due to transportation issues (inability to get to regular paracentesis appts). Unfortunately, his peritonitis recurred. It has been discussed with patient that his indwelling catheter needs to be removed and is not a good idea to have replaced due to high risk of reinfection. Initially, he was willing to have the catheter removed only if he is able to have local paracentesis (rather than drive weekly to [place]). However, he agreed to have the catheter removed on . Therapeutic paracentesis was performed at that time as well. The [employer] disability case manager assigned to him was able to contact the [place] disability case manager who states that the pt will have to put in a request to have local paracentesis. Pt will continue to call [place] disability case manager today to get the process started. Peritoneal fluid with WBC, cultures growing Klebsiella and MRSA -GI consulted -2gm sodium diet -Continue SBP treatment -Continue ascites management/diuresis -Lasix 40 mg BID -Spironolactone 100mg BID -Continue protonix -Continue Propanolol -01/02 s/p Paracentesis/peritoneal catheter removal -6300ml cloudy, yellow fluid removed -SBP treatment completed -Vancomycin (01/01-01/06 ) -Ceftazidime (01/01-01/06) -Albumin 25mg IV BID with use of antibiotic in setting of SBP (01/03) -PO [place] for pain -To have second paracentesis 01/07/17 (2) Ascites ICD Codes: R18.8 - Other ascites Status: Chronic Plan: s/p peritoneal catheter removal 01/02 Continue management per GI -Spironolactone 100mg BID -Lasix 40mg BID -Paracentesis at [place] as needed -Currently arranging closer location -To have paracentesis today See plan above (3) Cirrhosis ICD Codes: K74.60 - Unspecified cirrhosis of liver Status: Chronic Plan: Impression: Likely secondary to alcohol abuse and Hepatitis C. Patient last seen by GI 11/2016; EGD with cautery performed->varices with no stigmata, mild portal gastropathy, antral gave. Patient treated with chronic Spironolactone, Lasix, Propranolol, Lactulose, PPI. MELD of 21 on admission -Low sodium diet -Continue home Propranolol -Continue home Lasix -Continue home Spironolactone -F/U with gastroenterology at [place] -Reported possible plans for follow-up and discussion regarding possible liver transplant and/or Hep C treatment per patient (4) Hepatic encephalopathy ICD Codes: K72.90 - Hepatic failure, unspecified without coma Status: Chronic Plan: Impression: Patient with current normal mental status 01/04. Ammonia 44 on 01/01, 68 on 01/02, 57 on 01/03 -Continue hyperammonemia treatment -Continue home Lactulose 30ml four times daily due to increased ammonia level (5) Cough ICD Codes: R05 - Cough Status: Acute Plan: Patient complains of productive cough on 01/03, no cough at this time -Afebrile, vitals stable, no complaints of CP, SOB at this time -sputum culture shows light growth of normal respiratory shanon -Mucinex, Tessalon pearls ordered -scheduled Duonebs while awake (6) Weakness of both legs ICD Codes: R29.898 - Other symptoms and signs involving the musculoskeletal system Status: Acute Plan: Suspected 2/2 to elevated Ammonia vs Staph myopathy -Treatment of elevated ammonia as above -Will continue to monitor (7) Hyponatremia ICD Codes: E87.1 - Hypo-osmolality and hyponatremia Status: Chronic Plan: Impression: Patient with chronic hyponatremia secondary to liver disease. Consistently 130 at this time. Patient reported he had been eating ice to moisten his mouth, will stop at this time as it is another source of fluid intake. -Will fluid restrict and monitor I/Os. (8) Mood disorder ICD Codes: F39 - Unspecified mood [affective] disorder Status: Chronic Plan: -Continue home escitalopram (9) DM (diabetes mellitus) ICD Codes: E11.9 - Type 2 diabetes mellitus without complications Status: Chronic Plan: Impression: Reportedly on home Novolin 7 U BID; patient suggests nonadherence. 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 -Continue Accuchecks with low dose insulin sliding scale (10) HTN (hypertension) ICD Codes: I10 - Essential (primary) hypertension Status: Chronic Plan: Patient has been normotensive during hospitalization -Continue to monitor BP -Continue diuresis (11) Anemia ICD Codes: D64.9 - Anemia, unspecified Status: Chronic Plan: Impression: Hgb decreased over past 2 days, low on admission at 9.9. Received 1 unit RBC 01/06/17 -Will monitor CBC periodically -Negative CT for active bleeds -Hemoglobin 8.3 today, improved from 6.8 (01/06) -Hemoccult negative -Continue to monitor (12) Constipation ICD Codes: K59.00 - Constipation, unspecified Plan: Impression: Currently has improving diarrhea. Stool softeners as needed. (13) DVT PPX Status: Chronic Plan: -Bilateral SCD's -Will withhold anticoagulation due to thrombocytopenia and INR 1.4 -Will promote walking with PT consultation (Sudhir Slater MD R1) Problem Qualifiers (1) Ascites: Qualified Codes: K70.31 - Alcoholic cirrhosis of liver with ascites (2) Cirrhosis: Qualified Codes: K70.31 - Alcoholic cirrhosis of liver with ascites (3) DM (diabetes mellitus): (4) HTN (hypertension): Qualified Codes: I10 - Essential (primary) hypertension (5) Constipation: Qualified Codes: K59.00 - Constipation, unspecified Sudhir Slater MD R1 Jan 07, 2017 10:32 Chari Loving MD Jan 08, 2017 15:56
--- NOTE | 2017-01-07 11:19 | HHI.GIFU ---
Subjective Remarks Ambulating about room. Worsening abdominal distention. No fevers or chills. Occasional mild nausea. Mild right lower abdomen "soreness." [facility] get [facility] for future. (Angle Zee) Objective Vitals I&O Vital Signs Date Time Temp Pulse Resp B/P (MAP) Pulse Ox O2 Delivery O2 Flow Rate FiO2 01/07/17 08:00 96.9 61 17 141/71 (94) 98 01/07/17 00:00 96.6 70 18 124/60 (81) 96 01/06/17 20:05 99 01/06/17 20:00 96.2 64 18 167/83 (111) 98 01/06/17 17:25 18 01/06/17 16:00 99.8 67 20 155/71 (99) 98 01/06/17 13:49 96.2 63 20 111/58 98 01/06/17 13:33 96.9 62 18 133/60 97 01/06/17 13:22 96.9 62 19 133/60 (84) 97 01/06/17 12:00 96.9 68 19 134/63 (86) 96 I/O 01/06/17 01/06/17 01/06/17 01/07/17 01/07/17 01/07/17 07:00 15:00 23:00 07:00 15:00 23:00 Intake Total 460 ml 223 ml 1570 ml 340 ml 120 ml Output Total 250 ml 1000 ml 750 ml Balance 210 ml 223 ml 570 ml -410 ml 120 ml Intake Oral 360 ml 120 ml 960 ml 240 ml 120 ml IV Total 100 ml 100 ml 210 ml 100 ml Packed Cells 400 ml Blood Product IV Normal Saline Flush 3 ml Output Urine Total 250 ml 1000 ml 750 ml # Voids 2 1 # Bowel Movements 0 1 0 Laboratory Laboratory Tests Test 01/06/17 17:38 01/07/17 05:56 Hemoglobin 8.1 8.3 Hematocrit 24.2 24.9 Prothrombin Time 15.9 16.4 Prothromb Time International Ratio 1.4 1.5 White Blood Count 4.1 Red Blood Count 2.94 Mean Corpuscular Volume 84.7 Mean Corpuscular Hemoglobin 28.3 Mean Corpuscular Hemoglobin Concent 33.4 Red Cell Distribution Width 17.6 Platelet Count 80 Mean Platelet Volume 7.4 Neutrophils (%) (Auto) 67.2 Lymphocytes (%) (Auto) 14.3 Monocytes (%) (Auto) 13.9 Eosinophils (%) (Auto) 3.7 Basophils (%) (Auto) 0.9 Neutrophils # (Auto) 2.7 Lymphocytes # (Auto) 0.6 Monocytes # (Auto) 0.6 Eosinophils # (Auto) 0.1 Basophils # (Auto) 0.0 CBC Comment AUTO DIFF Differential Comment AUTO DIFF CONFIRMED Platelet Estimate LOW Platelet Morphology Comment NORMAL Ovalocytes 1+ Activated Partial Thromboplast Time 42.9 Blood Urea Nitrogen 21 Creatinine 1.22 Random Glucose 133 Calcium Level 8.5 Sodium Level 130 Potassium Level 4.8 Chloride Level 99 Carbon Dioxide Level 26.3 Anion Gap 5 Estimat Glomerular Filtration Rate 60 Random Vancomycin Level 20.3 Date/Time Source Procedure Growth Status 12/30/16 17:50 Blood Peripheral Aerobic Blood Culture - Final NO GROWTH IN 5 DAYS Complete 12/30/16 17:50 Blood Peripheral Anaerobic Blood Culture - Final NO GROWTH IN 5 DAYS Complete 12/30/16 19:50 Fluid Peritoneal Fluid Gram Stain - Final Complete 12/30/16 19:50 Body Fluid Culture - Final Klebsiella Oxytoca S. Aureus Mrsa Complete 01/06/17 16:15 Stool Stool Stool Occult Blood (JU) - Final HEMOCCULT NEGATIVE Complete 01/04/17 15:28 Sputum Expectorated Sputum Gram Stain - Final Complete 01/04/17 15:28 Sputum Expectorated Sputum Sputum Culture - Final MODERATE GROWTH NORMAL RESPIRATORY LIAT Complete Imaging Last Impressions Abdomen/Pelvis CT 01/06/17 0000 Signed Impressions: Service Date/Time: Friday, January 06, 2017 18:10 - CONCLUSION: 1. No intra-abdominal hemorrhage. 2. Cirrhosis with moderate volume ascites and splenomegaly again noted. 3. Ascitic fluid collected in a right inguinal hernia again noted. 4. Atherosclerosis again seen of the abdominal aorta. Harpreet Farris MD Paracentesis 01/02/17 0000 Signed Impressions: Service Date/Time: Monday, January 02, 2017 00:00 - CONCLUSION: 1. Uncomplicated abdominal ascites drainage. Immediately following drainage of the ascites the catheter was removed. Bakari Worrell MD Catheter Placement X-Ray 01/01/17 0000 Signed Impressions: Service Date/Time: December 00:00 - CONCLUSION: 1. Uncomplicated paracentesis via the patient's abdominal drainage catheter. 2. Successful removal of the patient's ASPIRA abdominal ascites drain Bakari Worrell MD Knee X-Ray 12/31/16 0000 Signed Impressions: Service Date/Time: Saturday, December 31, 2016 14:13 - CONCLUSION: Degenerative changes, negative for fracture. German Worrell MD FACR Chest X-Ray 12/30/16 1640 Signed Impressions: Service Date/Time: Friday, December 30, 2016 16:55 - CONCLUSION: 1. Minimal basilar atelectasis. No effusion. No pneumothorax. Félix Vail MD Physical Exam HEENT: Normocephalic; atraumatic; no jaundice. CHEST: CTA CARDIAC: RRR ABDOMEN: Semifirm, distended with large amount ascites, mild right lower abdomen/side tenderness; hepatosplenomegaly; bowel sounds are present EXTREMITIES: BLE edema SKIN: Normal; no rash; no jaundice. 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 On Lasix, Spironolactone at home. States watching his Salt and fluid intake. We saw him in November when he was hospitalized about 2 weeks after a drain was placed for his ascites and he was found to have SBP. Peritoneal fluid cultures at that time revealed enterococcus faecalis. He was evaluated by IR on 11/26/16 and they removed the tunneled peritoneal drain. The final culture from the peritoneal catheter tip was < 15 CFU gram positive cocci. He reports that [facility]. Peritoneal fluid WBC 3273, RBC 446, Neutrophils 56. Cx with Klebsiella Oxytoca and MRSA. S/P removal of peritoneal drain and paracentesis with removal of 6L by IR (01/02). Albumin, lasix 40mg po BID, spironolactone 100mg po BID. Ceftazidime. He is running ~300-600 (+) on fluid balance for the past few days. Worsening distention. Rpt. US guided paracentesis scheduled. Send fluid for WBC/RBC/Cx. - SBP. Cx with Klebsiella Oxytoca and MRSA. Ceftazidime - Abnormal imaging with circumferential wall thickening involving the cecum. CT Scan abdomen and pelvis (12/30/16)---> Circumferential wall thickening involving the cecum with mild inflammatory change suggesting acute colitis. FU studies to document complete resolution are suggested to exclude a mass. Cirrhosis with splenomegaly and moderate volume ascites, right inguinal hernia containing ascitic fluid, large calcified atherosclerotic plaque involving the abdominal aorta at the origin of the celiac. I suspect there is stenosis of the celiac origin. CTA would be needed to further evaluate this. The SILVANA and SMA are patent and therefore the presumed celiac stenosis is likely clinically insignificant. Cardiomegaly. Denies diarrhea. Last colonoscopy was 2010 at the [place]. S/P Colonoscopy ()---> Sigmoid diverticulosis internal hemorrhoids, no evidence of colitis. - Liver cirrhosis with elevated LFTs. CT as above. Quit drinking in March 2016. (+) Amphetamines on toxicology screen. MELD 13. - Esophageal varices, GAVE. S/P EGD (01/01/17)---> GAVE, Esophageal varices, Portal gastropathy - Anemia. 8.07/04.9. No active bleeding. - Coagulopathy/Thrombocytopenia. Plt 80,000 - Hepatic encephalopathy. Lactulose. Ammonia 50 (01/04) - Hepatitis C, Tx naive. PLAN: - 2 gram sodium diet - 1500cc fluid restriction - Rpt. US guided paracentesis- sent fluid for cell count and c/s. - Cont. Abx Ceftazidime - Cont. Lasix 40 mg to bid dosing - Cont. Spironolactone 100 mg BID - Cont. Albumin - Cont. Protonix - Cont. Lactulose - Cont. Propranolol - Monitor labs - Supportive care - Recommend medical treatment for ascites with diuretics, salt restriction, paracentesis and against replacing peritoneal drain for his recurrent ascites. If this is replaced, we would recommend prophylactic antibiotics to try to prevent recurrent SBP. But again, we do not recommend a peritoneal drain. pt is working with [place] to see if he can get approval to have future paracentesis done here locally - Further recommendations to follow based on results of above - Patient seen and examined by Dr. Maldonado and myself and this note is written on his behalf. (Angle Zee) Plan Patient was seen and examined, agree with above-noted, he had paracentesis 6 L today and feeling much more comfortable, continue diuretics, he would like to go to the [place] for further workup and possible transplant evaluation (Alvarado Maldonado MD) ZeeAngle rosenberg Snoia MAIER Jan 07, 2017 11:19 Alvarado Maldonado MD Jan 07, 2017 15:31
[2017-01-07] MEDS ORDERED: LIDOCAINE HCL 1% 30 ML VIAL SQ ONE (13:50)
[2017-01-07 15:04] LABS: PERITONEAL HISTIOCYTES 81 %; PERITONEAL LYMPHS 13 %; PERITONEAL MESOTHELIAL 1 %; PERITONEAL POLYS(SEGS) 5 %; PERITONEAL WBC 210 /MM3 (0-10)
--- NOTE | 2017-01-07 16:32 | RADRPT ---
EXAM DATE/TIME: 01/07/2017 12:08 [facility] COMPARISON: US GUIDED ABD PARACENTESIS, November 27, 2016, 13:17. INDICATIONS : Ascites. MEDICAL HISTORY : Gastroesophageal reflux disease. Seizures. Hypertension. Hernia, scrotal. Pancreatitis. Diabetes. Hep atitis C. Cirrhosis. Anxiety. Depression. Violent behavior. SURGICAL HISTORY : Cholecystectomy ENCOUNTER: Subsequent ACUITY: 1 week PAIN SCORE: 0/10 LOCATION: Left lower quadrant FLUID: Total volume of 6,000 cc of clear, yellow fluid was removed. Fluid was sent to lab for ordered studies. Post procedure scanning reveals no hematoma or other complication. TECHNIQUE: 1. Ultrasound guidance for abdominal paracentesis. 2. Paracentesis. The risks, benefits, and alternatives to ultrasound guided paracentesis were explained to the patient in detail including the risk of bleeding and infection. Written and verbal informed consent was obt ained. With the patient on the ultrasound table, ultrasound imaging was used to select the most appropriate approach for paracentesis. Overlying skin was prepped and draped in the usual sterile fashion and wi th a local anesthetic, a dermatotomy was made with an 11 blade scalpel. A 6 [place] [id number] ca theter was introduced into the peritoneal cavity and fluid was collected. The patient tolerated the procedure well and left the ultrasound suite in stable condition. CONCLUSION: Uncomplicated ultrasound guided paracentesis. Brooks Bobby MD on January 07, 2017 at 16:31 Board Certified Radiologist. This report was verified electronically.
[2017-01-07] MEDS: RESP: ALBUTEROL 2.5 MG/IPRATROPIUM 0.5 MG NEB (SCH) NEB (19:52)
[2017-01-07] MEDS: DOXEPIN HCL 50 MG CAP PO SCH (21:26)
[2017-01-07] MEDS: GABAPENTIN 400 MG CAP PO SCH (21:26)
[2017-01-08] VITALS: BP 106/65; PULSE 66; RESP 17; TEMP 97.5; O2SAT 97
[2017-01-08] MEDS: ACETAMINOPHEN/HYDROcodone 325 MG/10 MG TAB PO PRN ×4 (02:28→14:48)
[2017-01-08] MEDS: cefTAZidime INJ 2,000 MG in SODIUM CHLORIDE 0.9% INJ 100 ML IV SCH ×4 (05:53→23:12)
[2017-01-08 08:00] VITALS: BP 116/82; PULSE 68; RESP 18; TEMP 95.7; O2SAT 97
[2017-01-08] MEDS: INSULIN ASPART SUPPLEMENTAL SCALE SQ SCH ×4 (08:00→21:00)
[2017-01-08 08:07] LABS: AUTOMATED NEUTROPHIL # 2.3 TH/MM3 (1.8-7.7); BASOPHIL % 0.7 % (0.0-2.0); EOSINOPHIL # 0.2 TH/MM3 (0-0.4); EOSINOPHIL % 4.3 % (0.0-4.0); HEMATOCRIT 22.7 % (39.0-51.0); LYMPH % 13.6 % (9.0-44.0); LYMPHOCYTE # 0.5 TH/MM3 (1.0-4.8); MEAN CELL VOLUME 84.2 FL (80.0-100.0); MEAN CORPUSCULAR HEMOGLOBIN 28.1 PG (27.0-34.0); MEAN CORPUSCULAR HGB CONC 33.3 % (32.0-36.0); MONO % 15.6 % (0.0-8.0); NEUT % 65.8 % (16.0-70.0); PLATELET COUNT 66 TH/MM3 (150-450); RED BLOOD COUNT 2.69 MIL/MM3 (4.50-5.90); RED CELL DISTRIBUTION WIDTH 17.4 % (11.6-17.2); WHITE BLOOD COUNT 3.5 TH/MM3 (4.0-11.0)
[2017-01-08 08:09] LABS: HEMO FLAGS AUTO DIFF
[2017-01-08 08:36] LABS: ALKALINE PHOSPHATASE 48 U/L (45-117); ALT (GPT) 37 U/L (12-78); ANION GAP 6 MEQ/L (5-15); AST (GOT) 95 U/L (15-37); BICARBONATE 25.1 MEQ/L (21.0-32.0); BLOOD UREA NITROGEN 22 MG/DL (7-18); CHLORIDE 98 MEQ/L (98-107); GLOMERULAR FILTRATION RATE 63 ML/MIN (>89); POTASSIUM 5.1 MEQ/L (3.5-5.1); SODIUM (NA) 129 MEQ/L (136-145); TOTAL BILIRUBIN ADULT 1.3 MG/DL (0.2-1.0)
[2017-01-08] MEDS: GABAPENTIN 400 MG CAP PO SCH ×2 (08:56→21:14)
[2017-01-08] MEDS: SPIRONOLACTONE 100 MG TAB PO SCH ×2 (08:56→21:15)
[2017-01-08] MEDS: AQUAPHOR OINT 50 APPLIC/50 GM TUBE TOPICAL SCH ×2 (08:56→21:00)
[2017-01-08] MEDS: ASCORBIC ACID 500 MG TAB PO SCH (08:56)
[2017-01-08] MEDS: guaiFENesin E.R. 600 MG TAB PO SCH ×2 (08:56→21:15)
[2017-01-08] MEDS: PANTOPRAZOLE SOD 40 MG DELAYED RELEASE TAB PO SCH (08:56)
[2017-01-08] MEDS: ESCITALOPRAM OXALATE 20 MG TAB PO SCH (08:56)
[2017-01-08] MEDS: busPIRone HCL 10 MG TAB PO SCH ×2 (08:56→21:14)
[2017-01-08] MEDS: THIAMINE HCL 100 MG TAB PO SCH (08:56)
[2017-01-08] MEDS: CHOLECALCIFEROL (VIT D3) 1000 UNIT TAB PO SCH (08:56)
[2017-01-08] MEDS: PROPRANOLOL HCL 20 MG TAB PO SCH (08:56)
[2017-01-08] MEDS: SODIUM CHLORIDE 0.9% FLUSH 10 ML FLUSH IV FLUSH SCH ×2 (08:57→21:18)
[2017-01-08] MEDS: DOCUSATE SODIUM 50 MG/SENNA 8.6 MG TAB PO SCH ×2 (08:58→21:00)
[2017-01-08] MEDS: LACTULOSE SYRUP 20 GM/30 ML CUP PO SCH ×4 (08:58→21:15)
[2017-01-08] MEDS: FUROSEMIDE 40 MG TAB PO SCH ×2 (09:05→17:34)
[2017-01-08 09:56] LABS: PLATELET ESTIMATE SMEAR LOW (NORMAL); PLATELET MORPHOLOGY NORMAL (NORMAL); SCAN/DIFF AUTO DIFF CONFIRMED
[2017-01-08] MEDS: ONDANSETRON HCL 4 MG/2 ML VIAL IVP PRN (09:56)
[2017-01-08] MEDS ORDERED: VANCOMYCIN INJ 1,250 MG in SODIUM CHLOR 0.9% 250 ML INJ 250 ML IV ONE (10:00)
--- NOTE | 2017-01-08 11:10 | HHI.GIFU ---
Subjective Remarks Resting in bed. Had a rough night, states he did not get much sleep and now he is tired. Breathing better and able to go higher with Incentive spirometer since his paracentesis yesterday. [facility] him to have future [facility]acentesis here locally. (Angle Zee) Objective Vitals I&O Vital Signs Date Time Temp Pulse Resp B/P (MAP) Pulse Ox O2 Delivery O2 Flow Rate FiO2 01/08/17 08:00 95.7 68 18 116/82 (93) 97 01/08/17 06:53 20 01/08/17 00:00 97.5 66 17 106/65 (79) 97 01/07/17 20:00 97.1 60 18 111/58 (75) 93 01/07/17 18:54 100 01/07/17 16:00 96.9 57 17 114/59 (77) 100 01/07/17 12:13 96.8 57 16 121/75 (90) 97 01/07/17 12:00 97.9 58 19 141/68 (92) 99 I/O 01/07/17 01/07/17 01/07/17 01/08/17 01/08/17 01/08/17 07:00 15:00 23:00 07:00 15:00 23:00 Intake Total 340 ml 120 ml 1150 ml 640 ml Output Total 750 ml 800 ml 200 ml Balance -410 ml 120 ml 350 ml 440 ml Intake Oral 240 ml 120 ml 950 ml 540 ml IV Total 100 ml 200 ml 100 ml Output Urine Total 750 ml 800 ml 200 ml # Voids 1 # Bowel Movements 0 0 0 Laboratory Laboratory Tests Test 01/07/17 12:30 01/08/17 05:45 Peritoneal Fluid WBC 210 Peritoneal Fluid RBC 50 Peritoneal Fluid Neutrophils 5 Peritoneal Fluid Lymphocytes 13 Peritoneal Fluid Histiocytes 81 Peritoneal Fluid Mesothelial Cells 1 Peritoneal Fluid Total Protein 1.4 Peritoneal Fluid Albumin 0.7 Peritoneal Fluid LDH 72 Peritoneal Fluid Glucose 199 White Blood Count 3.5 Red Blood Count 2.69 Hemoglobin 7.6 Hematocrit 22.7 Mean Corpuscular Volume 84.2 Mean Corpuscular Hemoglobin 28.1 Mean Corpuscular Hemoglobin Concent 33.3 Red Cell Distribution Width 17.4 Platelet Count 66 Mean Platelet Volume 7.3 Neutrophils (%) (Auto) 65.8 Lymphocytes (%) (Auto) 13.6 Monocytes (%) (Auto) 15.6 Eosinophils (%) (Auto) 4.3 Basophils (%) (Auto) 0.7 Neutrophils # (Auto) 2.3 Lymphocytes # (Auto) 0.5 Monocytes # (Auto) 0.6 Eosinophils # (Auto) 0.2 Basophils # (Auto) 0.0 CBC Comment AUTO DIFF Differential Comment AUTO DIFF CONFIRMED Platelet Estimate LOW Platelet Morphology Comment NORMAL Blood Urea Nitrogen 22 Creatinine 1.18 Random Glucose 155 Total Protein 5.5 Albumin 2.8 Calcium Level 8.1 Alkaline Phosphatase 48 Aspartate Amino Transf (AST/SGOT) 95 Alanine Aminotransferase (ALT/SGPT) 37 Total Bilirubin 1.3 Sodium Level 129 Potassium Level 5.1 Chloride Level 98 Carbon Dioxide Level 25.1 Anion Gap 6 Estimat Glomerular Filtration Rate 63 Random Vancomycin Level 11.4 Date/Time Source Procedure Growth Status 12/30/16 17:50 Blood Peripheral Aerobic Blood Culture - Final NO GROWTH IN 5 DAYS Complete 12/30/16 17:50 Blood Peripheral Anaerobic Blood Culture - Final NO GROWTH IN 5 DAYS Complete 01/07/17 12:30 Fluid Peritoneal Fluid Gram Stain - Final Resulted 01/07/17 12:30 Fluid Peritoneal Fluid Body Fluid Culture Pending Resulted 01/06/17 16:15 Stool Stool Stool Occult Blood (JU) - Final HEMOCCULT NEGATIVE Complete 01/04/17 15:28 Sputum Expectorated Sputum Gram Stain - Final Complete 01/04/17 15:28 Sputum Expectorated Sputum Sputum Culture - Final MODERATE GROWTH NORMAL RESPIRATORY LIAT Complete Imaging Last Impressions Cyst Biopsy Asp-Paracentesis US 01/07/17 0000 Signed Impressions: Service Date/Time: Saturday, January 07, 2017 12:08 - CONCLUSION: Uncomplicated ultrasound guided paracentesis. Brooks Bobby MD Abdomen/Pelvis CT 01/06/17 0000 Signed Impressions: Service Date/Time: Friday, January 06, 2017 18:10 - CONCLUSION: 1. No intra-abdominal hemorrhage. 2. Cirrhosis with moderate volume ascites and splenomegaly again noted. 3. Ascitic fluid collected in a right inguinal hernia again noted. 4. Atherosclerosis again seen of the abdominal aorta. Harpreet Farris MD Paracentesis 01/02/17 0000 Signed Impressions: Service Date/Time: Monday, January 02, 2017 00:00 - CONCLUSION: 1. Uncomplicated abdominal ascites drainage. Immediately following drainage of the ascites the catheter was removed. Bakari Worrell MD Catheter Placement X-Ray 01/01/17 0000 Signed Impressions: Service Date/Time: December 00:00 - CONCLUSION: 1. Uncomplicated paracentesis via the patient's abdominal drainage catheter. 2. Successful removal of the patient's ASPIRA abdominal ascites drain Bakari Worrell MD Knee X-Ray 12/31/16 0000 Signed Impressions: Service Date/Time: Saturday, December 31, 2016 14:13 - CONCLUSION: Degenerative changes, negative for fracture. German Worrell MD FACR Chest X-Ray 12/30/16 1640 Signed Impressions: Service Date/Time: Friday, December 30, 2016 16:55 - CONCLUSION: 1. Minimal basilar atelectasis. No effusion. No pneumothorax. Félix Vail MD Physical Exam HEENT: Normocephalic; atraumatic; no jaundice. CHEST: CTA CARDIAC: RRR ABDOMEN: Semifirm, distended with moderate amount ascites, mild right lower abdomen/side tenderness; hepatosplenomegaly; bowel sounds are present EXTREMITIES: BLE edema SKIN: Normal; no rash; no jaundice. 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 On Lasix, Spironolactone at home. States watching his Salt and fluid intake. We saw him in November when he was hospitalized about 2 weeks after a drain was placed for his ascites and he was found to have SBP. Peritoneal fluid cultures at that time revealed enterococcus faecalis. He was evaluated by IR on 11/26/16 and they removed the tunneled peritoneal drain. The final culture from the peritoneal catheter tip was < 15 CFU gram positive cocci. He reports that he [facility]. Peritoneal fluid WBC 3273, RBC 446, Neutrophils 56. Cx with Klebsiella Oxytoca and MRSA. S/P removal of peritoneal drain and paracentesis with removal of 6L by IR (01/02). 910cc (+) on fluid balance for today (383+ yesterday). Rpt. US guided paracentesis (01/07/17)--> 6,000cc fluid removed. Peritoneal WBC 210, RBC 50. Peritoneal cx pending. Lasix 40mg po BID, spironolactone 100mg po bid. Ceftazidime. Await repeat cx. - SBP. Cx with Klebsiella Oxytoca and MRSA. Ceftazidime. Await repeat cx. - Abnormal imaging with circumferential wall thickening involving the cecum. CT Scan abdomen and pelvis (12/30/16)---> Circumferential wall thickening involving the cecum with mild inflammatory change suggesting acute colitis. FU studies to document complete resolution are suggested to exclude a mass. Cirrhosis with splenomegaly and moderate volume ascites, right inguinal hernia containing ascitic fluid, large calcified atherosclerotic plaque involving the abdominal aorta at the origin of the celiac. I suspect there is stenosis of the celiac origin. CTA would be needed to further evaluate this. The SILVANA and SMA are patent and therefore the presumed celiac stenosis is likely clinically insignificant. Cardiomegaly. Denies diarrhea. Last colonoscopy was 2010 at the [facility]. S/P Colonoscopy ()---> Sigmoid diverticulosis internal hemorrhoids, no evidence of colitis. - Liver cirrhosis with elevated LFTs. CT as above. Quit drinking in March 2016. (+) Amphetamines on toxicology screen. MELD 13. - Esophageal varices, GAVE. S/P EGD (01/01/17)---> GAVE, Esophageal varices, Portal gastropathy - Anemia. 7.6/22.7. No active bleeding. - Coagulopathy/Thrombocytopenia. Plt 66,000 - Hepatic encephalopathy. Lactulose. Ammonia 50 (01/04) - Hepatitis C, Tx naive. PLAN: - 2 gram sodium diet - 1500cc fluid restriction - Await repeat peritoneal cx/sensitivity - Cont. Abx Ceftazidime - Cont. Lasix 40 mg to bid dosing - Cont. Spironolactone 100 mg BID - Cont. Protonix - Cont. Lactulose - Cont. Propranolol - Monitor labs - Supportive care - Further recommendations to follow based on results of above - Patient seen and examined by Dr. Maldonado and myself and this note is written on his behalf. (Angle Zee) Plan Patient was seen and examined, agree with above Notes, continue diuretics, patient needs to follow-up as an outpatient with the [facility] and possibly evaluated for transplant we will follow up as needed thank you ([place],AmAngle Tadeo Jan 08, 2017 11:10 Alvarado Maldonado MD Jan 08, 2017 15:51
[2017-01-08 12:00] VITALS: BP 124/57; PULSE 64; RESP 16; TEMP 96; O2SAT 96
[2017-01-08] MEDS: ALBUMIN HUMAN 25% 25 GM/100 ML BAGP IV SCH ×3 (12:02→23:12)
--- NOTE | 2017-01-08 15:26 | HHI.FPPN ---
Subjective Remarks Pt seen and examined this morning. No acute events overnight. He denies chest pain, shortness of breath. Abdominal discomfort continues to improve. He reports that his stools are loose, brown in color. He denies black or bloody stools. He denies chest pain, shortness of breath. He denies any current active bleeding. His nurse has no acute concerns. (Abelardo Ferraro MD R3) Objective Vitals Vital Signs Date Time Temp Pulse Resp B/P (MAP) Pulse Ox O2 Delivery O2 Flow Rate FiO2 01/08/17 12:00 96.0 64 16 124/57 (79) 96 01/08/17 08:00 95.7 68 18 116/82 (93) 97 01/08/17 06:53 20 01/08/17 00:00 97.5 66 17 106/65 (79) 97 01/07/17 20:00 97.1 60 18 111/58 (75) 93 01/07/17 18:54 100 01/07/17 16:00 96.9 57 17 114/59 (77) 100 I/O 01/07/17 01/07/17 01/07/17 01/08/17 01/08/17 01/08/17 07:00 15:00 23:00 07:00 15:00 23:00 Intake Total 340 ml 120 ml 1150 ml 640 ml 250 ml Output Total 750 ml 800 ml 200 ml Balance -410 ml 120 ml 350 ml 440 ml 250 ml Intake Oral 240 ml 120 ml 950 ml 540 ml IV Total 100 ml 200 ml 100 ml 250 ml Output Urine Total 750 ml 800 ml 200 ml # Voids 1 # Bowel Movements 0 0 0 (Abelardo Ferraro MD R3) Result Diagram: 01/08/17 0545 01/08/17 0545 Objective Remarks GENERAL: in NAD, no respiratory distress, seated in bed comfortably HEENT: NCAT, EOMI, no scleral icterus, no conjunctival injection. CV: Regular rate and rhythm; normal perfusion. Holosystolic murmur. CHEST/PULM: Course breath sounds appreciated in bilateral lung [place]. No wheezes or crackles appreciated. Good air movement bilaterally ABD/GI: Bandage over prior catheter site removed, healing wound noted with minimal erythema surrounding it, nontender, no discharge. Single suture in place. Abdomen distended, nontender, positive bowel sounds. EXT: 2+ pitting edema to knee. No calf tenderness. NEURO: Awake, alert. normal muscle tone. SKIN: No rashes. Some excoriations noted on lower extremities. PSYCH: Mood and affect are appropriate. (Abelardo Ferraro MD R3) A/P Assessment and Plan Mr. Allison is a 61 yo M admitted with peritonitis secondary to indwelling catheter. Had EGD, Colonoscopy on 01/[address] on admission showed circumferential wall thickening and mild inflammatory changes - no acute findings. WBC's found on peritoneal fluid, cultures growing Klebsiella, MRSA. Started on Vanc, Ceftazidime on 01/01. U/S guided paracentesis, peritoneal catheter removal on 01/02. Discharge Planning Will need 5-10 days of IV antibiotics (starting 01/01). Is currently attempting to arrange future therapeutic paracentesis in [facility]. CM on board and patient has contact information for social worker aide at [place] (Abelardo Ferraro MD R3) Attending Attestation Patient seen and examined. Case reviewed and discussed Agree with plan of care as discussed with me and documented in the resident note. (Chari Loving MD) Problem List: (1) Anemia ICD Codes: D64.9 - Anemia, unspecified Status: Chronic Plan: Impression: Hgb decreased over past 2 days, low on admission at 9.9. Received 1 unit RBC 01/06/17. Pt reports no acute bleeding. -Hemoglobin 7.6, decreased from 8.3 yesterday -Will monitor CBC periodically -Negative CT for active bleeds -Hemoccult negative on 01/06 -Continue to monitor -Pt recently underwent colonoscopy and EGD (2) Peritonitis ICD Codes: K65.9 - Peritonitis, unspecified Status: Resolved Plan: Patient with chronic ascites from cirrhosis and has indwelling peritoneal catheter. He was admitted 11/2016 for peritonitis, and catheter was removed. Subsequently, he had one replaced in [place] due to transportation issues (inability to get to regular paracentesis appts). Unfortunately, his peritonitis recurred. It has been discussed with patient that his indwelling catheter needs to be removed and is not a good idea to have replaced due to high risk of reinfection. Initially, he was willing to have the catheter removed only if he is able to have local paracentesis (rather than drive weekly to [place]). However, he agreed to have the catheter removed on . Therapeutic paracentesis was performed at that time as well. The [place] nurse outreach case manager assigned to him was able to contact [facility] who states that the pt will have to put in a request to have local paracentesis. Pt will continue to call [place] nurse outreach case manager today to get the process started. Peritoneal fluid with WBC, cultures growing Klebsiella and MRSA -GI consulted, appreciate recommendations -2gm sodium diet -Continue SBP treatment -Continue ascites management/diuresis -Lasix 40 mg BID -Spironolactone 100mg BID -Continue protonix -Continue Propanolol -01/02 s/p Paracentesis/peritoneal catheter removal -6300ml cloudy, yellow fluid removed -Peritoneal WBC count to 10, peritoneal RBCs 50, peritoneal neutrophils 5, peritoneal lymphocytes 13 -SBP treatment completed -Vancomycin (01/01-01/06 ) -Ceftazidime (01/01-01/08) -Albumin 25mg IV BID with use of antibiotic in setting of SBP (01/03) -PO [place] for pain -To have second paracentesis 01/07/17 (3) Ascites ICD Codes: R18.8 - Other ascites Status: Chronic Plan: s/p peritoneal catheter removal 01/02 Continue management per GI -Spironolactone 100mg BID -Lasix 40mg BID -Paracentesis at [place] as needed -Currently arranging closer location See plan above (4) Cirrhosis ICD Codes: K74.60 - Unspecified cirrhosis of liver Status: Resolved Plan: Impression: Likely secondary to alcohol abuse and Hepatitis C. Patient last seen by GI 11/2016; EGD with cautery performed->varices with no stigmata, mild portal gastropathy, antral gave. Patient treated with chronic Spironolactone, Lasix, Propranolol, Lactulose, PPI. MELD of 21 on admission -Low sodium diet -Continue home Propranolol -See plans above -F/U with gastroenterology at [place] -Reported possible plans for follow-up and discussion regarding possible liver transplant and/or Hep C treatment per patient (5) Hepatic encephalopathy ICD Codes: K72.90 - Hepatic failure, unspecified without coma Status: Chronic Plan: Impression: Patient with current normal mental status. Ammonia 44 on 01/01 , 68 on 01/02, 57 on 01/03, 50 on 01/04 -Continue hyperammonemia treatment -Continue home Lactulose 30ml four times daily due to elevated ammonia level -Will recheck ammonia (6) Cough ICD Codes: R05 - Cough Status: Resolved Plan: Patient complains of productive cough on 01/03, no cough at this time -Afebrile, vitals stable, no complaints of CP, SOB at this time -sputum culture shows light growth of normal respiratory shanon -Mucinex, Tessalon pearls ordered (7) Weakness of both legs ICD Codes: R29.898 - Other symptoms and signs involving the musculoskeletal system Status: Chronic Plan: Suspected 2/2 to elevated Ammonia vs Staph myopathy -Treatment of elevated ammonia as above -Will continue to monitor (8) Hyponatremia ICD Codes: E87.1 - Hypo-osmolality and hyponatremia Status: Chronic Plan: Impression: Patient with chronic hyponatremia secondary to liver disease. Consistently 130 at this time. Patient reported he had been eating ice to moisten his mouth, will stop at this time as it is another source of fluid intake. -Will fluid restrict and monitor I/Os. (9) Mood disorder ICD Codes: F39 - Unspecified mood [affective] disorder Status: Chronic Plan: -Continue home escitalopram (10) DM (diabetes mellitus) ICD Codes: E11.9 - Type 2 diabetes mellitus without complications Status: Chronic Plan: Impression: Reportedly on home Novolin 7 U BID; patient suggests nonadherence. 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 -Continue Accuchecks with low dose insulin sliding scale (11) HTN (hypertension) ICD Codes: I10 - Essential (primary) hypertension Status: Chronic Plan: Patient has been normotensive during hospitalization -Continue to monitor BP -Continue diuresis (12) DVT PPX Status: Chronic Plan: -Bilateral SCD's -Will withhold anticoagulation due to thrombocytopenia and INR 1.5 -Will promote walking with PT consultation (Abelardo Ferraro MD R3) Problem Qualifiers (1) Ascites: Qualified Codes: K70.31 - Alcoholic cirrhosis of liver with ascites (2) Cirrhosis: Qualified Codes: K70.31 - Alcoholic cirrhosis of liver with ascites (3) DM (diabetes mellitus): (4) HTN (hypertension): Qualified Codes: I10 - Essential (primary) hypertension Abelardo Ferraro MD R3 Jan 08, 2017 15:26 Chari Loving MD Jan 13, 2017 17:03
[2017-01-08 16:00] VITALS: BP 110/55; PULSE 63; RESP 16; TEMP 95.6; O2SAT 97
[2017-01-08 20:00] VITALS: BP 130/62; PULSE 68; RESP 18; TEMP 97.3; O2SAT 96
[2017-01-08] MEDS: DOXEPIN HCL 50 MG CAP PO SCH (21:15)
[2017-01-09] VITALS: BP 111/58; PULSE 67; RESP 18; TEMP 96.8; O2SAT 96
[2017-01-09] MEDS: ACETAMINOPHEN/HYDROcodone 325 MG/10 MG TAB PO PRN ×2 (01:40→15:01)
[2017-01-09] MEDS: cefTAZidime INJ 2,000 MG in SODIUM CHLORIDE 0.9% INJ 100 ML IV SCH ×2 (02:46→12:41)
[2017-01-09 05:10] LABS: AUTOMATED NEUTROPHIL # 2.4 TH/MM3 (1.8-7.7); BASOPHIL % 0.4 % (0.0-2.0); EOSINOPHIL # 0.1 TH/MM3 (0-0.4); EOSINOPHIL % 3.2 % (0.0-4.0); HEMATOCRIT 23.4 % (39.0-51.0); LYMPH % 13.5 % (9.0-44.0); LYMPHOCYTE # 0.5 TH/MM3 (1.0-4.8); MEAN CELL VOLUME 84.2 FL (80.0-100.0); MEAN CORPUSCULAR HEMOGLOBIN 27.8 PG (27.0-34.0); MONO % 16.3 % (0.0-8.0); NEUT % 66.6 % (16.0-70.0); PLATELET COUNT 68 TH/MM3 (150-450); RED BLOOD COUNT 2.78 MIL/MM3 (4.50-5.90); RED CELL DISTRIBUTION WIDTH 17.5 % (11.6-17.2); WHITE BLOOD COUNT 3.6 TH/MM3 (4.0-11.0)
[2017-01-09 05:15] LABS: INTERNATIONAL NORMALIZED RATIO 1.5 RATIO; PROTHROMBIN TIME - PATIENT 16.9 SEC (9.8-11.6)
[2017-01-09 05:35] LABS: ANION GAP 6 MEQ/L (5-15); AST (GOT) 98 U/L (15-37); BICARBONATE 27.2 MEQ/L (21.0-32.0); BLOOD UREA NITROGEN 21 MG/DL (7-18); CHLORIDE 97 MEQ/L (98-107); GLOMERULAR FILTRATION RATE 65 ML/MIN (>89); POTASSIUM 5.5 MEQ/L (3.5-5.1); SODIUM (NA) 130 MEQ/L (136-145)
[2017-01-09 05:37] LABS: ALKALINE PHOSPHATASE 42 U/L (45-117); ALT (GPT) 38 U/L (12-78); TOTAL BILIRUBIN ADULT 1.4 MG/DL (0.2-1.0)
[2017-01-09 05:46] LABS: HEMO FLAGS AUTO DIFF
[2017-01-09 08:00] VITALS: BP 115/71; PULSE 68; RESP 17; TEMP 96.4; O2SAT 96
[2017-01-09 08:53] LABS: KERATOCYTES OCC (NORMAL); PLATELET ESTIMATE SMEAR LOW (NORMAL); PLATELET MORPHOLOGY NORMAL (NORMAL); SCAN/DIFF AUTO DIFF CONFIRMED
[2017-01-09] MEDS: PROPRANOLOL HCL 20 MG TAB PO SCH (09:00)
[2017-01-09] MEDS: FUROSEMIDE 40 MG TAB PO SCH (09:00)
[2017-01-09] MEDS: AQUAPHOR OINT 50 APPLIC/50 GM TUBE TOPICAL SCH (09:00)
--- NOTE | 2017-01-09 09:18 | HHI.FPPN ---
Subjective Remarks Patient was seen and examined this morning. He is feeling better, wants to take shower. Notes that he wants to go to inpatient rehab after discharge because he doesn't feel like he has anywhere else to go. Denies chest pain, sob, n/v, abdominal pain. No blood in stools, last BM today. No concerns but states he doesn't know if paracentesis can be set up locally. Notably, he has continued relationship with [facility] (Zoey Ferraro MD R2) Objective Vitals Vital Signs Date Time Temp Pulse Resp B/P (MAP) Pulse Ox O2 Delivery O2 Flow Rate FiO2 01/09/17 08:00 96.4 68 17 115/71 (86) 96 01/09/17 00:00 96.8 67 18 111/58 (75) 96 01/08/17 20:00 97.3 68 18 130/62 (84) 96 01/08/17 16:00 95.6 63 16 110/55 (73) 97 01/08/17 12:00 96.0 64 16 124/57 (79) 96 I/O 01/08/17 01/08/17 01/08/17 01/09/17 01/09/17 01/09/17 07:00 15:00 23:00 07:00 15:00 23:00 Intake Total 640 ml 250 ml 800 ml Output Total 200 ml 900 ml 750 ml Balance 440 ml 250 ml -100 ml -750 ml Intake Oral 540 ml 600 ml IV Total 100 ml 250 ml 200 ml Output Urine Total 200 ml 900 ml 750 ml # Bowel Movements 0 1 (Zoey Ferraro MD R2) Result Diagram: 01/09/17 0448 01/09/17 0448 Imaging Last Impressions Cyst Biopsy Asp-Paracentesis US 01/07/17 0000 Signed Impressions: Service Date/Time: Saturday, January 07, 2017 12:08 - CONCLUSION: Uncomplicated ultrasound guided paracentesis. Brooks Bobby MD Abdomen/Pelvis CT 01/06/17 0000 Signed Impressions: Service Date/Time: Friday, January 06, 2017 18:10 - CONCLUSION: 1. No intra-abdominal hemorrhage. 2. Cirrhosis with moderate volume ascites and splenomegaly again noted. 3. Ascitic fluid collected in a right inguinal hernia again noted. 4. Atherosclerosis again seen of the abdominal aorta. Harpreet Farris MD Paracentesis 01/02/17 0000 Signed Impressions: Service Date/Time: Monday, January 02, 2017 00:00 - CONCLUSION: 1. Uncomplicated abdominal ascites drainage. Immediately following drainage of the ascites the catheter was removed. Bakari Worrell MD Catheter Placement X-Ray 01/01/17 0000 Signed Impressions: Service Date/Time: December 00:00 - CONCLUSION: 1. Uncomplicated paracentesis via the patient's abdominal drainage catheter. 2. Successful removal of the patient's ASPIRA abdominal ascites drain Bakari Worrell MD Knee X-Ray 12/31/16 0000 Signed Impressions: Service Date/Time: Saturday, December 31, 2016 14:13 - CONCLUSION: Degenerative changes, negative for fracture. German Worrell MD FACR Chest X-Ray 12/30/16 1640 Signed Impressions: Service Date/Time: Friday, December 30, 2016 16:55 - CONCLUSION: 1. Minimal basilar atelectasis. No effusion. No pneumothorax. Félix Vail MD Objective Remarks GENERAL: in NAD, no respiratory distress, ambulatory about the room HEENT: NCAT, EOMI, no scleral icterus, no conjunctival injection. No jaundice. CV: Regular rate and rhythm; normal perfusion. Holosystolic murmur. CHEST/PULM: Course breath sounds improved in bilateral lung stanton. No wheezes or crackles appreciated. Good air movement bilaterally. ABD/GI: Bandage over prior catheter site removed, healed paracentesis lesions on both sides of abdomen. Single suture in place. Abdomen mildly distended, nontender, positive bowel sounds. EXT: 2+ pitting edema to knee. No calf tenderness. NEURO: Awake, alert. normal muscle tone. SKIN: No rashes. Some excoriations noted on lower extremities. PSYCH: Mood and affect are appropriate. Medications and IVs Inpatient Medications Acetaminophen (Tylenol) 650 mg Q4H PRN PO TEMP > 100.4 Last administered on t 22:22; Start 12/30/16 at 20:30; Stop 01/09/17 at 17:47; Status DC Acetaminophen/ Hydrocodone Bitart (Dexter 5-325 Mg) 1 tab Q4H PRN PO PAIN SCALE 3 TO 5 Last administered on 01/09/17 10:04; Start 01/06/17 at 14:45; Stop 01/09/17 at 17:47; Status DC Acetaminophen/ Hydrocodone Bitart (Dexter 10-325 Mg) 1 tab Q4H PRN PO PAIN SCALE 6 TO 10 Last administered on 01/09/17 15:01; Start 01/06/17 at 14:45; Stop 01/09/17 at 17:47; Status DC Albumin Human (Albumin 25% Inj) 25 gm Q12H IV Last administered on 01/09/17 12 :41; Start 01/03/17 at 11:00; Stop 01/09/17 at 17:47; Status DC Albuterol/ Ipratropium (Duoneb Neb) 1 ampule Q6HR WHILE AWAKE NEB NEB Last administered on 01/07/17 19:52; Start 01/04/17 at 14:00; Stop 01/08/17 at 13:59 ; Status DC Ascorbic Acid (Vitamin C) 500 mg DAILY PO Last administered on 01/09/17 10:04 ; Start 12/31/16 at 09:00; Stop 01/09/17 at 17:47; Status DC Benzonatate (Tessalon) 100 mg TID PRN PO COUGH Last administered on 01/06/17 21:41; Start 01/03/17 at 07:45; Stop 01/09/17 at 17:47; Status DC Bisacodyl (Dulcolax Supp) 10 mg DAILY PRN RECTAL SEVERE CONSITIPATION; Start at 20:30; Stop 01/09/17 at 17:47; Status DC Buspirone HCl (Buspar) 10 mg BID PO Last administered on 01/09/17 10:04; Start 12/30/16 at 21:00; Stop 01/09/17 at 17:47; Status DC Ceftazidime 2000 mg/Sodium Chloride 100 ml @ 200 mls/hr Q8H IV Last administered on 01/09/17 12:41; Start 01/01/17 at 14:00; Stop 01/09/17 at 13:08 ; Status DC Chlorhexidine Gluconate (Chlorhexidine 2% Cloth) 3 pack CLERK TYPIST PRN TOPICAL SEE LABEL COMMENTS; Start 01/01/17 at 12:00; Stop 01/04/17 at 11:59; Status DC Cholecalciferol (Vitamin D3) 1,000 units DAILY PO Last administered on 10:04; Start 12/31/16 at 09:00; Stop 01/09/17 at 17:47; Status DC Dextrose (D50w (Vial) Inj) 50 ml UNSCH PRN IV PUSH HYPOGLYCEMIA-SEE COMMENTS; Start 12/30/16 at 21:00; Stop 01/09/17 at 17:47; Status DC Diatrizoate Meglum/ Diatrizoate Sod ( Gastromilena Liq) 18 ml ONCE ONCE PO Last administered on 01/06/17 16:28; Start 01/06/17 at 15:45; Stop 01/06/17 at 15:46; Status DC Diphenhydramine HCl (Benadryl) 25 mg Q4H PRN PO SEE LABEL COMMENTS Last administered on 01/06/17 12:18; Start 01/06/17 at 07:30; Stop 01/09/17 at 17:47 ; Status DC Doxepin HCl (SINEquan) 50 mg HS PO Last administered on 01/08/17 21:15; Start 12/30/16 at 21:00; Stop 01/09/17 at 17:47; Status DC Emollient Ointment (Aquaphor Oint) 1 applic Q12HR TOPICAL ; Start 12/31/16 at 13 :45; Stop 01/09/17 at 17:47; Status DC Escitalopram Oxalate (Lexapro) 20 mg DAILY PO Last administered on 01/09/17 10 :03; Start 12/31/16 at 09:00; Stop 01/09/17 at 17:47; Status DC Flumazenil (Romazicon Inj) 0.2 mg Q1M PRN IV PUSH SEE LABEL COMMENTS; Start at 09:15; Stop 01/02/17 at 09:56; Status DC Furosemide (Lasix Inj) 20 mg UNSCH X1 IV Last administered on 01/06/17 17:42 ; Start 01/06/17 at 17:15; Stop 01/06/17 at 20:00; Status DC Furosemide (Lasix) 40 mg BID@0900,1800 PO Last administered on 01/09/17 09:00 ; Start 01/05/17 at 18:00; Stop 01/09/17 at 17:47; Status DC Gabapentin (Neurontin) 400 mg BID PO Last administered on 01/09/17 10:05; Start 01/07/17 at 21:00; Stop 01/09/17 at 17:47; Status DC Glucagon (Glucagon Inj) 1 mg UNSCH PRN OTHER HYPOGLYCEMIA-SEE COMMENTS; Start 12/30/16 at 21:00; Stop 01/09/17 at 17:47; Status DC Guaifenesin (Mucinex Er) 600 mg BID PO Last administered on 01/09/17 10:05; Start 01/03/17 at 09:00; Stop 01/09/17 at 17:47; Status DC Hydromorphone HCl (Dilaudid Pf Inj) 0.5 mg ONCE ONCE IV PUSH Last administered on 12/31/16 03:37; Start 12/31/16 at 03:30; Stop 12/31/16 at 03:32 ; Status DC Hypromellose (Genteal Severe Dry Eye Relief 0.3% Opth Gel) 2 drop Q6H PRN EACH EYE DRY EYE; Start 12/31/16 at 03:00; Stop 01/09/17 at 17:47; Status DC Insulin Aspart (NovoLOG SUPPLEMENTAL SCALE) 1 ACHS SLIDING SCALE SQ Last administered on 01/09/17 14:01; Start 12/30/16 at 21:00; Stop 01/09/17 at 17:47 ; Status DC Lactated Ringer's 1,000 ml @ 30 mls/hr Q24H PRN IV SEE LABEL COMMENTS; Start at 12:00; Stop 01/04/17 at 11:59; Status DC Lactulose (Lactulose Liq) 30 ml QID PO Last administered on 01/09/17 10:03; Start 01/02/17 at 13:00; Stop 01/09/17 at 17:47; Status DC Lorazepam (Ativan Inj) 2 mg Q15M PRN IV PUSH CIWA > 20; Start 12/31/16 at 09:15 ; Stop 01/02/17 at 09:56; Status DC Lorazepam (Ativan) 2 mg Q2H PRN PO CIWA 11-14; Start 12/31/16 at 09:15; Stop at 09:56; Status DC Magnesium Hydroxide (Milk Of Magnesia Liq) 30 ml Q12H PRN PO MILD - MODERATE CONSTIPATION; Start 12/30/16 at 20:30; Stop 01/09/17 at 17:47; Status DC Metoprolol Tartrate (Lopressor) 25 mg CLERK TYPIST PRN PO SEE LABEL COMMENTS; Start 01/01/17 at 12:00; Stop 01/04/17 at 11:59; Status DC Miscellaneous Information SPECIFIC LAB TO BE ABBI... ONCE ONCE .XX Last administered on 01/05/17 12:45; Start 01/05/17 at 12:45; Stop 01/05/17 at 12:46 ; Status DC Morphine Sulfate (Morphine Inj) 2 mg Q3H PRN IV PUSH PAIN SCALE 8 TO 10 Last administered on 01/03/17 05:25; Start 12/31/16 at 05:15; Stop 01/03/17 at 11:16 ; Status DC Naloxone HCl (Narcan Inj) 0.4 mg UNSCH PRN IV PUSH SEE LABEL COMMENTS; Start at 14:45; Stop 01/09/17 at 17:47; Status DC Ondansetron HCl (Zofran Inj) 4 mg Q6H PRN IVP NAUSEA OR VOMITING Last administered on 01/08/17 09:56; Start 12/30/16 at 20:30; Stop 01/09/17 at 17:47 ; Status DC Pantoprazole Sodium (Protonix) 40 mg DAILY PO Last administered on 01/09/17 10 :02; Start 12/31/16 at 09:00; Stop 01/09/17 at 17:47; Status DC Pharmacy Profile Note 0 ml @ 0 mls/hr UNSCH OTHER ; Start 01/01/17 at 11:15; Stop 01/09/17 at 17:47; Status DC Piperacillin Sod/ Tazobactam Sod 50 ml @ 100 mls/hr Q6H IV Last administered on 01/01/17 06:28; Start 12/31/16 at 00:00; Stop 01/01/17 at 11:39; Status DC Polyethylene Glycol (Miralax) 17 gm ONCE ONCE PO Last administered on 14:38; Start 01/04/17 at 13:45; Stop 01/04/17 at 13:46; Status DC Polyethylene Glycol/ Electrolytes (Colyte Liq) 4,000 ml ONCE ONCE PO Last administered on 12/31/16 17:33; Start 12/31/16 at 16:00; Stop 12/31/16 at 16:01 ; Status DC Povidone Iodine (Betadine 5% Antisepsis Kit) 1 applic CLERK TYPIST PRN EACH NARE SEE LABEL COMMENTS; Start 01/01/17 at 12:00; Stop 01/04/17 at 11:59; Status DC Propranolol HCl (Inderal) 20 mg DAILY PO Last administered on 01/09/17 09:00; Start 12/31/16 at 09:00; Stop 01/09/17 at 17:47; Status DC Senna/Docusate Sodium (Layne-Colace) 2 tab BID PO Last administered on 10:04; Start 01/04/17 at 21:00; Stop 01/09/17 at 17:47; Status DC Sennosides (Senokot) 17.2 mg Q12H PRN PO MODERATE - SEVERE CONSTIPATION; Start 12/30/16 at 20:30; Stop 01/09/17 at 17:47; Status DC Sodium Chloride 250 ml @ 15 mls/hr ONCE ONCE IV Last administered on 07:30; Start 01/06/17 at 07:30; Stop 01/07/17 at 00:09; Status DC Sodium Chloride (NS Flush) 2 ml BID IV FLUSH Last administered on 01/09/17 12: 42; Start 12/30/16 at 21:00; Stop 01/09/17 at 17:47; Status DC Spironolactone (Aldactone) 100 mg BID PO Last administered on 01/09/17 10:03; Start 12/30/16 at 21:00; Stop 01/09/17 at 17:47; Status DC Thiamine HCl (Vitamin B1) 100 mg DAILY PO Last administered on 01/09/17 10:05 ; Start 12/31/16 at 09:00; Stop 01/09/17 at 17:47; Status DC Vancomycin HCl 1250 mg/Sodium Chloride 262.5 ml @ 250 mls/hr ONCE ONCE IV Last administered on 01/08/17 09:56; Start 01/08/17 at 10:00; Stop 01/08/17 at 11:02; Status DC Vancomycin HCl 1500 mg/Sodium Chloride 515 ml @ 257.5 mls/ hr Q12H IV Last administered on 01/03/17 00:31; Start 01/01/17 at 13:00; Stop 01/03/17 at 08:27 ; Status DC (Zoey Ferraro MD R2) Urinary Catheter: No (Zoey Ferraro MD R2) Vascular Central Line Catheter: No (Zoey Ferraro MD R2) A/P Assessment and Plan Mr. Allison is a 61 yo M admitted with peritonitis secondary to indwelling catheter. Had EGD, Colonoscopy on 01/[address] on admission showed circumferential wall thickening and mild inflammatory changes - no acute findings. WBC's found on peritoneal fluid, cultures growing Klebsiella, MRSA. Started on Vanc, Ceftazidime on 01/01. U/S guided paracentesis, peritoneal catheter removal on 01/02. Repeat ultrasound-guided paracentesis on 01/07 showing no evidence of SBP. Patient is stable for discharge to home today with OT and PT ordered Discharge Planning Patient is status post completion of IV antibiotics for SBP. Repeat paracentesis showed no evidence of SBP. [facility] [place] [facility] He is currently attempting to arrange future therapeutic paracenteses in [facility]. CM on board and patient has contact information for social work specialist at [place]. Patient is stable for discharge today to home. He is having outpatient PT and OT arranged through the [place] per CM (Zoey Ferraro MD R2) Attending Attestation Patient seen and examined. Case reviewed and discussed Agree with plan of care as discussed with me and documented in the resident note. (Chari Loving MD) Problem List: (1) Anemia ICD Codes: D64.9 - Anemia, unspecified Status: Chronic Plan: Impression: Hgb decreased over past 2 days, low on admission at 9.9. Received 1 unit RBC 01/06/17. Pt reports no acute bleeding. Hemoglobin stable today at 7.7. Patient likely has baseline anemia of chronic disease due to liver dysfunction -Will monitor CBC daily -Negative CT for active bleeds -Hemoccult negative on 01/06 -Pt recently underwent colonoscopy and EGD (2) Peritonitis ICD Codes: K65.9 - Peritonitis, unspecified Status: Resolved Plan: Resolved, hospital course below Hospital course: Patient with chronic ascites from cirrhosis and had indwelling peritoneal catheter, removed 01/02 He was admitted 11/2016 for peritonitis, and catheter was removed. Subsequently, he had one replaced in [place] due to transportation issues (inability to get to regular paracentesis appts). Unfortunately, his peritonitis recurred. It has been discussed with patient that his indwelling catheter needs to be removed and is not a good idea to have replaced due to high risk of reinfection. Initially, he was willing to have the catheter removed only if he is able to have local paracentesis (rather than drive weekly to [place]). However, he agreed to have the catheter removed on . Therapeutic paracentesis was performed at that time as well. The [facility] nurse case manager assigned to him was able to contact the [place] nurse case manager who states that the pt will have to put in a request to have local paracentesis. Pt will continue to call [place] nurse case manager today to get the process started. Peritoneal fluid with WBC, cultures growing Klebsiella and MRSA -GI consulted, appreciate recommendations -2gm sodium diet -Continue SBP treatment -Continue ascites management/diuresis -Lasix 40 mg BID -Spironolactone 100mg BID -Continue protonix -Continue Propanolol -01/02 s/p Paracentesis/peritoneal catheter removal -6300ml cloudy, yellow fluid removed -Peritoneal WBC count to 10, peritoneal RBCs 50, peritoneal neutrophils 5, peritoneal lymphocytes 13 -SBP treatment completed -Vancomycin (01/01-01/06) -Ceftazidime (01/01-01/08) -Albumin 25mg IV BID with use of antibiotic in setting of SBP (01/03) -PO Dexter for pain -Repeat paracentesis 01/07 with reassuring fluid analysis results (3) Ascites ICD Codes: R18.8 - Other ascites Status: Chronic Plan: s/p peritoneal catheter removal 01/02 Paracentesis was performed on 01/07, diagnostic and therapeutic Continue management per GI -Spironolactone 100mg BID -Lasix 40mg BID -Paracentesis at [place] as needed -Currently arranging closer location See plan above (4) Cirrhosis ICD Codes: K74.60 - Unspecified cirrhosis of liver Status: Resolved Plan: Impression: Likely secondary to alcohol abuse and Hepatitis C. Patient last seen by GI 11/2016; EGD with cautery performed->varices with no stigmata, mild portal gastropathy, antral gave. Patient treated with chronic Spironolactone, Lasix, Propranolol, Lactulose, PPI. MELD of 21 on admission -Low sodium diet -Continue home Propranolol -See plans above -F/U with gastroenterology at [place] -Reported possible plans for follow-up and discussion regarding possible liver transplant and/or Hep C treatment per patient -He has a GI appointment on January 14 (5) Hepatic encephalopathy ICD Codes: K72.90 - Hepatic failure, unspecified without coma Status: Chronic Plan: Impression: Patient with current normal mental status. Ammonia 44 on 01/01 , 68 on 01/02, 57 on 01/03, 50 on 01/04. Most recent is 01/09 at 65 -Continue hyperammonemia treatment -Continue home Lactulose 30ml four times daily due to elevated ammonia level (6) Cough ICD Codes: R05 - Cough Status: Resolved Plan: Patient complains of productive cough on 01/03, no cough at this time -Afebrile, vitals stable, no complaints of CP, SOB at this time -sputum culture shows light growth of normal respiratory shanon -Mucinex, Tessalon pearls ordered (7) Weakness of both legs ICD Codes: R29.898 - Other symptoms and signs involving the musculoskeletal system Status: Chronic Plan: Suspected 2/2 to elevated Ammonia vs Staph myopathy -Treatment of elevated ammonia as above -Will continue to monitor -PT and OT ordered as outpatient. Inpatient PT and OT recommended by physical therapy and occupational therapy staff (8) Hyponatremia ICD Codes: E87.1 - Hypo-osmolality and hyponatremia Status: Chronic Plan: Impression: Patient with chronic hyponatremia secondary to liver disease. Consistently 130 at this time. Patient reported he had been eating ice to moisten his mouth, will stop at this time as it is another source of fluid intake. -Will fluid restrict and monitor I/Os. (9) Mood disorder ICD Codes: F39 - Unspecified mood [affective] disorder Status: Chronic Plan: -Continue home escitalopram (10) DM (diabetes mellitus) ICD Codes: E11.9 - Type 2 diabetes mellitus without complications Status: Chronic Plan: Impression: Reportedly on home Novolin 7 U BID; patient suggests nonadherence. 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 -Continue Accuchecks with low dose insulin sliding scale -He may continue home medications at discharge (11) HTN (hypertension) ICD Codes: I10 - Essential (primary) hypertension Status: Chronic Plan: Patient has been normotensive during hospitalization -Continue to monitor BP -Continue diuresis (12) DVT PPX Status: Chronic Plan: Fluids: Fluid restriction Electrolytes: monitor and replete as needed Nutrition: Liver failure and heart healthy diet DVT Prophylaxis: Early ambulation. Bilateral SCD's Will withhold anticoagulation due to thrombocytopenia GI Prophylaxis: None indicated (Zoey Ferraro MD R2) Problem Qualifiers (1) Ascites: Qualified Codes: K70.31 - Alcoholic cirrhosis of liver with ascites (2) Cirrhosis: Qualified Codes: K70.31 - Alcoholic cirrhosis of liver with ascites (3) DM (diabetes mellitus): (4) HTN (hypertension): Qualified Codes: I10 - Essential (primary) hypertension Zoey Ferraro MD R2 Jan 09, 2017 09:18 Chari Loving MD Jan 10, 2017 14:33
[2017-01-09] MEDS: PANTOPRAZOLE SOD 40 MG DELAYED RELEASE TAB PO SCH (10:02)
[2017-01-09] MEDS: LACTULOSE SYRUP 20 GM/30 ML CUP PO SCH ×2 (10:03→12:41)
[2017-01-09] MEDS: ESCITALOPRAM OXALATE 20 MG TAB PO SCH (10:03)
[2017-01-09] MEDS: SPIRONOLACTONE 100 MG TAB PO SCH (10:03)
[2017-01-09] MEDS: CHOLECALCIFEROL (VIT D3) 1000 UNIT TAB PO SCH (10:04)
[2017-01-09] MEDS: DOCUSATE SODIUM 50 MG/SENNA 8.6 MG TAB PO SCH (10:04)
[2017-01-09] MEDS: busPIRone HCL 10 MG TAB PO SCH (10:04)
[2017-01-09] MEDS: ASCORBIC ACID 500 MG TAB PO SCH (10:04)
[2017-01-09] MEDS: GABAPENTIN 400 MG CAP PO SCH (10:05)
[2017-01-09] MEDS: guaiFENesin E.R. 600 MG TAB PO SCH (10:05)
[2017-01-09] MEDS: THIAMINE HCL 100 MG TAB PO SCH (10:05)
[2017-01-09] MEDS: INSULIN ASPART SUPPLEMENTAL SCALE SQ SCH ×2 (10:06→14:01)
[2017-01-09 12:00] VITALS: BP 109/52; PULSE 66; RESP 16; TEMP 98.1; O2SAT 96
[2017-01-09] MEDS: ALBUMIN HUMAN 25% 25 GM/100 ML BAGP IV SCH (12:41)
[2017-01-09] MEDS: SODIUM CHLORIDE 0.9% FLUSH 10 ML FLUSH IV FLUSH SCH (12:42)
--- NOTE | 2017-01-09 13:04 | HHI.FF ---
Face to Face Verification Diagnosis: (1) Anemia (2) Weakness of both legs (3) Cirrhosis of liver (4) Bacterial peritonitis Physical Therapy Order: Evaluate and Treat Occupational Therapy Order: Evaluate and Treat I have seen patient Joselito Allison on 01/09/17. My clinical findings support the need for the requested home health care services because: Ltd mobility - disease progression Patient has SOB Limited ability to care for self High risk of falls I certify that my clinical findings support that this patient is homebound because: Unsteady gait/balance Unsafe to leave home unassisted Poor cardiac reserve Zoey Ferraro MD R2 Jan 09, 2017 13:04
[2017-01-09] MEDS ORDERED: HYDR-3583 PO (13:13)
[2017-01-09] MEDS ORDERED: OXYC1TAB36 PO (15:35)
--- NOTE | 2017-01-11 11:33 | HHI.DS ---
Discharge Summary Admission Date Dec 31, 2016 at 08:52 Discharge Date: Jan 09, 2017 Admitting Diagnosis lactic acidosis, hypocalcemia, hyperbilirubinemia,r/o SBP (1) Anemia Diagnosis: Principal Plan: Impression: Hgb decreased over past 2 days, low on admission at 9.9. Received 1 unit RBC 01/06/17. Pt reports no acute bleeding. Hemoglobin stable today at 7.7. Patient likely has baseline anemia of chronic disease due to liver dysfunction -Negative CT for active bleeds -Hemoccult negative on 01/06 -Pt recently underwent colonoscopy and EGD ICD Codes: D64.9 - Anemia, unspecified Status: Chronic (2) Peritonitis Diagnosis: Principal Plan: Resolved, hospital course below Hospital course: Patient with chronic ascites from cirrhosis and had indwelling peritoneal catheter, removed 01/02 He was admitted 11/2016 for peritonitis, and catheter was removed. Subsequently, he had one replaced in [place] due to transportation issues (inability to get to regular paracentesis appts). Unfortunately, his peritonitis recurred. It has been discussed with patient that his indwelling catheter needs to be removed and is not a good idea to have replaced due to high risk of reinfection. Initially, he was willing to have the catheter removed only if he is able to have local paracentesis (rather than drive weekly to [place]). However, he agreed to have the catheter removed on . Therapeutic paracentesis was performed at that time as well. The [place] outpatient case manager assigned to him was able to contact the [place] outpatient case manager who states that the pt will have to put in a request to have local paracentesis. Pt will continue to call [place] outpatient case manager today to get the process started. Peritoneal fluid with WBC, cultures growing Klebsiella and MRSA -GI consulted, appreciate recommendations -2gm sodium diet -Continue SBP treatment -Continue ascites management/diuresis -Lasix 40 mg BID -Spironolactone 100mg BID -Continue protonix -Continue Propanolol -01/02 s/p Paracentesis/peritoneal catheter removal -6300ml cloudy, yellow fluid removed -Peritoneal WBC count to 10, peritoneal RBCs 50, peritoneal neutrophils 5, peritoneal lymphocytes 13 -SBP treatment completed -Vancomycin (01/01-01/06) -Ceftazidime (01/01-01/08) -Albumin 25mg IV BID with use of antibiotic in setting of SBP (01/03) -PO [place] for pain -Repeat paracentesis 01/07 with reassuring fluid analysis results ICD Codes: K65.9 - Peritonitis, unspecified Status: Resolved (3) Ascites Diagnosis: Principal Plan: s/p peritoneal catheter removal 01/02 Paracentesis was performed on 01/07, diagnostic and therapeutic Continue management per GI -Spironolactone 100mg BID -Lasix 40mg BID -Paracentesis at [place] as needed -Currently arranging closer location See plan above ICD Codes: R18.8 - Other ascites Status: Chronic (4) Cirrhosis Diagnosis: Secondary Plan: Impression: Likely secondary to alcohol abuse and Hepatitis C. Patient last seen by GI 11/2016; EGD with cautery performed->varices with no stigmata, mild portal gastropathy, antral gave. Patient treated with chronic Spironolactone, Lasix, Propranolol, Lactulose, PPI. MELD of 21 on admission -Low sodium diet -Continue home Propranolol -See plans above -F/U with gastroenterology at [place] -Reported possible plans for follow-up and discussion regarding possible liver transplant and/or Hep C treatment per patient -He has a GI appointment on January 14 ICD Codes: K74.60 - Unspecified cirrhosis of liver Status: Resolved (5) Hepatic encephalopathy Diagnosis: Secondary Plan: Impression: Patient with current normal mental status. Ammonia 44 on 01/01 , 68 on 01/02, 57 on 01/03, 50 on 01/04. Most recent is 01/09 at 65 -Continue hyperammonemia treatment -Continue home Lactulose 30ml four times daily due to elevated ammonia level ICD Codes: K72.90 - Hepatic failure, unspecified without coma Status: Chronic (6) Cough Diagnosis: Secondary Plan: Patient complains of productive cough on 01/03, no cough at this time -Afebrile, vitals stable, no complaints of CP, SOB at this time -sputum culture shows light growth of normal respiratory shanon -Mucinex, Tessalon pearls ordered ICD Codes: R05 - Cough Status: Resolved (7) Weakness of both legs Diagnosis: Secondary Plan: Suspected 2/2 to elevated Ammonia vs Staph myopathy -Treatment of elevated ammonia as above -Will continue to monitor -PT and OT ordered as outpatient. ICD Codes: R29.898 - Other symptoms and signs involving the musculoskeletal system Status: Chronic (8) Hyponatremia Diagnosis: Secondary Plan: Impression: Patient with chronic hyponatremia secondary to liver disease. Consistently 130 at this time. Patient reported he had been eating ice to moisten his mouth, will stop at this time as it is another source of fluid intake. -Will fluid restrict and monitor I/Os. ICD Codes: E87.1 - Hypo-osmolality and hyponatremia Status: Chronic (9) Mood disorder Diagnosis: Secondary Plan: -Continue home escitalopram ICD Codes: F39 - Unspecified mood [affective] disorder Status: Chronic (10) DM (diabetes mellitus) Diagnosis: Secondary Plan: Impression: Reportedly on home Novolin 7 U BID; patient suggests nonadherence. 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 -Continue Accuchecks with low dose insulin sliding scale -He may continue home medications at discharge ICD Codes: E11.9 - Type 2 diabetes mellitus without complications Status: Chronic (11) HTN (hypertension) Diagnosis: Secondary Plan: Patient has been normotensive during hospitalization -Continue to monitor BP -Continue diuresis ICD Codes: I10 - Essential (primary) hypertension Status: Chronic (12) DVT PPX Diagnosis: Secondary Plan: Fluids: Fluid restriction Electrolytes: monitor and replete as needed Nutrition: Liver failure and heart healthy diet DVT Prophylaxis: Early ambulation. Bilateral SCD's Will withhold anticoagulation due to thrombocytopenia GI Prophylaxis: None indicated Status: Chronic Consultants Gastroenterology, case management Procedures Chronic indwelling abdominal drain removed 01/02, Paracentesis 01/07 Brief History Mr. Allison is a 61 yo M with PMH of cirrhosis, alcoholism, substance abuse, Hep C , T2DM, HTN who presents to [facility] ED with symptoms of weakness, lightheadedness, confusion, pain associated with R inguinal hernia, and pain associated with his peritoneal catheter. Patient elaborated on the respective onsets of multiple complaints: Patient reports that his abdominal pain associated with his hernia has been painful for the past year, but has been hurting more recently. Patient states that he has had generalized abdominal pain for the past couple months. Patient reports increased pain around his peritoneal catheter site for the past couple days. Patient states that although his pain has contributed to his current condition, he predominately sought admission for weakness. Patient reportedly has been tired for days; he attributes this to exertion and not eating. Patient last saw [place] ER physician last with reported similar symptoms of generally not "feeling well". Patient had abdominal US performed and had therapeutic paracentesis in which a couple liters were drained causing some symptom improvement. Over the weekend, patient began to feel exhausted while trying to take care of his granddaughter and grandson. Patient sought evaluation /therapeutic paracentesis at [place] yesterday but did not receive this. When not receiving paracenteses at the [place], patient given instructions to perform paracenteses at home; patient was most recently given instructions to tap 1 liter of peritoneal fluid daily. Patient last had paracentesis Thursday in which 2 units were drained. Patient states that symptoms improved somewhat but that this did not improve symptoms completely. Patient also reports constant dry mouth and dry eyes. Patient states that he has history of DM; patient states that he has in general not been taking medications as prescribed. Patient also states he has not been taking his home Spironolactone. Patient reports increased anxiety recently and that he smoked crack last . Patient does not report chest pain or SOB. Patient reports having a BM this morning which was small, solid, and aiken in color. Patient reports strong smelling urine; no dysuria. Patient states he has been taking Augmentin for a cut in his mouth. CBC/BMP: 01/09/17 0448 01/09/17 0448 Significant Findings Laboratory Tests Test 01/09/17 04:48 White Blood Count 3.6 TH/MM3 (4.0-11.0) Red Blood Count 2.78 MIL/MM3 (4.50-5.90) Hemoglobin 7.7 GM/DL (13.0-17.0) Hematocrit 23.4 % (39.0-51.0) Red Cell Distribution Width 17.5 % (11.6-17.2) Platelet Count 68 TH/MM3 (150-450) Monocytes (%) (Auto) 16.3 % (0.0-8.0) Lymphocytes # (Auto) 0.5 TH/MM3 (1.0-4.8) Platelet Estimate LOW (NORMAL) Prothrombin Time 16.9 SEC (9.8-11.6) Activated Partial Thromboplast Time 49.0 SEC (24.3-30.1) Blood Urea Nitrogen 21 MG/DL (7-18) Random Glucose 142 MG/DL (74-106) Total Protein 5.6 GM/DL (6.4-8.2) Albumin 2.8 GM/DL (3.4-5.0) Calcium Level 8.2 MG/DL (8.5-10.1) Alkaline Phosphatase 42 U/L (45-117) Aspartate Amino Transf (AST/SGOT) 98 U/L (15-37) Total Bilirubin 1.4 MG/DL (0.2-1.0) Sodium Level 130 MEQ/L (136-145) Potassium Level 5.5 MEQ/L (3.5-5.1) Chloride Level 97 MEQ/L (98-107) Estimat Glomerular Filtration Rate 65 ML/MIN (>89) Ammonia 65 MCMOL/L (11-32) Imaging Last Impressions Cyst Biopsy Asp-Paracentesis US 01/07/17 0000 Signed Impressions: Service Date/Time: Saturday, January 07, 2017 12:08 - CONCLUSION: Uncomplicated ultrasound guided paracentesis. Brooks Bobby MD Abdomen/Pelvis CT 01/06/17 0000 Signed Impressions: Service Date/Time: Friday, January 06, 2017 18:10 - CONCLUSION: 1. No intra-abdominal hemorrhage. 2. Cirrhosis with moderate volume ascites and splenomegaly again noted. 3. Ascitic fluid collected in a right inguinal hernia again noted. 4. Atherosclerosis again seen of the abdominal aorta. Harpreet Farris MD Paracentesis 01/02/17 0000 Signed Impressions: Service Date/Time: Monday, January 02, 2017 00:00 - CONCLUSION: 1. Uncomplicated abdominal ascites drainage. Immediately following drainage of the ascites the catheter was removed. Bakari Worrell MD Catheter Placement X-Ray 01/01/17 0000 Signed Impressions: Service Date/Time: December 00:00 - CONCLUSION: 1. Uncomplicated paracentesis via the patient's abdominal drainage catheter. 2. Successful removal of the patient's ASPIRA abdominal ascites drain Bakari Worrell MD Knee X-Ray 12/31/16 0000 Signed Impressions: Service Date/Time: Saturday, December 31, 2016 14:13 - CONCLUSION: Degenerative changes, negative for fracture. German Worrell MD FACR Chest X-Ray 12/30/16 1640 Signed Impressions: Service Date/Time: Friday, December 30, 2016 16:55 - CONCLUSION: 1. Minimal basilar atelectasis. No effusion. No pneumothorax. Félix Vail MD PE at Discharge GENERAL: in NAD, no respiratory distress, ambulatory about the room HEENT: NCAT, EOMI, no scleral icterus, no conjunctival injection. No jaundice. CV: Regular rate and rhythm; normal perfusion. Holosystolic murmur. CHEST/PULM: Course breath sounds improved in bilateral lung st[place]. No wheezes or crackles appreciated. Good air movement bilaterally. ABD/GI: Bandage over prior catheter site removed, healed paracentesis lesions on both sides of abdomen. Single suture in place. Abdomen mildly distended, nontender, positive bowel sounds. EXT: 2+ pitting edema to knee. No calf tenderness. NEURO: Awake, alert. normal muscle tone. SKIN: No rashes. Some excoriations noted on lower extremities. PSYCH: Mood and affect are appropriate. Hospital Course Patient was admitted for management of ascites and abdominal pain associated with chronic ascites and chronic indwelling peritoneal catheter. The catheter was removed on 01/02, the day of admission. Peritoneal fluid was collected at that time and did not show any signs of infection, however, on prior hospitalization in early November he was shown to have peritonitis. He was admitted and managed for suspected recurrence of peritonitis doing to his symptoms on admission. He did have the peritoneal catheter removed during his [facility] hospitalization in November 2016 but had another one placed at the [place] 2 weeks prior to this admission due to transportation difficulties. Of note, CT scan on admission of the abdomen and pelvis showed cecal wall thickening suggestive of colitis it also showed evidence of cirrhosis. He did obtain colonoscopy on 01/01 which showed sigmoid diverticulosis, internal hemorrhoids without evidence of colitis. He also had an EGD in November 2016 which showed esophageal varices and mild portal gastropathy. He is to have a repeat ETT in approximately 3 months per GI. Gastroenterology was consulted due to his recurrent ascites, SBP, complicated GI history. Of note, his cirrhosis is class C and is complicated by esophageal varices, ascites, hepatic encephalopathy, hepatitis C, anemia. He also has type 2 diabetes and hypertension which are managed per home medications including lactulose, propranolol, Lasix, sore on a lactose and Protonix. He also received supplemental medications as needed. During his hospitalization he was given a 5 day course of treatment for SBP ( vancomycin and ceftazidime). His vital signs remained within normal limits throughout the hospitalization. He did receive a repeat paracentesis on 01/07/17 with fluid analysis ordered and studies not diagnostic of SBP. The patient was cleared from a GI standpoint on 01/08 with recommendations for continued follow-up with GI at the [place]. He was stable for discharge on 01/09/17 to home with outpatient PT and OT per recommendations. He was counseled to continue home medications and to continue follow-up with his GI doctor (he noted he had an appointment on January 14). All questions were answered prior to discharge. He was discharged with a small supply of pain medication (2 are listed in the discharge paperwork but one was discarded). Pt Condition on Discharge: Stable Discharge Disposition: Discharge Home Discharge Instructions DIET: Follow Instructions for: Liver Disease Diet Activities you can perform: Regular-No Restrictions Other Activity Instructions: Home health PT ordered Follow up Referrals: Gastroenterology - 01/14/17 PCP Follow-up - 1 Week New Orders: US GUIDED ABDOMEN PARACENTESIS - 1 Week New Medications: Oxycodone-Acetaminophen (Oxycodone-Acetaminophen) 10-325 mg Tab 1 TAB PO Q4-6H PRN for PAIN, #15 TAB 0 Refills Hydrocodone-Acetaminophen (Hydrocodone-Acetaminophen) 10-325 mg Tab 1 TAB PO Q4-6H PRN for PAIN SCALE 6 TO 10, #15 TAB Continued Medications: Ascorbic Acid (C 500) 500 Mg Tab 500 MG PO DAILY for Nutritional Supplement Buspirone (Buspirone) 10 Mg Tab 10 MG PO BID for Anxiety, TAB 0 Refills Cholecalciferol (D3) 1,000 Unit Tab 1000 UNITS PO DAILY Doxepin (Doxepin) 50 Mg Cap 50 MG PO HS, #30 CAP 0 Refills Escitalopram (Escitalopram) 20 Mg Tab 20 MG PO DAILY, #30 TAB 0 Refills Ferrous Gluconate (Ferrous Gluconate) 325 Mg Tab 325 MG PO DAILY for Nutritional Supplement, #30 TAB 0 Refills Furosemide (Furosemide) 40 Mg Tab 40 MG PO DAILY, #30 TAB 0 Refills Gabapentin (Gabapentin) 300 Mg Cap 300 MG PO TID, #90 CAP 0 Refills Insulin Human Isophane-Regular 70-30 Inj (Novolin 70-30 Inj) 1,000 Unit/10 Ml Vial 5 UNITS SQ BID for Blood Sugar Management for 30 Days, ML 0 Refills Lactulose Liq (Lactulose Liq) 10 Gm/15 Ml Soln 30 ML PO BID PRN for CONSTIPATION, #90 ML 0 Refills Pantoprazole (Pantoprazole) 40 Mg Tab 40 MG PO DAILY for Reflux, #30 TAB 0 Refills Propranolol (Propranolol) 20 Mg Tab 20 MG PO DAILY, #60 TAB 0 Refills Spironolactone (Spironolactone) 100 Mg Tab 100 MG PO BID, #60 TAB 0 Refills Tamsulosin (Tamsulosin) 0.4 Mg Cap 0.4 MG PO DAILY for Manage Prostate Problems, #30 CAP 0 Refills Thiamine (Vitamin B-1) 100 Mg Tab 100 MG PO DAILY for Nutritional Supplement, TAB 0 Refills Zoey Ferraro MD R2 Jan 11, 2017 11:33
== END 2017-01-09 17:47 | disposition home or self-care (01) | DRG 372 ==
LOC: NEPC 16:11 → NEDA 19:42 → UNDOADMIN 19:42 → INTOOBSV 19:42 → OBSVTOIN 19:42 → NEDA 20:39 → INTOOBSV 20:39 → N07B 23:43 → OBSVTOIN 12-31 08:52
PROVIDERS: ADMIT Family Medicine; ATTEND Family Medicine
PROC: 0DJD8ZZ Inspection of Lower Intestinal Tract, Via Natural or Artificial Opening Endoscopic (ICD-10-PCS; 2017-01-01)
PROC: 0D568ZZ Destruction of Stomach, Via Natural or Artificial Opening Endoscopic (ICD-10-PCS; principal; 2017-01-01 10:30)
PROC: 0W9G3ZX Drainage of Peritoneal Cavity, Percutaneous Approach, Diagnostic (ICD-10-PCS; 2017-01-02)
PROC: 0WPGX3Z Removal of Infusion Device from Peritoneal Cavity, External Approach (ICD-10-PCS; 2017-01-02)
PROC: 0W9G3ZZ Drainage of Peritoneal Cavity, Percutaneous Approach (ICD-10-PCS; 2017-01-07)
DX: K65.9 Peritonitis, unspecified (principal); E87.2 Acidosis; D68.9 Coagulation defect, unspecified; I85.10 Secondary esophageal varices without bleeding; E11.40 Type 2 diabetes mellitus with diabetic neuropathy, unspecified; E87.1 Hypo-osmolality and hyponatremia; T85.848A Pain due to other internal prosthetic devices, implants and grafts, initial encounter; K70.31 Alcoholic cirrhosis of liver with ascites; R10.9 Unspecified abdominal pain; E83.51 Hypocalcemia; E11.319 Type 2 diabetes mellitus with unspecified diabetic retinopathy without macular edema; F32.9 Major depressive disorder, single episode, unspecified; F41.9 Anxiety disorder, unspecified; K40.90 Unilateral inguinal hernia, without obstruction or gangrene, not specified as recurrent; K21.9 Gastro-esophageal reflux disease without esophagitis; B19.20 Unspecified viral hepatitis C without hepatic coma; F14.10 Cocaine abuse, uncomplicated; K31.819 Angiodysplasia of stomach and duodenum without bleeding; K72.90 Hepatic failure, unspecified without coma; K31.89 Other diseases of stomach and duodenum; K57.30 Diverticulosis of large intestine without perforation or abscess without bleeding; K64.8 Other hemorrhoids; B95.62 Methicillin resistant Staphylococcus aureus infection as the cause of diseases classified elsewhere; B96.1 Klebsiella pneumoniae [K. pneumoniae] as the cause of diseases classified elsewhere; R16.1 Splenomegaly, not elsewhere classified; K59.00 Constipation, unspecified; I70.0 Atherosclerosis of aorta; D63.8 Anemia in other chronic diseases classified elsewhere; R29.898 Other symptoms and signs involving the musculoskeletal system; K52.9 Noninfective gastroenteritis and colitis, unspecified; Z91.5 Personal history of self-harm; Z59.0 Homelessness; Z79.4 Long term (current) use of insulin
CPT/HCPCS: 36430; 49082; 49083; 49422; 71010; 73564; 74177; 76937; 80048; 80053; 80202; 80307; 81001; 82042; 82140; 82150; 82272; 82550; 82552; 82945; 82948; 83605; 83615; 83735; 84157; 84484; 85014; 85018; 85025; 85027; 85610; 85730; 86403; 86850; 86900; 86901; 86920; 87040; 87070; 87077; 87147; 87186; 87205; 89051; 93005; 94150; 94640; 94664; 96365; 96375; C1729; G8987-GP; G8988-GP; J0713; J1170; J1815; J1940; J2060; J2270; J2405; J2543; J3010; J3370; J7040; J7050; P9016; P9047; Q9963; Q9967

== ENCOUNTER 2017-01-18 08:55 | Emergency (ER) | payer MEDICARE, OTHER ==
[~2017-01-18] VITALS: Ht 165.1 cm; Wt 82.0 kg
[~2017-01-18 08:55] MED LIST changes: -ASCOPOW5 PO; -AUGM500T7 PO; +C 50TAB PO; -GABA100C4 PO; +GABA300C5 PO; +HYDR-3583 PO; +OXYC1TAB36 PO
[2017-01-18 08:58] VITALS: BP 137/84; PULSE 90; RESP 13; TEMP 98.9; O2SAT 95
--- NOTE | 2017-01-18 09:37 | PD ---
HPI Chief Complaint: Abdominal Pain Time Seen by Provider: 09:14 Travel History International Travel<30 days: No Contact w/Intl Traveler<30days: No Traveled to known affect area: No History of Present Illness HPI This patient complains of general malaise and swelling in his abdomen. He has generalized weakness and fatigue. History of liver failure and gets periodic paracentesis due to ascites. He was discharged week ago but has not set up as outpatient paracentesis through the [place]. He can get it through [facility] but he doesn't want to drive there. No fever. Severity is moderate. No alleviating factors. Symptoms exacerbated by ascites PFSH Past Medical History Anemia: Yes Blood Disorders: No Anxiety: Yes Depression: Yes Cancer: No Cardiovascular Problems: No Cirrhosis: Yes Cerebrovascular Accident: No Diabetes: Yes Patient Takes Glucophage: No Diminished Hearing: No Endocrine: Yes GERD: Yes Genitourinary: No Hepatitis: Yes (HEP C ) Hypertension: Yes Immune Disorder: No Musculoskeletal: No Neurologic: No Psychiatric: Yes Reproductive: No Respiratory: No Pancreatitis: Yes Thyroid Disease: No Past Surgical History Abdominal Surgery: Yes (cholecystectomy) Cardiac Surgery: No Cholecystectomy: Yes (2004) Ear Surgery: No Endocrine Surgery: No Eye Surgery: No Genitourinary Surgery: No Gynecologic Surgery: No Oral Surgery: No Pacemaker: No Thoracic Surgery: No Other Surgery: Yes (BANDING FOR GI BLEED IN JAN 2013, BANDING IN FEB 2013, BANDING IN MAY 2012,) Social History Alcohol Use: Yes (sober since 03/20/16) Tobacco Use: No Substance Use: Yes (drug and alcohol) Allergies-Medications (Allergen,Severity, Reaction): Coded Allergies: *MDRO Multi-Drug Resistant Organism (Verified Adverse Reaction, Unknown, ) MRSA PCR screen POSITIVE - 12/23/15 Reported Meds & Prescriptions Reported Meds & Active Scripts Active Oxycodone-Acetaminophen 10-325 mg Tab 1 Tab PO Q4-6H PRN Hydrocodone-Acetaminophen 10-325 mg Tab 1 Tab PO Q4-6H PRN Novolin 70-30 Inj (Insulin Human Isoph/Insulin Regular) 1,000 Unit/10 Ml Vial 5 Units SQ BID 30 Days Reported C 500 (Ascorbic Acid) 500 Mg Tab 500 Mg PO DAILY Gabapentin 300 Mg Cap 300 Mg PO TID Vitamin B-1 (Thiamine HCl) 100 Mg Tab 100 Mg PO DAILY Propranolol (Propranolol HCl) 20 Mg Tab 20 Mg PO DAILY Lactulose Liq (Lactulose) 10 Gm/15 Ml Soln 30 Ml PO BID PRN Pantoprazole (Pantoprazole Sodium) 40 Mg Tab 40 Mg PO DAILY Ferrous Gluconate 325 Mg Tab 325 Mg PO DAILY Escitalopram (Escitalopram Oxalate) 20 Mg Tab 20 Mg PO DAILY D3 (Cholecalciferol) 1,000 Unit Tab 1,000 Units PO DAILY Doxepin (Doxepin HCl) 50 Mg Cap 50 Mg PO HS Furosemide 40 Mg Tab 40 Mg PO DAILY Tamsulosin (Tamsulosin HCl) 0.4 Mg Cap 0.4 Mg PO DAILY Buspirone (Buspirone HCl) 10 Mg Tab 10 Mg PO BID Spironolactone 100 Mg Tab 100 Mg PO BID Review of Systems General / Constitutional: No: Fever Eyes: No: Visual changes HENT: No: Headaches Cardiovascular: No: Chest Pain or Discomfort Respiratory: No: Shortness of Breath Gastrointestinal: Positive: Nausea, Abdominal Pain Genitourinary: No: Dysuria Musculoskeletal: Positive: Weakness, No: Pain Skin: No Rash Neurologic: Positive: Weakness Psychiatric: No: Depression Endocrine: No: Polydipsia Hematologic/Lymphatic: No: Easy Bruising Physical Exam Narrative GENERAL: Well-nourished, well-developed patient in no apparent distress. SKIN: Focused skin assessment reveals no rash and nodules. Skin is Warm and dry. HEAD: Atraumatic. Normocephalic. EYES: Pupils equal and round. No scleral icterus. No injection or drainage. ENT: No nasal bleeding or discharge. Mucous membranes pink and moist. NECK: Trachea midline. No JVD. CARDIOVASCULAR: Regular rate and rhythm. No murmur appreciated. RESPIRATORY: No accessory muscle use. Clear to auscultation. Breath sounds equal bilaterally. GASTROINTESTINAL: Abdomen soft, non-tender, distended with ascites. Hepatic and splenic margins not palpable. MUSCULOSKELETAL: No obvious deformities. No clubbing. No cyanosis. Symmetric edema of the lower legs from the knees down NEUROLOGICAL: Awake and alert. No obvious cranial nerve deficits. Motor grossly within normal limits. Normal speech. PSYCHIATRIC: Appropriate mood and affect; insight and judgment seems weak . Data Data Last Documented VS Vital Signs Date Time Temp Pulse Resp B/P (MAP) Pulse Ox O2 Delivery O2 Flow Rate FiO2 01/18/17 08:58 98.9 90 13 137/84 (101) 95 Orders Orders Iv Access Insert/Monitor (01/18/17 09:32) Complete Blood Count With Diff (01/18/17 09:32) Comprehensive Metabolic Panel (01/18/17 09:32) Prothrombin Time / Inr (Pt) (01/18/17 09:32) Ondansetron Inj (Zofran Inj) (01/18/17 10:00) Labs Laboratory Tests Test 01/18/17 09:20 White Blood Count 4.3 TH/MM3 Red Blood Count 3.19 MIL/MM3 Hemoglobin 9.1 GM/DL Hematocrit 27.8 % Mean Corpuscular Volume 87.0 FL Mean Corpuscular Hemoglobin 28.6 PG Mean Corpuscular Hemoglobin Concent 32.9 % Red Cell Distribution Width 18.7 % Platelet Count 68 TH/MM3 Mean Platelet Volume 7.4 FL Neutrophils (%) (Auto) 75.2 % Lymphocytes (%) (Auto) 11.6 % Monocytes (%) (Auto) 9.8 % Eosinophils (%) (Auto) 2.8 % Basophils (%) (Auto) 0.6 % Neutrophils # (Auto) 3.3 TH/MM3 Lymphocytes # (Auto) 0.5 TH/MM3 Monocytes # (Auto) 0.4 TH/MM3 Eosinophils # (Auto) 0.1 TH/MM3 Basophils # (Auto) 0.0 TH/MM3 CBC Comment AUTO DIFF Differential Comment AUTO DIFF CONFIRMED Platelet Estimate LOW Platelet Morphology Comment NORMAL Prothrombin Time 14.1 SEC Prothromb Time International Ratio 1.3 RATIO Blood Urea Nitrogen 18 MG/DL Creatinine 0.85 MG/DL Random Glucose 138 MG/DL Total Protein 7.2 GM/DL Albumin 3.3 GM/DL Calcium Level 8.8 MG/DL Alkaline Phosphatase 83 U/L Aspartate Amino Transf (AST/SGOT) 121 U/L Alanine Aminotransferase (ALT/SGPT) 51 U/L Total Bilirubin 2.4 MG/DL Sodium Level 138 MEQ/L Potassium Level 3.9 MEQ/L Chloride Level 107 MEQ/L Carbon Dioxide Level 22.9 MEQ/L Anion Gap 8 MEQ/L Estimat Glomerular Filtration Rate 92 ML/MIN [facility] Medical Decision Making Medical Screen Exam Complete: Yes Emergency Medical Condition: Yes Medical Record Reviewed: Yes Differential Diagnosis Increasing ascites, liver failure, left foot abnormality Narrative Course I have reviewed the patient's electronic medical record. Reviewed his discharge summary from 1 week ago IV placed CBC shows his white cells are now in the normal range but still anemic and thrombocytopenic as he will likely always be. Metabolic profile reasonably normal LFTs are reviewed Coagulation studies show INR 1.3 Patient's abdomen is soft and benign. He has obvious ascites but not at a critical level requiring emergent paracentesis. I don't have any clinical suspicion of SBP. He has no fever. Stable for outpatient GI follow-up. He has an appointment in 9 days. Diagnosis Primary Impression: Abdominal pain Qualified Codes: R10.84 - Generalized abdominal pain Additional Impression: Ascites Qualified Codes: K70.31 - Alcoholic cirrhosis of liver with ascites Additional Instructions: The patient was advised to follow up with their physician and return if they worsen. Med/Other Pt SpecificInfo: Other Disposition: 01 DISCHARGE HOME Condition: Stable Alan Putnam MD Jan 18, 2017 09:37
[2017-01-18 09:57] LABS: AUTOMATED NEUTROPHIL # 3.3 TH/MM3 (1.8-7.7); BASOPHIL % 0.6 % (0.0-2.0); EOSINOPHIL # 0.1 TH/MM3 (0-0.4); EOSINOPHIL % 2.8 % (0.0-4.0); HEMATOCRIT 27.8 % (39.0-51.0); LYMPH % 11.6 % (9.0-44.0); LYMPHOCYTE # 0.5 TH/MM3 (1.0-4.8); MEAN CORPUSCULAR HEMOGLOBIN 28.6 PG (27.0-34.0); MEAN CORPUSCULAR HGB CONC 32.9 % (32.0-36.0); MONO % 9.8 % (0.0-8.0); NEUT % 75.2 % (16.0-70.0); PLATELET COUNT 68 TH/MM3 (150-450); RED BLOOD COUNT 3.19 MIL/MM3 (4.50-5.90); RED CELL DISTRIBUTION WIDTH 18.7 % (11.6-17.2); WHITE BLOOD COUNT 4.3 TH/MM3 (4.0-11.0)
[2017-01-18] MEDS ORDERED: ONDANSETRON HCL 4 MG/2 ML VIAL IV ONE (10:00)
[2017-01-18 10:02] LABS: HEMO FLAGS AUTO DIFF
[2017-01-18 10:10] LABS: ANION GAP 8 MEQ/L (5-15); AST (GOT) 121 U/L (15-37); BICARBONATE 22.9 MEQ/L (21.0-32.0); BLOOD UREA NITROGEN 18 MG/DL (7-18); CHLORIDE 107 MEQ/L (98-107); GLOMERULAR FILTRATION RATE 92 ML/MIN (>89); INTERNATIONAL NORMALIZED RATIO 1.3 RATIO; POTASSIUM 3.9 MEQ/L (3.5-5.1); PROTHROMBIN TIME - PATIENT 14.1 SEC (9.8-11.6); SODIUM (NA) 138 MEQ/L (136-145)
[2017-01-18 10:11] LABS: ALT (GPT) 51 U/L (12-78)
[2017-01-18 10:13] LABS: ALKALINE PHOSPHATASE 83 U/L (45-117); TOTAL BILIRUBIN ADULT 2.4 MG/DL (0.2-1.0)
[2017-01-18 10:33] LABS: PLATELET ESTIMATE SMEAR LOW (NORMAL); PLATELET MORPHOLOGY NORMAL (NORMAL); SCAN/DIFF AUTO DIFF CONFIRMED
[2017-01-18 11:15] VITALS: BP 142/68
== END 2017-01-18 11:18 | disposition home or self-care (01) ==
LOC: NEPE 08:55
DX: R10.84 Generalized abdominal pain (principal); D64.9 Anemia, unspecified; K70.31 Alcoholic cirrhosis of liver with ascites; K72.90 Hepatic failure, unspecified without coma; E11.9 Type 2 diabetes mellitus without complications; I10 Essential (primary) hypertension
CPT/HCPCS: 80053; 85025; 85610; 96374; 99284; J2405

== ENCOUNTER 2017-02-01 00:54 | Inpatient (IN) | payer OTHER, MEDICARE ==
[~2017-02-01] VITALS: Ht 165.1 cm; Wt 78.4 kg
[2017-02-01 00:58] VITALS: BP 147/88; PULSE 120; RESP 16; TEMP 98.6; O2SAT 95
--- NOTE | 2017-02-01 02:09 | PD ---
HPI Chief Complaint: Psychiatric Symptoms Time Seen by Provider: 01:45 Travel History International Travel<30 days: No Contact w/Intl Traveler<30days: No Traveled to known affect area: No History of Present Illness HPI Patient is a 61-year-old male with a history of diabetes and chronic liver cirrhosis presents emergency department for feeling depressed about his chronic medical conditions the patient states that he came here wanting to see his psychiatrist. A police pilot passing by medics to talk to the patient in the emergency department, at that time the patient stated that he wanted to take a knife out and hold it to health care workers throat so that the senior contract specialist shoot him. He was Singleton acted at that point. The patient states that he's got pain all over chronically, states the pain is severe, he states that his abdomen has become more swollen since being drained last week. Denies any fevers nausea vomiting diarrhea constipation. Symptoms are severe, context as above, gradually worsening, associated signs symptoms as above. PFSH Past Medical History Anemia: Yes Blood Disorders: No Anxiety: Yes Depression: Yes Cancer: No Cardiovascular Problems: No Cirrhosis: Yes Cerebrovascular Accident: No Diabetes: Yes Patient Takes Glucophage: No Diminished Hearing: No Endocrine: Yes GERD: Yes Genitourinary: No Hepatitis: Yes (HEP C ) Hypertension: Yes Immune Disorder: No Musculoskeletal: No Neurologic: No Psychiatric: Yes Reproductive: No Respiratory: No Pancreatitis: Yes Thyroid Disease: No Past Surgical History Abdominal Surgery: Yes (cholecystectomy) Cardiac Surgery: No Cholecystectomy: Yes Ear Surgery: No Endocrine Surgery: No Eye Surgery: No Genitourinary Surgery: No Gynecologic Surgery: No Oral Surgery: No Pacemaker: No Thoracic Surgery: No Other Surgery: Yes (BANDING FOR GI BLEED IN JAN 2013, BANDING IN FEB 2013, BANDING IN MAY 2012,) Social History Alcohol Use: No (sober since 03/20/16) Tobacco Use: No Substance Use: Yes (COCAINE DAILY) Allergies-Medications (Allergen,Severity, Reaction): Coded Allergies: *MDRO Multi-Drug Resistant Organism (Verified Adverse Reaction, Unknown, 02/01/17) MRSA PCR screen POSITIVE - 12/23/15 Reported Meds & Prescriptions Reported Meds & Active Scripts Active Oxycodone-Acetaminophen 10-325 mg Tab 1 Tab PO Q4-6H PRN Hydrocodone-Acetaminophen 10-325 mg Tab 1 Tab PO Q4-6H PRN Novolin 70-30 Inj (Insulin Human Isoph/Insulin Regular) 1,000 Unit/10 Ml Vial 5 Units SQ BID 30 Days Reported C 500 (Ascorbic Acid) 500 Mg Tab 500 Mg PO DAILY Gabapentin 300 Mg Cap 300 Mg PO TID Vitamin B-1 (Thiamine HCl) 100 Mg Tab 100 Mg PO DAILY Propranolol (Propranolol HCl) 20 Mg Tab 20 Mg PO DAILY Lactulose Liq (Lactulose) 10 Gm/15 Ml Soln 30 Ml PO BID PRN Pantoprazole (Pantoprazole Sodium) 40 Mg Tab 40 Mg PO DAILY Ferrous Gluconate 325 Mg Tab 325 Mg PO DAILY Escitalopram (Escitalopram Oxalate) 20 Mg Tab 20 Mg PO DAILY D3 (Cholecalciferol) 1,000 Unit Tab 1,000 Units PO DAILY Doxepin (Doxepin HCl) 50 Mg Cap 50 Mg PO HS Furosemide 40 Mg Tab 40 Mg PO DAILY Tamsulosin (Tamsulosin HCl) 0.4 Mg Cap 0.4 Mg PO DAILY Buspirone (Buspirone HCl) 10 Mg Tab 10 Mg PO BID Spironolactone 100 Mg Tab 100 Mg PO BID Review of Systems Except as stated in HPI: all other systems reviewed are Neg Physical Exam Narrative GENERAL: Well-developed well-nourished, no obvious distress. Very fidgety. SKIN: Focused skin assessment warm/dry. HEAD: Atraumatic. Normocephalic. EYES: Pupils equal and round. No scleral icterus. No injection or drainage. ENT: No nasal bleeding or discharge. Mucous membranes pink and moist. NECK: Trachea midline. No JVD. CARDIOVASCULAR: Regular rate and rhythm. No murmur appreciated. RESPIRATORY: No accessory muscle use. Clear to auscultation. Breath sounds equal bilaterally. GASTROINTESTINAL: Abdomen soft, non-tender, minimally distended abdomen positive fluid wave.. Hepatic and splenic margins not palpable. MUSCULOSKELETAL: No obvious deformities. No clubbing. No cyanosis. No edema. NEUROLOGICAL: Awake and alert. No obvious cranial nerve deficits. Motor grossly within normal limits. Normal speech. PSYCHIATRIC: Appropriate mood and affect; insight and judgment normal. Endorses suicidal and homicidal ideation. Data Data Last Documented VS Vital Signs Date Time Temp Pulse Resp B/P (MAP) Pulse Ox O2 Delivery O2 Flow Rate FiO2 02/02/17 06:15 89 16 136/72 (93) 02/01/17 18:05 97 Room Air 02/01/17 00:58 98.6 Orders Orders Complete Blood Count With Diff (02/01/17 01:26) Comprehensive Metabolic Panel (02/01/17 01:26) Iv Access Insert/Monitor (02/01/17:26) Ecg Monitoring (02/01/17 01:26) Psych Screen (02/01/17 01:26) Drug Screen, Random Urine (02/01/17 01:26) Alcohol (Ethanol) (02/01/17 01:26) Salicylates (Aspirin) (02/01/17 01:26) Tylenol (Acetaminophen) (02/01/17 01:26) Ammonia (02/01/17 01:57) Potassium Chloride (Kcl) (02/01/17 03:30) Potassium Chloride (Kcl) (02/01/17 05:30) Oxycodone (Roxicodone) (02/01/17 03:30) Ondansetron Odt (Zofran Odt) (02/01/17 03:30) Diet Diabetic (02/01/17 Breakfast) Diet Regular Basic (02/01/17 Lunch) Diet Diabetic (02/01/17 Dinner) Diet Diabetic (02/02/17 Breakfast) Diet 2000 Ada Cons Carb (02/02/17 Lunch) Admit Order (Ed Use Only) (02/02/17 11:04) Admit To Inpatient Psych (02/02/17 ) Vital Signs (Adult) BRENDA.Q12H.E (02/02/17 11:05) Activity Oob Ad Rachel (02/02/17 11:05) Level Of Observation (Psych) (02/02/17 11:05) Lorazepam (Ativan) (02/02/17 11:15) Lorazepam Inj (Ativan Inj) (02/02/17 11:15) Acetaminophen (Tylenol) (02/02/17 11:15) Magnesium Hydroxide Liq (Milk Of Magnesi (02/02/17 11:15) Al-Mag Hy-Si 40-40-4 Mg/Ml Liq (Mag-Al P (02/02/17 11:15) Complete Blood Count With Diff (02/03/17 06:00) Comprehensive Metabolic Panel (02/03/17 06:00) Thyroid Stimulating Hormone (02/03/17 06:00) Lipid Profile (02/03/17 06:00) Hemoglobin (Hgb) A1c (02/03/17 06:00) Vitamin D, 25-Hydroxy (02/03/17 06:00) Vitamin B12 (02/03/17 06:00) Consult Hospitalist (02/02/17 ) Electrocardiogram (02/03/17 ) Labs Laboratory Tests Test 02/01/17 02:15 02/01/17 04:00 White Blood Count 3.9 TH/MM3 Red Blood Count 2.82 MIL/MM3 Hemoglobin 8.1 GM/DL Hematocrit 23.9 % Mean Corpuscular Volume 85.0 FL Mean Corpuscular Hemoglobin 28.8 PG Mean Corpuscular Hemoglobin Concent 33.9 % Red Cell Distribution Width 17.6 % Platelet Count 56 TH/MM3 Mean Platelet Volume 7.5 FL Neutrophils (%) (Auto) 72.4 % Lymphocytes (%) (Auto) 13.9 % Monocytes (%) (Auto) 11.5 % Eosinophils (%) (Auto) 1.5 % Basophils (%) (Auto) 0.7 % Neutrophils # (Auto) 2.9 TH/MM3 Lymphocytes # (Auto) 0.6 TH/MM3 Monocytes # (Auto) 0.5 TH/MM3 Eosinophils # (Auto) 0.1 TH/MM3 Basophils # (Auto) 0.0 TH/MM3 CBC Comment AUTO DIFF Differential Comment AUTO DIFF CONFIRMED Blood Urea Nitrogen 12 MG/DL Creatinine 0.93 MG/DL Random Glucose 202 MG/DL Total Protein 6.7 GM/DL Albumin 2.7 GM/DL Calcium Level 7.7 MG/DL Alkaline Phosphatase 93 U/L Aspartate Amino Transf (AST/SGOT) 103 U/L Alanine Aminotransferase (ALT/SGPT) 51 U/L Total Bilirubin 1.6 MG/DL Sodium Level 135 MEQ/L Potassium Level 2.8 MEQ/L Chloride Level 103 MEQ/L Carbon Dioxide Level 23.8 MEQ/L Anion Gap 8 MEQ/L Estimat Glomerular Filtration Rate 83 ML/MIN Ammonia 41 MCMOL/L Salicylates Level LESS THAN 1.7 MG/DL Acetaminophen Level LESS THAN 2.0 MCG/ML Ethyl Alcohol Level LESS THAN 3 MG/DL Urine Opiates Screen NEG Urine Barbiturates Screen NEG Urine Amphetamines Screen NEG Urine Benzodiazepines Screen NEG Urine Cocaine Screen POS Urine Cannabinoids Screen NEG MDM Medical Decision Making Medical Screen Exam Complete: Yes Emergency Medical Condition: Yes Differential Diagnosis Psychosis, hyperammonemia, dka unlikely, chronic liver failure. Narrative Course Patient roomed in ED, he is quite anxious. Was singleton acted by police. He has been convinced to give labs in ED, labs show signs of chronic liver disease. After physical exam and laboratory analysis, he has no medical problem that requires further workup, nor does he have any medical evidence for hepatic encephalopathy. He is stable for psychiatric evaluation. Diagnosis Primary Impression: SUICIDAL IDEATIONS Additional Impression: Chronic liver failure Condition: Stable Brandon Mosqueda MD Feb 01, 2017 02:09
[2017-02-01 02:48] LABS: AUTOMATED NEUTROPHIL # 2.9 TH/MM3 (1.8-7.7); BASOPHIL % 0.7 % (0.0-2.0); EOSINOPHIL # 0.1 TH/MM3 (0-0.4); EOSINOPHIL % 1.5 % (0.0-4.0); HEMATOCRIT 23.9 % (39.0-51.0); LYMPH % 13.9 % (9.0-44.0); LYMPHOCYTE # 0.6 TH/MM3 (1.0-4.8); MEAN CORPUSCULAR HEMOGLOBIN 28.8 PG (27.0-34.0); MEAN CORPUSCULAR HGB CONC 33.9 % (32.0-36.0); MONO % 11.5 % (0.0-8.0); NEUT % 72.4 % (16.0-70.0); PLATELET COUNT 56 TH/MM3 (150-450); RED BLOOD COUNT 2.82 MIL/MM3 (4.50-5.90); RED CELL DISTRIBUTION WIDTH 17.6 % (11.6-17.2); WHITE BLOOD COUNT 3.9 TH/MM3 (4.0-11.0)
[2017-02-01 03:10] LABS: ALCOHOL LESS THAN 3 MG/DL (0-5); ALT (GPT) 51 U/L (12-78); ANION GAP 8 MEQ/L (5-15); AST (GOT) 103 U/L (15-37); BICARBONATE 23.8 MEQ/L (21.0-32.0); CHLORIDE 103 MEQ/L (98-107); GLOMERULAR FILTRATION RATE 83 ML/MIN (>89); SODIUM (NA) 135 MEQ/L (136-145)
[2017-02-01 03:12] LABS: ACETAMINOPHEN LESS THAN 2.0 MCG/ML (10.0-30.0); ALKALINE PHOSPHATASE 93 U/L (45-117); BLOOD UREA NITROGEN 12 MG/DL (7-18); POTASSIUM 2.8 MEQ/L (3.5-5.1); TOTAL BILIRUBIN ADULT 1.6 MG/DL (0.2-1.0)
[2017-02-01 03:15] LABS: HEMO FLAGS AUTO DIFF
[2017-02-01] MEDS ORDERED: ONDANSETRON ODT 4 MG TAB PO ONE (03:30)
[2017-02-01] MEDS ORDERED: POTASSIUM CHLORIDE 20 MEQ CONTROLLED RELEASE TAB PO ONE ×2 (03:30→05:30)
[2017-02-01 05:20] LABS: SCAN/DIFF AUTO DIFF CONFIRMED
[2017-02-01 06:13] VITALS: BP 120/59; PULSE 77; RESP 15; O2SAT 95
--- NOTE | 2017-02-01 12:40 | PD.PSY.CON ---
Provisional Diagnosis Admission Date Date of consultation 02/01/2017 [place] I. 1. Adjustment disorder with disturbance of emotions and conduct 2. Cocaine abuse [place] II. 1. Prominent antisocial personality traits History of Present Illness Service Psychiatry Consult Requested By Emergency department Reason for Consult Mani hernández Primary Care Physician [facility] HPI Mr. Allison is a 61-year-old male with a history of substance use issues , drug induced mood disorder and antisocial personality who presented to the ED voluntarily for psychiatric evaluation. Apparently, while in the emergency department, the patient threatened to a merchant police passing by his room that he wanted to assault a healthcare worker with a knife in order to facilitate suicide by copywriter. He was placed under the Singleton act by tax lawyer. Reviewing the electronic medical record, I note that the patient was seen most recently in consultation by Dr. Spann, and the diagnosis at that time was drug-induced mood disorder and associated substance use issues. Patient seen and examined with nurse. Chart reviewed. Case discussed with nursing staff. Patient says "I came here last night because I needed a stable environment." He says that he [place] [facility] for extended stabilization. He says that he called the crisis hotline through the [place] and spoke with a employee representative named Santhosh to try to facilitate this while in the ED here but was Singleton acted before he could complete the call. He says that for the past 3 or 4 days without clear trigger he has been feeling increasingly dysphoric and confused. He does note that he has some things to look forward to but remains depressed. No hypomanic or manic symptoms. He denies any audiovisual hallucinations. I can elicit no delusional material. He denies any suicidal ideation "today, tonight or tomorrow" but makes no promises beyond that. He denies any homicidal ideation. He can provide no reasonable explanation for why, when he was already in the emergency department for psychiatric evaluation, he felt the need to threaten to cut a healthcare worker in order to facilitate being Singleton acted. Antisocial personality traits are evident and prominent. Remainder of psychiatric ROS is negative. Past psychiatric history: The patient reports a history of depression. He obtained psychiatric care through the [facility] and says that he has 2 appointments tomorrow. He reports that he was hospitalized most recently in September for about 4 days but around Easter time was hospitalized at [facility] where he reportedly tried to strangle himself with a phone cord and was on a one-to-one for 3 weeks. He spent about a month and a half total at [facility]. Besides trying to strangle himself he also reports a history of hitting his throat in November 2014 in [place]. Family history: The patient reports a history of depression in his mother. He denies a family history of suicide. Chemical dependency history: Patient reports that he has been sober from alcohol since March 2016. He does report ongoing cocaine use. Social history: The patient reports that he lives with his ex-girlfriend. He is high school educated. 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 He served in the [employer]. He denies any active legal charges but is on probation for offenses related to his suicide attempt in [place]. He denies any access to guns or firearms. He is a Buddhism. Review of Systems ROS Limitations: Poor Historian Except as stated in HPI: all other systems reviewed are Neg Past Family Social History Coded Allergies: *MDRO Multi-Drug Resistant Organism (Verified Adverse Reaction, Unknown, 02/01/17) MRSA PCR screen POSITIVE - 12/23/15 Past Medical History See electronic medical record Active Scripts Oxycodone-Acetaminophen (Oxycodone-Acetaminophen) 10-325 mg Tab, 1 TAB PO Q4-6H Y for PAIN, #15 TAB 0 Refills Prov:Zoey Ferraro MD R2 01/09/17 Hydrocodone-Acetaminophen (Hydrocodone-Acetaminophen) 10-325 mg Tab, 1 TAB PO Q4 -6H Y for PAIN SCALE 6 TO 10, #15 TAB Prov:Zoey Ferraro MD R2 01/09/17 Insulin Human Isophane-Regular 70-30 Inj (Novolin 70-30 Inj) 1,000 Unit/10 Ml Vial, 5 UNITS SQ BID for Blood Sugar Management for 30 Days, ML 0 Refills Prov:Bravo Flores MD 12/03/16 Reported Medications Ascorbic Acid (C 500) 500 Mg Tab, 500 MG PO DAILY for Nutritional Supplement 12/30/16 Gabapentin (Gabapentin) 300 Mg Cap, 300 MG PO TID, #90 CAP 0 Refills 12/30/16 Thiamine (Vitamin B-1) 100 Mg Tab, 100 MG PO DAILY for Nutritional Supplement, TAB 0 Refills 11/25/16 Propranolol (Propranolol) 20 Mg Tab, 20 MG PO DAILY, #60 TAB 0 Refills 11/25/16 Lactulose Liq (Lactulose Liq) 10 Gm/15 Ml Soln, 30 ML PO BID Y for CONSTIPATION , #90 ML 0 Refills 11/25/16 Pantoprazole (Pantoprazole) 40 Mg Tab, 40 MG PO DAILY for Reflux, #30 TAB 0 Refills 11/25/16 Ferrous Gluconate (Ferrous Gluconate) 325 Mg Tab, 325 MG PO DAILY for Nutritional Supplement, #30 TAB 0 Refills 11/25/16 Escitalopram (Escitalopram) 20 Mg Tab, 20 MG PO DAILY, #30 TAB 0 Refills 11/25/16 Cholecalciferol (D3) 1,000 Unit Tab, 1000 UNITS PO DAILY 11/25/16 Doxepin (Doxepin) 50 Mg Cap, 50 MG PO HS, #30 CAP 0 Refills 11/25/16 Furosemide (Furosemide) 40 Mg Tab, 40 MG PO DAILY, #30 TAB 0 Refills 11/24/16 Tamsulosin (Tamsulosin) 0.4 Mg Cap, 0.4 MG PO DAILY for Manage Prostate Problems , #30 CAP 0 Refills 11/24/16 Buspirone (Buspirone) 10 Mg Tab, 10 MG PO BID for Anxiety, TAB 0 Refills 11/24/16 Spironolactone (Spironolactone) 100 Mg Tab, 100 MG PO BID, #60 TAB 0 Refills 11/24/16 Family Psych History See above Social History See above Patient's Strengths (min. 2) In a monitored setting. Verbally fluent. Physical Exam Physical examination was completed by the ED provider. On my examination today , the patient appears to be in no acute physical distress. No motor abnormalities noted. I note the patient has ascites and gynecomastia. Labs and vitals reviewed: Vital Signs Vital Signs Date Time Temp Pulse Resp B/P (MAP) Pulse Ox O2 Delivery O2 Flow Rate FiO2 02/01/17 06:13 77 15 120/59 (79) 95 Room Air 02/01/17 00:58 98.6 Lab Results Test 02/01/17 02:15 02/01/17 04:00 White Blood Count 3.9 TH/MM3 Red Blood Count 2.82 MIL/MM3 Hemoglobin 8.1 GM/DL Hematocrit 23.9 % Mean Corpuscular Volume 85.0 FL Mean Corpuscular Hemoglobin 28.8 PG Mean Corpuscular Hemoglobin Concent 33.9 % Red Cell Distribution Width 17.6 % Platelet Count 56 TH/MM3 Mean Platelet Volume 7.5 FL Neutrophils (%) (Auto) 72.4 % Lymphocytes (%) (Auto) 13.9 % Monocytes (%) (Auto) 11.5 % Eosinophils (%) (Auto) 1.5 % Basophils (%) (Auto) 0.7 % Neutrophils # (Auto) 2.9 TH/MM3 Lymphocytes # (Auto) 0.6 TH/MM3 Monocytes # (Auto) 0.5 TH/MM3 Eosinophils # (Auto) 0.1 TH/MM3 Basophils # (Auto) 0.0 TH/MM3 CBC Comment AUTO DIFF Differential Comment AUTO DIFF CONFIRMED Blood Urea Nitrogen 12 MG/DL Creatinine 0.93 MG/DL Random Glucose 202 MG/DL Total Protein 6.7 GM/DL Albumin 2.7 GM/DL Calcium Level 7.7 MG/DL Alkaline Phosphatase 93 U/L Aspartate Amino Transf (AST/SGOT) 103 U/L Alanine Aminotransferase (ALT/SGPT) 51 U/L Total Bilirubin 1.6 MG/DL Sodium Level 135 MEQ/L Potassium Level 2.8 MEQ/L Chloride Level 103 MEQ/L Carbon Dioxide Level 23.8 MEQ/L Anion Gap 8 MEQ/L Estimat Glomerular Filtration Rate 83 ML/MIN Ammonia 41 MCMOL/L Salicylates Level LESS THAN 1.7 MG/DL Acetaminophen Level LESS THAN 2.0 MCG/ML Ethyl Alcohol Level LESS THAN 3 MG/DL Urine Opiates Screen NEG Urine Barbiturates Screen NEG Urine Amphetamines Screen NEG Urine Benzodiazepines Screen NEG Urine Cocaine Screen POS Urine Cannabinoids Screen NEG Mental Status Examination Appearance: Disheveled Consciousness: Alert Orientation: x4 Motor Activity: Other (no motor abnormalities noted) Speech: Unremarkable Language: Adequate Fund of Knowledge: Adequate Attention and Concentration: Adequate Memory: Unremarkable Mood: Other (dysphoric) Affect: Appropriate (fairly full and reactive) Thought Process & Associations: Logical, Linear Hallucination Type: None Delusion Type: None Suicidal Ideation: No (time-limited, see above) Suicidal Plan: No Suicidal Intention: No Homicidal Ideation: No Homicidal Plan: No Homicidal Intention: No Insight: Poor Judgment: Poor Assessment & Plan Problem List: (1) Antisocial personality traits (2) Adjustment disorder with mixed disturbance of emotions and conduct ICD Codes: F43.25 - Adjustment disorder with mixed disturbance of emotions and conduct (3) Cocaine abuse ICD Codes: F14.10 - Cocaine abuse, uncomplicated Status: Chronic (4) Alcohol dependence ICD Codes: F10.20 - Alcohol dependence, uncomplicated Status: Acute Assessment & Plan 61-year-old male with psychiatric history as detailed above presently in the ED under a Singleton act. Patient threatening to cut a healthcare worker to facilitate suicide by copywriter last night, now denying suicidal ideation but only in a time-limited fashion. Prominent antisocial personality traits, and I do suspect that antisocial personality disorder is the operative diagnosis, coupled with his substance use issues. He does say that he has been feeling more dysphoric for the last few days, and so I will diagnose him with adjustment disorder with mixed disturbance of emotions and conduct. Patient [place] to go to the [place] [facility] [place] [facility] for extended stabilization, and I do think that they are likely better positioned overall to manage his case. I have instructed the nurse to reach out to the crisis counselor that the patient was speaking with over the phone yesterday to facilitate admission to that facility. Recommend retaining the patient in the ED under the Singleton act in the meantime. N.B. patient admits to a history of suicide attempt while in the inpatient setting in the past, and so although he is currently denying suicidal ideation I would recommend close observation and recommend low threshold to place the patient with a one-to-one sitter for safety should his behavior deteriorate. Thank you very much for this consultation. Problem Qualifiers (1) Alcohol dependence: Qualified Codes: F10.21 - Alcohol dependence, in remission Dio Bar MD Feb 01, 2017 12:40
[2017-02-01 14:19] VITALS: BP 121/57; PULSE 62; RESP 16; O2SAT 97
[2017-02-01 18:03] VITALS: BP 134/62; PULSE 67; RESP 18; O2SAT 97
[2017-02-01 18:05] VITALS: BP 134/62; PULSE 67; RESP 18; O2SAT 97
[2017-02-02 02:28] VITALS: BP 124/63; PULSE 86; RESP 18
[2017-02-02 06:15] VITALS: BP 136/72; PULSE 89; RESP 16
[2017-02-02] MEDS: INSULIN HUMAN NPH/R 70/30 1,000 UNITS/10 ML VIAL SQ SCH ×2 (11:15→21:14)
[2017-02-02] MEDS ORDERED: ACETAMINOPHEN 325 MG TAB PO PRN (11:15)
[2017-02-02] MEDS ORDERED: ALUMINUM/MAGNESIUM/SIMETH 30 ML CUP PO PRN (11:15)
[2017-02-02] MEDS ORDERED: LORazepam 2 MG/ML VIAL IM PRN (11:15)
[2017-02-02] MEDS ORDERED: LACTULOSE SYRUP 20 GM/30 ML CUP PO PRN ×2 (11:15→15:00)
[2017-02-02] MEDS ORDERED: ACETAMINOPHEN/HYDROcodone 325 MG/10 MG TAB PO PRN (11:15)
[2017-02-02] MEDS ORDERED: MAGNESIUM HYDROXIDE SUSP 30 ML CUP PO PRN ×2 (11:15→15:00)
[2017-02-02 11:21] VITALS: BP 134/77; PULSE 84; RESP 18; O2SAT 96
--- NOTE | 2017-02-02 11:24 | HHI.HP ---
Provisional Diagnosis Admission Date Feb 02, 2017 at 11:07 [place] I. 1. Adjustment disorder with disturbance of emotions and conduct 2. Cocaine abuse [place] II. 1. Prominent antisocial personality traits Certification of Person's Competence To Provide Express and Informed Consent I have personally examined Joselito Allison , a person being served at [facility] on, Feb 02, 2017 11:14. Express and informed consent means consent voluntarily given in writing, by a competent person, after sufficient explanation and disclosure of the subject matter involved to enable the person to make a knowing and willful decision without any element of force, fraud, deceit, duress, or other form of constraint or coercion. This person is 18 years of age or older, is not now known to be incompetent to consent to treatment with a guardian advocate, and does not have a health care surrogate or proxy currently making medical treatment decisions. I have found this person to be one of the following: [x] Competent to provide express and informed consent, as defined above, for voluntary admission to this facility and is competent to provide express and informed consent for treatment. He/she has the consistent capacity to make well reasoned, willful, and knowing decisions concerning his or her medical or mental health treatment. The person fully and consistently understands the purpose of the admission for examination/placement and is fully capable of personally exercising all rights assured [place] Incompetent to provide express and informed consent to voluntary admission, and this is incompetent to provide express and informed consent to treatment. The person must be transferred to involuntary status and a petition for a guardian advocate filed with the Circuit Court. [] Refusing to provide express and informed consent to voluntary admission but is competent to provide express and informed consent for treatment. The person must be discharged or transferred to involuntary status. Form shall be completed within 24 hours of a person's arrival at the receiving facility and filed in the clinical record of each person: 1. Admitted on a voluntary basis 2. Permitted to provide express and informed consent to his/her own treatment 3. Allowed to transfer from involuntary to voluntary status 4. Prior to permitting a person to consent to his or her own treatment after having been previously found incompetent to consent to treatment. History of Present Illness Capacity: Has Capacity HPI Mr. Allison is a 61-year-old male with a history of depression and substance abuse disorders. He is presenting under a Singleton act at this time for threatening to commit suicide by endoscopy specialty technician. (Apparently he had a knife in his backpack and was going to hold it to the throat of a health care worker in order to be shot and killed by a criminal justice lawyer.) The patient insists he actually has no wish to harm anyone else. He does however continue to report suicidal ideation with plan. He describes a 4-5 day history of increasing symptoms of depression, including depressed mood, anhedonia, suicidality, feelings of hopelessness and helplessness, diminished self-esteem, diminished energy, confusion and forgetfulness, etc. He does not know of a specific stressor that has started this depressive episode. He was on the phone with a [place] hotline, seeking admission to the [facility]. The patient admits to self-medicating with cocaine. He is unable to contract for safety. Review of Systems Psychiatric: COMPLAINS OF: Anxiety, Depression Except as stated in HPI: all other systems reviewed are Neg Past Psych History Psychological trauma history Patient is disabled from work. Unknown psychological stressors as the patient is not forthcoming with this information. Violence risk - others (6 mos) Moderate Violence risk - self (6 mos) High Substance Abuse History Drugs/Alcohol past 12 months Patient continues to admit to the use of cocaine. Past Family Social History Coded Allergies: *MDRO Multi-Drug Resistant Organism (Verified Adverse Reaction, Unknown, 02/01/17) MRSA PCR screen POSITIVE - 12/23/15 Active Scripts Oxycodone-Acetaminophen (Oxycodone-Acetaminophen) 10-325 mg Tab, 1 TAB PO Q4-6H Y for PAIN, #15 TAB 0 Refills Prov:Zoey Ferraro MD R2 01/09/17 Hydrocodone-Acetaminophen (Hydrocodone-Acetaminophen) 10-325 mg Tab, 1 TAB PO Q4 -6H Y for PAIN SCALE 6 TO 10, #15 TAB Prov:Zoey Ferraro MD R2 01/09/17 Insulin Human Isophane-Regular 70-30 Inj (Novolin 70-30 Inj) 1,000 Unit/10 Ml Vial, 5 UNITS SQ BID for Blood Sugar Management for 30 Days, ML 0 Refills Prov:Bravo Flores MD 12/03/16 Reported Medications Ascorbic Acid (C 500) 500 Mg Tab, 500 MG PO DAILY for Nutritional Supplement 12/30/16 Gabapentin (Gabapentin) 300 Mg Cap, 300 MG PO TID, #90 CAP 0 Refills 12/30/16 Thiamine (Vitamin B-1) 100 Mg Tab, 100 MG PO DAILY for Nutritional Supplement, TAB 0 Refills 11/25/16 Propranolol (Propranolol) 20 Mg Tab, 20 MG PO DAILY, #60 TAB 0 Refills 11/25/16 Lactulose Liq (Lactulose Liq) 10 Gm/15 Ml Soln, 30 ML PO BID Y for CONSTIPATION , #90 ML 0 Refills 11/25/16 Pantoprazole (Pantoprazole) 40 Mg Tab, 40 MG PO DAILY for Reflux, #30 TAB 0 Refills 11/25/16 Ferrous Gluconate (Ferrous Gluconate) 325 Mg Tab, 325 MG PO DAILY for Nutritional Supplement, #30 TAB 0 Refills 11/25/16 Escitalopram (Escitalopram) 20 Mg Tab, 20 MG PO DAILY, #30 TAB 0 Refills 11/25/16 Cholecalciferol (D3) 1,000 Unit Tab, 1000 UNITS PO DAILY 11/25/16 Doxepin (Doxepin) 50 Mg Cap, 50 MG PO HS, #30 CAP 0 Refills 11/25/16 Furosemide (Furosemide) 40 Mg Tab, 40 MG PO DAILY, #30 TAB 0 Refills 11/24/16 Tamsulosin (Tamsulosin) 0.4 Mg Cap, 0.4 MG PO DAILY for Manage Prostate Problems , #30 CAP 0 Refills 11/24/16 Buspirone (Buspirone) 10 Mg Tab, 10 MG PO BID for Anxiety, TAB 0 Refills 11/24/16 Spironolactone (Spironolactone) 100 Mg Tab, 100 MG PO BID, #60 TAB 0 Refills 11/24/16 Current Medications Medications (Trade) Dose Ordered Sig/Fortino Route Start Time Stop Time Status Last Admin (Ativan) 1 mg Q6H PRN PO 02/02/17 11:15 UNV (Ativan Inj) 1 mg Q6H PRN IM 02/02/17 11:15 UNV (Tylenol) 650 mg Q4H PRN PO 02/02/17 11:15 UNV (Milk Of Magnesia Liq) 30 ml DAILY PRN PO 02/02/17 11:15 UNV (Mag-Al Plus Susp Liq) 30 ml Q6H PRN PO 02/02/17 11:15 UNV Family Psych History Positive for mood and anxiety disorders. Social History service in the [employer]. Minimal family support. Lives with his ex- girlfriend. Does receive monthly disability check. Unemployed. Continues to abuse cocaine. Patient's Strengths (min. 2) In a monitored setting. Verbally fluent. Physical Exam GENERAL: SKIN: Warm and dry. HEAD: Normocephalic. EYES: No scleral icterus. No injection or drainage. NECK: Supple, trachea midline. No JVD or lymphadenopathy. CARDIOVASCULAR: Regular rate and rhythm without murmurs, gallops, or rubs. RESPIRATORY: Breath sounds equal bilaterally. No accessory muscle use. GASTROINTESTINAL: Abdomen soft, non-tender, nondistended. MUSCULOSKELETAL: No cyanosis, or edema. BACK: Nontender without obvious deformity. No CVA tenderness. Vital Signs Vital Signs Date Time Temp Pulse Resp B/P (MAP) Pulse Ox O2 Delivery O2 Flow Rate FiO2 02/02/17 06:15 89 16 136/72 (93) 02/01/17 18:05 97 Room Air 02/01/17 00:58 98.6 Mental Status Examination Appearance: Disheveled Consciousness: Alert Orientation: x4 Motor Activity: Other (no motor abnormalities noted) Speech: Unremarkable Language: Adequate Fund of Knowledge: Adequate Attention and Concentration: Adequate Memory: Unremarkable Mood: Other (dysphoric) Affect: Appropriate (fairly full and reactive) Thought Process & Associations: Logical, Linear Thought Content: Appropriate Hallucination Type: None Delusion Type: None Suicidal Ideation: Yes Suicidal Plan: Yes Suicidal Intention: No Homicidal Ideation: No Homicidal Plan: No Homicidal Intention: No Insight: Poor Judgment: Poor Assessment & Plan Problem List: (1) Adjustment disorder with mixed disturbance of emotions and conduct ICD Codes: F43.25 - Adjustment disorder with mixed disturbance of emotions and conduct (2) Cocaine abuse ICD Codes: F14.10 - Cocaine abuse, uncomplicated Status: Chronic Assessment & Plan Estimated LOS: days. 61-year-old male under a Singleton act for threatening to commit suicide by endoscopy specialty technician. This physician notes the patient's history of drug and alcohol abuse as well as antisocial personality disorder traits. However, these factors placed the patient at higher risk for self-harm. The patient does describe multiple symptoms of depression and suicidality with plan. He is seeking help from the [place] but there are no beds available at [facility]. The patient is unable to contract for safety and is therefore being admitted for evaluation and treatment. Patient also requires paracentesis every 10 days and is in need of this procedure. He is therefore being admitted to the med psych unit. A consultation has been placed with the hospitalist. This physician has also ordered a CBC and comprehensive metabolic panel to determine if any infectious process or metabolic process is causing or contributing to his depression. Additionally, we are obtaining TSH level, vitamin B-12 level and vitamin D level to determine if any deficiency in these areas is causing or contributing to his depression. This physician has ordered an EKG to determine his cardiac conduction status prior to changing his psychotropic medicines. Patient is noted to be on multiple nonpsychiatric medicines which may also be adversely affecting his cardiac conduction. This physician spoke with the patient's nurse regarding his recent behavior. Finally, case management will be asked to participate in case patient wants to transfer to [facility] for care home treatment. Bryce Ely MD Feb 02, 2017 11:24
[2017-02-02] MEDS ORDERED: POTASSIUM CHLORIDE 20 MEQ CONTROLLED RELEASE TAB PO ONE (13:00)
--- NOTE | 2017-02-02 13:51 | PD.CONS ---
HPI Service [facility] Hospitalists Consult Requested By Psychiatric services Reason for Consult Medical management Primary Care Physician [facility] Diagnoses: History of Present Illness Written by Yamilka Bashir, acting as scribe for Dr. Jose on 02/02/17 at 13: 34. This is a 61-year-old male with past medical history significant for alcoholic liver cirrhosis, hepatitis C, diabetes, and anemia who presented to [facility] ED with complaints of major depression. While in the ED patient was overheard saying that he would like to take a knife hold to the healthcare workers throat and have the window shade cutter and mounter shoot him. Patient was Singleton acted at this point. Patient complains of chronic pain mostly in the abdomen with significant swelling that requires drainage every 10 days for which he is due for now. He denies any fever, chills, nausea, vomiting, diarrhea or constipation. Patient has been admitted to inpatient psychiatric unit and Hospitalist services have been consulted for medical management. Previously, patient was residing in [place] and was a patient at the [facility] . He last saw his PCP 2 months ago. He has an upcoming appointment with a new PCP at the [facility] in [place]. WILL CONSULT INTERVENTIONAL RADIOLOGY FOR PARACENTESIS- LARGE VOLUME NPO UNTIL AFTER PROCEDURE DW RN AND PT AND PA Review of Systems Constitutional: COMPLAINS OF: Weight gain, Change in appetite, DENIES: Diaphoretic episodes, Fatigue, Fever, Weight loss, Chills, Dizziness Endocrine: DENIES: Heat/cold intolerance, Polydipsia, Polyuria, Polyphagia Eyes: DENIES: Blurred vision, Diplopia, Eye inflammation, Eye pain, Vision loss , Photosensitivity Ears, nose, mouth, throat: DENIES: Tinnitus, Hearing loss, Vertigo, Nasal discharge, Oral lesions, Throat pain Respiratory: DENIES: Apneas, Cough, Snoring, Wheezing, Hemoptysis, Sputum production Cardiovascular: DENIES: Chest pain, Palpitations, Syncope, Dyspnea on Exertion , PND, Lower Extremity Edema Gastrointestinal: COMPLAINS OF: Abdominal pain, DENIES: Black stools, Bloody stools, Constipation, Diarrhea, Nausea, Vomiting, Difficulty Swallowing Genitourinary: DENIES: Sexual dysfunction, Urinary frequency, Urinary incontinence, Urgency, Hematuria Musculoskeletal: DENIES: Joint pain, Muscle aches, Stiffness, Joint Swelling, Back pain Integumentary: DENIES: Abnormal pigmentation, Nail changes, Pruritus, Rash Hematologic/lymphatic: DENIES: Bruising, Lymphadenopathy Immunologic/allergic: DENIES: Eczema Neurologic: DENIES: Abnormal gait, Headache, Localized weakness, Paresthesias Psychiatric: COMPLAINS OF: Anxiety, Confusion, Mood changes, Depression, Agitation, Suicidal Ideation, Homicidal Ideation Except as stated in HPI: all other systems reviewed are Neg Past Family Social History Allergies: Coded Allergies: *MDRO Multi-Drug Resistant Organism (Verified Adverse Reaction, Unknown, 02/01/17) MRSA PCR screen POSITIVE - 12/23/15 Past Medical History Liver cirrhosis secondary to alcohol use Recurrent ascites Hepatitis C, treatment socorro SBP Diabetes Depression with previous suicide attempts Anemia Esophageal varices BPH History of hepatic encephalopathy Past Surgical History Cholecystectomy Multiple bandings for GIB Recurrent paracentesis Reported Medications Oxycodone-Acetaminophen 10-325 mg Tab 1 Tab PO Q4-6H PRN Hydrocodone-Acetaminophen 10-325 mg Tab 1 Tab PO Q4-6H PRN Novolin 70-30 Inj (Insulin Human Isoph/Insulin Regular) 1,000 Unit/10 Ml Vial 5 Units SQ BID 30 Days C 500 (Ascorbic Acid) 500 Mg Tab 500 Mg PO DAILY Gabapentin 300 Mg Cap 300 Mg PO TID Vitamin B-1 (Thiamine HCl) 100 Mg Tab 100 Mg PO DAILY Propranolol (Propranolol HCl) 20 Mg Tab 20 Mg PO DAILY Lactulose Liq (Lactulose) 10 Gm/15 Ml Soln 30 Ml PO BID PRN Pantoprazole (Pantoprazole Sodium) 40 Mg Tab 40 Mg PO DAILY Ferrous Gluconate 325 Mg Tab 325 Mg PO DAILY Escitalopram (Escitalopram Oxalate) 20 Mg Tab 20 Mg PO DAILY D3 (Cholecalciferol) 1,000 Unit Tab 1,000 Units PO DAILY Doxepin (Doxepin HCl) 50 Mg Cap 50 Mg PO HS Furosemide 40 Mg Tab 40 Mg PO DAILY Tamsulosin (Tamsulosin HCl) 0.4 Mg Cap 0.4 Mg PO DAILY Buspirone (Buspirone HCl) 10 Mg Tab 10 Mg PO BID Spironolactone 100 Mg Tab 100 Mg PO BID Active Ordered Medications Current Medications Medications (Trade) Dose Ordered Sig/Fortino Route Start Time Stop Time Status Last Admin (Ativan) 1 mg Q6H PRN PO 02/02/17 11:15 (Ativan Inj) 1 mg Q6H PRN IM 02/02/17 11:15 (Tylenol) 650 mg Q4H PRN PO 02/02/17 11:15 (Milk Of Magnesia Liq) 30 ml DAILY PRN PO 02/02/17 11:15 (Mag-Al Plus Susp Liq) 30 ml Q6H PRN PO 02/02/17 11:15 (Vitamin C) 500 mg DAILY PO 02/03/17 09:00 (Buspar) 10 mg BID PO 02/02/17 21:00 (Vitamin D3) 1,000 units DAILY PO 02/03/17 09:00 (SINEquan) 50 mg HS PO 02/02/17 21:00 (Lasix) 40 mg DAILY PO 02/03/17 09:00 (Neurontin) 300 mg TID PO 02/02/17 13:00 ([place] 10-325 Mg) 1 tab Q4HR PRN PO 02/02/17 11:15 (NovoLIN 70/30 INJ) 5 units BID SQ 02/02/17 11:15 (Lactulose Liq) 30 ml BID PRN PO 02/02/17 11:15 (Protonix) 40 mg DAILY PO 02/03/17 09:00 (Inderal) 20 mg DAILY PO 02/03/17 09:00 (Aldactone) 100 mg BID@0900,1800 PO 02/02/17 18:00 (Flomax) 0.4 mg DAILY PO 02/02/17 11:15 (Vitamin B1) 100 mg DAILY PO 02/03/17 09:00 (Ferrous Sulfate) 325 mg DAILY PO 02/03/17 09:00 (KCl) 40 meq ONCE ONCE PO 02/02/17 15:00 02/02/17 15:01 UNV (KCl) 40 meq ONCE ONCE PO 02/02/17 13:00 02/02/17 13:01 UNV Family History Mother, depression Brother, cancer Social History Patient denies any tobacco use. He admits to prior history of heavy drinking but states he has not had any alcohol since 03/20/16. Patient is a history of cocaine abuse. Physical Exam Vital Signs Vital Signs Date Time Temp Pulse Resp B/P (MAP) Pulse Ox O2 Delivery O2 Flow Rate FiO2 02/02/17 11:21 84 18 134/77 (96) 96 Room Air 02/02/17 06:15 89 16 136/72 (93) 02/02/17 02:28 86 18 124/63 (83) 02/01/17 18:05 67 18 134/62 (86) 97 Room Air 02/01/17 18:03 67 18 134/62 (86) 97 Room Air 02/01/17 14:19 62 16 121/57 (78) 97 Room Air Physical Exam GENERAL: This is a ill-appearing patient, in no apparent distress. Awake and alert. Pleasant and calm. SKIN: No rashes, ecchymoses or lesions. Cool and dry. HEAD: Atraumatic. Normocephalic. No temporal or scalp tenderness. EYES: Pupils equal round and reactive. Extraocular motions intact. No scleral icterus. No injection or drainage. ENT: Nose without bleeding, purulent drainage or septal hematoma. Throat without erythema, tonsillar hypertrophy or exudate. Uvula midline. Airway patent. NECK: Trachea midline. No JVD or lymphadenopathy. Supple, nontender, no meningeal signs. CARDIOVASCULAR: Regular rate and rhythm without murmurs, gallops, or rubs. RESPIRATORY: Clear to auscultation. Breath sounds equal bilaterally. No wheezes , rales, or rhonchi. GASTROINTESTINAL: Significant abdominal distention. Mild diffuse tenderness to palpation. Positive ascites. Unable to assess for hepato-splenomegaly, or palpable masses secondary to abdominal girth. No guarding. MUSCULOSKELETAL: Extremities without clubbing, cyanosis, or edema. No joint tenderness, effusion, or edema noted. No calf tenderness. NEUROLOGICAL: Awake and alert. Able to move all extremities spontaneously. Nonfocal. Normal speech. INSIGHT AND JUDGEMENT ARE LIMITED MOOD AND BEHAVIOR ARE ABNORMAL Result Diagram: 02/01/175 02/01/17214 Imaging Laboratory Tests Test 02/01/17 02:15 02/01/17 04:00 02/02/17 13:30 White Blood Count 3.9 TH/MM3 Red Blood Count 2.82 MIL/MM3 Hemoglobin 8.1 GM/DL Hematocrit 23.9 % Mean Corpuscular Volume 85.0 FL Mean Corpuscular Hemoglobin 28.8 PG Mean Corpuscular Hemoglobin Concent 33.9 % Red Cell Distribution Width 17.6 % Platelet Count 56 TH/MM3 Mean Platelet Volume 7.5 FL Neutrophils (%) (Auto) 72.4 % Lymphocytes (%) (Auto) 13.9 % Monocytes (%) (Auto) 11.5 % Eosinophils (%) (Auto) 1.5 % Basophils (%) (Auto) 0.7 % Neutrophils # (Auto) 2.9 TH/MM3 Lymphocytes # (Auto) 0.6 TH/MM3 Monocytes # (Auto) 0.5 TH/MM3 Eosinophils # (Auto) 0.1 TH/MM3 Basophils # (Auto) 0.0 TH/MM3 CBC Comment AUTO DIFF Differential Comment AUTO DIFF CONFIRMED Blood Urea Nitrogen 12 MG/DL Creatinine 0.93 MG/DL Random Glucose 202 MG/DL Total Protein 6.7 GM/DL Albumin 2.7 GM/DL Calcium Level 7.7 MG/DL Alkaline Phosphatase 93 U/L Aspartate Amino Transf (AST/SGOT) 103 U/L Alanine Aminotransferase (ALT/SGPT) 51 U/L Total Bilirubin 1.6 MG/DL Sodium Level 135 MEQ/L Potassium Level 2.8 MEQ/L Chloride Level 103 MEQ/L Carbon Dioxide Level 23.8 MEQ/L Anion Gap 8 MEQ/L Estimat Glomerular Filtration Rate 83 ML/MIN Ammonia 41 MCMOL/L Salicylates Level LESS THAN 1.7 MG/DL Acetaminophen Level LESS THAN 2.0 MCG/ML Ethyl Alcohol Level LESS THAN 3 MG/DL Urine Opiates Screen NEG Urine Barbiturates Screen NEG Urine Amphetamines Screen NEG Urine Benzodiazepines Screen NEG Urine Cocaine Screen POS Urine Cannabinoids Screen NEG Prothrombin Time 15.5 SEC Prothromb Time International Ratio 1.4 RATIO Activated Partial Thromboplast Time 32.5 SEC Assessment and Plan Assessment and Plan 61-year-old male with past medical history significant for alcoholic liver cirrhosis, hepatitis C, diabetes, hypertension and anemia who presented to [facility] ED with complaints of major depression who was admitted under Singleton act to the inpatient psychiatric unit. Hospitalist services were consulted for medical management of patient's chronic alcoholic liver cirrhosis and recurrent paracentesis. Major depression Adjustment disorder - Management per psychiatric team - Obtain ammonia level and TSH Chronic alcoholic liver cirrhosis with ascites requiring recurrent paracentesis Hepatitis C Esophageal varices - Order therapeutic paracentesis. Send peritoneal fluid for analysis. Obtain PT/INR. - Continue home propanolol, Lasix, Spironolactone and lactulose - Continue on thiamine daily, MULTIVITAMIN, FOLIC ACID - Discussed importance of continued alcohol abstinence - pain management Hypokalemia - Repletion ordered - Check magnesium level - Am labs to monitor response DM - Continue on Novolin 70/30 5 units subcutaneous twice a day - Obtain hemoglobin A1c - Accu-Cheks, insulin sliding scale - Diabetic diet BPH - Continue Flomax 0.4 mg daily Pancytopenia Thrombocytopenia - secondary to chronic liver disease - Appears stable - Continue iron supplementation - Monitor as indicated Cocaine use - UDS positive for cocaine - Discussed importance of cessation GERD prophylaxis - PPI DVT prophylaxis - Encourage ambulation - Will defer chemical anticoagulation at this time secondary to thrombocytopenia and impending IR procedure SCDS AND TEDS Thank you very kindly for this consultation. Will continue to follow patient along with you. AM LABS The exam, history, and the medical decision-making described in the above note were completed with the assistance of the mid-level provider. I reviewed and agree with the findings presented. I attest that I had a [id number] encounter with the patient on the same day, and personally performed and documented my assessment and findings in the medical record. Code Status FULL CODE Discussed Condition With Patient, nursing staff Yamilka Bashir Feb 02, 2017 13:51 German Jose DO Feb 02, 2017 14:44
[2017-02-02 14:09] LABS: APTT (PATIENT) 32.5 SEC (24.3-30.1); INTERNATIONAL NORMALIZED RATIO 1.4 RATIO; PROTHROMBIN TIME - PATIENT 15.5 SEC (9.8-11.6)
[2017-02-02] MEDS: GABAPENTIN 300 MG CAP PO SCH ×2 (14:32→18:36)
[2017-02-02] MEDS: TAMSULOSIN HCL 0.4 MG CAP PO SCH (14:32)
[2017-02-02 14:52] VITALS: BP 152/91; PULSE 93; RESP 17; TEMP 97.9; O2SAT 96
[2017-02-02] MEDS ORDERED: SODIUM CHLORIDE 0.9% FLUSH 10 ML FLUSH IV FLUSH PRN (15:00)
[2017-02-02] MEDS ORDERED: POTASSIUM CHLORIDE 10 MEQ CONTROLLED RELEASE TAB PO ONE (15:00)
[2017-02-02] MEDS ORDERED: SENNOSIDES 8.6 MG TAB PO PRN (15:00)
[2017-02-02] MEDS ORDERED: GLUCAGON 1 MG/ML VIAL OTHER PRN (15:00)
[2017-02-02] MEDS ORDERED: DEXTROSE 50% IN WATER 50 ML SYRINGE IV PUSH PRN (15:00)
[2017-02-02] MEDS ORDERED: NALOXONE HCL 0.4 MG/ML AMP IV PUSH PRN (15:00)
[2017-02-02] MEDS ORDERED: BISACODYL 10 MG SUPP RECTAL PRN (15:00)
[2017-02-02] MEDS ORDERED: traMADol HCL 50 MG TAB PO PRN ×2 (15:30)
[2017-02-02] MEDS ORDERED: ONDANSETRON ODT 4 MG TAB PO PRN (15:30)
[2017-02-02] MEDS: INSULIN ASPART SUPPLEMENTAL SCALE SQ SCH ×2 (17:00→21:00)
[2017-02-02] MEDS: SPIRONOLACTONE 100 MG TAB PO SCH (17:19)
[2017-02-02 18:53] VITALS: BP 162/88; PULSE 92; RESP 17; TEMP 98.6; O2SAT 96
[2017-02-02] MEDS: busPIRone HCL 10 MG TAB PO SCH (21:00)
[2017-02-02] MEDS: SODIUM CHLORIDE 0.9% FLUSH 10 ML FLUSH IV FLUSH SCH (21:00)
[2017-02-02] MEDS: DOCUSATE SODIUM 50 MG/SENNA 8.6 MG TAB PO SCH (21:00)
[2017-02-02] MEDS: DOXEPIN HCL 50 MG CAP PO SCH (21:00)
[2017-02-02 21:39] LABS: MEAN CELL VOLUME 86.1 FL (80.0-100.0); MEAN CORPUSCULAR HEMOGLOBIN 28.5 PG (27.0-34.0); MEAN CORPUSCULAR HGB CONC 33.1 % (32.0-36.0); PLATELET COUNT 52 TH/MM3 (150-450); RED BLOOD COUNT 3.25 MIL/MM3 (4.50-5.90); RED CELL DISTRIBUTION WIDTH 18.4 % (11.6-17.2); WHITE BLOOD COUNT 3.9 TH/MM3 (4.0-11.0)
[2017-02-02 21:47] LABS: REVIEW FLAG FINAL
[2017-02-02 23:50] LABS: MRSA PCR POSITIVE (NEGATIVE); STAPH AUREUS PCR POSITIVE (NEGATIVE)
[2017-02-03] VITALS (9 sets, daily range): BP systolic 100–136; BP diastolic 51–82; PULSE 55–88; RESP 15–18; TEMP 97.5–98; O2SAT 90–99
[2017-02-03] MEDS: SPIRONOLACTONE 100 MG TAB PO SCH ×2 (07:57→18:00)
[2017-02-03] MEDS: TAMSULOSIN HCL 0.4 MG CAP PO SCH (07:57)
[2017-02-03] MEDS: GABAPENTIN 300 MG CAP PO SCH ×3 (07:57→18:35)
[2017-02-03] MEDS: PANTOPRAZOLE SOD 40 MG DELAYED RELEASE TAB PO SCH (07:57)
[2017-02-03] MEDS: busPIRone HCL 10 MG TAB PO SCH ×2 (07:57→20:43)
[2017-02-03] MEDS: DOCUSATE SODIUM 50 MG/SENNA 8.6 MG TAB PO SCH ×2 (07:58→20:43)
[2017-02-03] MEDS: THIAMINE HCL 100 MG TAB PO SCH (07:58)
[2017-02-03] MEDS: CHOLECALCIFEROL (VIT D3) 1000 UNIT TAB PO SCH (07:58)
[2017-02-03] MEDS: ASCORBIC ACID 500 MG TAB PO SCH (07:58)
[2017-02-03] MEDS: PROPRANOLOL HCL 20 MG TAB PO SCH (07:59)
[2017-02-03] MEDS: FERROUS SULFATE 325 MG (65 MG ELEMENTAL IRON) TAB PO SCH (07:59)
[2017-02-03] MEDS: INSULIN ASPART SUPPLEMENTAL SCALE SQ SCH ×4 (07:59→20:29)
[2017-02-03] MEDS: INSULIN HUMAN NPH/R 70/30 1,000 UNITS/10 ML VIAL SQ SCH ×2 (08:00→20:47)
[2017-02-03] MEDS: SODIUM CHLORIDE 0.9% FLUSH 10 ML FLUSH IV FLUSH SCH ×2 (09:00→20:43)
[2017-02-03] MEDS: FUROSEMIDE 40 MG TAB PO SCH (09:00)
--- NOTE | 2017-02-03 09:07 | HHI.PR ---
Subjective Remarks This is a 61-year-old male with past medical history significant for alcoholic liver cirrhosis, hepatitis C, diabetes, and anemia who presented to [facility] ED with complaints of major depression. While in the ED patient was overheard saying that he would like to take a knife hold to the healthcare workers throat and have the school health assistant shoot him. Patient was Singleton acted at this point. Patient complains of chronic pain mostly in the abdomen with significant swelling that requires drainage every 10 days for which he is due for now. He denies any fever, chills, nausea, vomiting, diarrhea or constipation. Patient has been admitted to inpatient psychiatric unit and Hospitalist services have been consulted for medical management. Previously, patient was residing in [place] and was a patient at the [facility] . He last saw his PCP 2 months ago. He has an upcoming appointment with a new PCP at the [facility] in [place]. WILL CONSULT INTERVENTIONAL RADIOLOGY FOR PARACENTESIS- LARGE VOLUME NPO UNTIL AFTER PROCEDURE 02-03 FOR PARACENTESIS TODAY WANTS BETTER PAIN CONTROL WITH ORAL MEDS LAVELL RN AND PATIENT AM LABS Objective Vitals Vital Signs Date Time Temp Pulse Resp B/P (MAP) Pulse Ox O2 Delivery O2 Flow Rate FiO2 02/03/17 06:07 97.5 88 15 136/68 (90) 93 02/03/17 02:29 97.6 84 16 126/72 (90) 94 02/03/17 02:00 97.6 80 15 126/72 (90) 94 02/02/17 18:53 98.6 92 17 162/88 (112) 96 02/02/17 17:02 18 02/02/17 14:52 97.9 93 17 152/91 (111) 96 02/02/17 14:30 02/02/17 11:21 84 18 134/77 (96) 96 Room Air I/O 02/02/17 02/02/17 02/02/17 02/03/17 02/03/17 02/03/17 07:00 15:00 23:00 07:00 15:00 23:00 Intake Total 480 ml 120 ml 120 ml Balance 480 ml 120 ml 120 ml Intake Oral 480 ml 120 ml 120 ml # Voids 2 1 Result Diagram: 02/02/17203302/01/17214 Other Results Laboratory Tests Test 02/01/17 02:15 02/01/17 04:00 02/02/17 13:30 02/02/17 17:10 White Blood Count 3.9 TH/MM3 Red Blood Count 2.82 MIL/MM3 Hemoglobin 8.1 GM/DL Hematocrit 23.9 % Mean Corpuscular Volume 85.0 FL Mean Corpuscular Hemoglobin 28.8 PG Mean Corpuscular Hemoglobin Concent 33.9 % Red Cell Distribution Width 17.6 % Platelet Count 56 TH/MM3 Mean Platelet Volume 7.5 FL Neutrophils (%) (Auto) 72.4 % Lymphocytes (%) (Auto) 13.9 % Monocytes (%) (Auto) 11.5 % Eosinophils (%) (Auto) 1.5 % Basophils (%) (Auto) 0.7 % Neutrophils # (Auto) 2.9 TH/MM3 Lymphocytes # (Auto) 0.6 TH/MM3 Monocytes # (Auto) 0.5 TH/MM3 Eosinophils # (Auto) 0.1 TH/MM3 Basophils # (Auto) 0.0 TH/MM3 CBC Comment AUTO DIFF Differential Comment AUTO DIFF CONFIRMED Blood Urea Nitrogen 12 MG/DL Creatinine 0.93 MG/DL Random Glucose 202 MG/DL Total Protein 6.7 GM/DL Albumin 2.7 GM/DL Calcium Level 7.7 MG/DL Alkaline Phosphatase 93 U/L Aspartate Amino Transf (AST/SGOT) 103 U/L Alanine Aminotransferase (ALT/SGPT) 51 U/L Total Bilirubin 1.6 MG/DL Sodium Level 135 MEQ/L Potassium Level 2.8 MEQ/L Chloride Level 103 MEQ/L Carbon Dioxide Level 23.8 MEQ/L Anion Gap 8 MEQ/L Estimat Glomerular Filtration Rate 83 ML/MIN Ammonia 41 MCMOL/L Salicylates Level LESS THAN 1.7 MG/DL Acetaminophen Level LESS THAN 2.0 MCG/ML Ethyl Alcohol Level LESS THAN 3 MG/DL Urine Opiates Screen NEG Urine Barbiturates Screen NEG Urine Amphetamines Screen NEG Urine Benzodiazepines Screen NEG Urine Cocaine Screen POS Urine Cannabinoids Screen NEG Prothrombin Time 15.5 SEC Prothromb Time International Ratio 1.4 RATIO Activated Partial Thromboplast Time 32.5 SEC Nasal Screen MRSA (PCR) POSITIVE Staphylococcus aureus (PCR)(LAB) POSITIVE Test 02/02/17 20:34 02/03/17 08:25 White Blood Count 3.9 TH/MM3 Red Blood Count 3.25 MIL/MM3 Hemoglobin 9.3 GM/DL Hematocrit 28.0 % Mean Corpuscular Volume 86.1 FL Mean Corpuscular Hemoglobin 28.5 PG Mean Corpuscular Hemoglobin Concent 33.1 % Red Cell Distribution Width 18.4 % Platelet Count 52 TH/MM3 Mean Platelet Volume 7.9 FL Magnesium Level 1.5 MG/DL Ammonia 79 MCMOL/L Objective Remarks GENERAL: This is a ill-appearing patient, in no apparent distress. Awake and alert. Pleasant and calm. SKIN: No rashes, ecchymoses or lesions. Cool and dry. HEAD: Atraumatic. Normocephalic. No temporal or scalp tenderness. EYES: Pupils equal round and reactive. Extraocular motions intact. No scleral icterus. No injection or drainage. ENT: Nose without bleeding, purulent drainage or septal hematoma. Throat without erythema, tonsillar hypertrophy or exudate. Uvula midline. Airway patent. NECK: Trachea midline. No JVD or lymphadenopathy. Supple, nontender, no meningeal signs. CARDIOVASCULAR: Regular rate and rhythm without murmurs, gallops, or rubs. RESPIRATORY: Clear to auscultation. Breath sounds equal bilaterally. No wheezes , rales, or rhonchi. GASTROINTESTINAL: Significant abdominal distention. Mild diffuse tenderness to palpation. Positive ascites. Unable to assess for hepato-splenomegaly, or palpable masses secondary to abdominal girth. No guarding. MUSCULOSKELETAL: Extremities without clubbing, cyanosis, or edema. No joint tenderness, effusion, or edema noted. No calf tenderness. NEUROLOGICAL: Awake and alert. Able to move all extremities spontaneously. Nonfocal. Normal speech. INSIGHT AND JUDGEMENT ARE LIMITED MOOD AND BEHAVIOR ARE ABNORMAL Procedures PARACENTESIS 10-24 Medications and IVs Current Medications Potassium Chloride (KCl) 40 meq ONCE ONCE PO Last administered on 02/01/17 03:59; Start 02/01/17 at 03:30; Stop 02/01/17 at 03:32; Status DC Potassium Chloride (KCl) 40 meq ONCE ONCE PO Last administered on 02/01/17 05:30; Start 02/01/17 at 05:30; Stop 02/01/17 at 05:31; Status DC Oxycodone HCl (Roxicodone) 10 mg ONCE ONCE PO Last administered on 02/01/17 04:51; Start 02/01/17 at 03:30; Stop 02/01/17 at 03:32; Status DC Ondansetron HCl (Zofran Odt) 4 mg ONCE ONCE PO Last administered on 04:00; Start 02/01/17 at 03:30; Stop 02/01/17 at 03:32; Status DC Lorazepam (Ativan) 1 mg Q6H PRN PO MODERATE TO SEVERE ANXIETY; Start 02/02/17 at 11:15 Lorazepam (Ativan Inj) 1 mg Q6H PRN IM MODERATE TO SEVERE ANXIETY; Start 02/02 at 11:15 Acetaminophen (Tylenol) 650 mg Q4H PRN PO Pain 1-5 or Temp >101F; Start at 11:15; Stop 02/02/17 at 15:13; Status DC Magnesium Hydroxide (Milk Of Magnesia Liq) 30 ml DAILY PRN PO SEE LABEL COMMENTS; Start 02/02/17 at 11:15; Stop 02/02/17 at 14:56; Status DC Al Hydrox/Mg Hydrox/Simethicone (Mag-Al Plus Susp Liq) 30 ml Q6H PRN PO DYSPEPSIA; Start 02/02/17 at 11:15 Ascorbic Acid (Vitamin C) 500 mg DAILY PO Last administered on 02/03/17 07:58 ; Start 02/03/17 at 09:00 Buspirone HCl (Buspar) 10 mg BID PO Last administered on 02/03/17 07:57; Start 02/02/17 at 21:00 Cholecalciferol (Vitamin D3) 1,000 units DAILY PO Last administered on 07:58; Start 02/03/17 at 09:00 Doxepin HCl (SINEquan) 50 mg HS PO Last administered on 02/02/17 21:00; Start 02/02/17 at 21:00 Furosemide (Lasix) 40 mg DAILY PO ; Start 02/03/17 at 09:00 Gabapentin (Neurontin) 300 mg TID PO Last administered on 02/03/17 07:57; Start 02/02/17 at 13:00 Acetaminophen/ Hydrocodone Bitart ([place] 10-325 Mg) 1 tab Q4HR PRN PO PAIN SCALE 6 TO 10; Start 02/02/17 at 11:15; Stop 02/02/17 at 15:13; Status DC Insulin Human Isoph/Insulin Regular (NovoLIN 70/30 INJ) 5 units BID SQ Last administered on 02/03/17 08:00; Start 02/02/17 at 11:15 Lactulose (Lactulose Liq) 30 ml BID PRN PO SEE LABEL COMMENTS; Start 02/02/17 at 11:15; Stop 02/02/17 at 14:56; Status DC Pantoprazole Sodium (Protonix) 40 mg DAILY PO Last administered on 02/03/17 07:57; Start 02/03/17 at 09:00 Propranolol HCl (Inderal) 20 mg DAILY PO Last administered on 02/03/17 07:59 ; Start 02/03/17 at 09:00 Spironolactone (Aldactone) 100 mg BID@0900,1800 PO Last administered on 07:57; Start 02/02/17 at 18:00 Tamsulosin HCl (Flomax) 0.4 mg DAILY PO Last administered on 02/03/17 07:57; Start 02/02/17 at 11:15 Thiamine HCl (Vitamin B1) 100 mg DAILY PO Last administered on 02/03/17 07:58 ; Start 02/03/17 at 09:00 Ferrous Sulfate (Ferrous Sulfate) 325 mg DAILY PO Last administered on 07:59; Start 02/03/17 at 09:00 Potassium Chloride (KCl) 40 meq ONCE ONCE PO Last administered on 02/02/17 14:35; Start 02/02/17 at 15:00; Stop 02/02/17 at 15:01; Status DC Potassium Chloride (KCl) 40 meq ONCE ONCE PO Last administered on 02/02/17 14:36; Start 02/02/17 at 13:00; Stop 02/02/17 at 13:36; Status DC Sodium Chloride (NS Flush) 2 ml UNSCH PRN IV FLUSH FLUSH AFTER USING IV ACCESS ; Start 02/02/17 at 15:00 Sodium Chloride (NS Flush) 2 ml BID IV FLUSH ; Start 02/02/17 at 21:00 Naloxone HCl (Narcan Inj) 0.4 mg UNSCH PRN IV PUSH SEE LABEL COMMENTS; Start 02/02/17 at 15:00 Senna/Docusate Sodium ([place]ayne-Colace) 1 tab BID PO Last administered on 21:00; Start 02/02/17 at 21:00 Magnesium Hydroxide (Milk Of Magnesia Liq) 30 ml Q12H PRN PO Mild constipation ; Start 02/02/17 at 15:00 Sennosides (Senokot) 17.2 mg Q12H PRN PO Moderate constipation; Start at 15:00 Bisacodyl (Dulcolax Supp) 10 mg DAILY PRN RECTAL SEVERE CONSITIPATION; Start 02/02/17 at 15:00 Lactulose (Lactulose Liq) 30 ml DAILY PRN PO SEVERE CONSITIPATION; Start 02/02 at 15:00 Insulin Aspart (NovoLOG SUPPLEMENTAL SCALE) 1 ACHS SLIDING SCALE SQ ; Start at 17:00 Dextrose (D50w (Syr) Inj) 50 ml UNSCH PRN IV PUSH HYPOGLYCEMIA-SEE COMMENTS; Start 02/02/17 at 15:00 Glucagon (Glucagon Inj) 1 mg UNSCH PRN OTHER HYPOGLYCEMIA-SEE COMMENTS; Start 02/02/17 at 15:00 Tramadol HCl (Ultram) 100 mg Q6H PRN PO PAIN 6-10 Last administered on 15:39; Start 02/02/17 at 15:30 Tramadol HCl (Ultram) 50 mg Q6H PRN PO PAIN 1-5; Start 02/02/17 at 15:30 Ondansetron HCl (Zofran Odt) 4 mg Q4H PRN PO NAUSEA Last administered on 02/02 15:39; Start 02/02/17 at 15:30 A/P Assessment and Plan 61-year-old male with past medical history significant for alcoholic liver cirrhosis, hepatitis C, diabetes, hypertension and anemia who presented to [facility] ED with complaints of major depression who was admitted under Singleton act to the inpatient psychiatric unit. Hospitalist services were consulted for medical management of patient's chronic alcoholic liver cirrhosis and recurrent paracentesis. Major depression Adjustment disorder - Management per psychiatric team - Obtain ammonia level and TSH Chronic alcoholic liver cirrhosis with ascites requiring recurrent paracentesis Hepatitis C Esophageal varices - Order therapeutic paracentesis. Send peritoneal fluid for analysis. Obtain PT/INR. - Continue home propanolol, Lasix, Spironolactone and lactulose - Continue on thiamine daily, MULTIVITAMIN, FOLIC ACID - Discussed importance of continued alcohol abstinence - pain management Hypokalemia - Repletion ordered - Check magnesium level - Am labs to monitor response DM - Continue on Novolin 70/30 5 units subcutaneous twice a day - Obtain hemoglobin A1c - Accu-Cheks, insulin sliding scale - Diabetic diet BPH - Continue Flomax 0.4 mg daily Pancytopenia Thrombocytopenia - secondary to chronic liver disease - Appears stable - Continue iron supplementation - Monitor as indicated Cocaine use - UDS positive for cocaine - Discussed importance of cessation GERD prophylaxis - PPI DVT prophylaxis - Encourage ambulation - Will defer chemical anticoagulation at this time secondary to thrombocytopenia and impending IR procedure SCDS AND TEDS Thank you very kindly for this consultation. Will continue to follow patient along with you. AM LABS CHRONIC PAIN DOES NOT WANT TRAMADOL WANTS STRONGER Discharge Planning FOR PARACENTESIS TODAY 10-24 German Jose DO Feb 03, 2017 09:07
--- NOTE | 2017-02-03 09:12 | HHI.PYPN ---
Subjective Chief Complaint: depression with suicidal ideation Remarks Patient is 61-year-old man living with ex-girlfriend, unemployed on SSD, , with past psychiatric history of depression, cocaine use disorder , dissociative personality disorder with a past history of hep C, cirrhosis, diabetes and anemia who came in to the ED voluntarily and stated that he wanted to hurt hospital staff and noted to have police shoot him which she was then placed under Singleton act for the same and transferred to the inpatient medical/ psychiatry unit for further observation and management. While in the ED patient was requesting to be transferred to a [facility] due to having previous history of hospitalizations there which is a time the treatment team was exploring this it was determined that there were no beds available for transfer therefore transferred to our service. Patient was seen for follow-up, chart review. Patient found lying in hospital bed, cooperative today. Patient states that he is not having any suicidal ideations at this time and that he had "went away in the ER". Patient states that his depression was present or in the ED. As per ED notes there was no significant stressor associated with the onset of this recent depression. Patient states that his stressors included seeing commercials on [employer] asking for shine for in [employer] and other [employer], seeing animals that were abuse, and [employer] children with cancer. Patient states that his depression in the ER was and out of 10 but today is is better reporting 3 out of 10 processes 10 being at its worst). She stated that he was recently approved for housing which he looks forward to and has a more positive outlook on his life now and is excited about wanting to furnish. Patient states that he is connected to [facility] services specifically with therapist Dr. Shin which she sees regularly. Patient states that he denies any SI, HI, AVH or delusions at this time. Patient admits to having used cocaine about twice a month and usually use when he is depressed as a way to cope with his depression. Patient stated he is considering rehabilitation services through the [place] but reports that he has been sober from alcohol use since 2016. Review of Systems Except as stated in HPI: all other systems reviewed are Neg Mental Status Examination Appearance: Disheveled Consciousness: Alert Orientation: x4 Motor Activity: Other (no motor abnormalities noted) Speech: Unremarkable Language: Adequate Fund of Knowledge: Adequate Attention and Concentration: Adequate Memory: Unremarkable Mood: Other (dysphoric) Affect: Appropriate (fairly full and reactive) Thought Process & Associations: Logical, Linear Thought Content: Appropriate Hallucination Type: None Delusion Type: None Suicidal Ideation: Yes (denies at this time) Suicidal Plan: Yes (denies at this time) Suicidal Intention: No Homicidal Ideation: No Homicidal Plan: No Homicidal Intention: No Insight: Poor Judgment: Poor Results Labs Test 02/02/17 13:30 02/02/17 17:10 02/02/17 20:34 02/03/17 08:25 Prothrombin Time 15.5 SEC Prothromb Time International Ratio 1.4 RATIO Activated Partial Thromboplast Time 32.5 SEC Nasal Screen MRSA (PCR) POSITIVE Staphylococcus aureus (PCR)(LAB) POSITIVE White Blood Count 3.9 TH/MM3 Red Blood Count 3.25 MIL/MM3 Hemoglobin 9.3 GM/DL Hematocrit 28.0 % Mean Corpuscular Volume 86.1 FL Mean Corpuscular Hemoglobin 28.5 PG Mean Corpuscular Hemoglobin Concent 33.1 % Red Cell Distribution Width 18.4 % Platelet Count 52 TH/MM3 Mean Platelet Volume 7.9 FL Magnesium Level 1.5 MG/DL Ammonia 79 MCMOL/L Vitals/IOs Vital Signs Date Time Temp Pulse Resp B/P (MAP) Pulse Ox O2 Delivery O2 Flow Rate FiO2 02/03/17 06:07 97.5 88 15 136/68 (90) 93 02/02/17 11:21 Room Air Intake and Output 02/03/17 02/03/17 02/03/17 07:59 15:59 23:59 Intake Total 120 ml 120 ml Balance 120 ml 120 ml Assessment & Plan Problem List: (1) Adjustment disorder with mixed disturbance of emotions and conduct ICD Codes: F43.25 - Adjustment disorder with mixed disturbance of emotions and conduct (2) Cocaine abuse ICD Codes: F14.10 - Cocaine abuse, uncomplicated Status: Chronic Assessment & Plan Patient with previous episodes of depression which she follows up with a therapist through the [place], unclear with the patient has outpatient psychiatrist for medication management. Patient admitted for depressive symptoms and suicidal ideations which is under Singleton act after he had stated a plan to cut her hospital staff noted to have police shoot him. Patient agrees for voluntary admission at this time different Singleton act what lifted. Patient at this time noted to be less depressed and future oriented with unclear whether this will be consistent due to his recent presentation in the ER yesterday as well as noted antisocial personality traits. We'll start escitalopram 10 mg by mouth daily, continue BuSpar 10 mg by mouth twice a day and doxepin 50 mg at bedtime, as well as gabapentin 300 mg by mouth 3 times a day. Collateral information pending. [facility]. Discharge planning in progress. Justification for Cont. Inpt. At risk for further decompensation if at lower level of care Discharge Planning Patient to be discharged back to ex-girlfriend's home with psychiatrically stable. Jovany Emerson MD Feb 03, 2017 09:12
[2017-02-03] MEDS ORDERED: ALBUMIN HUMAN 25% 50GM-W/12.5GM FOR 62.5GM IV ONE (10:45)
[2017-02-03] MEDS ORDERED: ALBUMIN HUMAN 25% 12.5GM-W/50GM FOR 62.5GM IV ONE (10:45)
[2017-02-03] MEDS ORDERED: LIDOCAINE HCL 1% 20 ML VIAL ONE (11:09)
[2017-02-03] MEDS: LACTULOSE SYRUP 20 GM/30 ML CUP PO SCH ×3 (12:05→18:35)
[2017-02-03] MEDS: ESCITALOPRAM OXALATE 10 MG TAB PO SCH (12:06)
[2017-02-03 12:45] LABS: ANION GAP 9 MEQ/L (5-15); AST (GOT) 134 U/L (15-37); BICARBONATE 21.5 MEQ/L (21.0-32.0); BLOOD UREA NITROGEN 9 MG/DL (7-18); CHLORIDE 107 MEQ/L (98-107); GLOMERULAR FILTRATION RATE 89 ML/MIN (>89); MAGNESIUM 1.4 MG/DL (1.5-2.5); POTASSIUM 4.5 MEQ/L (3.5-5.1); SODIUM (NA) 137 MEQ/L (136-145)
[2017-02-03 12:52] LABS: AUTOMATED NEUTROPHIL # 2.3 TH/MM3 (1.8-7.7); BASOPHIL % 1.1 % (0.0-2.0); EOSINOPHIL # 0.1 TH/MM3 (0-0.4); EOSINOPHIL % 4.3 % (0.0-4.0); HEMATOCRIT 26.5 % (39.0-51.0); LYMPH % 14.3 % (9.0-44.0); LYMPHOCYTE # 0.5 TH/MM3 (1.0-4.8); MEAN CELL VOLUME 85.3 FL (80.0-100.0); MEAN CORPUSCULAR HEMOGLOBIN 28.4 PG (27.0-34.0); MEAN CORPUSCULAR HGB CONC 33.3 % (32.0-36.0); MONO % 12.7 % (0.0-8.0); NEUT % 67.6 % (16.0-70.0); PLATELET COUNT 51 TH/MM3 (150-450); RED CELL DISTRIBUTION WIDTH 18.4 % (11.6-17.2); WHITE BLOOD COUNT 3.4 TH/MM3 (4.0-11.0)
[2017-02-03 12:53] LABS: HEMO FLAGS AUTO DIFF
--- NOTE | 2017-02-03 12:53 | PD.TTN ---
Patient Problems 1. Discharge planning 2. Medication compliance 3. Knowledge deficit 4. Lack of coping skills Progress Toward Goals Provider Present: Dr. Jose Emerson Provider Input: Patient is being stalized medically and psych, discharge plan consist of home with services when stable. Psychiatric Counselors Present: STEPHANIE Pena Psych Therapist Input: Patient will be linked with service, contract for safety, discharged home with stable Group Spec/RT/OT/RUBY Present: Sergio Gastelum OT Occupational Therapist Input: Patient is a new admission and will be assess for inapatient participation Discharge Plan Linked with MD for medical and psych follow-up Angela Eid K[place] Feb 03, 2017 12:52
[2017-02-03 13:08] LABS: PERITONEAL WBC 170 /MM3 (0-10)
[2017-02-03 13:09] LABS: PERITONEAL HISTIOCYTES 61 %; PERITONEAL LYMPHS 27 %; PERITONEAL MESOTHELIAL 5 %; PERITONEAL POLYS(SEGS) 7 %
[2017-02-03 13:15] LABS: ALKALINE PHOSPHATASE 58 U/L (45-117); ALT (GPT) 60 U/L (12-78); HDL CHOLESTEROL 30.7 MG/DL (40.0-60.0)
[2017-02-03] MEDS: LORazepam 1 MG TAB PO PRN ×2 (13:19→18:40)
[2017-02-03 13:37] LABS: LDL CHOLESTEROL 20 MG/DL (0-99); TOTAL BILIRUBIN ADULT 1.6 MG/DL (0.2-1.0)
--- NOTE | 2017-02-03 13:43 | RADRPT ---
EXAM DATE/TIME: 02/03/2017 08:34 [place] COMPARISON: US GUIDED ABD PARACENTESIS, January 07, 2017, 12:08. INDICATIONS : Ascites. MEDICAL HISTORY : Hypertension. Gastroesophageal reflux disease. Pancreatitis. Hepatitis C. Cirrhosis. Diabetes. Seizur es. Anemia. GI bleed. MRSA. C-diff. SURGICAL HISTORY : Cholecystectomy Banding for GI bleed. ENCOUNTER: Subsequent ACUITY: 1 month PAIN SCORE: 8/10 LOCATION: Right lower quadrant FLUID: Total volume of 9,300 cc of clear, yellow fluid was removed. Fluid was sent to lab for ordered studies. Post procedure scanning reveals no hematoma or other complication. TECHNIQUE: 1. Ultrasound guidance for abdominal paracentesis. 2. Paracentesis. The risks, benefits, and alternatives to ultrasound guided paracentesis were explained to the patient in detail including the risk of bleeding and infection. Written and verbal informed consent was obt ained. With the patient on the ultrasound table, ultrasound imaging was used to select the most appropriate approach for paracentesis. Overlying skin was prepped and draped in the usual sterile fashion and wi th a local anesthetic, a dermatotomy was made with an 11 blade scalpel. A 6 [place] [id number] ca theter was introduced into the peritoneal cavity and fluid was collected. The patient tolerated the procedure well and left the ultrasound suite in stable condition. CONCLUSION: Uncomplicated ultrasound guided paracentesis. Brooks Bobby MD on February 03, 2017 at 13:41 Board Certified Radiologist. This report was verified electronically.
[2017-02-03 14:03] LABS: OVALOCYTES 1+ (NORMAL); PLATELET ESTIMATE SMEAR LOW (NORMAL)
[2017-02-03 14:04] LABS: PLATELET MORPHOLOGY NORMAL (NORMAL); SCAN/DIFF AUTO DIFF CONFIRMED
[2017-02-03] MEDS: DOXEPIN HCL 50 MG CAP PO SCH (20:43)
[2017-02-03 21:11] LABS: HEMOGLOBIN A1a 1.1 %; HEMOGLOBIN A1b 1.5 %; HEMOGLOBIN Ao 85.7 %; HEMOGLOBIN P3 3.8 %
--- NOTE | 2017-02-03 22:08 | EKG ---
Date Performed: 02/03/2017 Time Performed: 12:24:16 PTAGE: 61 years EKG: SINUS BRADYCARDIA POSSIBLE LATERAL MYOCARDIAL INFARCTION , OF INDETERMINATE AGE ABNORMAL EC G PREVIOUS TRACING : 12/30/2016 18.08 Compared to prior tracing no significant change DOCTOR: Adrián Bird Interpretating Date/Time 02/03/2017 22:08:30
[2017-02-04 00:46] LABS: INTERNATIONAL NORMALIZED RATIO 1.4 RATIO; PROTHROMBIN TIME - PATIENT 15.9 SEC (9.8-11.6)
[2017-02-04 06:24] VITALS: BP 141/76; PULSE 62; RESP 18; TEMP 97.6; O2SAT 97
[2017-02-04] MEDS: INSULIN ASPART SUPPLEMENTAL SCALE SQ SCH ×4 (08:00→20:51)
[2017-02-04] MEDS: THIAMINE HCL 100 MG TAB PO SCH (08:30)
[2017-02-04] MEDS: DOCUSATE SODIUM 50 MG/SENNA 8.6 MG TAB PO SCH ×2 (08:30→20:48)
[2017-02-04] MEDS: ESCITALOPRAM OXALATE 10 MG TAB PO SCH (08:30)
[2017-02-04] MEDS: PANTOPRAZOLE SOD 40 MG DELAYED RELEASE TAB PO SCH (08:30)
[2017-02-04] MEDS: FUROSEMIDE 40 MG TAB PO SCH (08:30)
[2017-02-04] MEDS: LACTULOSE SYRUP 20 GM/30 ML CUP PO SCH ×3 (08:30→17:28)
[2017-02-04] MEDS: busPIRone HCL 10 MG TAB PO SCH ×2 (08:30→20:48)
[2017-02-04] MEDS: TAMSULOSIN HCL 0.4 MG CAP PO SCH (08:30)
[2017-02-04] MEDS: SODIUM CHLORIDE 0.9% FLUSH 10 ML FLUSH IV FLUSH SCH ×2 (08:30→20:52)
[2017-02-04] MEDS: CHOLECALCIFEROL (VIT D3) 1000 UNIT TAB PO SCH (08:30)
[2017-02-04] MEDS: INSULIN HUMAN NPH/R 70/30 1,000 UNITS/10 ML VIAL SQ SCH ×2 (08:30→20:49)
[2017-02-04] MEDS: FERROUS SULFATE 325 MG (65 MG ELEMENTAL IRON) TAB PO SCH (08:30)
[2017-02-04] MEDS: PROPRANOLOL HCL 20 MG TAB PO SCH (08:30)
[2017-02-04] MEDS: GABAPENTIN 300 MG CAP PO SCH ×3 (08:30→17:27)
[2017-02-04] MEDS: SPIRONOLACTONE 100 MG TAB PO SCH ×2 (08:30→17:27)
[2017-02-04] MEDS: ASCORBIC ACID 500 MG TAB PO SCH (08:30)
[2017-02-04] MEDS ORDERED: LEVOTHYROXINE SODIUM 50 MCG TAB PO ONE (08:45)
--- NOTE | 2017-02-04 09:51 | HHI.PR ---
Subjective Remarks This is a 61-year-old male with past medical history significant for alcoholic liver cirrhosis, hepatitis C, diabetes, and anemia who presented to [facility] ED with complaints of major depression. While in the ED patient was overheard saying that he would like to take a knife hold to the healthcare workers throat and have the cook fish and chips shoot him. Patient was Singleton acted at this point. Patient complains of chronic pain mostly in the abdomen with significant swelling that requires drainage every 10 days for which he is due for now. He denies any fever, chills, nausea, vomiting, diarrhea or constipation. Patient has been admitted to inpatient psychiatric unit and Hospitalist services have been consulted for medical management. Previously, patient was residing in [place] and was a patient at the [facility] . He last saw his PCP 2 months ago. He has an upcoming appointment with a new PCP at the [facility] in [place]. WILL CONSULT INTERVENTIONAL RADIOLOGY FOR PARACENTESIS- LARGE VOLUME NPO UNTIL AFTER PROCEDURE 02-03 FOR PARACENTESIS TODAY WANTS BETTER PAIN CONTROL WITH ORAL MEDS LAVELL RN AND PATIENT AM LABS 02-04 HAD PARACENTESIS YESTERDAY HAS HYPOTHYROIDISM WILL PLACE ON SYNTHROID HAS HYPOMAG WILL PLACE ON MAG OX 800MG BID NO NEW COMPLAINTS STILL WANTS PAIN CONTROL HAVE TOLD HIM MEDS ARE ADJUSTED LAVELL RN AND PT Objective Vitals Vital Signs Date Time Temp Pulse Resp B/P (MAP) Pulse Ox O2 Delivery O2 Flow Rate FiO2 02/04/17 06:24 97.6 62 18 141/76 (97) 97 02/03/17 20:43 99 21 02/03/17 16:00 97.5 64 16 100/51 (67) 99 02/03/17 11:32 97.6 63 16 111/63 (79) 97 02/03/17 10:48 98.0 55 16 120/68 (85) 98 02/03/17 10:30 98.0 55 16 124/68 (86) 98 I/O 02/03/17 02/03/17 02/03/17 02/04/17 02/04/17 02/04/17 07:00 15:00 23:00 07:00 15:00 23:00 Intake Total 120 ml 480 ml 480 ml 0 ml Output Total 500 ml Balance 120 ml -20 ml 480 ml 0 ml Intake Oral 120 ml 480 ml 480 ml 0 ml Output Urine Total 500 ml # Voids 1 1 2 # Bowel Movements 1 0 Result Diagram: 02/03/17 1223 02/03/17 1223 Other Results Laboratory Tests Test 02/02/17 13:30 02/02/17 17:10 02/02/17 20:34 02/03/17 08:25 Prothrombin Time 15.5 SEC Prothromb Time International Ratio 1.4 RATIO Activated Partial Thromboplast Time 32.5 SEC Nasal Screen MRSA (PCR) POSITIVE Staphylococcus aureus (PCR)(LAB) POSITIVE White Blood Count 3.9 TH/MM3 Red Blood Count 3.25 MIL/MM3 Hemoglobin 9.3 GM/DL Hematocrit 28.0 % Mean Corpuscular Volume 86.1 FL Mean Corpuscular Hemoglobin 28.5 PG Mean Corpuscular Hemoglobin Concent 33.1 % Red Cell Distribution Width 18.4 % Platelet Count 52 TH/MM3 Mean Platelet Volume 7.9 FL Magnesium Level 1.5 MG/DL Ammonia 79 MCMOL/L Test 02/03/17 09:38 02/03/17 12:23 02/03/17 23:50 Peritoneal Fluid WBC 170 /MM3 Peritoneal Fluid RBC 441 /MM3 Peritoneal Fluid Neutrophils 7 % Peritoneal Fluid Lymphocytes 27 % Peritoneal Fluid Histiocytes 61 % Peritoneal Fluid Mesothelial Cells 5 % Peritoneal Fluid Total Protein 1.2 GM/DL Peritoneal Fluid Albumin 0.6 G/DL Peritoneal Fluid LDH 69 U/L Peritoneal Fluid Glucose 159 MG/DL White Blood Count 3.4 TH/MM3 Red Blood Count 3.10 MIL/MM3 Hemoglobin 8.8 GM/DL Hematocrit 26.5 % Mean Corpuscular Volume 85.3 FL Mean Corpuscular Hemoglobin 28.4 PG Mean Corpuscular Hemoglobin Concent 33.3 % Red Cell Distribution Width 18.4 % Platelet Count 51 TH/MM3 Mean Platelet Volume 7.7 FL Neutrophils (%) (Auto) 67.6 % Lymphocytes (%) (Auto) 14.3 % Monocytes (%) (Auto) 12.7 % Eosinophils (%) (Auto) 4.3 % Basophils (%) (Auto) 1.1 % Neutrophils # (Auto) 2.3 TH/MM3 Lymphocytes # (Auto) 0.5 TH/MM3 Monocytes # (Auto) 0.4 TH/MM3 Eosinophils # (Auto) 0.1 TH/MM3 Basophils # (Auto) 0.0 TH/MM3 CBC Comment AUTO DIFF Differential Comment AUTO DIFF CONFIRMED Platelet Estimate LOW Platelet Morphology Comment NORMAL Ovalocytes 1+ Blood Urea Nitrogen 9 MG/DL Creatinine 0.87 MG/DL Random Glucose 147 MG/DL Total Protein 6.4 GM/DL Albumin 2.4 GM/DL Calcium Level 8.0 MG/DL Phosphorus Level 2.6 MG/DL Magnesium Level 1.4 MG/DL Alkaline Phosphatase 58 U/L Aspartate Amino Transf (AST/SGOT) 134 U/L Alanine Aminotransferase (ALT/SGPT) 60 U/L Total Bilirubin 1.6 MG/DL Sodium Level 137 MEQ/L Potassium Level 4.5 MEQ/L Chloride Level 107 MEQ/L Carbon Dioxide Level 21.5 MEQ/L Anion Gap 9 MEQ/L Estimat Glomerular Filtration Rate 89 ML/MIN Hemoglobin A1c 5.9 % Triglycerides Level 51 MG/DL Cholesterol Level 61 MG/DL LDL Cholesterol 20 MG/DL HDL Cholesterol 30.7 MG/DL Cholesterol/HDL Ratio 1.98 RATIO Vitamin B12 Level 1227 PG/ML 25-Hydroxy Vitamin D Total 9.8 ng/ML Free Thyroxine 1.10 NG/DL Thyroid Stimulating Hormone 3rd Gen 8.560 uIU/ML Prothrombin Time 15.9 SEC Prothromb Time International Ratio 1.4 RATIO Imaging Last Impressions Cyst Biopsy Asp-Paracentesis US 02/03/17 0000 Signed Impressions: Service Date/Time: Friday, February 03, 2017 08:34 - CONCLUSION: Uncomplicated ultrasound guided paracentesis. Brooks Bobby MD Objective Remarks GENERAL: This is a ill-appearing patient, in no apparent distress. Awake and alert. Pleasant and calm. SKIN: No rashes, ecchymoses or lesions. Cool and dry. HEAD: Atraumatic. Normocephalic. No temporal or scalp tenderness. EYES: Pupils equal round and reactive. Extraocular motions intact. No scleral icterus. No injection or drainage. ENT: Nose without bleeding, purulent drainage or septal hematoma. Throat without erythema, tonsillar hypertrophy or exudate. Uvula midline. Airway patent. NECK: Trachea midline. No JVD or lymphadenopathy. Supple, nontender, no meningeal signs. CARDIOVASCULAR: Regular rate and rhythm without murmurs, gallops, or rubs. RESPIRATORY: Clear to auscultation. Breath sounds equal bilaterally. No wheezes , rales, or rhonchi. GASTROINTESTINAL: NO MORE DISTENTION- DRESSED ON RIGHT SIDE. NO TENDERNESS to palpation. Positive ascites BUT MUCH LESS SINCE PARACENTESIS. No guarding. MUSCULOSKELETAL: Extremities without clubbing, cyanosis, or edema. No joint tenderness, effusion, or edema noted. No calf tenderness. NEUROLOGICAL: Awake and alert. Able to move all extremities spontaneously. Nonfocal. Normal speech. INSIGHT AND JUDGEMENT ARE LIMITED MOOD AND BEHAVIOR ARE ABNORMAL Procedures PARACENTESIS 10-24 8 LITERS OFF Medications and IVs Current Medications Potassium Chloride (KCl) 40 meq ONCE ONCE PO Last administered on 02/01/17 03:59; Start 02/01/17 at 03:30; Stop 02/01/17 at 03:32; Status DC Potassium Chloride (KCl) 40 meq ONCE ONCE PO Last administered on 02/01/17 05:30; Start 02/01/17 at 05:30; Stop 02/01/17 at 05:31; Status DC Oxycodone HCl (Roxicodone) 10 mg ONCE ONCE PO Last administered on 02/01/17 04:51; Start 02/01/17 at 03:30; Stop 02/01/17 at 03:32; Status DC Ondansetron HCl (Zofran Odt) 4 mg ONCE ONCE PO Last administered on 04:00; Start 02/01/17 at 03:30; Stop 02/01/17 at 03:32; Status DC Lorazepam (Ativan) 1 mg Q6H PRN PO MODERATE TO SEVERE ANXIETY Last administered on 02/03/17 18:40; Start 02/02/17 at 11:15 Lorazepam (Ativan Inj) 1 mg Q6H PRN IM MODERATE TO SEVERE ANXIETY; Start 02/02 at 11:15 Acetaminophen (Tylenol) 650 mg Q4H PRN PO Pain 1-5 or Temp >101F; Start at 11:15; Stop 02/02/17 at 15:13; Status DC Magnesium Hydroxide (Milk Of Magnesia Liq) 30 ml DAILY PRN PO SEE LABEL COMMENTS; Start 02/02/17 at 11:15; Stop 02/02/17 at 14:56; Status DC Al Hydrox/Mg Hydrox/Simethicone (Mag-Al Plus Susp Liq) 30 ml Q6H PRN PO DYSPEPSIA; Start 02/02/17 at 11:15 Ascorbic Acid (Vitamin C) 500 mg DAILY PO Last administered on 02/03/17 07:58 ; Start 02/03/17 at 09:00 Buspirone HCl (Buspar) 10 mg BID PO Last administered on 02/03/17 20:43; Start 02/02/17 at 21:00 Cholecalciferol (Vitamin D3) 1,000 units DAILY PO Last administered on 07:58; Start 02/03/17 at 09:00 Doxepin HCl (SINEquan) 50 mg HS PO Last administered on 02/03/17 20:43; Start 02/02/17 at 21:00 Furosemide (Lasix) 40 mg DAILY PO ; Start 02/03/17 at 09:00 Gabapentin (Neurontin) 300 mg TID PO Last administered on 02/03/17 18:35; Start 02/02/17 at 13:00 Acetaminophen/ Hydrocodone Bitart (Mulberry 10-325 Mg) 1 tab Q4HR PRN PO PAIN SCALE 6 TO 10; Start 02/02/17 at 11:15; Stop 02/02/17 at 15:13; Status DC Insulin Human Isoph/Insulin Regular (NovoLIN 70/30 INJ) 5 units BID SQ Last administered on 02/03/17 20:47; Start 02/02/17 at 11:15 Lactulose (Lactulose Liq) 30 ml BID PRN PO SEE LABEL COMMENTS; Start 02/02/17 at 11:15; Stop 02/02/17 at 14:56; Status DC Pantoprazole Sodium (Protonix) 40 mg DAILY PO Last administered on 02/03/17 07:57; Start 02/03/17 at 09:00 Propranolol HCl (Inderal) 20 mg DAILY PO Last administered on 02/03/17 07:59 ; Start 02/03/17 at 09:00 Spironolactone (Aldactone) 100 mg BID@0900,1800 PO Last administered on 07:57; Start 02/02/17 at 18:00 Tamsulosin HCl (Flomax) 0.4 mg DAILY PO Last administered on 02/03/17 07:57; Start 02/02/17 at 11:15 Thiamine HCl (Vitamin B1) 100 mg DAILY PO Last administered on 02/03/17 07:58 ; Start 02/03/17 at 09:00 Ferrous Sulfate (Ferrous Sulfate) 325 mg DAILY PO Last administered on 07:59; Start 02/03/17 at 09:00 Potassium Chloride (KCl) 40 meq ONCE ONCE PO Last administered on 02/02/17 14:35; Start 02/02/17 at 15:00; Stop 02/02/17 at 15:01; Status DC Potassium Chloride (KCl) 40 meq ONCE ONCE PO Last administered on 02/02/17 14:36; Start 02/02/17 at 13:00; Stop 02/02/17 at 13:36; Status DC Sodium Chloride (NS Flush) 2 ml UNSCH PRN IV FLUSH FLUSH AFTER USING IV ACCESS ; Start 02/02/17 at 15:00 Sodium Chloride (NS Flush) 2 ml BID IV FLUSH Last administered on 02/03/17 20 :43; Start 02/02/17 at 21:00 Naloxone HCl (Narcan Inj) 0.4 mg UNSCH PRN IV PUSH SEE LABEL COMMENTS; Start 02/02/17 at 15:00 Senna/Docusate Sodium (Layne-Colace) 1 tab BID PO Last administered on 20:43; Start 02/02/17 at 21:00 Magnesium Hydroxide (Milk Of Magnesia Liq) 30 ml Q12H PRN PO Mild constipation ; Start 02/02/17 at 15:00 Sennosides (Senokot) 17.2 mg Q12H PRN PO Moderate constipation; Start at 15:00 Bisacodyl (Dulcolax Supp) 10 mg DAILY PRN RECTAL SEVERE CONSITIPATION; Start 02/02/17 at 15:00 Lactulose (Lactulose Liq) 30 ml DAILY PRN PO SEVERE CONSITIPATION; Start 02/02 at 15:00; Stop 02/03/17 at 09:07; Status DC Insulin Aspart (NovoLOG SUPPLEMENTAL SCALE) 1 ACHS SLIDING SCALE SQ ; Start at 17:00 Dextrose (D50w (Syr) Inj) 50 ml UNSCH PRN IV PUSH HYPOGLYCEMIA-SEE COMMENTS; Start 02/02/17 at 15:00 Glucagon (Glucagon Inj) 1 mg UNSCH PRN OTHER HYPOGLYCEMIA-SEE COMMENTS; Start 02/02/17 at 15:00 Tramadol HCl (Ultram) 100 mg Q6H PRN PO PAIN 6-10 Last administered on 15:39; Start 02/02/17 at 15:30; Stop 02/03/17 at 09:05; Status DC Tramadol HCl (Ultram) 50 mg Q6H PRN PO PAIN 1-5; Start 02/02/17 at 15:30; Stop 02/03/17 at 09:05; Status DC Ondansetron HCl (Zofran Odt) 4 mg Q4H PRN PO NAUSEA Last administered on 02/02 15:39; Start 02/02/17 at 15:30 Escitalopram Oxalate (Lexapro) 10 mg DAILY PO Last administered on 02/03/17 12:06; Start 02/03/17 at 09:15 Oxycodone HCl (Roxicodone) 10 mg Q6H PRN PO PAIN 1 TO 10; Start 02/03/17 at 09 :15 Lactulose (Lactulose Liq) 30 ml TID PO Last administered on 02/03/17 18:35; Start 02/03/17 at 09:15 Albumin Human (Albumin 25% Inj) 50 gm ONCE ONCE IV Last administered on 13:14; Start 02/03/17 at 10:45; Stop 02/03/17 at 10:46; Status DC Albumin Human (Albumin 25% Inj) 12.5 gm ONCE ONCE IV Last administered on 14:40; Start 02/03/17 at 10:45; Stop 02/03/17 at 10:46; Status DC Lidocaine HCl (Xylocaine 1% Inj) 20 ml STK-MED ONCE .ROUTE Last administered on 02/03/17 09:33; Start 02/03/17 at 11:09; Stop 02/03/17 at 11:10; Status DC Levothyroxine Sodium (Synthroid) 50 mcg ONCE ONCE PO ; Start 02/04/17 at 08:45 ; Stop 02/04/17 at 09:00; Status DC Levothyroxine Sodium (Synthroid) 50 mcg DAILY@0600 PO ; Start 02/05/17 at 06:00 Magnesium Oxide (Mag-Ox) 800 mg Q12HR PO ; Start 02/04/17 at 09:00 A/P Assessment and Plan 61-year-old male with past medical history significant for alcoholic liver cirrhosis, hepatitis C, diabetes, hypertension and anemia who presented to [facility] ED with complaints of major depression who was admitted under [facility] act to the inpatient psychiatric unit. Hospitalist services were consulted for medical management of patient's chronic alcoholic liver cirrhosis and recurrent paracentesis. Major depression Adjustment disorder - Management per psychiatric team - Obtain ammonia level and TSH Chronic alcoholic liver cirrhosis with ascites requiring recurrent paracentesis Hepatitis C Esophageal varices - Order therapeutic paracentesis. Send peritoneal fluid for analysis. Obtain PT/INR. - Continue home propanolol, Lasix, Spironolactone and lactulose - Continue on thiamine daily, MULTIVITAMIN, FOLIC ACID - Discussed importance of continued alcohol abstinence - pain management -SP PARACENTESIS 10-24 Hypokalemia - Repletion ordered - Check magnesium level - Am labs to monitor response DM - Continue on Novolin 70/30 5 units subcutaneous twice a day - Obtain hemoglobin A1c - Accu-Cheks, insulin sliding scale - Diabetic diet BPH - Continue Flomax 0.4 mg daily Pancytopenia Thrombocytopenia - secondary to chronic liver disease - Appears stable - Continue iron supplementation - Monitor as indicated Cocaine use - UDS positive for cocaine - Discussed importance of cessation GERD prophylaxis - PPI DVT prophylaxis - Encourage ambulation - Will defer chemical anticoagulation at this time secondary to thrombocytopenia and impending IR procedure SCDS AND TEDS HYPOMAGNESIA- REPLACE MAG OX 800MG BID HYPOTHYROIDISM START SYNTHROID 50MCG PO DAILY Thank you very kindly for this consultation. Will continue to follow patient along with you. AM LABS CHRONIC PAIN DOES NOT WANT TRAMADOL WANTS STRONGER Discharge Planning SP PARACENTESIS 10-24 German Jose DO Feb 04, 2017 09:51
[2017-02-04] MEDS: MAGNESIUM OXIDE 400 MG TAB PO SCH ×2 (10:33→20:48)
--- NOTE | 2017-02-04 13:12 | HHI.PYPN ---
Subjective Chief Complaint: depression with suicidal ideation Remarks Patient seen for follow-up, chart reviewed. Patient was seen interacting with staff, calm and cooperative with interview. Patient states that he has felt not much change, continues to be noted to be somewhat depressed. He states that he had paracentesis yesterday which he had some residual pain from the needle site. He states that his mood today is "ok", reports having less SI but is hopeful that he will continue to improve. He reports that he spoke with his ex- yesterday which went well. Review of Systems Except as stated in HPI: all other systems reviewed are Neg Mental Status Examination Appearance: Disheveled, Other (noted to be using only a blanket and no clothes under the blanket) Consciousness: Alert Orientation: x4 Motor Activity: Other (no motor abnormalities noted) Speech: Unremarkable Language: Adequate Fund of Knowledge: Adequate Attention and Concentration: Adequate Memory: Unremarkable Mood: Other (dysphoric but less so today) Affect: Other (resticted) Thought Process & Associations: Logical, Linear Thought Content: Appropriate Hallucination Type: None Delusion Type: None Suicidal Ideation: Yes (denies at this time but continues to have occasionally) Suicidal Plan: No Suicidal Intention: No Homicidal Ideation: No Homicidal Plan: No Homicidal Intention: No Insight: Poor Judgment: Poor (improving) Results Labs labs reviewed. Test 02/03/17 23:50 02/04/17 12:31 Prothrombin Time 15.9 SEC Prothromb Time International Ratio 1.4 RATIO Date/Time Source Procedure Growth Status 02/03/17 09:38 Fluid Peritoneal Fluid Gram Stain - Final Resulted 02/03/17 09:38 Fluid Peritoneal Fluid Body Fluid Culture - Preliminary NO GROWTH IN 24 HOURS. Resulted Vitals/IOs Vital Signs Date Time Temp Pulse Resp B/P (MAP) Pulse Ox O2 Delivery O2 Flow Rate FiO2 02/04/17 06:24 97.6 62 18 141/76 (97) 97 02/03/17 20:43 21 02/02/17 11:21 Room Air Intake and Output 02/04/17 02/04/17 02/05/17 08:00 16:00 00:00 Intake Total 240 ml Balance 240 ml Assessment & Plan Problem List: (1) Adjustment disorder with mixed disturbance of emotions and conduct ICD Codes: F43.25 - Adjustment disorder with mixed disturbance of emotions and conduct (2) Cocaine abuse ICD Codes: F14.10 - Cocaine abuse, uncomplicated Status: Chronic Assessment & Plan Patient continues with depressed mood but reports that it is improving with less frequency of passive SI. Continue current treatment for now as patient appears to be improving. Recommendations as per primary medical team. Discharge planning in progress. Justification for Cont. Inpt. At risk for further decompensation if at lower level of care. Discharge Planning Patient to be discharged to new residence or back to ex-'s residence once psychiatrically stable. Jovany Emerson MD Feb 04, 2017 13:12
--- NOTE | 2017-02-04 15:06 | PD.TTN ---
Patient Problems 1. Discharge planning 2. Medication compliance 3. Knowledge deficit 4. Lack of coping skills Progress Toward Goals Provider Present: Dr. Jose Emerson Provider Input: Patient is being stalized medically and psych, discharged directly to the [facility] to continue service Nurse(s) Input: Marlene RN: patient is compliant with medication and treatment Psychiatric Counselors Present: STEPHANIE Pena Psych Therapist Input: Patient will be linked with service, contract for safety, discharged to the [facility] to continue with service, and medication management Group Spec/RT/OT/RUBY Present: Sergio Gastelum OT Occupational Therapist Input: Patient has not participated with inpatient activities Discharge Plan Linked with [place] for medical and psych follow-up Documentation Scribe: STEPHANIE Pena Date Resolved: Feb 04, 2017 Teaching Recipient: Patient (Patient is encouraged with substance treatment and states he is open to outpatient treatment only) Angela Eid Feb 04, 2017 15:06
[2017-02-04 16:43] VITALS: BP 105/59; PULSE 60; RESP 17; TEMP 98.1; O2SAT 95
[2017-02-04 17:43] VITALS: O2SAT 95
[2017-02-04] MEDS: DOXEPIN HCL 50 MG CAP PO SCH (20:48)
[2017-02-05 05:48] VITALS: BP 139/67; PULSE 55; RESP 18; TEMP 97.6; O2SAT 98
[2017-02-05] MEDS ORDERED: LEVOTHYROXINE SODIUM 50 MCG TAB PO SCH (06:00)
[2017-02-05] MEDS: INSULIN ASPART SUPPLEMENTAL SCALE SQ SCH ×2 (08:00→12:00)
[2017-02-05] MEDS ORDERED: MAGN400T3 PO (08:26)
[2017-02-05] MEDS ORDERED: VITA500T2 PO (08:26)
[2017-02-05] MEDS ORDERED: DOXE50CA3 PO (08:26)
[2017-02-05] MEDS ORDERED: LEVO.05 PO (08:26)
[2017-02-05] MEDS ORDERED: Lactulose Liq PO (08:26)
[2017-02-05] MEDS ORDERED: NEUR300C PO (08:26)
[2017-02-05] MEDS ORDERED: PANT40TA3 PO (08:26)
[2017-02-05] MEDS ORDERED: ESCI10TA PO (08:26)
[2017-02-05] MEDS ORDERED: PROP20TA3 PO (08:26)
[2017-02-05] MEDS ORDERED: TAMS5CAP PO (08:26)
[2017-02-05] MEDS ORDERED: GNP100TA3 PO (08:26)
[2017-02-05] MEDS ORDERED: FURO40TA PO (08:26)
[2017-02-05] MEDS ORDERED: FERR325T20 PO (08:26)
[2017-02-05] MEDS ORDERED: BUSP10TA PO (08:26)
[2017-02-05] MEDS ORDERED: VITA1000 PO (08:26)
[2017-02-05] MEDS ORDERED: NOVO7030P2 SQ (08:26)
[2017-02-05] MEDS ORDERED: ALDA100T PO (08:26)
[2017-02-05] MEDS ORDERED: SENN1TAB PO (08:26)
--- NOTE | 2017-02-05 08:27 | HHI.DS ---
Psychiatry Discharge Summary Inpatient Psychiatric care?: Yes Advance Directive: No Reason Not Provided: Due to Patient Condition Mental Health AdvanceDirective: No Health Care Proxy: No Admission Admission Date Feb 02, 2017 at 11:07 Admission Diagnosis: (1) Adjustment disorder with mixed disturbance of emotions and conduct ICD Code: F43.25 - Adjustment disorder with mixed disturbance of emotions and conduct (2) Cocaine abuse ICD Code: F14.10 - Cocaine abuse, uncomplicated Brief History Mr. Allison is a 61-year-old male with a history of depression and substance abuse disorders. He is presenting under a Singleton act at this time for threatening to commit suicide by copper plate lithographer. (Apparently he had a knife in his backpack and was going to hold it to the throat of a health care worker in order to be shot and killed by a lawn care professional.) The patient insists he actually has no wish to harm anyone else. He does however continue to report suicidal ideation with plan. He describes a 4-5 day history of increasing symptoms of depression, including depressed mood, anhedonia, suicidality, feelings of hopelessness and helplessness, diminished self-esteem, diminished energy, confusion and forgetfulness, etc. He does not know of a specific stressor that has started this depressive episode. He was on the phone with a [place] hotline, seeking admission to the [facility]. The patient admits to self-medicating with cocaine. He is unable to contract for safety. Tobacco Use In Past 30 Days: No Tobacco Past 30 Days Alcohol Use: Never Hospital Course Patient is 61-year-old man living with ex-girlfriend, unemployed on SSD, , with past psychiatric history of depression, cocaine use disorder , dissociative personality disorder with a past history of hep C, cirrhosis, diabetes and anemia who came in to the ED voluntarily and stated that he wanted to hurt hospital staff and noted to have police shoot him which she was then placed under Singleton act for the same and transferred to the inpatient medical/ psychiatry unit for further observation and management. Patient was admitted to the inpatient psychiatry unit where he was started on escitalopram 10mg PO daily, buspirone 10mg PO BID, doxepin 50mg PO HS, and gabapentin 300mg PO TID. Patient continued to have improvement of mood, denied any recurrence of suicidal ideation or homicidal ideations and noted to be future oriented. Upon discharge patient stated feeling motivated to continue his medical and mental treatment. He denied any SI or HI, mood being pretty good and thinking positive things. He agrees to continue treatment and attend outpatient follow up appointments [facility] Importance of abstinence from substance use was discussed with patient which he acknowledged. Patient denies SI, HI, AVH or delusions. Supportive psychotherapy provided. Patient advised to return to ED or call 911 in case of emergency. Patient agrees with plan. Results Blood Pressure 139 / 67 Vital Signs Date Time Temp Pulse Resp B/P (MAP) Pulse Ox O2 Delivery O2 Flow Rate FiO2 02/05/17 05:48 97.6 55 18 139/67 (91) 98 02/04/17 17:43 21 02/02/17 11:21 Room Air Laboratory Tests Test 02/02/17 13:30 02/02/17 17:10 02/02/17 20:34 02/03/17 08:25 Prothrombin Time 15.5 SEC (9.8-11.6) Activated Partial Thromboplast Time 32.5 SEC (24.3-30.1) White Blood Count 3.9 TH/MM3 (4.0-11.0) Red Blood Count 3.25 MIL/MM3 (4.50-5.90) Hemoglobin 9.3 GM/DL (13.0-17.0) Hematocrit 28.0 % (39.0-51.0) Red Cell Distribution Width 18.4 % (11.6-17.2) Platelet Count 52 TH/MM3 (150-450) Ammonia 79 MCMOL/L (11-32) Test 02/03/17 09:38 02/03/17 12:23 02/03/17 23:50 02/04/17 12:31 Peritoneal Fluid WBC 170 /MM3 (0-10) Peritoneal Fluid RBC 441 /MM3 (0-0) White Blood Count 3.4 TH/MM3 (4.0-11.0) Red Blood Count 3.10 MIL/MM3 (4.50-5.90) Hemoglobin 8.8 GM/DL (13.0-17.0) Hematocrit 26.5 % (39.0-51.0) Red Cell Distribution Width 18.4 % (11.6-17.2) Platelet Count 51 TH/MM3 (150-450) Monocytes (%) (Auto) 12.7 % (0.0-8.0) Eosinophils (%) (Auto) 4.3 % (0.0-4.0) Lymphocytes # (Auto) 0.5 TH/MM3 (1.0-4.8) Platelet Estimate LOW (NORMAL) Ovalocytes 1+ (NORMAL) Random Glucose 147 MG/DL (74-106) Albumin 2.4 GM/DL (3.4-5.0) Calcium Level 8.0 MG/DL (8.5-10.1) Magnesium Level 1.4 MG/DL (1.5-2.5) Aspartate Amino Transf (AST/SGOT) 134 U/L (15-37) Total Bilirubin 1.6 MG/DL (0.2-1.0) Cholesterol Level 61 MG/DL (120-200) HDL Cholesterol 30.7 MG/DL (40.0-60.0) Vitamin B12 Level 1227 PG/ML (193-986) 25-Hydroxy Vitamin D Total 9.8 ng/ML (30-100) Thyroid Stimulating Hormone 3rd Gen 8.560 uIU/ML (0.358-3.740) Prothrombin Time 15.9 SEC (9.8-11.6) Ammonia 76 MCMOL/L (11-32) Laboratory Results Test 02/03/17 12:23 Cholesterol Level 61 MG/DL (120-200) HDL Cholesterol 30.7 MG/DL (40.0-60.0) Hemoglobin A1c 5.9 % (4.3-6.0) LDL Cholesterol 20 MG/DL (0-99) Triglycerides Level 51 MG/DL (42-150) Summary of Procedures Therapeutic paracentesis x 1 Imaging Last Impressions Cyst Biopsy Asp-Paracentesis US 02/03/17 0000 Signed Impressions: Service Date/Time: Friday, February 03, 2017 08:34 - CONCLUSION: Uncomplicated ultrasound guided paracentesis. Brooks Bobby MD Pending results at discharge: No Medications # of Antipsychotic meds at D/C: 0 Approp Antipsych med options 1 - Minimum of three failed multiple trials of monotherapy. 2 - Documented plan to taper to monotherapy due to previous use of multiple meds OR cross-taper in progress at D/C. 3 - Documentation of augmentation of Clozapine. 4 - Justification other than those listed in allowable values 1-3, document here : Discharge Discharge Date: Feb 05, 2017 Discharge Diagnosis: (1) Adjustment disorder with mixed disturbance of emotions and conduct ICD Code: F43.25 - Adjustment disorder with mixed disturbance of emotions and conduct (2) Cocaine abuse ICD Code: F14.10 - Cocaine abuse, uncomplicated Status: Chronic Pt Condition on Discharge: Stable Discharge Disposition: Discharge Home Discharge Instructions Diet Instructions: Diabetic Diet Activities you can perform: Regular-No Restrictions Discharge Time > 30 minutes Mental Status Examination Appearance: Appropriate, Disheveled, Other (noted to be using only a blanket and no clothes under the blanket) Consciousness: Alert Orientation: x4 Motor Activity: Other (no motor abnormalities noted) Speech: Unremarkable Language: Adequate Fund of Knowledge: Adequate Attention and Concentration: Adequate Memory: Unremarkable Mood: Appropriate Affect: Appropriate Thought Process & Associations: Logical, Goal directed, Linear Thought Content: Appropriate Hallucination Type: None Delusion Type: None Suicidal Ideation: No Suicidal Plan: No Suicidal Intention: No Homicidal Ideation: No Homicidal Plan: No Homicidal Intention: No Insight: Adequate Judgment: Adequate Discharge/Advance Care Plan Health Problems: (1) Adjustment disorder with mixed disturbance of emotions and conduct (2) Cocaine abuse Goals to promote your health * To prevent worsening of your condition and complications * To maintain your health at the optimal level Directions to meet your goals Take your medications as prescribed Follow your dietary instruction Follow activity as directed Keep your appointments as scheduled Take your immunizations and boosters as scheduled If your symptoms worsen call your PCP, if no PCP go to Urgent Care Center or Emergency Room For 03/11 questions related to your inpatient stay or results of tests pending at discharge, please contact Dr. Jovany Emerson at Smoking is Dangerous to Your Health. Avoid second hand smoking Jovany Emerson MD Feb 05, 2017 08:27
[2017-02-05] MEDS: PROPRANOLOL HCL 20 MG TAB PO SCH (08:35)
[2017-02-05] MEDS: PANTOPRAZOLE SOD 40 MG DELAYED RELEASE TAB PO SCH (08:35)
[2017-02-05] MEDS: FUROSEMIDE 40 MG TAB PO SCH (08:35)
[2017-02-05] MEDS: TAMSULOSIN HCL 0.4 MG CAP PO SCH (08:35)
[2017-02-05] MEDS: THIAMINE HCL 100 MG TAB PO SCH (08:36)
[2017-02-05] MEDS: SPIRONOLACTONE 100 MG TAB PO SCH (08:36)
[2017-02-05] MEDS: DOCUSATE SODIUM 50 MG/SENNA 8.6 MG TAB PO SCH (08:37)
[2017-02-05] MEDS: CHOLECALCIFEROL (VIT D3) 1000 UNIT TAB PO SCH (08:37)
[2017-02-05] MEDS: ASCORBIC ACID 500 MG TAB PO SCH (08:37)
[2017-02-05] MEDS: ESCITALOPRAM OXALATE 10 MG TAB PO SCH (08:37)
[2017-02-05] MEDS: FERROUS SULFATE 325 MG (65 MG ELEMENTAL IRON) TAB PO SCH (08:38)
[2017-02-05] MEDS: LACTULOSE SYRUP 20 GM/30 ML CUP PO SCH (08:38)
[2017-02-05] MEDS: MAGNESIUM OXIDE 400 MG TAB PO SCH (08:38)
[2017-02-05] MEDS: GABAPENTIN 300 MG CAP PO SCH ×2 (08:38→11:22)
[2017-02-05] MEDS: INSULIN HUMAN NPH/R 70/30 1,000 UNITS/10 ML VIAL SQ SCH (09:00)
[2017-02-05] MEDS: busPIRone HCL 10 MG TAB PO SCH (09:00)
[2017-02-05 10:06] LABS: AUTOMATED NEUTROPHIL # 1.9 TH/MM3 (1.8-7.7); BASOPHIL % 0.8 % (0.0-2.0); EOSINOPHIL # 0.2 TH/MM3 (0-0.4); EOSINOPHIL % 6.3 % (0.0-4.0); INTERNATIONAL NORMALIZED RATIO 1.4 RATIO; LYMPH % 20.4 % (9.0-44.0); LYMPHOCYTE # 0.6 TH/MM3 (1.0-4.8); MEAN CELL VOLUME 85.3 FL (80.0-100.0); MEAN CORPUSCULAR HEMOGLOBIN 28.4 PG (27.0-34.0); MEAN CORPUSCULAR HGB CONC 33.3 % (32.0-36.0); NEUT % 61.5 % (16.0-70.0); PLATELET COUNT 46 TH/MM3 (150-450); PROTHROMBIN TIME - PATIENT 16.1 SEC (9.8-11.6); RED BLOOD COUNT 2.93 MIL/MM3 (4.50-5.90); WHITE BLOOD COUNT 3.2 TH/MM3 (4.0-11.0)
[2017-02-05 10:11] LABS: HEMO FLAGS AUTO DIFF
[2017-02-05 10:24] LABS: ALKALINE PHOSPHATASE 58 U/L (45-117); ALT (GPT) 50 U/L (12-78); ANION GAP 9 MEQ/L (5-15); AST (GOT) 118 U/L (15-37); BICARBONATE 25.4 MEQ/L (21.0-32.0); BLOOD UREA NITROGEN 10 MG/DL (7-18); CHLORIDE 100 MEQ/L (98-107); GLOMERULAR FILTRATION RATE 92 ML/MIN (>89); MAGNESIUM 1.7 MG/DL (1.5-2.5); POTASSIUM 4.4 MEQ/L (3.5-5.1); SODIUM (NA) 134 MEQ/L (136-145); TOTAL BILIRUBIN ADULT 1.2 MG/DL (0.2-1.0)
[2017-02-05 11:11] LABS: BANDS 1 % (0-6); BASOPHILS 2 % (0-2); EOSINOPHILS 3 % (0-4); NEUTROPHIL # MANUAL DIFF 2.2 TH/MM3 (1.8-7.7); PLATELET ESTIMATE SMEAR LOW (NORMAL); PLATELET MORPHOLOGY NORMAL (NORMAL); POLYS (SEG NEUTROPHILS) 68 % (16-70); SCAN/DIFF FINAL DIFF MANUAL; WBC DIFF SAMPLE 100
[2017-02-05 11:12] LABS: OVALOCYTES 1+ (NORMAL)
--- NOTE | 2017-02-05 11:17 | HHI.PR ---
Subjective Remarks Follow up abdominal pain, ascites. The patient states that he feels much better since having paracentesis. Abdominal pain is now at his baseline. Denies nausea/ vomiting. States that he has a GI doctor in [place] who he will follow up with. Objective Vitals Vital Signs Date Time Temp Pulse Resp B/P (MAP) Pulse Ox O2 Delivery O2 Flow Rate FiO2 02/05/17 05:48 97.6 55 18 139/67 (91) 98 02/04/17 17:43 95 21 02/04/17 16:43 98.1 60 17 105/59 (74) 95 I/O 02/04/17 02/04/17 02/04/17 02/05/17 02/05/17 02/05/17 07:00 15:00 23:00 07:00 15:00 23:00 Intake Total 0 ml 480 ml 840 ml 480 ml 360 ml Balance 0 ml 480 ml 840 ml 480 ml 360 ml Intake Oral 0 ml 480 ml 840 ml 480 ml 360 ml # Voids 2 4 2 # Bowel Movements 0 Result Diagram: 02/05/17 0835 02/05/17 0835 Imaging Last Impressions Cyst Biopsy Asp-Paracentesis US 02/03/17 0000 Signed Impressions: Service Date/Time: Friday, February 03, 2017 08:34 - CONCLUSION: Uncomplicated ultrasound guided paracentesis. Brooks Bobby MD Objective Remarks Gen: No acute distress. CV: RRR Lungs: CTA Abd: Soft, mildly distended, nontender Ext: No edema Psych: Alert, answers questions appropriately. Procedures 02/03/17 paracentesis Urinary Catheter: No Vascular Central Line Catheter: No A/P Problem List: (1) Chronic liver failure ICD Code: K72.10 - Chronic hepatic failure without coma Status: Acute (2) Adjustment disorder with mixed disturbance of emotions and conduct ICD Code: F43.25 - Adjustment disorder with mixed disturbance of emotions and conduct (3) Ascites ICD Code: R18.8 - Other ascites Status: Chronic Assessment and Plan 1. Adjustment disorder, major depressive disorder: Management per psychiatry. 2. Chronic alcoholic liver cirrhosis with ascites requiring recurrent paracentesis: Status post paracentesis with removal of 8 L on 02/03/17. Continue propranolol, Lasix, spironolactone, lactulose. 3. Hypokalemia: Resolved. 4. Diabetes mellitus: Continue 70/30 insulin. Monitor Accu-Cheks and cover with sliding scale insulin. Diabetic diet. 5. BPH: Continue Flomax. 6. Pancytopenia, thrombocytopenia: Secondary to chronic liver disease. Stable. Continue iron supplementation. 7. Cocaine abuse: Urine drug screen positive for cocaine. Patient has been counseled. 8. GERD: PPI. 9. Hypomagnesemia: Improved with supplementation. 10. Hypothyroidism: Continue Synthroid. Recheck TSH in 4-6 weeks. Alan Bains MD Feb 05, 2017 11:17
== END 2017-02-05 12:30 | disposition home or self-care (01) | DRG 882 ==
LOC: NEPE 00:54 → NEDA 02-02 11:07 → H4EA 02-02 14:00 → HCPC 02-02 18:19 → H4EA 02-02 18:20 → HCPC 02-02 18:22 → H4EA 02-02 18:24
PROVIDERS: ADMIT Student in an Organized Health Care Education/Training Program; ATTEND Student in an Organized Health Care Education/Training Program
PROC: 0W9G3ZZ Drainage of Peritoneal Cavity, Percutaneous Approach (ICD-10-PCS; principal; 2017-02-03)
DX: F43.25 Adjustment disorder with mixed disturbance of emotions and conduct (principal); D61.818 Other pancytopenia; K70.31 Alcoholic cirrhosis of liver with ascites; E11.9 Type 2 diabetes mellitus without complications; Z79.4 Long term (current) use of insulin; D64.9 Anemia, unspecified; I10 Essential (primary) hypertension; F14.10 Cocaine abuse, uncomplicated; B19.20 Unspecified viral hepatitis C without hepatic coma; E87.6 Hypokalemia; E03.9 Hypothyroidism, unspecified; E83.42 Hypomagnesemia; K72.10 Chronic hepatic failure without coma; K21.9 Gastro-esophageal reflux disease without esophagitis; N40.0 Benign prostatic hyperplasia without lower urinary tract symptoms
CPT/HCPCS: 49083; 76937; 80053; 80061; 80307; 82042; 82140; 82150; 82306; 82607; 82945; 82948; 83036; 83615; 83735; 84100; 84157; 84439; 84443; 85007; 85025; 85027; 85610; 85730; 87070; 87205; 87640; 87641; 88112; 88305; 89051; 93005; C1729; J1815; P9047

== ENCOUNTER 2017-02-13 11:25 | Emergency (ER) | payer OTHER, MEDICARE ==
[~2017-02-13] VITALS: Ht 170.2 cm; Wt 90.0 kg
[~2017-02-13 11:25] MED LIST changes: +ALDA100T PO; -C 50TAB PO; -D31000TA PO; +ESCI10TA PO; +FERR325T20 PO; -FERR325T72 PO; -GABA300C5 PO; +LEVO.05 PO; +Lactulose Liq PO; +MAGN400T3 PO; +NEUR300C PO; +SENN1TAB PO; -SPIR100T PO; -TAMS0.4C4 PO; +TAMS5CAP PO; +THIA100 PO; +VITA1000 PO; -VITA100T54 PO; +VITA500T2 PO
[2017-02-13 11:27] VITALS: BP 154/86; PULSE 82; RESP 16; TEMP 98.4; O2SAT 98
[2017-02-13 11:57] VITALS: O2SAT 97
[2017-02-13] MEDS ORDERED: KETOROLAC TROMETHAMINE 30 MG/ML (IVP) VIAL IVP ONE (12:00)
[2017-02-13] MEDS ORDERED: SODIUM CHLORIDE 0.9% FLUSH 10 ML FLUSH IV FLUSH PRN (12:00)
[2017-02-13] MEDS ORDERED: DICYCLOMINE HCL 10 MG CAP PO ONE (12:00)
[2017-02-13] MEDS ORDERED: ONDANSETRON HCL 4 MG/2 ML VIAL IVP ONE (12:00)
[2017-02-13 12:10] VITALS: BP 163/83; PULSE 61; RESP 18; O2SAT 99
--- NOTE | 2017-02-13 12:18 | PD ---
HPI Chief Complaint: GI Complaint Time Seen by Provider: 11:51 Travel History International Travel<30 days: No Contact w/Intl Traveler<30days: No Traveled to known affect area: No History of Present Illness HPI 61 yo M c/o abdominal pain described as a fullness and stretching/distension. it 's chronic in nature c/w ascites 2/2 alcohol cirrhosis. no fever/chills. no n/v/ d. timing constant and gradually worsening. severity moderate. PFSH Past Medical History Anemia: Yes Blood Disorders: No Anxiety: Yes Depression: Yes Cancer: No Cardiovascular Problems: Yes Cirrhosis: Yes Cerebrovascular Accident: No Diabetes: Yes Patient Takes Glucophage: No Diminished Hearing: No Endocrine: Yes GERD: Yes Genitourinary: Yes Hepatitis: Yes (HEP C ) Hypertension: Yes Immune Disorder: No Musculoskeletal: No Neurologic: No Psychiatric: Yes Reproductive: No Respiratory: No Pancreatitis: Yes Seizures: No Thyroid Disease: No Tetanus Vaccination: < 5 Years Influenza Vaccination: Yes Past Surgical History Abdominal Surgery: Yes (cholecystectomy 2004) Cardiac Surgery: No Cholecystectomy: Yes Ear Surgery: No Endocrine Surgery: No Eye Surgery: No Genitourinary Surgery: No Gynecologic Surgery: No Oral Surgery: No Pacemaker: No Thoracic Surgery: No Other Surgery: Yes (BANDING FOR GI BLEED IN JAN 2013, BANDING IN FEB 2013, BANDING IN MAY 2012,) Social History Alcohol Use: No (sober since 03/20/16) Tobacco Use: No Substance Use: Yes (COCAINE 02/12/17) Allergies-Medications (Allergen,Severity, Reaction): Coded Allergies: *MDRO Multi-Drug Resistant Organism (Verified Adverse Reaction, Unknown, 02/01/17) MRSA PCR screen POSITIVE - 12/23/15 Reported Meds & Prescriptions Reported Meds & Active Scripts Active D 1000 (Cholecalciferol) 1,000 Unit Tab 1,000 Units PO DAILY 30 Days C 500/Constanza Hips (Ascorbic Acid) 500 Mg Tab 500 Mg PO DAILY 30 Days Gnp Vitamin B-1 (Thiamine HCl) 100 Mg Tab 100 Mg PO DAILY 30 Days Synthroid (Levothyroxine Sodium) 50 Mcg Tab 50 Mcg PO DAILY@0600 30 Days Novolin 70-30 Inj (Insulin Human Isoph/Insulin Regular) 1,000 Unit/10 Ml Vial 5 Units SQ BID 30 Days Pantoprazole (Pantoprazole Sodium) 40 Mg Tab 40 Mg PO DAILY 30 Days Senna Plus 8.6-50 mg (Sennosides-Docusate Sodium) 8.6 Mg-50 Mg Tab 1 Tab PO BID 30 Days Magnesium Oxide 400 Mg Tab 800 Mg PO Q12HR 30 Days Furosemide 40 Mg Tab 40 Mg PO DAILY 30 Days [Lactulose Liq] 30 ML Syrp 30 Ml PO TID 30 Days Buspirone (Buspirone HCl) 10 Mg Tab 10 Mg PO BID 30 Days Escitalopram (Escitalopram Oxalate) 10 Mg Tab 10 Mg PO DAILY 30 Days Doxepin (Doxepin HCl) 50 Mg Cap 50 Mg PO HS 30 Days Neurontin (Gabapentin) 300 Mg Cap 300 Mg PO TID 30 Days Aldactone (Spironolactone) 100 Mg Tab 100 Mg PO BID@0900,1800 30 Days Propranolol (Propranolol HCl) 20 Mg Tab 20 Mg PO DAILY 30 Days Ferosul (Ferrous Sulfate) 325 Mg (65 Mg Iron) Tablet 325 Mg PO DAILY 30 Days Flomax (Tamsulosin HCl) 0.4 Mg Cap 0.4 Mg PO DAILY 30 Days Oxycodone-Acetaminophen 10-325 mg Tab 1 Tab PO Q4-6H PRN Hydrocodone-Acetaminophen 10-325 mg Tab 1 Tab PO Q4-6H PRN Novolin 70-30 Inj (Insulin Human Isoph/Insulin Regular) 1,000 Unit/10 Ml Vial 5 Units SQ BID 30 Days Reported Lactulose Liq (Lactulose) 10 Gm/15 Ml Soln 30 Ml PO BID PRN Escitalopram (Escitalopram Oxalate) 20 Mg Tab 20 Mg PO DAILY Review of Systems Except as stated in HPI: all other systems reviewed are Neg General / Constitutional: No: Fever Gastrointestinal: Positive: Abdominal Pain, No: Nausea Physical Exam Narrative GENERAL: 61 yo M, WNWD, NAD SKIN: Warm and dry. HEAD: Atraumatic. Normocephalic. EYES: Pupils equal and round. No scleral icterus. No injection or drainage. ENT: No nasal bleeding or discharge. Mucous membranes pink and moist. NECK: Trachea midline. No JVD. CARDIOVASCULAR: Regular rate and rhythm. RESPIRATORY: No accessory muscle use. Clear to auscultation. Breath sounds equal bilaterally. GASTROINTESTINAL: Soft. Minimal distension. No focus of tenderness. MUSCULOSKELETAL: Extremities without clubbing, cyanosis, or edema. No obvious deformities. NEUROLOGICAL: Awake and alert. No obvious cranial nerve deficits. Motor grossly within normal limits. Five out of 5 muscle strength in the arms and legs. Normal speech. PSYCHIATRIC: Appropriate mood and affect; insight and judgment normal. Data Data Last Documented VS Vital Signs Date Time Temp Pulse Resp B/P (MAP) Pulse Ox O2 Delivery O2 Flow Rate FiO2 02/13/17 12:10 61 18 163/83 (109) 99 Room Air 02/13/17 11:27 98.4 VS reivewed Orders Orders Iv Access Insert/Monitor (02/13/17 11:52) Ecg Monitoring (02/13/17 11:52) Oximetry (02/13/17 11:52) Ondansetron Inj (Zofran Inj) (02/13/17 12:00) Sodium Chloride 0.9% Flush (Ns Flush) (02/13/17 12:00) Dicyclomine (Bentyl) (02/13/17 12:00) Ketorolac Inj (Toradol Inj) (02/13/17 12:00) MDM Medical Decision Making Medical Screen Exam Complete: Yes Emergency Medical Condition: Yes Medical Record Reviewed: Yes Differential Diagnosis Constipation, Gastritis, Acute Cholecystitis, Biliary Colic, Pancreatitis, LAURA , Hepatitis, Bowel Obstruction, Cystitis, Mesenteric Ischemia, AAA, Appendicitis , Renal Stone/Hydronephrosis, GERD, perforated viscous Narrative Course Pt has been given script for ultrasound guided therapeutic paracentesis and contact information. Diagnosis Primary Impression: Ascites Qualified Codes: R18.8 - Other ascites Additional Instructions: You have a choice when it comes to health care, and we are glad that you chose [facility]. Hopefully, we have met your expectations on today's visit. You are welcome to return to [facility] at any time, as we are committed to meeting the health care needs of our community. CALL TO SCHEDULE PARACENTESIS APPOINTMENT AN OUTPATIENT. Disposition: 01 DISCHARGE HOME Condition: Stable Bakari Elliott MD Feb 13, 2017 12:18
[2017-02-13 14:08] VITALS: BP 165/84
== END 2017-02-13 14:09 | disposition home or self-care (01) ==
LOC: NEPC 11:25
DX: R18.8 Other ascites (principal); K74.60 Unspecified cirrhosis of liver; D64.9 Anemia, unspecified; E11.9 Type 2 diabetes mellitus without complications
CPT/HCPCS: 96374; 96375; 99284; J1885; J2405

== ENCOUNTER 2017-02-17 07:31 | Day surgery (SDC) | payer MEDICARE ==
[2017-02-17 08:04] VITALS: BP 156/75; PULSE 66; RESP 14; TEMP 97; O2SAT 95
[2017-02-17] MEDS ORDERED: ALBUMIN HUMAN 25% 50GM-W/12.5GM FOR 62.5GM IV ONE (09:30)
[2017-02-17] MEDS ORDERED: ALBUMIN HUMAN 25% 12.5GM-W/50GM FOR 62.5GM IV ONE (09:30)
[2017-02-17 09:45] VITALS: BP 137/71; PULSE 65; RESP 20; TEMP 98.2; O2SAT 99
--- NOTE | 2017-02-17 09:48 | RADRPT ---
EXAM DATE/TIME: 02/17/2017 07:50 [facility] COMPARISON: US GUIDED ABD PARACENTESIS, February 03, 2017, 8:34. INDICATIONS : Ascites. MEDICAL HISTORY : Hypertension. Pancreatitis. Gastroesophageal reflux disease. Hepatitis C. Cirrhosis. Diabetes. Seizur es. Anemia. GI Bleed. MRSA. C-diff. SURGICAL HISTORY : Cholecystectomy Banding for GI Bleed. Paracentesis. Peritoneal drain placement and removal x 2. ENCOUNTER: Subsequent ACUITY: 2 weeks PAIN SCORE: 0/10 LOCATION: Right lower quadrant FLUID: Total volume of 9,400 cc of clear, yellow fluid was removed. Fluid was discarded. Paracentesis was therapeutic only. Post procedure scanning reveals no hematoma or other complication. TECHNIQUE: 1. Ultrasound guidance for abdominal paracentesis. 2. Paracentesis. The risks, benefits, and alternatives to ultrasound guided paracentesis were explained to the patient in detail including the risk of bleeding and infection. Written and verbal informed consent was obt ained. With the patient on the ultrasound table, ultrasound imaging was used to select the most appropriate approach for paracentesis. Overlying skin was prepped and draped in the usual sterile fashion and wi th a local anesthetic, a dermatotomy was made with an 11 blade scalpel. A 6 Bengali [id number] ca theter was introduced into the peritoneal cavity and fluid was collected. The patient tolerated the procedure well and left the ultrasound suite in stable condition. CONCLUSION: Uncomplicated ultrasound guided paracentesis. Brooks Bobby MD on February 17, 2017 at 9:45 Board Certified Radiologist. This report was verified electronically.
[2017-02-17 10:00] VITALS: BP 144/81; PULSE 68; RESP 18; O2SAT 100
[2017-02-17] MEDS ORDERED: LIDOCAINE HCL 1% 20 ML VIAL ONE (11:23)
== END 2017-02-17 12:15 | disposition home or self-care (01) ==
LOC: HRAD 07:31 → HRIP 07:35 → HRAD 12:15
PROVIDERS: ATTEND Hospitalist
DX: R18.8 Other ascites (principal); I10 Essential (primary) hypertension; B19.20 Unspecified viral hepatitis C without hepatic coma
CPT/HCPCS: 49083; 96365; 96366; C1729; P9047

== ENCOUNTER 2017-03-01 08:28 | Emergency (ER) | payer MEDICARE ==
[~2017-03-01] VITALS: Ht 165.1 cm; Wt 86.0 kg
[2017-03-01 08:29] VITALS: BP 163/92; PULSE 86; RESP 18; TEMP 98.7; O2SAT 96
[2017-03-01] MEDS ORDERED: XIFA550T4 PO (08:57)
[2017-03-01] MEDS ORDERED: LANTUS2P SQ (08:57)
[2017-03-01] MEDS ORDERED: POTA-163 PO (08:57)
--- NOTE | 2017-03-01 09:12 | PD ---
HPI Chief Complaint: Abdominal Pain Time Seen by Provider: 08:54 Travel History International Travel<30 days: No Contact w/Intl Traveler<30days: No Traveled to known affect area: No History of Present Illness HPI This 61-year-old man who presents to the emergency department with abdominal pain. He is a history of cirrhosis, ascites, and has been eating paracentesis needing paracentesis every 2-3 weeks for the past several months. Last had paracentesis done about 2-3 weeks ago. Requesting prescription for same. History Past Medical History Narrative Medical Cirrhosis, hep C, ascites, varices Diabetes Social History Alcohol Use: No (sober since 03/20/16) Tobacco Use: No Allergies-Medications (Allergen,Severity, Reaction): Coded Allergies: *MDRO Multi-Drug Resistant Organism (Verified Adverse Reaction, Unknown, 03/01/17) MRSA PCR screen POSITIVE - 12/23/15 Reported Meds & Prescriptions Reported Meds & Active Scripts Active D 1000 (Cholecalciferol) 1,000 Unit Tab 1,000 Units PO DAILY 30 Days C 500/Constanza Hips (Ascorbic Acid) 500 Mg Tab 500 Mg PO DAILY 30 Days Synthroid (Levothyroxine Sodium) 50 Mcg Tab 50 Mcg PO DAILY@0600 30 Days Pantoprazole (Pantoprazole Sodium) 40 Mg Tab 40 Mg PO DAILY 30 Days Magnesium Oxide 400 Mg Tab 800 Mg PO Q12HR 30 Days Furosemide 40 Mg Tab 40 Mg PO DAILY 30 Days Buspirone (Buspirone HCl) 10 Mg Tab 10 Mg PO BID 30 Days Escitalopram (Escitalopram Oxalate) 10 Mg Tab 10 Mg PO DAILY 30 Days Doxepin (Doxepin HCl) 50 Mg Cap 50 Mg PO HS 30 Days Propranolol (Propranolol HCl) 20 Mg Tab 20 Mg PO DAILY 30 Days Ferosul (Ferrous Sulfate) 325 Mg (65 Mg Iron) Tablet 325 Mg PO DAILY 30 Days Reported Lantus Inj (Insulin Glargine) 1,000 Unit/10 Ml Vial 48 Units SQ HS Potassium Chloride ER (Potassium Chloride) 20 Meq Tab 20 Meq PO DAILY Xifaxan (Rifaximin) 550 Mg Tab 550 Mg PO Q12HR Lactulose Liq (Lactulose) 10 Gm/15 Ml Soln 30 Ml PO BID PRN Escitalopram (Escitalopram Oxalate) 20 Mg Tab 20 Mg PO DAILY Review of Systems Except as stated in HPI: all other systems reviewed are Neg Physical Exam Narrative GENERAL: 61-year-old man, somewhat debilitated appearing, no acute distress. SKIN: Focused skin assessment warm/dry. CARDIOVASCULAR: Regular rate and rhythm. No murmur appreciated. RESPIRATORY: No accessory muscle use. Clear to auscultation. Breath sounds equal bilaterally. GASTROINTESTINAL: Abdominal distention with ascites. Palpable umbilical hernia. No significant tenderness. MUSCULOSKELETAL: No obvious deformities. No clubbing. No cyanosis. No edema. NEUROLOGICAL: Awake and alert. No obvious deficits. Data Data Last Documented VS Vital Signs Date Time Temp Pulse Resp B/P (MAP) Pulse Ox O2 Delivery O2 Flow Rate FiO2 03/01/17 08:29 98.7 86 18 163/92 (115) 96 Room Air Orders Orders Complete Blood Count With Diff (03/01/17 09:04) Act Partial Throm Time (Ptt) (03/01/17 09:04) Prothrombin Time / Inr (Pt) (03/01/17 09:04) MDM Medical Decision Making Medical Screen Exam Complete: Yes Emergency Medical Condition: Yes Differential Diagnosis Ascites, cirrhosis Narrative Course Medical decision making 61-year-old man presents emergency Department with ascites, needs for outpatient paracentesis to be arranged. [facility]. He's acquainted with our ultrasound schedule her. We'll send his basic labs. He is worried he may be a little bit anemic. Denies any blood in his stool or dark black stools. Recommend outpatient follow-up. Diagnosis Primary Impression: Ascites Patient Instructions: General Instructions Additional Instructions: Call the ultrasound model maker [employer] at [phone] for an appointment. Med/Other Pt SpecificInfo: No Change to Meds Disposition: 01 DISCHARGE HOME Condition: Stable Kwadwo Amezquita MD Mar 01, 2017 09:12
[2017-03-01] MEDS ORDERED: ACETAMINOPHEN/HYDROcodone 325 MG/5 MG TAB PO ONE (09:45)
[2017-03-01 09:57] LABS: AUTOMATED NEUTROPHIL # 2.6 TH/MM3 (1.8-7.7); BASOPHIL % 0.9 % (0.0-2.0); EOSINOPHIL # 0.2 TH/MM3 (0-0.4); EOSINOPHIL % 5.6 % (0.0-4.0); LYMPH % 22.4 % (9.0-44.0); MEAN CELL VOLUME 84.5 FL (80.0-100.0); MEAN CORPUSCULAR HEMOGLOBIN 27.9 PG (27.0-34.0); MONO % 13.2 % (0.0-8.0); NEUT % 57.9 % (16.0-70.0); PLATELET COUNT 76 TH/MM3 (150-450); RED BLOOD COUNT 3.43 MIL/MM3 (4.50-5.90); RED CELL DISTRIBUTION WIDTH 17.7 % (11.6-17.2); WHITE BLOOD COUNT 4.4 TH/MM3 (4.0-11.0)
[2017-03-01 09:58] LABS: HEMO FLAGS AUTO DIFF
[2017-03-01 10:44] LABS: OVALOCYTES 1+ (NORMAL); PLATELET ESTIMATE SMEAR LOW (NORMAL); PLATELET MORPHOLOGY ENLARGED (NORMAL); SCAN/DIFF AUTO DIFF CONFIRMED
== END 2017-03-01 09:49 | disposition home or self-care (01) ==
LOC: NEPE 08:28
DX: R18.8 Other ascites (principal); K74.60 Unspecified cirrhosis of liver; E11.9 Type 2 diabetes mellitus without complications; Z79.4 Long term (current) use of insulin; Z79.899 Other long term (current) drug therapy; Z86.19 Personal history of other infectious and parasitic diseases
CPT/HCPCS: 85025; 99283

== ENCOUNTER → 2017-03-04 | Outpatient (CLI) | payer MEDICARE, OTHER ==
[~2017-03-04] MED LIST changes: -ALDA100T PO; -HYDR-3583 PO; +LANTUS2P SQ; -Lactulose Liq PO; -NEUR300C PO; -NOVO7030P2 SQ; +OXYC1CAP PO; -OXYC1TAB36 PO; +POTA-163 PO; -SENN1TAB PO; -TAMS5CAP PO; -THIA100 PO; +XIFA550T4 PO
[2017-03-04 08:31] LABS: APTT (PATIENT) 29.7 SEC (24.3-30.1); INTERNATIONAL NORMALIZED RATIO 1.3 RATIO
== END ==
LOC: CLAB 07:33
PROVIDERS: ATTEND Preventive Medicine Addiction Medicine
DX: R18.8 Other ascites (principal)
CPT/HCPCS: 36415; 85610; 85730

== ENCOUNTER 2017-03-08 02:44 | Emergency (ER) | payer MEDICARE ==
[~2017-03-08] VITALS: Ht 165.1 cm; Wt 90.0 kg
[~2017-03-08 02:44] MED LIST changes: -OXYC1CAP PO
[2017-03-08 02:53] VITALS: BP 156/79; PULSE 80; RESP 24; TEMP 96.7; O2SAT 97
[2017-03-08] MEDS ORDERED: SODIUM CHLORIDE 0.9% FLUSH 10 ML FLUSH IV FLUSH PRN (04:15)
[2017-03-08] MEDS ORDERED: ONDANSETRON HCL 4 MG/2 ML VIAL IV PUSH ONE (04:15)
[2017-03-08] MEDS ORDERED: MORPHINE SULFATE 4 MG/ML INJ IV PUSH ONE (04:15)
[2017-03-08 04:30] VITALS: BP 150/87; PULSE 79; RESP 20; O2SAT 98
--- NOTE | 2017-03-08 04:39 | RADRPT ---
EXAM DATE/TIME: 03/08/2017 04:23 [facility] COMPARISON: CHEST SINGLE AP, December 30, 2016, 16:55. INDICATIONS : Abdominal pain. MEDICAL HISTORY : Hypertension. Pancreatitis. Gastroesophageal reflux disease. Hep C. Cirrhosis. Seizures. Anemia. GI Bleed SURGICAL HISTORY : Cholecystectomy. Paracentesis ENCOUNTER: Initial ACUITY: 1 day PAIN SCORE: 8/10 LOCATION: Bilateral abdomen FINDINGS: A single view of the chest demonstrates the lungs to be symmetrically aerated without evidence of mas s, infiltrate or effusion. The cardiomediastinal contours are unremarkable. Osseous structures are intact. CONCLUSION: No acute disease. Sudhir Sheehan MD on March 08, 2017 at 4:37 Board Certified Radiologist. This report was verified electronically.
[2017-03-08 04:56] LABS: AUTOMATED NEUTROPHIL # 3.3 TH/MM3 (1.8-7.7); BASOPHIL % 0.4 % (0.0-2.0); EOSINOPHIL # 0.2 TH/MM3 (0-0.4); EOSINOPHIL % 4.7 % (0.0-4.0); HEMATOCRIT 30.6 % (39.0-51.0); LYMPH % 18.4 % (9.0-44.0); MEAN CELL VOLUME 84.4 FL (80.0-100.0); MEAN CORPUSCULAR HEMOGLOBIN 27.8 PG (27.0-34.0); MEAN CORPUSCULAR HGB CONC 32.9 % (32.0-36.0); MONO % 12.8 % (0.0-8.0); NEUT % 63.7 % (16.0-70.0); PLATELET COUNT 78 TH/MM3 (150-450); RED BLOOD COUNT 3.63 MIL/MM3 (4.50-5.90); RED CELL DISTRIBUTION WIDTH 17.1 % (11.6-17.2); WHITE BLOOD COUNT 5.2 TH/MM3 (4.0-11.0)
[2017-03-08 05:01] LABS: HEMO FLAGS DIFF FINAL
[2017-03-08 05:14] LABS: APTT (PATIENT) 34.4 SEC (24.3-30.1); INTERNATIONAL NORMALIZED RATIO 1.5 RATIO; PROTHROMBIN TIME - PATIENT 17.1 SEC (9.8-11.6)
[2017-03-08 05:28] LABS: ALKALINE PHOSPHATASE 106 U/L (45-117); ALT (GPT) 33 U/L (12-78); ANION GAP 8 MEQ/L (5-15); AST (GOT) 63 U/L (15-37); BICARBONATE 24.8 MEQ/L (21.0-32.0); BLOOD UREA NITROGEN 11 MG/DL (7-18); CHLORIDE 102 MEQ/L (98-107); GLOMERULAR FILTRATION RATE 86 ML/MIN (>89); SODIUM (NA) 135 MEQ/L (136-145); TOTAL BILIRUBIN ADULT 1.7 MG/DL (0.2-1.0)
[2017-03-08 05:55] LABS: POTASSIUM 2.9 MEQ/L (3.5-5.1)
[2017-03-08] MEDS ORDERED: POTASSIUM CHLORIDE 10 MEQ CONTROLLED RELEASE TAB PO ONE (06:00)
[2017-03-08] MEDS ORDERED: OXYC1CAP PO (06:05)
--- NOTE | 2017-03-08 06:05 | PD ---
HPI Chief Complaint: Abdominal Pain Time Seen by Provider: 03:59 Travel History International Travel<30 days: No Contact w/Intl Traveler<30days: No Traveled to known affect area: No History of Present Illness HPI Patient is a 61-year-old male with history of hepatitis and cirrhosis, who comes in complaining of shortness of breath and abdominal pain. He says he is scheduled for paracentesis on Thursday, so he would like to be admitted until Thursday. He says that the [facility] has stopped prescribing him pain medicine. He denies fever or chills. He has not tried taking anything at home for pain. He denies nausea or vomiting. He reports compliance with his Lasix, but it does not seem he is taking any of his other medications. PFSH Past Medical History Hx Anticoagulant Therapy: No Anemia: Yes Blood Disorders: No Anxiety: Yes Depression: Yes Cancer: No Cardiovascular Problems: Yes Cirrhosis: Yes Cerebrovascular Accident: No Diabetes: Yes Patient Takes Glucophage: No Diminished Hearing: No Endocrine: Yes GERD: Yes Genitourinary: Yes Hepatitis: Yes (HEP C ) Hypertension: Yes Immune Disorder: No Medical other: Yes (MRSA) Musculoskeletal: No Neurologic: No Psychiatric: Yes Reproductive: No Respiratory: No Pancreatitis: Yes Seizures: No Thyroid Disease: No ?: Not Past Surgical History Abdominal Surgery: Yes (cholecystectomy 2004) Cardiac Surgery: No Cholecystectomy: Yes Ear Surgery: No Endocrine Surgery: No Eye Surgery: No Genitourinary Surgery: No Gynecologic Surgery: No Oral Surgery: No Pacemaker: No Thoracic Surgery: No Other Surgery: Yes (BANDING FOR GI BLEED IN JAN 2013, BANDING IN FEB 2013, BANDING IN MAY 2012,) Social History Alcohol Use: No (sober since 03/20/16) Tobacco Use: No Substance Use: Yes (COCAINE 02/12/17) Allergies-Medications (Allergen,Severity, Reaction): Coded Allergies: *MDRO Multi-Drug Resistant Organism (Verified Adverse Reaction, Unknown, 03/01/17) MRSA PCR screen POSITIVE - 12/23/15 Reported Meds & Prescriptions Reported Meds & Active Scripts Active D 1000 (Cholecalciferol) 1,000 Unit Tab 1,000 Units PO DAILY 30 Days C 500/Constanza Hips (Ascorbic Acid) 500 Mg Tab 500 Mg PO DAILY 30 Days Synthroid (Levothyroxine Sodium) 50 Mcg Tab 50 Mcg PO DAILY@0600 30 Days Pantoprazole (Pantoprazole Sodium) 40 Mg Tab 40 Mg PO DAILY 30 Days Magnesium Oxide 400 Mg Tab 800 Mg PO Q12HR 30 Days Furosemide 40 Mg Tab 40 Mg PO DAILY 30 Days Buspirone (Buspirone HCl) 10 Mg Tab 10 Mg PO BID 30 Days Escitalopram (Escitalopram Oxalate) 10 Mg Tab 10 Mg PO DAILY 30 Days Doxepin (Doxepin HCl) 50 Mg Cap 50 Mg PO HS 30 Days Propranolol (Propranolol HCl) 20 Mg Tab 20 Mg PO DAILY 30 Days Ferosul (Ferrous Sulfate) 325 Mg (65 Mg Iron) Tablet 325 Mg PO DAILY 30 Days Reported Lantus Inj (Insulin Glargine) 1,000 Unit/10 Ml Vial 48 Units SQ HS Potassium Chloride ER (Potassium Chloride) 20 Meq Tab 20 Meq PO DAILY Xifaxan (Rifaximin) 550 Mg Tab 550 Mg PO Q12HR Lactulose Liq (Lactulose) 10 Gm/15 Ml Soln 30 Ml PO BID PRN Escitalopram (Escitalopram Oxalate) 20 Mg Tab 20 Mg PO DAILY Review of Systems Except as stated in HPI: all other systems reviewed are Neg General / Constitutional: No: Fever, Chills HENT: No: Headaches, Lightheadedness Cardiovascular: No: Chest Pain or Discomfort Respiratory: Positive: Shortness of Breath Gastrointestinal: Positive: Abdominal Pain, No: Nausea, Vomiting Musculoskeletal: Positive: Edema, No: Myalgias Skin: No Rash, No Change in Pigmentation Neurologic: No: Weakness, Dizziness Physical Exam Narrative GENERAL: Awake and alert, in no acute distress. SKIN: Focused skin assessment warm/dry. HEAD: Atraumatic. Normocephalic. EYES: Pupils equal and round. No scleral icterus. ENT: Mucous membranes pink and moist. NECK: Trachea midline. No JVD. CARDIOVASCULAR: Regular rate and rhythm. No murmur appreciated. RESPIRATORY: No accessory muscle use. Clear to auscultation. Breath sounds equal bilaterally. GASTROINTESTINAL: Large, distended abdomen, full of ascites. Diffusely tender to palpation. No rebound or guarding. MUSCULOSKELETAL: No obvious deformities. No clubbing. No cyanosis. No edema. NEUROLOGICAL: Awake and alert. No obvious cranial nerve deficits. Motor grossly within normal limits. Normal speech. PSYCHIATRIC: Appropriate mood and affect; insight and judgment normal. Data Data Last Documented VS Vital Signs Date Time Temp Pulse Resp B/P (MAP) Pulse Ox O2 Delivery O2 Flow Rate FiO2 03/08/17 04:30 79 20 150/87 (108) 98 Room Air 03/08/17 02:53 96.7 Orders Orders Complete Blood Count With Diff (03/08/17 04:14) Comprehensive Metabolic Panel (03/08/17 04:14) Prothrombin Time / Inr (Pt) (03/08/17 04:14) Act Partial Throm Time (Ptt) (03/08/17 04:14) Iv Access Insert/Monitor (03/08/17 04:14) Ecg Monitoring (03/08/17 04:14) Oximetry (03/08/17 04:14) Morphine Inj (Morphine Inj) (03/08/17 04:15) Sodium Chloride 0.9% Flush (Ns Flush) (03/08/17 04:15) Chest, Single Ap (03/08/17 04:14) Ondansetron Inj (Zofran Inj) (03/08/17 04:15) Potassium Chloride (Kcl) (03/08/17 06:00) Labs Laboratory Tests Test 03/08/17 04:35 White Blood Count 5.2 TH/MM3 Red Blood Count 3.63 MIL/MM3 Hemoglobin 10.1 GM/DL Hematocrit 30.6 % Mean Corpuscular Volume 84.4 FL Mean Corpuscular Hemoglobin 27.8 PG Mean Corpuscular Hemoglobin Concent 32.9 % Red Cell Distribution Width 17.1 % Platelet Count 78 TH/MM3 Mean Platelet Volume 8.1 FL Neutrophils (%) (Auto) 63.7 % Lymphocytes (%) (Auto) 18.4 % Monocytes (%) (Auto) 12.8 % Eosinophils (%) (Auto) 4.7 % Basophils (%) (Auto) 0.4 % Neutrophils # (Auto) 3.3 TH/MM3 Lymphocytes # (Auto) 1.0 TH/MM3 Monocytes # (Auto) 0.7 TH/MM3 Eosinophils # (Auto) 0.2 TH/MM3 Basophils # (Auto) 0.0 TH/MM3 CBC Comment DIFF FINAL Differential Comment Prothrombin Time 17.1 SEC Prothromb Time International Ratio 1.5 RATIO Activated Partial Thromboplast Time 34.4 SEC Blood Urea Nitrogen 11 MG/DL Creatinine 0.90 MG/DL Random Glucose 157 MG/DL Total Protein 7.6 GM/DL Albumin 2.8 GM/DL Calcium Level 8.0 MG/DL Alkaline Phosphatase 106 U/L Aspartate Amino Transf (AST/SGOT) 63 U/L Alanine Aminotransferase (ALT/SGPT) 33 U/L Total Bilirubin 1.7 MG/DL Sodium Level 135 MEQ/L Potassium Level 2.9 MEQ/L Chloride Level 102 MEQ/L Carbon Dioxide Level 24.8 MEQ/L Anion Gap 8 MEQ/L Estimat Glomerular Filtration Rate 86 ML/MIN MDM Medical Decision Making Medical Screen Exam Complete: Yes Emergency Medical Condition: Yes Medical Record Reviewed: Yes Differential Diagnosis Ascites versus worsening liver failure versus anemia versus electrolyte abnormality Narrative Course Patient is a 61-year-old male who comes in complaining of abdominal pain and shortness of breath. He says he wants to be admitted until Thursday when he is having his paracentesis. Exam shows a distended abdomen, mildly tender to palpation. IV established, labs sent. INR is elevated, total bili is elevated. These are similar to his previous labs. Potassium was 2.9. This was replaced. Patient given morphine for pain. Chest x-ray shows no evidence of pleural effusion. He is sitting comfortably, there is no tachypnea he does not appear short of breath. Patient advised to return Thursday for his scheduled appointment. Given a prescription for pain medicine. Advised to return any time for any worsening symptoms. Diagnosis Primary Impression: Ascites Qualified Codes: K70.31 - Alcoholic cirrhosis of liver with ascites Additional Impressions: Abdominal pain Qualified Codes: R10.84 - Generalized abdominal pain Hypokalemia Patient Instructions: Ascites (ED), General Instructions Additional Instructions: Return Thursday for scheduled paracentesis. Take pain medicine as needed. Follow -up with your doctors. Return to the ED as needed for any worsening symptoms. Scripts Oxycodone (Oxycodone) 5 Mg Cap 5 MG PO Q6H Y for PAIN, #10 CAP 0 Refills Prov: Maribel Rea MD 03/08/17 Disposition: 01 DISCHARGE HOME Condition: Stable Maribel Rea MD Mar 08, 2017 06:05
[2017-03-08 06:38] VITALS: BP 142/78
== END 2017-03-08 06:40 | disposition home or self-care (01) ==
LOC: NEPC 02:44
DX: K70.31 Alcoholic cirrhosis of liver with ascites (principal); E87.6 Hypokalemia
CPT/HCPCS: 71010; 80053; 85025; 85610; 85730; 96374; 96375; 99285; J2270; J2405

== ENCOUNTER 2017-03-09 07:28 | Day surgery (SDC) | payer MEDICARE ==
[~2017-03-09 07:28] MED LIST changes: +OXYC1CAP PO
[2017-03-09 08:24] VITALS: BP 132/86; PULSE 67; RESP 16; TEMP 98.7; O2SAT 96
[2017-03-09 09:15] VITALS: BP 106/69; PULSE 74; RESP 20; TEMP 97.6; O2SAT 91
[2017-03-09 09:30] VITALS: BP 113/63; PULSE 56; RESP 18; O2SAT 97
[2017-03-09] MEDS ORDERED: ALBUMIN HUMAN 25% 12.5GM-W/50GM FOR 62.5GM IV ONE (09:30)
[2017-03-09] MEDS ORDERED: ALBUMIN HUMAN 25% 50GM-W/12.5GM FOR 62.5GM IV ONE (09:30)
--- NOTE | 2017-03-09 09:54 | RADRPT ---
EXAM DATE/TIME: 03/09/2017 07:48 [facility] COMPARISON: US GUIDED ABD PARACENTESIS, February 17, 2017, 7:50. INDICATIONS : Ascites. MEDICAL HISTORY : Pancreatitis. Gastroesophageal reflux disease. Cirrhosis. HTN. Hep C. Diabetes. Seizures. Anemia. GI Bleed. MRSA. C-diff. SURGICAL HISTORY : Cholecystectomy Banding for GI Bleed. Paracentesis. Peritoneal drain placement and removal x2. ENCOUNTER: [facility] ACUITY: 2 weeks PAIN SCORE: 7/10 LOCATION: Left lower quadrant FLUID: Total volume of 10,600 cc of clear, yellow fluid was removed. Fluid was discarded. Paracentesis was therapeutic only. Post procedure scanning reveals no hematoma or other complication. TECHNIQUE: 1. Ultrasound guidance for abdominal paracentesis. 2. Paracentesis. The risks, benefits, and alternatives to ultrasound guided paracentesis were explained to the patient in detail including the risk of bleeding and infection. Written and verbal informed consent was obt ained. With the patient on the ultrasound table, ultrasound imaging was used to select the most appropriate approach for paracentesis. Overlying skin was prepped and draped in the usual sterile fashion and wi th a local anesthetic, a dermatotomy was made with an 11 blade scalpel. A 6 [place] Glr-T-imprdath ca theter was introduced into the peritoneal cavity and fluid was collected. The patient tolerated the procedure well and left the ultrasound suite in stable condition. CONCLUSION: Uncomplicated ultrasound guided paracentesis. Joselito Cantu Jr., MD on March 09, 2017 at 9:40 Board Certified Radiologist. This report was verified electronically.
[2017-03-09] MEDS ORDERED: HYDROmorphone HCL PF 1 MG/ML VIAL IV ONE (10:15)
== END 2017-03-09 11:00 | disposition home or self-care (01) ==
LOC: HRAD 07:28 → HRIP 07:31 → HRAD 11:00
PROVIDERS: ATTEND Preventive Medicine Addiction Medicine
DX: R18.8 Other ascites (principal); B19.20 Unspecified viral hepatitis C without hepatic coma; K85.90 Acute pancreatitis without necrosis or infection, unspecified; I10 Essential (primary) hypertension; E11.9 Type 2 diabetes mellitus without complications; K21.9 Gastro-esophageal reflux disease without esophagitis
CPT/HCPCS: 49083; 96365; 96366; C1729; J1170; P9047

== ENCOUNTER 2017-03-16 07:04 | Emergency (ER) | payer OTHER, MEDICARE ==
[2017-03-16 07:06] VITALS: BP 132/84; PULSE 66; RESP 18; TEMP 98.7; O2SAT 99
[2017-03-16] MEDS ORDERED: SPIR100T PO (07:28)
[2017-03-16] MEDS ORDERED: TAMS5CAP PO (07:28)
[2017-03-16] MEDS ORDERED: EPLE50TA PO (07:28)
[2017-03-16] MEDS ORDERED: ONDANSETRON HCL 4 MG/2 ML VIAL IVP ONE (07:30)
[2017-03-16] MEDS ORDERED: MORPHINE SULFATE 4 MG/ML INJ IV PUSH ONE (07:30)
--- NOTE | 2017-03-16 07:36 | PD ---
HPI Chief Complaint: GI Complaint Time Seen by Provider: 07:20 Travel History International Travel<30 days: No Contact w/Intl Traveler<30days: No Traveled to known affect area: No History of Present Illness HPI 61yo M with PMH of hepatitis and cirrhosis here with c/o black stool for 2 days. Said he has been having sharp lower abdominal pain that is intermittent for 4 days. Associated with nausea and diarrhea. Denies any fever, chest pain , sob, vomiting, hematemesis, focal weakness or numbness. Pt has a standing order for paracentesis and was seen here at [place] on 03/08/17 for abdominal pain and discharge from the ED. Pt had ultrasound guided paracentesis by IR on 03/09/17. Pt has history of variceal bleed s/p banding, last 2 years ago. Follows with OR GI Dr. Gibbons. [facility] Past Medical History Hx Anticoagulant Therapy: No Anemia: Yes Blood Disorders: No Anxiety: Yes Depression: Yes Cancer: No Cardiovascular Problems: Yes Cirrhosis: Yes Cerebrovascular Accident: No Diabetes: Yes Patient Takes Glucophage: No Diminished Hearing: No Endocrine: Yes GERD: Yes Genitourinary: Yes Hepatitis: Yes (HEP C ) Hypertension: Yes Immune Disorder: No Musculoskeletal: No Neurologic: No Psychiatric: Yes Reproductive: No Respiratory: No Pancreatitis: Yes Seizures: No Thyroid Disease: No Tetanus Vaccination: < 5 Years Influenza Vaccination: Yes Past Surgical History Abdominal Surgery: Yes (cholecystectomy 2004) Cardiac Surgery: No Cholecystectomy: Yes Ear Surgery: No Endocrine Surgery: No Eye Surgery: No Genitourinary Surgery: No Gynecologic Surgery: No Oral Surgery: No Pacemaker: No Thoracic Surgery: No Other Surgery: Yes (BANDING FOR GI BLEED IN JAN 2013, BANDING IN FEB 2013, BANDING IN MAY 2012,) Social History Alcohol Use: No (sober since 03/20/16) Tobacco Use: No Substance Use: Yes (COCAINE ) Allergies-Medications (Allergen,Severity, Reaction): Coded Allergies: *MDRO Multi-Drug Resistant Organism (Verified Adverse Reaction, Unknown, 03/16/17) MRSA PCR screen POSITIVE - 12/23/15 Reported Meds & Prescriptions Reported Meds & Active Scripts Active Tylenol (Acetaminophen) 325 Mg Tab 650 Mg PO Q6H PRN Oxycodone (Oxycodone HCl) 5 Mg Cap 5 Mg PO Q6H PRN D 1000 (Cholecalciferol) 1,000 Unit Tab 1,000 Units PO DAILY 30 Days C 500/Constanza Hips (Ascorbic Acid) 500 Mg Tab 500 Mg PO DAILY 30 Days Pantoprazole (Pantoprazole Sodium) 40 Mg Tab 40 Mg PO DAILY 30 Days Furosemide 40 Mg Tab 40 Mg PO DAILY 30 Days Buspirone (Buspirone HCl) 10 Mg Tab 10 Mg PO BID 30 Days Doxepin (Doxepin HCl) 50 Mg Cap 50 Mg PO HS 30 Days Propranolol (Propranolol HCl) 20 Mg Tab 20 Mg PO DAILY 30 Days Ferosul (Ferrous Sulfate) 325 Mg (65 Mg Iron) Tablet 325 Mg PO DAILY 30 Days Reported Eplerenone 50 Mg Tab 50 Mg PO DAILY Flomax (Tamsulosin HCl) 0.4 Mg Cap 0.4 Mg PO HS Spironolactone 100 Mg Tab 100 Mg PO DAILY Lantus Inj (Insulin Glargine) 1,000 Unit/10 Ml Vial 48 Units SQ HS Potassium Chloride ER (Potassium Chloride) 20 Meq Tab 20 Meq PO DAILY Xifaxan (Rifaximin) 550 Mg Tab 550 Mg PO Q12HR Lactulose Liq (Lactulose) 10 Gm/15 Ml Soln 30 Ml PO BID PRN Escitalopram (Escitalopram Oxalate) 20 Mg Tab 20 Mg PO DAILY Review of Systems Except as stated in HPI: all other systems reviewed are Neg Physical Exam Narrative GENERAL: 61yo M not in distress. SKIN: Focused skin assessment warm/dry. HEAD: Atraumatic. Normocephalic. EYES: Pupils equal and round. No scleral icterus. No injection or drainage. CARDIOVASCULAR: Regular rate and rhythm. No murmur appreciated. RESPIRATORY: No accessory muscle use. Clear to auscultation. Breath sounds equal bilaterally. GASTROINTESTINAL: Abdomen softly distended. Mild lower abdominal tenderness. No rebound tenderness or guarding. RECTAL: No external hemorrhoids. Brown stool, hemaprompt negative. MUSCULOSKELETAL: No obvious deformities. No clubbing. No cyanosis. +Bilateral lower ext edema. NEUROLOGICAL: Awake and alert. No obvious cranial nerve deficits. Motor grossly within normal limits. Normal speech. PSYCHIATRIC: Appropriate mood and affect; insight and judgment normal. Data Data Last Documented VS Vital Signs Date Time Temp Pulse Resp B/P (MAP) Pulse Ox O2 Delivery O2 Flow Rate FiO2 03/16/17 10:17 97.9 76 17 130/77 (94) 98 Orders Orders Complete Blood Count With Diff (03/16/17 07:27) Comprehensive Metabolic Panel (03/16/17 07:27) Lipase (03/16/17 07:27) Prothrombin Time / Inr (Pt) (03/16/17 07:27) Act Partial Throm Time (Ptt) (03/16/17 07:27) Urinalysis - C+S If Indicated (03/16/17 07:27) Morphine Inj (Morphine Inj) (03/16/17 07:30) Ondansetron Inj (Zofran Inj) (03/16/17 07:30) Ct Abd/Pel W Iv Contrast(Rout) (03/16/17 ) Iohexol 350 Inj (Omnipaque 350 Inj) (03/16/17 08:47) Ed Discharge Order (03/16/17 10:16) Labs Laboratory Tests Test 03/16/17 07:30 03/16/17 08:10 White Blood Count 3.9 TH/MM3 Red Blood Count 3.20 MIL/MM3 Hemoglobin 9.0 GM/DL Hematocrit 27.1 % Mean Corpuscular Volume 84.9 FL Mean Corpuscular Hemoglobin 28.2 PG Mean Corpuscular Hemoglobin Concent 33.2 % Red Cell Distribution Width 16.9 % Platelet Count 65 TH/MM3 Mean Platelet Volume 7.7 FL Neutrophils (%) (Auto) 59.3 % Lymphocytes (%) (Auto) 21.0 % Monocytes (%) (Auto) 14.2 % Eosinophils (%) (Auto) 4.8 % Basophils (%) (Auto) 0.7 % Neutrophils # (Auto) 2.3 TH/MM3 Lymphocytes # (Auto) 0.8 TH/MM3 Monocytes # (Auto) 0.5 TH/MM3 Eosinophils # (Auto) 0.2 TH/MM3 Basophils # (Auto) 0.0 TH/MM3 CBC Comment AUTO DIFF Differential Comment AUTO DIFF CONFIRMED Platelet Estimate LOW Platelet Morphology Comment NORMAL Prothrombin Time 13.9 SEC Prothromb Time International Ratio 1.4 RATIO Activated Partial Thromboplast Time 27.9 SEC Blood Urea Nitrogen 12 MG/DL Creatinine 0.98 MG/DL Random Glucose 280 MG/DL Total Protein 6.8 GM/DL Albumin 2.8 GM/DL Calcium Level 8.0 MG/DL Alkaline Phosphatase 98 U/L Aspartate Amino Transf (AST/SGOT) 44 U/L Alanine Aminotransferase (ALT/SGPT) 21 U/L Total Bilirubin 1.3 MG/DL Sodium Level 135 MEQ/L Potassium Level 3.5 MEQ/L Chloride Level 102 MEQ/L Carbon Dioxide Level 26.1 MEQ/L Anion Gap 7 MEQ/L Estimat Glomerular Filtration Rate 78 ML/MIN Lipase 210 U/L Urine Color LIGHT-YELLOW Urine Turbidity CLEAR Urine pH 5.5 Urine Specific [place] 1.006 Urine Protein NEG mg/dL Urine Glucose (UA) NEG mg/dL Urine Ketones NEG mg/dL Urine Occult Blood NEG Urine Nitrite NEG Urine Bilirubin NEG Urine Urobilinogen LESS THAN 2.0 MG/DL Urine Leukocyte Esterase NEG Urine WBC LESS THAN 1 /hpf Microscopic Urinalysis Comment CULT NOT INDICATED MDM Medical Decision Making Medical Screen Exam Complete: Yes Emergency Medical Condition: Yes Differential Diagnosis Colitis vs. AV malformation vs. diverticulitis vs. malignancy Narrative Course 61yo well appearing male with history of cirrhosis here with c/o lower abdominal pain and black stool. Hemaprompt negative. Vital signs normal. Abdominal exam remarkable for distension secondary to ascites but is otherwise benign. Pt was given oxycodone for his last ED visit on 03/08 but said he finished it. Pt has a standing order from his primary care for outpatient lab and paracentesis. Labs reviewed, WBC 3.9, which is his baseline. H/H 01/07.1 which [place] [address], which is also his baseline. Glucose is elevated at 280, no increased anion gap. Mild elevated of bilirubin and AST but at baseline. Lipase normal. UA negative. Pt given morphine and zofran. CT a/p showed no acute finding. Stable changes. There is a large right inguinal hernia containing fluid. Not tender on physical exam. Pain has improve after morphine. He is requesting oxycodone 10mg but I informed him that I will not prescribe narcotics and he is to follow up with his primary care physician as outpatient. He wants the hernia fix but this is not emergent and I will refer him to general surgery. Return precautions given. HemaPrompt Point of Care Internal Pos. & Neg. Controls: Passed Fecal Specimen Occult Blood: Negative Diagnosis Primary Impression: Ascites Qualified Codes: R18.8 - Other ascites Referrals: Sudhir Hermosillo MD call for appointment Right inguinal hernia containing fluid, pt request consultation. Patient Instructions: General Instructions Departure Forms: Tests/Procedures Additional Instructions: Please follow up with your primary care physician in 3-7 days. Return to the ED if symptoms worsen. Med/Other Pt SpecificInfo: Prescription(s) given Scripts Acetaminophen (Tylenol) 325 Mg Tab 650 MG PO Q6H Y for PAIN SCALE 1 TO 4, #20 TAB 0 Refills Prov: Rosmery Saha DO 03/16/17 Disposition: 01 DISCHARGE HOME Condition: Stable Rsomery Saha DO Mar 16, 2017 07:36
[2017-03-16 07:39] LABS: AUTOMATED NEUTROPHIL # 2.3 TH/MM3 (1.8-7.7); BASOPHIL % 0.7 % (0.0-2.0); EOSINOPHIL # 0.2 TH/MM3 (0-0.4); EOSINOPHIL % 4.8 % (0.0-4.0); HEMATOCRIT 27.1 % (39.0-51.0); LYMPHOCYTE # 0.8 TH/MM3 (1.0-4.8); MEAN CELL VOLUME 84.9 FL (80.0-100.0); MEAN CORPUSCULAR HEMOGLOBIN 28.2 PG (27.0-34.0); MEAN CORPUSCULAR HGB CONC 33.2 % (32.0-36.0); MONO % 14.2 % (0.0-8.0); NEUT % 59.3 % (16.0-70.0); PLATELET COUNT 65 TH/MM3 (150-450); RED CELL DISTRIBUTION WIDTH 16.9 % (11.6-17.2); WHITE BLOOD COUNT 3.9 TH/MM3 (4.0-11.0)
[2017-03-16 07:40] VITALS: RESP 16
[2017-03-16 07:44] LABS: HEMO FLAGS AUTO DIFF
[2017-03-16 07:52] LABS: APTT (PATIENT) 27.9 SEC (24.3-30.1); INTERNATIONAL NORMALIZED RATIO 1.4 RATIO; PROTHROMBIN TIME - PATIENT 13.9 SEC (9.8-11.6)
[2017-03-16 08:01] LABS: ANION GAP 7 MEQ/L (5-15); AST (GOT) 44 U/L (15-37); BICARBONATE 26.1 MEQ/L (21.0-32.0); BLOOD UREA NITROGEN 12 MG/DL (7-18); CHLORIDE 102 MEQ/L (98-107); GLOMERULAR FILTRATION RATE 78 ML/MIN (>89); POTASSIUM 3.5 MEQ/L (3.5-5.1); SODIUM (NA) 135 MEQ/L (136-145)
[2017-03-16 08:02] LABS: ALT (GPT) 21 U/L (12-78)
[2017-03-16 08:04] LABS: ALKALINE PHOSPHATASE 98 U/L (45-117); TOTAL BILIRUBIN ADULT 1.3 MG/DL (0.2-1.0)
[2017-03-16 08:26] LABS: PLATELET ESTIMATE SMEAR LOW (NORMAL); PLATELET MORPHOLOGY NORMAL (NORMAL); SCAN/DIFF AUTO DIFF CONFIRMED
[2017-03-16 08:29] LABS: BLOOD, URINE NEG (NEG); GLUCOSE,URINE NEG (NEG); KETONE, URINE NEG (NEG); NITRITE,URINE NEG (NEG); PH, URINE 5.5 (5.0-8.5); URINE COLOR LIGHT-YELLOW (YELLW/STRAW)
[2017-03-16 08:31] LABS: COMMENT (UR) CULT NOT INDICATED; CULTURE IF INDICATED CULT NOT INDICATED
[2017-03-16] MEDS ORDERED: IOHEXOL 350 MG/ML 10 ML VIAL (for RAD DIAG) IVCONTRAST ONE (08:47)
--- NOTE | 2017-03-16 09:21 | RADRPT ---
EXAM DATE/TIME: 03/16/2017 08:34 [facility] COMPARISON: CT ABDOMEN & PELVIS W CONTRAST, January 06, 2017, 18:10. INDICATIONS : Dark stools with lower abdominal pain for 2 days IV CONTRAST: 70 cc Omnipaque 350 (iohexol) IV ORAL CONTRAST: No oral contrast ingested. RADIATION DOSE: 14.79 CTDIvol (mGy) MEDICAL HISTORY : Hepatitis C. Diabetes mellitus type 2. Hypertension. SURGICAL HISTORY : Cholecystectomy. ENCOUNTER: Initial ACUITY: 2 days PAIN SCALE: 5/10 LOCATION: Bilateral upper quadrant TECHNIQUE: Volumetric scanning of the abdomen and pelvis was performed. Using automated exposure control and ad justment of the mA and/or kV according to patient size, radiation dose was kept as low as reasonably achievable to obtain optimal diagnostic quality images. DICOM format image data is available electro nically for review and comparison. FINDINGS: LOWER LUNGS: The visualized lower lungs are clear. Bilateral gynecomastia is present. LIVER: Liver is small with nodular contour characteristic of cirrhosis. No focal lesion is appreciated on is portal venous phase enhanced exam. Portal vein is patent. There are clips in the gallbladder fossa related to prior cholecystectomy. No abnormal bile duct dilatation is present. SPLEEN: Enlarged measuring 15.8 cm. PANCREAS: Within normal limits. KIDNEYS: Normal in size and shape. There is no mass, stone or hydronephrosis. ADRENAL GLANDS: Within normal limits. VASCULAR: There is no aortic aneurysm. There is moderate atherosclerotic disease. Collateral blood vessels are present in the left upper quadrant. BOWEL/MESENTERY: The stomach, small bowel, and colon demonstrate no acute abnormality. There is no free intraperitone al air. There is sigmoid diverticulosis. Large volume of free fluid is present in the abdomen and pel vis. ABDOMINAL WALL: There is a fluid containing small umbilical hernia. RETROPERITONEUM: There is no lymphadenopathy. BLADDER: No wall thickening or mass. REPRODUCTIVE: Within normal limits. INGUINAL: There is no lymphadenopathy. There is a large right inguinal hernia containing fluid. MUSCULOSKELETAL: There are degenerative changes of the lumbar spine. No acute osseous abnormality is identified. CONCLUSION: 1. No acute finding is identified within the abdomen or pelvis. 2. However, there are stable changes characteristic of severe cirrhosis with portal hypertension incl uding splenomegaly, collateral blood vessels, large volume ascites, and bilateral gynecomastia. 3. Other nonacute findings include moderate atherosclerotic disease and a large fluid containing righ t inguinal hernia. Harpreet Humphries MD on March 16, 2017 at 9:14 Board Certified Radiologist. This report was verified electronically.
[2017-03-16] MEDS ORDERED: TYLE325T PO (10:15)
[2017-03-16 10:17] VITALS: BP 130/77; TEMP 97.9
== END 2017-03-16 10:18 | disposition home or self-care (01) ==
LOC: NEPC 07:04
DX: R18.8 Other ascites (principal); K40.90 Unilateral inguinal hernia, without obstruction or gangrene, not specified as recurrent; K74.60 Unspecified cirrhosis of liver; D64.9 Anemia, unspecified; E11.9 Type 2 diabetes mellitus without complications; I10 Essential (primary) hypertension; B19.20 Unspecified viral hepatitis C without hepatic coma; K85.90 Acute pancreatitis without necrosis or infection, unspecified
CPT/HCPCS: 74177; 80053; 81001; 83690; 85025; 85610; 85730; 96374; 96375; 99285; J2270; J2405; Q9967

== ENCOUNTER 2017-03-17 07:04 | Day surgery (SDC) | payer OTHER, MEDICARE ==
[~2017-03-17 07:04] MED LIST changes: +EPLE50TA PO; -ESCI10TA PO; -LEVO.05 PO; -MAGN400T3 PO; +SPIR100T PO; +TAMS5CAP PO; +TYLE325T PO
[2017-03-17 08:14] VITALS: BP 136/80; PULSE 58; RESP 20; TEMP 98; O2SAT 100
[2017-03-17 09:40] VITALS: BP 96/55; PULSE 61; RESP 20; TEMP 98; O2SAT 97
[2017-03-17] MEDS ORDERED: ALBUMIN HUMAN 25% 12.5GM-W/50GM FOR 62.5GM IV ONE (10:00)
[2017-03-17] MEDS ORDERED: ALBUMIN HUMAN 25% 50GM-W/12.5GM FOR 62.5GM IV ONE (10:00)
[2017-03-17 10:10] VITALS: BP 118/72; PULSE 62; RESP 18; O2SAT 100
--- NOTE | 2017-03-17 10:12 | RADRPT ---
EXAM DATE/TIME: 03/17/2017 08:04 [facility] COMPARISON: US GUIDED ABD PARACENTESIS, March 09, 2017, 7:48. INDICATIONS : Ascites. MEDICAL HISTORY : Pancreatitis. Gastroesophageal reflux disease. Cirrhosis. HTN. Hep C.Diabetes. Seizures. Anemia. GI B leed. MRSA. C-diff. SURGICAL HISTORY : Peritoneal drain placement and removal x 2. Cholecystectomy Banding for GI Bleed. Paracentesis. ENCOUNTER: Sequela ACUITY: 2 weeks PAIN SCORE: 0/10 LOCATION: Left lower quadrant FLUID: Total volume of 11,600 cc of clear, yellow fluid was removed. Fluid was discarded. Paracentesis was therapeutic only. Post procedure scanning reveals no hematoma or other complication. TECHNIQUE: 1. Ultrasound guidance for abdominal paracentesis. 2. Paracentesis. The risks, benefits, and alternatives to ultrasound guided paracentesis were explained to the patient in detail including the risk of bleeding and infection. Written and verbal informed consent was obt ained. With the patient on the ultrasound table, ultrasound imaging was used to select the most appropriate approach for paracentesis. Overlying skin was prepped and draped in the usual sterile fashion and wi th a local anesthetic, a dermatotomy was made with an 11 blade scalpel. A 6 [place] Zgv-T-omcsfine ca theter was introduced into the peritoneal cavity and fluid was collected. The patient tolerated the procedure well and left the ultrasound suite in stable condition. CONCLUSION: Uncomplicated ultrasound guided paracentesis. Francois Staley MD on March 17, 2017 at 10:09 Board Certified Radiologist. This report was verified electronically.
[2017-03-17] MEDS ORDERED: ACETAMINOPHEN/HYDROcodone 325 MG/7.5 MG TAB PO ONE (10:15)
== END 2017-03-17 10:55 | disposition home or self-care (01) ==
LOC: HRAD 07:04 → HRIP 07:11 → HRAD 10:55
DX: R18.8 Other ascites (principal); K86.1 Other chronic pancreatitis; K21.9 Gastro-esophageal reflux disease without esophagitis; K74.60 Unspecified cirrhosis of liver; I10 Essential (primary) hypertension; B19.20 Unspecified viral hepatitis C without hepatic coma; E11.9 Type 2 diabetes mellitus without complications; R56.9 Unspecified convulsions; D64.9 Anemia, unspecified; K92.2 Gastrointestinal hemorrhage, unspecified
CPT/HCPCS: 49083; 96365; C1729; P9047; 96366

== ENCOUNTER 2017-03-30 07:29 | Day surgery (SDC) | payer MEDICARE ==
[2017-03-30 08:08] VITALS: BP 134/77; PULSE 54; RESP 16; TEMP 97.7; O2SAT 98
[2017-03-30 09:50] VITALS: BP 112/64; PULSE 50; RESP 20; TEMP 97.7; O2SAT 99
[2017-03-30] MEDS ORDERED: ALBUMIN HUMAN 25% 50GM-W/12.5GM FOR 62.5GM IV ONE (10:00)
[2017-03-30] MEDS ORDERED: ALBUMIN HUMAN 25% 12.5GM-W/50GM FOR 62.5GM IV ONE (10:00)
[2017-03-30] MEDS ORDERED: LIDOCAINE HCL 1% 20 ML VIAL ONE (10:05)
--- NOTE | 2017-03-30 10:27 | RADRPT ---
EXAM DATE/TIME: 03/30/2017 08:09 [facility] COMPARISON: US GUIDED ABD PARACENTESIS, March 17, 2017, 8:04. INDICATIONS : Ascites. MEDICAL HISTORY : Pancreatitis. Gastroesophageal reflux disease. Cirrhosis. HTN. Hepatitis C. Diabetes. Anemia. GI Blee d. MRSA. C-diff. SURGICAL HISTORY : Cholecystectomy Peritoneal drain placement and removal x2. Banding for GI Bleed. Paracentesis. ENCOUNTER: Sequela ACUITY: 2 weeks PAIN SCORE: 0/10 LOCATION: Right lower quadrant FLUID: Total volume of 10,500 cc of clear, yellow fluid was removed. Fluid was discarded. Paracentesis was therapeutic only. Post procedure scanning reveals no hematoma or other complication. TECHNIQUE: 1. Ultrasound guidance for abdominal paracentesis. 2. Paracentesis. The risks, benefits, and alternatives to ultrasound guided paracentesis were explained to the patient in detail including the risk of bleeding and infection. Written and verbal informed consent was obt ained. With the patient on the ultrasound table, ultrasound imaging was used to select the most appropriate approach for paracentesis. Overlying skin was prepped and draped in the usual sterile fashion and wi th a local anesthetic, a dermatotomy was made with an 11 blade scalpel. A 6 Khmer [id number]-R-miggfsyu ca theter was introduced into the peritoneal cavity and fluid was collected. The patient tolerated the procedure well and left the ultrasound suite in stable condition. CONCLUSION: Uncomplicated ultrasound guided paracentesis. Joselito Cantu Jr., MD on March 30, 2017 at 10:25 Board Certified Radiologist. This report was verified electronically.
[2017-03-30 11:00] VITALS: BP 111/66; PULSE 62; RESP 16; O2SAT 100
== END 2017-03-30 11:16 | disposition home or self-care (01) ==
LOC: HRAD 07:29 → HRIP 07:32 → HRAD 11:16
DX: R18.8 Other ascites (principal); K86.1 Other chronic pancreatitis; K21.9 Gastro-esophageal reflux disease without esophagitis; K74.60 Unspecified cirrhosis of liver; I10 Essential (primary) hypertension; D64.9 Anemia, unspecified; E11.9 Type 2 diabetes mellitus without complications; B19.20 Unspecified viral hepatitis C without hepatic coma
CPT/HCPCS: 49083; 96365; C1729; P9047

== ENCOUNTER 2017-04-08 07:40 | Day surgery (SDC) | payer MEDICARE ==
[2017-04-08 08:07] VITALS: BP 114/67; PULSE 53; RESP 14; TEMP 98; O2SAT 90
[2017-04-08] MEDS ORDERED: LIDOCAINE HCL 1% 20 ML VIAL ONE (10:09)
--- NOTE | 2017-04-08 10:09 | RADRPT ---
EXAM DATE/TIME: 04/08/2017 08:20 [facility] COMPARISON: US GUIDED ABD PARACENTESIS, March 30, 2017, 8:09. INDICATIONS : Ascites. MEDICAL HISTORY : Pancreatitis. Gastroesophageal reflux disease. Cirrhosis. HTN. Hepatitis C. Diabetes. Anemia. GI Blee d. MRSA. C-diff. SURGICAL HISTORY : Cholecystectomy Peritoneal drain placement and removal x2. Banding for GI Bleed. Paracentesis. ENCOUNTER: Sequela ACUITY: 2 weeks PAIN SCORE: 7/10 LOCATION: Right lower quadrant FLUID: Total volume of 9000 cc of clear, yellow fluid was removed. Fluid was discarded. Paracentesis was therapeutic only. Post procedure scanning reveals no hematoma or other complication. TECHNIQUE: 1. Ultrasound guidance for abdominal paracentesis. 2. Paracentesis. The risks, benefits, and alternatives to ultrasound guided paracentesis were explained to the patient in detail including the risk of bleeding and infection. Written and verbal informed consent was obt ained. With the patient on the ultrasound table, ultrasound imaging was used to select the most appropriate approach for paracentesis. Overlying skin was prepped and draped in the usual sterile fashion and wi th a local anesthetic, a dermatotomy was made with an 11 blade scalpel. A 6 Vietnamese [id number]-R-cgllvnyr ca theter was introduced into the peritoneal cavity and fluid was collected. The patient tolerated the procedure well and left the ultrasound suite in stable condition. CONCLUSION: Uncomplicated ultrasound guided paracentesis. Francois Staley MD on April 08, 2017 at 10:08 Board Certified Radiologist. This report was verified electronically.
[2017-04-08] MEDS ORDERED: ALBUMIN HUMAN 25% 12.5GM-W/50GM FOR 62.5GM IV ONE (10:15)
[2017-04-08] MEDS ORDERED: ALBUMIN HUMAN 25% 50GM-W/12.5GM FOR 62.5GM IV ONE (10:15)
== END 2017-04-08 10:55 | disposition home or self-care (01) ==
LOC: HRAD 07:40 → HRIP 07:40 → HRAD 10:55
DX: R18.8 Other ascites (principal); B19.20 Unspecified viral hepatitis C without hepatic coma; K86.1 Other chronic pancreatitis; K74.60 Unspecified cirrhosis of liver; I10 Essential (primary) hypertension; K21.9 Gastro-esophageal reflux disease without esophagitis; E11.9 Type 2 diabetes mellitus without complications; D64.9 Anemia, unspecified; K92.2 Gastrointestinal hemorrhage, unspecified
CPT/HCPCS: 49083; C1729

== ENCOUNTER 2017-04-21 07:33 | Day surgery (SDC) | payer MEDICARE, OTHER ==
[2017-04-21 08:02] VITALS: BP 129/71; PULSE 57; RESP 14; TEMP 97.7; O2SAT 99
--- NOTE | 2017-04-21 09:03 | PD.RAD ---
Post US Procedure Prog Note Pre Procedure Diagnosis: (1) Ascites Post Procedure Diagnosis: (1) Ascites Procedure Date: Apr 21, 2017 Supervising Radiologist: Harpreet Carlson Proceduralist/Assist: Holly Sahu RDMS Anesthesia: Local Plan of Activity Patient to Unit: ROPU Patient Condition: Good See PACS Report for procedural detail/treatment Drainage Procedure Procedure 1 Imaging Guidance: Ultrasound Side: Right Procedure Type: Paracentesis Ukrainian: 6 Fluid Description: Harpreet June MD Apr 21, 2017 09:03
[2017-04-21 09:50] VITALS: BP 125/74; PULSE 57; RESP 20; TEMP 97.8; O2SAT 99
--- NOTE | 2017-04-21 09:51 | RADRPT ---
EXAM DATE/TIME: 04/21/2017 07:59 [facility] COMPARISON: No previous studies available for comparison. INDICATIONS : Ascites. MEDICAL HISTORY : Pancreatitis. Gastroesophageal reflux disease. Cirrhosis. HTN. Hepatitis C.Diabetes. Anemia. GI Bleed . MRSA. C-diff. SURGICAL HISTORY : Paracentesis. Cholecystectomy Peritoneal drain placement and removal x2. Banding for GI bleed. ENCOUNTER: Sequela ACUITY: 1 day PAIN SCORE: 4/10 LOCATION: Right lower quadrant FLUID: Total volume of 7000 cc of clear, yellow fluid was removed. Fluid was discarded. Paracentesis was therapeutic only. Post procedure scanning reveals no hematoma or other complication. TECHNIQUE: 1. Ultrasound guidance for abdominal paracentesis. 2. Paracentesis. The risks, benefits, and alternatives to ultrasound guided paracentesis were explained to the patient in detail including the risk of bleeding and infection. Written and verbal informed consent was obt ained. With the patient on the ultrasound table, ultrasound imaging was used to select the most appropriate approach for paracentesis. Overlying skin was prepped and draped in the usual sterile fashion and wi th a local anesthetic, a dermatotomy was made with an 11 blade scalpel. A 6 Danish [id number]-R-wqikntiq ca theter was introduced into the peritoneal cavity and fluid was collected. The patient tolerated the procedure well and left the ultrasound suite in stable condition. CONCLUSION: Uncomplicated ultrasound guided paracentesis. Harpreet Carlson MD on April 21, 2017 at 9:49 Board Certified Radiologist. This report was verified electronically.
[2017-04-21] MEDS ORDERED: ALBUMIN 25% INJ 0 ML IV ONE (10:00)
[2017-04-21 10:05] VITALS: BP 133/66; PULSE 18; RESP 60; O2SAT 99
== END 2017-04-21 11:05 | disposition home or self-care (01) ==
LOC: HRAD 07:33
PROVIDERS: ATTEND Radiology Body Imaging
DX: R18.8 Other ascites (principal); K74.60 Unspecified cirrhosis of liver; I10 Essential (primary) hypertension; B19.20 Unspecified viral hepatitis C without hepatic coma; E11.9 Type 2 diabetes mellitus without complications
CPT/HCPCS: 49083; 96365; C1729; P9047

== ENCOUNTER 2017-05-14 10:59 | Emergency (ER) | payer OTHER, MEDICARE ==
[~2017-05-14] VITALS: Ht 165.1 cm; Wt 90.0 kg
[2017-05-14 11:07] VITALS: BP 155/97; PULSE 84; RESP 22; TEMP 98.6; O2SAT 97
[2017-05-14 12:16] LABS: INTERNATIONAL NORMALIZED RATIO 1.4 RATIO; PROTHROMBIN TIME - PATIENT 14.1 SEC (9.8-11.6)
[2017-05-14 12:17] LABS: BASOPHIL # 0.1 TH/MM3 (0-0.2); BASOPHIL % 1.4 % (0.0-2.0); EOSINOPHIL # 0.2 TH/MM3 (0-0.4); EOSINOPHIL % 4.1 % (0.0-4.0); HEMATOCRIT 30.8 % (39.0-51.0); HEMOGLOBIN 10.4 GM/DL (13.0-17.0); LYMPH % 16.5 % (9.0-44.0); LYMPHOCYTE # 0.7 TH/MM3 (1.0-4.8); MEAN CELL VOLUME 82.5 FL (80.0-100.0); MEAN CORPUSCULAR HEMOGLOBIN 27.9 PG (27.0-34.0); MEAN CORPUSCULAR HGB CONC 33.8 % (32.0-36.0); MEAN PLATELET VOLUME 8.6 FL (7.0-11.0); MONO % 10.2 % (0.0-8.0); MONOCYTE # 0.5 TH/MM3 (0-0.9); NEUT % 67.8 % (16.0-70.0); PLATELET COUNT 76 TH/MM3 (150-450); RED BLOOD COUNT 3.73 MIL/MM3 (4.50-5.90); WHITE BLOOD COUNT 4.5 TH/MM3 (4.0-11.0)
[2017-05-14 12:31] LABS: ALBUMIN 2.9 GM/DL (3.4-5.0); ALKALINE PHOSPHATASE 82 U/L (45-117); ALT (GPT) 30 U/L (12-78); AST (GOT) 60 U/L (15-37); BICARBONATE 23.7 MEQ/L (21.0-32.0); BLOOD UREA NITROGEN 9 MG/DL (7-18); CALCIUM 8.4 MG/DL (8.5-10.1); CHLORIDE 104 MEQ/L (98-107); CREATININE 0.73 MG/DL (0.60-1.30); GLOMERULAR FILTRATION RATE 109 ML/MIN (>89); GLUCOSE,RANDOM 124 MG/DL (74-106); SODIUM (NA) 137 MEQ/L (136-145); TOTAL BILIRUBIN ADULT 1.9 MG/DL (0.2-1.0); TOTAL PROTEIN 7.5 GM/DL (6.4-8.2)
[2017-05-14 13:03] LABS: ROULEAUX PRESENT (NORMAL)
--- NOTE | 2017-05-14 13:40 | PD ---
HPI Chief Complaint: Psychiatric Symptoms Time Seen by Provider: 11:39 Travel History International Travel<30 days: No Contact w/Intl Traveler<30days: No Traveled to known affect area: No History of Present Illness HPI This is a 61-year-old male who has a history of hepatitis C and alcoholic cirrhosis who presents to the emergency department under a Singleton act from the [place]. The Singleton act states that the patient said that he did not want to live anymore because of his ascites. Patient reports that he has no thoughts of suicide and does not want to kill himself. He says he is very frustrated because her 2-1/2 weeks she has been unable to get a therapeutic paracentesis because he is having trouble with his [facility] insurance. He has had increasing abdominal discomfort, constant, moderate severity making it difficult for him to sleep and he says he has not slept in 2 nights. He typically comes to [facility] and gets routine paracentesis but because of his insurance he has been having difficulty scheduling them. PFSH Past Medical History Hx Anticoagulant Therapy: No Anemia: Yes Blood Disorders: No Anxiety: Yes Depression: Yes Cancer: No Cardiovascular Problems: Yes Cirrhosis: Yes Cerebrovascular Accident: No Diabetes: Yes Patient Takes Glucophage: No Diminished Hearing: No Endocrine: Yes GERD: Yes Genitourinary: Yes Hepatitis: Yes (HEP C ) Hypertension: Yes Immune Disorder: No Musculoskeletal: No Neurologic: No Psychiatric: Yes Reproductive: No Respiratory: No Pancreatitis: Yes Seizures: No Thyroid Disease: No Past Surgical History Abdominal Surgery: Yes (cholecystectomy 2004) Cardiac Surgery: No Cholecystectomy: Yes Ear Surgery: No Endocrine Surgery: No Eye Surgery: No Genitourinary Surgery: No Gynecologic Surgery: No Oral Surgery: No Pacemaker: No Thoracic Surgery: No Other Surgery: Yes (BANDING FOR GI BLEED IN JAN 2013, BANDING IN FEB 2013, BANDING IN MAY 2012,) Social History Alcohol Use: No (sober 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 POT ) Allergies-Medications (Allergen,Severity, Reaction): Coded Allergies: *MDRO Multi-Drug Resistant Organism (Verified Adverse Reaction, Unknown, ) MRSA PCR screen POSITIVE - 12/23/15 Reported Meds & Prescriptions Reported Meds & Active Scripts Active Tylenol (Acetaminophen) 325 Mg Tab 650 Mg PO Q6H PRN Oxycodone (Oxycodone HCl) 5 Mg Cap 5 Mg PO Q6H PRN D 1000 (Cholecalciferol) 1,000 Unit Tab 1,000 Units PO DAILY 30 Days C 500/Constanza Hips (Ascorbic Acid) 500 Mg Tab 500 Mg PO DAILY 30 Days Pantoprazole (Pantoprazole Sodium) 40 Mg Tab 40 Mg PO DAILY 30 Days Furosemide 40 Mg Tab 40 Mg PO DAILY 30 Days Buspirone (Buspirone HCl) 10 Mg Tab 10 Mg PO BID 30 Days Doxepin (Doxepin HCl) 50 Mg Cap 50 Mg PO HS 30 Days Propranolol (Propranolol HCl) 20 Mg Tab 20 Mg PO DAILY 30 Days Ferosul (Ferrous Sulfate) 325 Mg (65 Mg Iron) Tablet 325 Mg PO DAILY 30 Days Reported Eplerenone 50 Mg Tab 50 Mg PO DAILY Flomax (Tamsulosin HCl) 0.4 Mg Cap 0.4 Mg PO HS Spironolactone 100 Mg Tab 100 Mg PO DAILY Lantus Inj (Insulin Glargine) 1,000 Unit/10 Ml Vial 48 Units SQ HS Potassium Chloride ER (Potassium Chloride) 20 Meq Tab 20 Meq PO DAILY Xifaxan (Rifaximin) 550 Mg Tab 550 Mg PO Q12HR Lactulose Liq (Lactulose) 10 Gm/15 Ml Soln 30 Ml PO BID PRN Escitalopram (Escitalopram Oxalate) 20 Mg Tab 20 Mg PO DAILY Review of Systems Except as stated in HPI: all other systems reviewed are Neg Physical Exam Narrative GENERAL: Chronically ill-appearing. SKIN: Focused skin assessment warm and dry. HEAD: Atraumatic. Normocephalic. EYES: Pupils equal and round. No injection or drainage. ENT: Moist mucous membranes NECK: Trachea midline. CARDIOVASCULAR: Regular rate and rhythm. No murmur appreciated. RESPIRATORY: Clear to auscultation. Breath sounds equal bilaterally. GASTROINTESTINAL: Abdomen soft, distended with fluid wave. Hepatomegaly is present. MUSCULOSKELETAL: No obvious deformities. NEUROLOGICAL: Awake and alert. No obvious cranial nerve deficits. Moving all extremities. PSYCHIATRIC: Appropriate mood and affect; insight and judgment normal. Data Data Last Documented VS Vital Signs Date Time Temp Pulse Resp B/P (MAP) Pulse Ox O2 Delivery O2 Flow Rate FiO2 05/14/17 14:22 98.0 75 18 155/88 (110) 97 Orders Orders Complete Blood Count With Diff (05/14/17 11:39) Comprehensive Metabolic Panel (05/14/17 11:39) Prothrombin Time / Inr (Pt) (05/14/17 11:39) Act Partial Throm Time (Ptt) (05/14/17 11:39) Us Guided Abd Paracentesis (05/14/17 ) Lidocaine 1% Inj (Xylocaine 1% Inj) (05/14/17 14:28) Labs Laboratory Tests Test 05/14/17 11:56 White Blood Count 4.5 TH/MM3 Red Blood Count 3.73 MIL/MM3 Hemoglobin 10.4 GM/DL Hematocrit 30.8 % Mean Corpuscular Volume 82.5 FL Mean Corpuscular Hemoglobin 27.9 PG Mean Corpuscular Hemoglobin Concent 33.8 % Red Cell Distribution Width 18.0 % Platelet Count 76 TH/MM3 Mean Platelet Volume 8.6 FL Neutrophils (%) (Auto) 67.8 % Lymphocytes (%) (Auto) 16.5 % Monocytes (%) (Auto) 10.2 % Eosinophils (%) (Auto) 4.1 % Basophils (%) (Auto) 1.4 % Neutrophils # (Auto) 3.0 TH/MM3 Lymphocytes # (Auto) 0.7 TH/MM3 Monocytes # (Auto) 0.5 TH/MM3 Eosinophils # (Auto) 0.2 TH/MM3 Basophils # (Auto) 0.1 TH/MM3 CBC Comment AUTO DIFF Differential Comment AUTO DIFF CONFIRMED Platelet Estimate LOW Platelet Morphology Comment NORMAL Rouleau PRESENT Prothrombin Time 14.1 SEC Prothromb Time International Ratio 1.4 RATIO Activated Partial Thromboplast Time 26.4 SEC Blood Urea Nitrogen 9 MG/DL Creatinine 0.73 MG/DL Random Glucose 124 MG/DL Total Protein 7.5 GM/DL Albumin 2.9 GM/DL Calcium Level 8.4 MG/DL Alkaline Phosphatase 82 U/L Aspartate Amino Transf (AST/SGOT) 60 U/L Alanine Aminotransferase (ALT/SGPT) 30 U/L Total Bilirubin 1.9 MG/DL Sodium Level 137 MEQ/L Potassium Level 3.9 MEQ/L Chloride Level 104 MEQ/L Carbon Dioxide Level 23.7 MEQ/L Anion Gap 9 MEQ/L Estimat Glomerular Filtration Rate 109 ML/MIN MDM Medical Decision Making Medical Screen Exam Complete: Yes Emergency Medical Condition: Yes Interpretation(s) Afebrile, no tachycardia, hypertensive anemia total bilirubin elevated coags elevated Differential Diagnosis Ascites, suicidal ideation Narrative Course This is a 61-year-old male who presents to the emergency department having been brought in under a Singleton act. He evidently made some hopeless statements at the [place] because he was frustrated that he was not getting a paracentesis. He evidently usually routinely has paracenteses but has not been able to get one done 2-1/2 weeks because of insurance issues. He says adamantly that he is not suicidal, does not want to kill himself and is just frustrated because he has abdominal discomfort and has not been able sleep for 2 days. I do not think the patient meets Singleton criteria. I lifted the Singleton act. I coordinated for the patient to have a therapeutic paracentesis. We did recommend that the patient receive albumin but he says he has very difficult time getting IVs and he really just wants to go home. He says the last time he had a therapeutic paracentesis he did not get albumin and he was fine. I think this is reasonable as the date of her albumin is uncertain anyways. Patient will be discharged home. Diagnosis Primary Impression: Ascites Qualified Codes: K70.31 - Alcoholic cirrhosis of liver with ascites Patient Instructions: General Instructions Additional Instructions: If you develop severe or worsening abdominal pain, fever>100.4, persistent vomiting or inability to eat or drink return to the emergency department immediately. Follow up with your primary care physician in 1-2 days for a check-up. Med/Other Pt SpecificInfo: No Change to Meds Disposition: 01 DISCHARGE HOME Condition: Stable Katiana Schultz MD May 14, 2017 13:40
[2017-05-14 14:22] VITALS: BP 155/88; PULSE 75; RESP 18; TEMP 98; O2SAT 97
[2017-05-14] MEDS ORDERED: LIDOCAINE HCL 1% 20 ML VIAL ONE (14:28)
--- NOTE | 2017-05-14 16:37 | RADRPT ---
EXAM DATE/TIME: 05/14/2017 14:04 [facility] COMPARISON: No previous studies available for comparison. INDICATIONS : Ascites. MEDICAL HISTORY : Pancreatitis. Cirrhosis. Hepatitis C. GERD. HTN. Diabetes. Anemia. GI Bleed. MRSA. C-diff. SURGICAL HISTORY : Cholecystectomy Paracentesis. Peritoneal drain placement and removal x2. Banding for GI Bleed. ENCOUNTER: Sequela ACUITY: 3 weeks PAIN SCORE: 7/10 LOCATION: Right lower quadrant FLUID: Total volume of 12,800 cc of clear, yellow fluid was removed. Fluid was discarded. Paracentesis was therapeutic only. Post procedure scanning reveals no hematoma or other complication. TECHNIQUE: 1. Ultrasound guidance for abdominal paracentesis. 2. Paracentesis. The risks, benefits, and alternatives to ultrasound guided paracentesis were explained to the patient in detail including the risk of bleeding and infection. Written and verbal informed consent was obt ained. With the patient on the ultrasound table, ultrasound imaging was used to select the most appropriate approach for paracentesis. Overlying skin was prepped and draped in the usual sterile fashion and wi th a local anesthetic, a dermatotomy was made with an 11 blade scalpel. A 6 Amharic [id number]-R-[id number] ca theter was introduced into the peritoneal cavity and fluid was collected. The patient tolerated the procedure well and left the ultrasound suite in stable condition. CONCLUSION: Uncomplicated ultrasound guided paracentesis. Jovany Hoff MD on May 14, 2017 at 16:33 Board Certified Radiologist. This report was verified electronically.
[2017-05-14] MEDS ORDERED: ALBUMIN HUMAN 25% 75 GM IV ONE (16:45)
== END 2017-05-14 17:55 | disposition home or self-care (01) ==
LOC: NEPD 10:59
DX: K70.31 Alcoholic cirrhosis of liver with ascites (principal); E11.9 Type 2 diabetes mellitus without complications; I10 Essential (primary) hypertension; B19.20 Unspecified viral hepatitis C without hepatic coma; F12.90 Cannabis use, unspecified, uncomplicated; F14.90 Cocaine use, unspecified, uncomplicated
CPT/HCPCS: 49083; 80053; 85025; 85610; 85730; 99284; C1729

== ENCOUNTER 2017-05-14 23:39 | Emergency (ER) | payer OTHER, MEDICARE ==
[~2017-05-14] VITALS: Ht 165.1 cm; Wt 85.0 kg
[2017-05-14 23:41] VITALS: BP 170/90; PULSE 92; RESP 16; TEMP 98.5; O2SAT 96
[2017-05-15] MEDS ORDERED: SODIUM CHLORIDE 0.9% FLUSH 10 ML FLUSH IV FLUSH PRN (01:15)
--- NOTE | 2017-05-15 01:33 | PD ---
HPI Chief Complaint: Abdominal Pain Time Seen by Provider: 00:45 Travel History International Travel<30 days: No Contact w/Intl Traveler<30days: No Traveled to known affect area: No History of Present Illness HPI Patient is a 61-year-old male presents to the emergency department for evaluation chief complaint of body aches all over his body but now radiating into his abdomen. Patient did have a paracentesis earlier today and because no IV access could be obtained on him and he refused IV access in his neck he did not receive paraprocedural albumin. He returns today think that he needed the albumin secondary to the cramping pain. No fevers no nausea vomiting no blood in his stool. States the pain is moderate, context as above, location as above , associated signs and symptoms as above. PFSH Past Medical History Hx Anticoagulant Therapy: No Anemia: Yes Blood Disorders: No Anxiety: Yes Depression: Yes Cancer: No Cardiovascular Problems: Yes Cirrhosis: Yes Cerebrovascular Accident: No Diabetes: Yes Patient Takes Glucophage: No Diminished Hearing: No Endocrine: Yes GERD: Yes Genitourinary: Yes Hepatitis: Yes (HEP C ) Hypertension: Yes Immune Disorder: No Musculoskeletal: No Neurologic: No Psychiatric: Yes Reproductive: No Respiratory: No Pancreatitis: Yes Seizures: No Thyroid Disease: No Past Surgical History Abdominal Surgery: Yes (cholecystectomy 2004) Cardiac Surgery: No Cholecystectomy: Yes Ear Surgery: No Endocrine Surgery: No Eye Surgery: No Genitourinary Surgery: No Gynecologic Surgery: No Oral Surgery: No Pacemaker: No Thoracic Surgery: No Other Surgery: Yes (BANDING FOR GI BLEED IN JAN 2013, BANDING IN FEB 2013, BANDING IN MAY 2012,) Social History Alcohol Use: No (sober 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 POT ) Allergies-Medications (Allergen,Severity, Reaction): Coded Allergies: *MDRO Multi-Drug Resistant Organism (Verified Adverse Reaction, Unknown, ) MRSA PCR screen POSITIVE - 12/23/15 Reported Meds & Prescriptions Reported Meds & Active Scripts Active Reported Lantus Inj (Insulin Glargine) 1,000 Unit/10 Ml Vial 48 Units SQ HS Review of Systems Except as stated in HPI: all other systems reviewed are Neg Physical Exam Narrative GENERAL: Well-developed well-nourished, minimal discomfort SKIN: Focused skin assessment warm/dry. HEAD: Atraumatic. Normocephalic. EYES: Pupils equal and round. No scleral icterus. No injection or drainage. ENT: No nasal bleeding or discharge. Mucous membranes pink and moist. NECK: Trachea midline. No JVD. CARDIOVASCULAR: Regular rate and rhythm. No murmur appreciated. RESPIRATORY: No accessory muscle use. Clear to auscultation. Breath sounds equal bilaterally. GASTROINTESTINAL: Abdomen soft, non-tender, nondistended. Hepatic and splenic margins not palpable. Paracentesis site clean dry and intact MUSCULOSKELETAL: No obvious deformities. No clubbing. No cyanosis. No edema. NEUROLOGICAL: Awake and alert. No obvious cranial nerve deficits. Motor grossly within normal limits. Normal speech. PSYCHIATRIC: Appropriate mood and affect; insight and judgment normal. Data Data Last Documented VS Vital Signs Date Time Temp Pulse Resp B/P (MAP) Pulse Ox O2 Delivery O2 Flow Rate FiO2 05/15/17 03:33 05/15/17 01:41 98 Room Air 05/14/17 23:41 98.5 92 16 Orders Orders Complete Blood Count With Diff (05/15/17 01:13) Comprehensive Metabolic Panel (05/15/17 01:13) Iv Access Insert/Monitor (05/15/17 01:13) Ecg Monitoring (05/15/17 01:13) Oximetry (05/15/17 01:13) Sodium Chloride 0.9% Flush (Ns Flush) (05/15/17 01:15) Ibuprofen (Motrin) (05/15/17 02:00) Ondansetron Odt (Zofran Odt) (05/15/17 02:00) Cyclobenzaprine (Flexeril) (05/15/17 03:15) Ed Discharge Order (05/15/17 03:02) Labs Laboratory Tests Test 05/15/17 01:35 White Blood Count 3.8 TH/MM3 Red Blood Count 3.62 MIL/MM3 Hemoglobin 10.2 GM/DL Hematocrit 30.4 % Mean Corpuscular Volume 84.0 FL Mean Corpuscular Hemoglobin 28.2 PG Mean Corpuscular Hemoglobin Concent 33.6 % Red Cell Distribution Width 18.1 % Platelet Count 62 TH/MM3 Mean Platelet Volume 7.3 FL Neutrophils (%) (Auto) 64.2 % Lymphocytes (%) (Auto) 17.2 % Monocytes (%) (Auto) 13.8 % Eosinophils (%) (Auto) 4.0 % Basophils (%) (Auto) 0.8 % Neutrophils # (Auto) 2.5 TH/MM3 Lymphocytes # (Auto) 0.7 TH/MM3 Monocytes # (Auto) 0.5 TH/MM3 Eosinophils # (Auto) 0.2 TH/MM3 Basophils # (Auto) 0.0 TH/MM3 CBC Comment AUTO DIFF Differential Comment AUTO DIFF CONFIRMED Platelet Estimate LOW Platelet Morphology Comment NORMAL Blood Urea Nitrogen 10 MG/DL Creatinine 0.81 MG/DL Random Glucose 166 MG/DL Total Protein 6.6 GM/DL Albumin 2.4 GM/DL Calcium Level 7.8 MG/DL Alkaline Phosphatase 83 U/L Aspartate Amino Transf (AST/SGOT) 45 U/L Alanine Aminotransferase (ALT/SGPT) 27 U/L Total Bilirubin 1.1 MG/DL Sodium Level 136 MEQ/L Potassium Level 3.8 MEQ/L Chloride Level 105 MEQ/L Carbon Dioxide Level 23.3 MEQ/L Anion Gap 8 MEQ/L Estimat Glomerular Filtration Rate 97 ML/MIN MDM Medical Decision Making Medical Screen Exam Complete: Yes Emergency Medical Condition: Yes Differential Diagnosis Acute abdomen unlikely, electrolyte abnormality, dehydration, Narrative Course Patient roomed in the emergency department, pain medicine given, he appears quite comfortable and is sleeping in the room. His albumin is minimally lower than it was earlier today however the patient does not show any signs of hemodynamic instability and therefore there is no indication to have albumin transfusion at this time. Patient feeling more comfortable discuss he may actually have easier time with paracentesis if he does them regularly scheduled and needs to follow-up with his primary care physician to set this up for the [facility]. This time I see no indication further workup emergency department management he is stable for discharge Diagnosis Primary Impression: Body aches Disposition: DISCHARGE HOME Condition: Stable Brandon Mosqueda MD May 15, 2017 01:32
[2017-05-15 01:41] VITALS: O2SAT 98
[2017-05-15 01:52] LABS: AUTOMATED NEUTROPHIL # 2.5 TH/MM3 (1.8-7.7); BASOPHIL % 0.8 % (0.0-2.0); EOSINOPHIL # 0.2 TH/MM3 (0-0.4); HEMATOCRIT 30.4 % (39.0-51.0); HEMOGLOBIN 10.2 GM/DL (13.0-17.0); LYMPH % 17.2 % (9.0-44.0); LYMPHOCYTE # 0.7 TH/MM3 (1.0-4.8); MEAN CORPUSCULAR HEMOGLOBIN 28.2 PG (27.0-34.0); MEAN CORPUSCULAR HGB CONC 33.6 % (32.0-36.0); MEAN PLATELET VOLUME 7.3 FL (7.0-11.0); MONO % 13.8 % (0.0-8.0); MONOCYTE # 0.5 TH/MM3 (0-0.9); NEUT % 64.2 % (16.0-70.0); PLATELET COUNT 62 TH/MM3 (150-450); RED BLOOD COUNT 3.62 MIL/MM3 (4.50-5.90); RED CELL DISTRIBUTION WIDTH 18.1 % (11.6-17.2); WHITE BLOOD COUNT 3.8 TH/MM3 (4.0-11.0)
[2017-05-15] MEDS ORDERED: ONDANSETRON ODT 4 MG TAB PO ONE (02:00)
[2017-05-15] MEDS ORDERED: IBUPROFEN 600 MG TAB PO ONE (02:00)
[2017-05-15 02:03] LABS: ALBUMIN 2.4 GM/DL (3.4-5.0); ALT (GPT) 27 U/L (12-78); AST (GOT) 45 U/L (15-37); BICARBONATE 23.3 MEQ/L (21.0-32.0); BLOOD UREA NITROGEN 10 MG/DL (7-18); CALCIUM 7.8 MG/DL (8.5-10.1); CHLORIDE 105 MEQ/L (98-107); CREATININE 0.81 MG/DL (0.60-1.30); GLOMERULAR FILTRATION RATE 97 ML/MIN (>89); GLUCOSE,RANDOM 166 MG/DL (74-106); SODIUM (NA) 136 MEQ/L (136-145)
[2017-05-15 02:05] LABS: ALKALINE PHOSPHATASE 83 U/L (45-117); TOTAL BILIRUBIN ADULT 1.1 MG/DL (0.2-1.0); TOTAL PROTEIN 6.6 GM/DL (6.4-8.2)
[2017-05-15] MEDS ORDERED: CYCLOBENZAPRINE HCL 10 MG TAB PO ONE (03:15)
== END 2017-05-15 03:44 | disposition home or self-care (01) ==
LOC: NEPE 23:39
DX: M79.1 Myalgia (principal); R25.2 Cramp and spasm; D64.9 Anemia, unspecified; K74.60 Unspecified cirrhosis of liver; E11.9 Type 2 diabetes mellitus without complications; B19.20 Unspecified viral hepatitis C without hepatic coma; I10 Essential (primary) hypertension; F12.90 Cannabis use, unspecified, uncomplicated; F14.90 Cocaine use, unspecified, uncomplicated
CPT/HCPCS: 80053; 85025; 99283

== ENCOUNTER 2017-06-01 10:19 | Emergency (ER) | payer OTHER, MEDICARE ==
[~2017-06-01] VITALS: Ht 165.1 cm; Wt 84.0 kg
[~2017-06-01 10:19] MED LIST changes: -BUSP10TA PO; -DOXE50CA3 PO; -EPLE50TA PO; -ESCI20TA PO; -FERR325T20 PO; -FURO40TA PO; -LACT10SO PO; -OXYC1CAP PO; -PANT40TA3 PO; -POTA-163 PO; -PROP20TA3 PO; -SPIR100T PO; -TAMS5CAP PO; -TYLE325T PO; -VITA1000 PO; -VITA500T2 PO; -XIFA550T4 PO
[2017-06-01 10:27] VITALS: BP 127/68; PULSE 64; RESP 22; TEMP 98.4
[2017-06-01 10:30] VITALS: BP_SYST 119; BP_SYST 127; BP_DIAS 65; BP_DIAS 68; PULSE 64; RESP 16; TEMP 98.4; O2SAT 100; O2SAT 98
[2017-06-01] MEDS ORDERED: MORPHINE SULFATE 4 MG/ML INJ IV PUSH ONE (10:45)
[2017-06-01] MEDS ORDERED: SODIUM CHLORIDE 0.9% FLUSH 10 ML FLUSH IV FLUSH PRN (10:45)
[2017-06-01] MEDS ORDERED: ONDANSETRON HCL 4 MG/2 ML VIAL IVP ONE (10:45)
[2017-06-01] MEDS ORDERED: PROP20TA3 PO (11:10)
[2017-06-01] MEDS ORDERED: BUSP10TA PO (11:10)
[2017-06-01] MEDS ORDERED: SPIR100T PO (11:10)
[2017-06-01] MEDS ORDERED: ESCI20TA PO (11:10)
[2017-06-01] MEDS ORDERED: FURO40TA PO (11:10)
[2017-06-01] MEDS ORDERED: LEDI1TAB PO (11:10)
[2017-06-01] MEDS ORDERED: TAMS0.4C4 PO (11:10)
[2017-06-01 11:31] LABS: AUTOMATED NEUTROPHIL # 9.4 TH/MM3 (1.8-7.7); BASOPHIL % 0.1 % (0.0-2.0); EOSINOPHIL % 0.1 % (0.0-4.0); HEMATOCRIT 33.4 % (39.0-51.0); HEMOGLOBIN 11.1 GM/DL (13.0-17.0); LYMPH % 2.6 % (9.0-44.0); LYMPHOCYTE # 0.3 TH/MM3 (1.0-4.8); MEAN CELL VOLUME 82.9 FL (80.0-100.0); MEAN CORPUSCULAR HEMOGLOBIN 27.6 PG (27.0-34.0); MEAN CORPUSCULAR HGB CONC 33.3 % (32.0-36.0); MEAN PLATELET VOLUME 7.7 FL (7.0-11.0); MONO % 5.2 % (0.0-8.0); MONOCYTE # 0.5 TH/MM3 (0-0.9); PLATELET COUNT 99 TH/MM3 (150-450); RED BLOOD COUNT 4.03 MIL/MM3 (4.50-5.90); RED CELL DISTRIBUTION WIDTH 16.8 % (11.6-17.2); WHITE BLOOD COUNT 10.2 TH/MM3 (4.0-11.0)
[2017-06-01 11:45] LABS: INTERNATIONAL NORMALIZED RATIO 1.2 RATIO; PROTHROMBIN TIME - PATIENT 12.6 SEC (9.8-11.6)
[2017-06-01 11:50] LABS: ALBUMIN 2.3 GM/DL (3.4-5.0); AST (GOT) 42 U/L (15-37); BLOOD UREA NITROGEN 23 MG/DL (7-18); CALCIUM 7.9 MG/DL (8.5-10.1); CHLORIDE 101 MEQ/L (98-107); CREATININE 1.15 MG/DL (0.60-1.30); GLOMERULAR FILTRATION RATE 65 ML/MIN (>89); GLUCOSE,RANDOM 226 MG/DL (74-106); SODIUM (NA) 132 MEQ/L (136-145)
[2017-06-01 11:54] LABS: ALKALINE PHOSPHATASE 112 U/L (45-117); ALT (GPT) 33 U/L (12-78); TOTAL BILIRUBIN ADULT 1.8 MG/DL (0.2-1.0); TOTAL PROTEIN 6.3 GM/DL (6.4-8.2)
[2017-06-01 12:03] LABS: BANDS 11 % (0-6); LYMPHOCYTES 1 % (9-44); METAMYELOCYTES 1 % (0-1); MONOCYTES 5 % (0-8); NEUTROPHIL # MANUAL DIFF 9.6 TH/MM3 (1.8-7.7); POLYS (SEG NEUTROPHILS) 82 % (16-70)
[2017-06-01 12:05] LABS: KERATOCYTES OCC (NORMAL)
[2017-06-01 12:36] VITALS: BP 124/68; PULSE 81; RESP 16; O2SAT 98
[2017-06-01 13:18] VITALS: TEMP 98.6
[2017-06-01] MEDS ORDERED: IOHEXOL 350 MG/ML 10 ML VIAL (for RAD DIAG) IVCONTRAST ONE (14:27)
--- NOTE | 2017-06-01 14:46 | RADRPT ---
EXAM DATE/TIME: 06/01/2017 14:24 [facility] COMPARISON: CT ABDOMEN & PELVIS W CONTRAST, March 16, 2017, 8:34. INDICATIONS : Abdominal pain IV CONTRAST: 96 cc Omnipaque 350 (iohexol) IV ORAL CONTRAST: No oral contrast ingested. RADIATION DOSE: 12.9 CTDIvol (mGy) MEDICAL HISTORY : Hypertension. Pancreatitis. Hepatitis C.Cirrohsis, Anemia, Diabetes SURGICAL HISTORY : Cholecystectomy. ENCOUNTER: Initial ACUITY: 1 day PAIN SCALE: 8/10 LOCATION: Bilateral Abdomen TECHNIQUE: Volumetric scanning of the abdomen and pelvis was performed. Using automated exposure control and ad justment of the mA and/or kV according to patient size, radiation dose was kept as low as reasonably achievable to obtain optimal diagnostic quality images. DICOM format image data is available electro nically for review and comparison. FINDINGS: LOWER LUNGS: Mild patchy ground glass opacities in the right lung base LIVER: Cirrhotic appearing liver with recanalized periumbilical vein. No gross focal mass or hepatic ductal dilatation. Gallbladder surgically absent. Large amount of ascites. SPLEEN: Enlarged without focal lesion. PANCREAS: Within normal limits. KIDNEYS: Symmetrical enhancement without evidence for radiopaque renal calculi or hydronephrosis. ADRENAL GLANDS: Within normal limits. VASCULAR: There is no aortic aneurysm. BOWEL/MESENTERY: Mild sigmoid diverticulosis. Bowel otherwise appears unremarkable without evidence for obstruction. ABDOMINAL WALL: Small periumbilical hernia containing ascites. RETROPERITONEUM: There is no lymphadenopathy. BLADDER: No wall thickening or mass. REPRODUCTIVE: Within normal limits. INGUINAL: Large right inguinal hernia containing ascites fluid MUSCULOSKELETAL: Within normal limits for patient age. CONCLUSION: 1. Mild patchy airspace disease in the right lower lobe which may reflect atelectasis although develo ping pneumonia or aspiration cannot be excluded in the appropriate setting. 2. Cirrhotic liver with portal hypertension including splenomegaly and moderate-large amount of ascit es. 3. Small periumbilical hernia containing ascites fluid. 4. Large right inguinal hernia containing ascites fluid extending to the testicle. 5. Mild sigmoid diverticulosis. Brooks Bobby MD on June 01, 2017 at 14:38 Board Certified Radiologist. This report was verified electronically.
[2017-06-01] MEDS ORDERED: OXYC1CAP PO (15:48)
[2017-06-01] MEDS ORDERED: ZITHTAB PO (15:48)
--- NOTE | 2017-06-01 15:48 | PD ---
HPI Chief Complaint: Abdominal Pain Time Seen by Provider: 10:28 Travel History International Travel<30 days: No Contact w/Intl Traveler<30days: No Traveled to known affect area: No History of Present Illness HPI Patient is a 61-year-old male who comes in complaining of abdominal pain. He has a history of alcoholic cirrhosis as long as hepatitis C. He says he started Harvoni treatment on . He had paracentesis performed on Thursday , at his regularly scheduled appointment. He says that he has been having body aches with some nausea, but no vomiting. He has had some cough and cold symptoms with associated shortness of breath. He has not had any documented fevers. He says he does not have any pain medicine at home. Nothing seems to make his symptoms better or worse. Severity is moderate. PFSH Past Medical History Hx Anticoagulant Therapy: No Anemia: Yes Blood Disorders: No Anxiety: Yes Depression: Yes Cancer: No Cardiovascular Problems: Yes Cirrhosis: Yes Cerebrovascular Accident: No Diabetes: Yes Patient Takes Glucophage: No (NOT CONTROLLED NOT TAKING LANTUS PRESCRIBED) Diminished Hearing: No Endocrine: Yes GERD: Yes Genitourinary: Yes Hepatitis: Yes (HEP C ) Hypertension: Yes Immune Disorder: No Musculoskeletal: No Neurologic: No Psychiatric: Yes Reproductive: No Respiratory: No Immunizations Current: Yes (HEP A AND B 2018) Pancreatitis: Yes Seizures: No Thyroid Disease: No Tetanus Vaccination: < 5 Years Influenza Vaccination: Yes Past Surgical History Abdominal Surgery: Yes (cholecystectomy 2004) Cardiac Surgery: No Cholecystectomy: Yes Ear Surgery: No Endocrine Surgery: No Eye Surgery: No Genitourinary Surgery: No Gynecologic Surgery: No Oral Surgery: No Pacemaker: No Thoracic Surgery: No Other Surgery: Yes (BANDING FOR GI BLEED IN JAN 2013, BANDING IN FEB 2013, BANDING IN MAY 2012,) Social History Alcohol Use: No (sober 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 POT ) Allergies-Medications (Allergen,Severity, Reaction): Coded Allergies: No Known Allergies (Verified Allergy, Unknown, 06/01/17) *MDRO Multi-Drug Resistant Organism (Verified Adverse Reaction, Unknown, ) MRSA PCR screen POSITIVE - 12/23/15 Reported Meds & Prescriptions Reported Meds & Active Scripts Active Oxycodone (Oxycodone HCl) 5 Mg Cap 5 Mg PO Q6H PRN Zithromax Z-Navneet (Azithromycin) 250 Mg Dspk 250 Mg PO DIRECTED 500 MG (2 tabs) day 1, then 1 tab days 2-5. Reported Tamsulosin (Tamsulosin HCl) 0.4 Mg Cap 0.4 Mg PO HS Propranolol (Propranolol HCl) 20 Mg Tab 20 Mg PO DAILY Buspirone (Buspirone HCl) 10 Mg Tab 10 Mg PO BID Spironolactone 100 Mg Tab 100 Mg PO BIDPC Escitalopram (Escitalopram Oxalate) 20 Mg Tab 20 Mg PO DAILY Furosemide 40 Mg Tab 40 Mg PO DAILY Harvoni 90-400 mg Tablet (Ledipasvir/Sofosbuvir) 90 Mg-400 Mg Tablet 1 Tab PO DAILY Review of Systems Except as stated in HPI: all other systems reviewed are Neg HENT: No: Headaches, Lightheadedness Cardiovascular: No: Chest Pain or Discomfort Respiratory: Positive: Cough, Shortness of Breath Gastrointestinal: Positive: Nausea, Abdominal Pain Genitourinary: No: Dysuria Musculoskeletal: Positive: Myalgias Skin: No Rash Neurologic: No: Dizziness Physical Exam Narrative GENERAL: Awake and alert, no acute distress. SKIN: Focused skin assessment warm/dry. No wounds or signs of infection. HEAD: Atraumatic. Normocephalic. EYES: Pupils equal and round. No scleral icterus. ENT: Mucous membranes pink and moist. NECK: Trachea midline. No JVD. CARDIOVASCULAR: Regular rate and rhythm. No murmur appreciated. RESPIRATORY: No accessory muscle use. Clear to auscultation. Breath sounds equal bilaterally. GASTROINTESTINAL: Abdomen moderately distended, mild diffuse tenderness to palpation. No rebound or guarding. MUSCULOSKELETAL: No obvious deformities. No clubbing. No cyanosis. No edema. NEUROLOGICAL: Awake and alert. No obvious cranial nerve deficits. Motor grossly within normal limits. Normal speech. PSYCHIATRIC: Appropriate mood and affect; insight and judgment normal. Data Data Last Documented VS Vital Signs Date Time Temp Pulse Resp B/P (MAP) Pulse Ox O2 Delivery O2 Flow Rate FiO2 06/01/17 16:03 06/01/17 15:51 74 16 98 Room Air 06/01/17 13:18 98.6 Orders Orders Complete Blood Count With Diff (06/01/17 10:32) Comprehensive Metabolic Panel (06/01/17 10:32) Lipase (06/01/17 10:32) Lactic Acid (06/01/17 10:32) Prothrombin Time / Inr (Pt) (06/01/17 10:32) Act Partial Throm Time (Ptt) (06/01/17 10:32) Iv Access Insert/Monitor (06/01/17 10:32) Ecg Monitoring (06/01/17 10:32) Oximetry (06/01/17 10:32) Morphine Inj (Morphine Inj) (06/01/17 10:45) Ondansetron Inj (Zofran Inj) (06/01/17 10:45) Sodium Chloride 0.9% Flush (Ns Flush) (06/01/17 10:45) Ct Abd/Pel W Iv Contrast(Rout) (06/01/17 ) Lactic Acid Sepsis Protocol (06/01/17 12:35) Oxycodone (Roxicodone) (06/01/17 13:00) Iohexol 350 Inj (Omnipaque 350 Inj) (06/01/17 14:27) Oxycodone (Roxicodone) (06/01/17 16:00) Ed Discharge Order (06/01/17 15:50) Labs Laboratory Tests Test 06/01/17 10:55 06/01/17 12:15 White Blood Count 10.2 TH/MM3 Red Blood Count 4.03 MIL/MM3 Hemoglobin 11.1 GM/DL Hematocrit 33.4 % Mean Corpuscular Volume 82.9 FL Mean Corpuscular Hemoglobin 27.6 PG Mean Corpuscular Hemoglobin Concent 33.3 % Red Cell Distribution Width 16.8 % Platelet Count 99 TH/MM3 Mean Platelet Volume 7.7 FL Neutrophils (%) (Auto) 92.0 % Lymphocytes (%) (Auto) 2.6 % Monocytes (%) (Auto) 5.2 % Eosinophils (%) (Auto) 0.1 % Basophils (%) (Auto) 0.1 % Neutrophils # (Auto) 9.4 TH/MM3 Lymphocytes # (Auto) 0.3 TH/MM3 Monocytes # (Auto) 0.5 TH/MM3 Eosinophils # (Auto) 0.0 TH/MM3 Basophils # (Auto) 0.0 TH/MM3 CBC Comment AUTO DIFF Differential Total Cells Counted 100 Neutrophils % (Manual) 82 % Band Neutrophils % 11 % Lymphocytes % 1 % Monocytes % 5 % Neutrophils # (Manual) 9.6 TH/MM3 Metamyelocytes 1 % Differential Comment FINAL DIFF MANUAL Platelet Estimate LOW Platelet Morphology Comment NORMAL Keratocytes OCC Red Cell Morphology Comment Prothrombin Time 12.6 SEC Prothromb Time International Ratio 1.2 RATIO Activated Partial Thromboplast Time 27.3 SEC Blood Urea Nitrogen 23 MG/DL Creatinine 1.15 MG/DL Random Glucose 226 MG/DL Total Protein 6.3 GM/DL Albumin 2.3 GM/DL Calcium Level 7.9 MG/DL Alkaline Phosphatase 112 U/L Aspartate Amino Transf (AST/SGOT) 42 U/L Alanine Aminotransferase (ALT/SGPT) 33 U/L Total Bilirubin 1.8 MG/DL Sodium Level 132 MEQ/L Potassium Level 4.3 MEQ/L Chloride Level 101 MEQ/L Carbon Dioxide Level 23.0 MEQ/L Anion Gap 8 MEQ/L Estimat Glomerular Filtration Rate 65 ML/MIN Lactic Acid Level 2.3 mmol/L 2.0 mmol/L Lipase 106 U/L MDM Medical Decision Making Medical Screen Exam Complete: Yes Emergency Medical Condition: Yes Medical Record Reviewed: Yes Differential Diagnosis Worsening ascites versus reaction to Harvoni treatment versus pneumonia versus viral illness Narrative Course Patient is a 61-year-old male with history of ascites from alcoholic liver disease as well as hepatitis C. Comes in complaining of abdominal pain with body aches, cough, congestion. Exam shows abdomen to be mildly distended, there is minimal tenderness, mostly distractible. IV established, labs sent. Labs do show an elevated neutrophil count. Patient given pain medicine. CT abdomen and pelvis performed shows likely developing pneumonia. Patient be treated with azithromycin. Discharge with prescription for azithromycin as well as oxycodone. Advised follow-up with his doctors. Advised return to the ED as needed for any worsening symptoms. Last 24 hours Impressions Abdomen/Pelvis CT 06/01/17 0000 Signed Impressions: Service Date/Time: Thursday, June 01, 2017 14:24 - CONCLUSION: 1. Mild patchy airspace disease in the right lower lobe which may reflect atelectasis although developing pneumonia or aspiration cannot be excluded in the appropriate setting. 2. Cirrhotic liver with portal hypertension including splenomegaly and moderate-large amount of ascites. 3. Small periumbilical hernia containing ascites fluid. 4. Large right inguinal hernia containing ascites fluid extending to the testicle. 5. Mild sigmoid diverticulosis. Brooks Bobby MD Diagnosis Primary Impression: Pneumonia Qualified Codes: J18.1 - Lobar pneumonia, unspecified organism Patient Instructions: Bacterial Pneumonia (ED), General Instructions Additional Instructions: Follow up with your doctors. Take all of your antibiotics. Return at any time for any worsening symptoms. Scripts Oxycodone (Oxycodone) 5 Mg Tab 5 MG PO Q6H Y for PAIN, #12 TAB 0 Refills Prov: Maribel Rea MD 06/03/17 Azithromycin (Zithromax Z-Navneet) 250 Mg Dspk 250 MG PO DIRECTED for Infection, #1 DSPK 0 Refills 500 MG (2 tabs) day 1, then 1 tab days 2-5. Prov: Maribel Rea MD 06/01/17 Disposition: 01 DISCHARGE HOME Condition: Stable Maribel Rea MD Jun 01, 2017 15:48
[2017-06-01 15:51] VITALS: BP 109/54; PULSE 74; RESP 16; O2SAT 98
[2017-06-03] MEDS ORDERED: OXYC-392 PO (13:31)
== END 2017-06-01 16:24 | disposition home or self-care (01) ==
LOC: NEPE 10:19
DX: J18.1 Lobar pneumonia, unspecified organism (principal); B19.20 Unspecified viral hepatitis C without hepatic coma; K70.31 Alcoholic cirrhosis of liver with ascites; R05 Cough; R06.02 Shortness of breath; E11.9 Type 2 diabetes mellitus without complications; I10 Essential (primary) hypertension
CPT/HCPCS: 74177; 80053; 83605; 83690; 85007; 85027; 85610; 85730; 96374; 96375; 99284; J2270; J2405; Q9967